=== PATIENT | male | born 1955 | race Caucasian/White ===

== ENCOUNTER → 2017-01-29 | Outpatient (CLI) | payer BC ==
[2017-01-29 10:22] LABS: CHLORIDE,CL 102 mmol/L (98-110); SODIUM,NA 138 mmol/L (136-146)
--- NOTE | 2017-01-29 12:36 | CR ---
EXAMINATION: Two-view chest (PA and Lateral views). HISTORY: Preprocedural encounter. FINDINGS: The trachea is midline. The cardiomediastinal silhouette is within normal limits. No pulmonary infil trates, effusions or pneumothorax. There is mild hyperinflation and interstitial prominence. There is a possible 1 cm nodule within the upper lungs anteriorly on the lateral film. Osseous structures appear unremarkable. IMPRESSION: 1. No acute cardiopulmonary process. 2. Possible small 1 cm nodule in an upper lung on the lateral image. Correlation with a CT may be be neficial.
== END ==
LOC: MW.CHFP 09:13
PROVIDERS: ATTEND Nurse Practitioner Family
DX: Z01.818 Encounter for other preprocedural examination (principal); I10 Essential (primary) hypertension
CPT/HCPCS: 36415; 71020; 80053; 80061; 85027; 86803; 93005; G0103

== ENCOUNTER → 2017-02-05 | Outpatient (CLI) | payer BC ==
--- NOTE | 2017-02-07 17:55 | ECHO ---
EXAM DATE: 02/05/17 The echocardiogram report can be seen in this patient's EMR (Electronic Medical Record) in the Reports section. PEDRO LUIS
== END ==
LOC: MW.US 09:12
PROVIDERS: ATTEND Nurse Practitioner Family
DX: R09.89 Other specified symptoms and signs involving the circulatory and respiratory systems (principal)
CPT/HCPCS: 93306

== ENCOUNTER → 2017-02-25 | Outpatient (CLI) | payer BC ==
[2017-02-25 10:08] LABS: CHLORIDE,CL 103 mmol/L (98-110); SODIUM,NA 140 mmol/L (136-146)
== END ==
LOC: MW.CHIM 09:26
PROVIDERS: ATTEND Internal Medicine
DX: I10 Essential (primary) hypertension (principal)
CPT/HCPCS: 36415; 80053; 82550

== ENCOUNTER 2017-03-15 14:14 | Emergency (ER) | payer BC ==
--- NOTE | 2017-03-15 15:12 | EDM.PDOC ---
ED HPI GENERAL MEDICAL PROBLEM - General Chief Complaint: General Stated Complaint: R LEG NUMBNESS Time Seen by Provider: 03/15/17 14:17 Source of Information: Reports: Patient, Family History Limitations: Reports: No Limitations - History of Present Illness INITIAL COMMENTS - FREE TEXT/NARRATIVE: History of present illness: [61-year-old male presenting with complaints of numbness to his right leg. Indicates it's primarily from the knee down.] Review of systems: As per history of present illness and below otherwise all systems reviewed and negative. Past medical history: As per history of present illness and as reviewed below otherwise noncontributory. Surgical history: As per history of present illness and as reviewed below otherwise noncontributory. Social history: No reported history of drug or alcohol abuse. Family history: As per history of present illness and as reviewed below otherwise noncontributory. Physical exam: HEENT: Atraumatic, normocephalic, pupils reactive, negative for conjunctival pallor or scleral icterus, mucous membranes moist, throat clear, neck supple, nontender, trachea midline. Lungs: Clear to auscultation, breath sounds equal bilaterally, chest nontender. Heart: S1S2, regular, negative for clicks, rubs, or JVD. Abdomen: Soft, nondistended, nontender. Negative for masses or hepatosplenomegaly. Negative for costovertebral tenderness. Pelvis: Stable nontender. Genitourinary: Deferred. Rectal: Deferred. Extremities: Atraumatic, negative for cords or calf pain. Neurovascular unremarkable. Neuro: Awake, alert, oriented. Cranial nerves II through XII unremarkable. Cerebellum unremarkable. Motor and sensory unremarkable throughout. Exam nonfocal. Global assessment is benign save that is the subjective complaint as noted in history of present illness. X-ray showing some scoliosis as well as some atherosclerotic disease and also grade 1 anterolisthesis and a lumbar spine with associated joint degenerative changes. Diagnostics: [X-ray lumbar spine, venous Doppler of right leg CBC, CMP] Therapeutics: [] Impression: [Lower back pain] Plan: [Followup with primary] Definitive disposition and diagnosis as appropriate pending reevaluation and review of above. - Related Data Allergies Allergy/AdvReac Type Severity Reaction Status Date / Time No Known Allergies Allergy Verified 03/15/17 14:26 Home Meds: Home Meds Esomeprazole [NexIUM] 40 mg PO DAILY 07/06/15 [History] amLODIPine [Norvasc] 10 mg PO DAILY 03/15/17 [History] Past Medical History - Past Health History Medical/Surgical History: Denies Medical/Surgical History Cardiovascular History: Reports: Hypertension Gastrointestinal History: Reports: GERD Other Gastrointestinal History: Claimed to have severe ulcer Genitourinary History: Reports: Renal Calculus - Infectious Disease History Infectious Disease History: Reports: Chicken Pox, Measles, Mumps Social & Family History - Family History Family Medical History: Noncontributory - Tobacco Use Smoking Status *Q: Current Every Day Smoker Years of Tobacco use: 30 Packs/Tins Daily: 0.5 Used Tobacco, but Quit: No Second Hand Smoke Exposure: Yes - Caffeine Use Caffeine Use: Reports: Coffee Caffeine Use Comment: 2-3/day - Alcohol Use Days Per Week of Alcohol Use: 7 Number of Drinks Per Day: 2 Total Drinks Per Week: 14 - Recreational Drug Use Recreational Drug Use: No ED ROS GENERAL - Review of Systems Review Of Systems: See Below (See history of present illness) ED EXAM, GENERAL - Physical Exam Exam: See Below (See history of present illness) Course - Vital Signs Last Recorded V/S: Last Vital Signs Temp 36.6 C 03/15/17 14:23 Pulse 98 03/15/17 14:23 Resp 20 03/15/17 14:23 BP 144/93 H 03/15/17 14:23 Pulse Ox 94 L 03/15/17 14:23 Departure - Departure Time of Disposition: 16:50 Disposition: Home, Self-Care 01 Condition: good Clinical Impression: Low back pain - Discharge Information Additional Instructions: The following information is given to patients seen in the emergency department who are being discharged to home. This information is to outline your options for follow-up care. We provide all patients seen in our emergency department with a follow-up referral. The need for follow-up, as well as the timing and circumstances, are variable depending upon the specifics of your emergency department visit. If you don't have a primary care physician on staff, we will provide you with a referral. We always advise you to contact your personal physician following an emergency department visit to inform them of the circumstance of the visit and for follow-up with them and/or the need for any referrals to a consulting specialist. The emergency department will also refer you to a specialist when appropriate. This referral assures that you have the opportunity for follow-up care with a specialist. All of these measure are taken in an effort to provide you with optimal care, which includes your follow-up. Under all circumstances we always encourage you to contact your private physician who remains a resource for coordinating your care. When calling for follow-up care, please make the office aware that this follow-up is from your recent emergency room visit. If for any reason you are refused follow-up, please contact the [facility] Emergency Department at and asked to speak to the emergency department charge nurse. Followup the primary care Return to ED as needed as discussed
[2017-03-15 16:03] LABS: CHLORIDE,CL 97 mmol/L (98-110); SODIUM,NA 132 mmol/L (136-146)
--- NOTE | 2017-03-15 16:45 | US ---
EXAM DATE: 03/15/17 PATIENT'S AGE: 61 Patient: SUJATA GARCIA Facility: [place], [place] Site . Site : 1955 Study: US Extremity Right [id number]/2/2017 3:56:44 PM Ordering Physician: Doctor Sanders Final Report: INDICATION: Right leg pain. Right leg pain x8 months, increasing numbness today. TECHNIQUE: Ultrasound venous duplex lower right extremity. Compression venous exam was performed using ying-scale, color Doppler, and spectral Doppler imaging. COMPARISON: None FINDINGS: Visualized right common femoral, greater saphenous, deep femoral, superficial femoral, popliteal, tibial and peroneal veins are patent, without evidence of venous thrombosis. Soft tissues elsewhere as imaged are unremarkable. IMPRESSION: No right lower extremity deep venous thrombosis. Dictated by Mihir Clemens MD @ 03/15/2017 4:11:21 PM Dictated by: Mihir Clemens MD @ 03/15/2017 16:11:25 (Electronic Signature) Report Signed by Proxy. [facility]
--- NOTE | 2017-03-15 16:46 | CR ---
EXAM DATE: 03/15/17 PATIENT'S AGE: 61 Patient: SUJATA GARCIA Facility: [place], [place] Site . Site : 1955 Study: XRay Spine Lumbar [id number] 4:01:26 PM Ordering Physician: Doctor Sanders Final Report: INDICATION: pain TECHNIQUE: Lumbar spine 3 view COMPARISON: None FINDINGS: Bones: No fractures or significant bone lesions. Joints: Dextro rotoscoliosis of the lumbar spine centered at the L3 level with associated degenerative changes. Grade 1 anterolisthesis of L2 on L3. Soft tissues: Atherosclerotic disease. IMPRESSION: No acute bony abnormality of the lumbar spine. Dictated by Gagandeep Macias MD @ 03/15/2017 4:21:54 PM Dictated by: Gagandeep Macias MD @ 03/15/2017 16:22:00 (Electronic Signature) Report Signed by Proxy. PEDRO LUIS
[2017-03-15 17:17] VITALS: BP 140/94
== END 2017-03-15 17:10 | disposition home or self-care (01) ==
LOC: MW.ED 14:14
DX: M54.5 Low back pain (principal); I10 Essential (primary) hypertension; K21.9 Gastro-esophageal reflux disease without esophagitis; F17.210 Nicotine dependence, cigarettes, uncomplicated; Z79.899 Other long term (current) drug therapy
CPT/HCPCS: 36415; 72100; 72100-26; 80053; 83036; 85025; 93971-26-RT; 93971-RT; 99282; 99284-25

== ENCOUNTER 2018-01-08 08:58 | Day surgery (SDC) | payer BC ==
[~2018-01-08 08:58] MED LIST: Bupivacaine 0.25%/EPINEPHrine 1:200,000 10 ML SDV INJECT ONE; Bupivacaine 25%/EPINEPHrine/PF 30 ML ONE; Dexamethasone/Tobramycin 0.1-0.3% Ophth Oint 3.5 GM Tube ONE; Dexamethasone/Tobramycin 0.1-0.3% Ophth Susp 2.5 ML Bottle ONE; Lactated Ringers 1,000 ML IV SCH; Tetracaine 0.5% Ophth Soln 15 ML Bottle ONE; ceFAZolin 2 GM in Premix Bag 1 BAG IV ONE; traMADol 50 MG Tab PO PRN
[2018-01-08] MEDS ORDERED: Midazolam 1 MG/ML 2 ML SDV ONE (09:04)
[2018-01-08] MEDS ORDERED: Lidocaine 2% 5 ML SDV ONE (09:04)
[2018-01-08] MEDS ORDERED: Propofol 200 MG/20 ML SDV ONE ×2 (09:04→09:49)
[2018-01-08] MEDS ORDERED: fentaNYL 100 MCG/2 ML SDV ONE ×2 (09:04→10:00)
[2018-01-08] MEDS ORDERED: ceFAZolin/Dextrose,Iso-Osmotic 2 GM/50 ML Duplex Bag IV ONE (09:35)
--- NOTE | 2018-01-08 09:42 | PCM.HP ---
H&P History of Present Illness - General Date of Service: 01/08/18 Admit Problem/Dx: dermatochalasis bilateral upper lids Source of Information: Patient, Old Records, RN History Limitations: Reports: No Limitations - History of Present Illness Initial Comments - Free Text/Narative: bilateral excess upper eyelid skin causing visual obstruction. Here for removal of the excess skin. Risks and benefits reviewed and informed consent obtained. Onset of Symptoms: Reports: Gradual Duration of Symptoms: Reports: Getting Worse Location: Reports: Face Severity: Severe Improves with: Reports: None Worsens with: Reports: None Associated Symptoms: Reports: No Other Symptoms - Related Data Allergies/Adverse Reactions: Allergies Allergy/AdvReac Type Severity Reaction Status Date / Time No Known Allergies Allergy Verified 01/03/18 07:15 Home Medications: Home Meds Esomeprazole [NexIUM] 40 mg PO DAILY 07/06/15 [History] amLODIPine [Norvasc] 10 mg PO BEDTIME 03/15/17 [History] Past Medical History - Past Health History Medical/Surgical History: Denies Medical/Surgical History HEENT History: Reports: Cataract, Other (See Below) Other HEENT History: has upper and lower dentures Cardiovascular History: Reports: Hypertension Respiratory History: Reports: Other (See Below) Other Respiratory History: being tested for sleep apnea soon Gastrointestinal History: Reports: GERD, PUD Other Gastrointestinal History: Claimed to have severe ulcer Genitourinary History: Reports: Renal Calculus Musculoskeletal History: Reports: Neck Pain, Chronic - Infectious Disease History Infectious Disease History: Reports: Chicken Pox, Measles, Mumps - Past Surgical History HEENT Surgical History: Reports: Cataract Surgery GI Surgical History: Reports: Appendectomy, Colonoscopy Social & Family History - Family History Family Medical History: Noncontributory - Tobacco Use Smoking Status *Q: Former Smoker Years of Tobacco use: 30 Packs/Tins Daily: 0.5 Used Tobacco, but Quit: No Tobacco Use Comment: quit 6 months ago Second Hand Smoke Exposure: Yes - Caffeine Use Caffeine Use: Reports: Coffee Caffeine Use Comment: 2-3/day - Alcohol Use Days Per Week of Alcohol Use: 7 Number of Drinks Per Day: 2 Total Drinks Per Week: 14 - Recreational Drug Use Recreational Drug Use: No Drug Use in Last 12 Months: No H&P Review of Systems - Review of Systems: Review Of Systems: See Below General: Reports: No Symptoms HEENT: Reports: No Symptoms Pulmonary: Reports: No Symptoms Cardiovascular: Reports: No Symptoms Skin: Reports: No Symptoms Psychiatric: Reports: No Symptoms Neurological: Reports: No Symptoms Exam - Exam Exam: See Below - Vital Signs Vital Signs: Last Vital Signs Temp 98.2 F 01/08/18 09:26 Pulse 89 01/08/18 09:26 Resp 16 01/08/18 09:26 BP 146/96 H 01/08/18 09:27 Pulse Ox 92 L 01/08/18 09:26 Weight: 216 lb - Exam General: Alert, Oriented, Cooperative HEENT: EOMI, Pupils Equal, Pupils Reactive, Other (neck stiffness today. Bilaterl dermatochalasis with visual obstruction - significant visual compromise with MRD's of 0 to negative values. Visual field examws with significnat compromise. ) Neck: Supple Lungs: Clear to Auscultation, Normal Respiratory Effort Cardiovascular: Regular Rate, Regular Rhythm Extremities: Normal Inspection Skin: Warm, Dry, Intact Neurological: Cranial Nerves Intact Neuro Extensive - Mental Status: Alert, Oriented x3, Normal Mood/Affect, Normal Cognition, Memory Intact Psychiatric: Alert, Normal Affect, Normal Mood *Q Meaningful Use (ADM) - VTE *Q VTE Anticoagulation Contraindications: Med/TX Not Indicated/Need - VTE Risk Assess *Q Each Risk Factor Represents 1 Point: Minor Surgery Planned Total Score 1 Point Risk Factors: 1 Each Risk Factor Represents 2 Points: Age 60 - 74 Years Total Score 2 Point Risk Factors: 2 Each Risk Factor Represents 3 Points: None Total Score 3 Point Risk Factors: 0 Each Risk Factor Represents 5 Points: None Total Score 5 Point Risk Factors: 0 Venous Thromboembolism Risk Factor Score *Q: 3 - Stroke *Q Anticoagulation Contraindications Stroke *Q: Med/TX Not Indicated/Need Antithrombotic Contraindications Stroke *Q: Med/TX Not Indicated/Need Thrombolytic/Fibrinolytic Contraindications Stroke *Q: Med/TX Not Indicated/Need Statin Contraindications Stroke *Q: Med/TX Not Indicated/Need Rehabilitation Assessment Contraindication *Q: Med/tx not indicated/need - AMI *Q Aspirin Contraindications AMI *Q: Med/TX Not Indicated/Need Thrombolytic/Fibrinolytic Contraindications IV (AMI) *Q: Med/tx not indicated/ need Statin Contraindications AMI *Q: Med/TX Not Indicated/Need Problem List Initiated/Reviewed/Updated: Yes Orders Last 24hrs: Active Orders 24 hr Category Date Time Status Verify Patient Consent Obtain [RC] ASDIRECTED Care 01/08/18 08:00 Active Nothing Per Oral Diet [DIET] Diet 01/08/18 Breakfast Active Lactated Ringers [Ringers, Lactated] 1,000 ml Med 01/08/18 08:00 Active IV ASDIRECTED traMADol [Ultram] Med 01/08/18 08:00 Active 50 mg PO Q4H PRN Resuscitation Status Routine Resus Stat 01/07/18 18:52 Ordered Medication Orders Lactated Ringer's (Ringers, Lactated) 1,000 mls @ 125 mls/hr IV ASDIRECTED HAYDEE Last Admin: 01/08/18 09:24 Dose: 125 mls/hr Tramadol HCl (Ultram) 50 mg PO Q4H PRN PRN Reason: Pain Assessment/Plan Comment:: To OR today for bilateral upper lid bleopharoplasties for excess skin. Informed consent obtained. Local MAC anesthesia.
[2018-01-08] MEDS ORDERED: diphenhydrAMINE 50 MG/ML SDV ONE (09:59)
[2018-01-08] MEDS ORDERED: hydrALAZINE 20 MG/ML SDV IVPUSH SCH (10:45)
--- NOTE | 2018-01-08 10:48 | PCM48HPAN ---
Post Anesthesia Note - EVALUATION WITHIN 48HRS OF ANESTHETIC Vital Signs in Normal Range: Yes Patient Participated in Evaluation: Yes Respiratory Function Stable: Yes Airway Patent: Yes Cardiovascular Function Stable: Yes (elevated BP treated with hydralazine) Hydration Status Stable: Yes Pain Control Satisfactory: Yes Nausea and Vomiting Control Satisfactory: Yes Mental Status Recovered: Yes Resp Rate: 16 - COMMENTS/OBSERVATIONS Free Text/Narrative:: Persistent elevation of diastolic BP treated with hydralazine. Patient planned appointment with neurology physician assistant this week.
--- NOTE | 2018-01-08 11:29 | PCM.PREANE ---
Preanesthetic Assessment - Anesthesia/Transfusion/Family Hx Anesthesia History: Prior Anesthesia Without Reaction Family History of Anesthesia Reaction: No Transfusion History: No Prior Transfusion(s) Intubation History: Unknown - Review of Systems General: No Symptoms Pulmonary: No Symptoms Cardiovascular: No Symptoms Gastrointestinal: No Symptoms Neurological: No Symptoms Other: Reports: None - Physical Assessment O2 Sat by Pulse Oximetry: 92 Respiratory Rate: 16 Vital Signs: Last Vital Signs Temp 36.8 C 01/08/18 09:26 Pulse 89 01/08/18 09:26 Resp 16 01/08/18 10:48 BP 146/96 H 01/08/18 09:27 Pulse Ox 92 L 01/08/18 09:26 Height: 1.91 m Weight: 97.976 kg ASA Class: 2 Mental Status: Alert & Oriented x3 Airway Class: Mallampati = 2 Dentition: Reports: Normal Dentition Thyro-Mental Finger Breadths: 3 Mouth Opening Finger Breadths: 3 ROM/Head Extension: Full Lungs: Clear to Auscultation, Normal Respiratory Effort Cardiovascular: Regular Rate, Regular Rhythm - Allergies Allergies/Adverse Reactions: Allergies Allergy/AdvReac Type Severity Reaction Status Date / Time No Known Allergies Allergy Verified 01/03/18 07:15 - Blood Blood Available: No Product(s) Available: None - Acknowledgements Anesthesia Type Planned: MAC Pt an Appropriate Candidate for the Planned Anesthesia: Yes Alternatives and Risks of Anesthesia Discussed w Pt/Guardian: Yes Pt/Guardian Understands and Agrees with Anesthesia Plan: Yes PreAnesthesia Questionnaire - Past Health History Medical/Surgical History: Denies Medical/Surgical History HEENT History: Reports: Cataract, Other (See Below) Other HEENT History: has upper and lower dentures Cardiovascular History: Reports: Hypertension Respiratory History: Reports: Other (See Below) Other Respiratory History: being tested for sleep apnea soon Gastrointestinal History: Reports: GERD, PUD Other Gastrointestinal History: Claimed to have severe ulcer Genitourinary History: Reports: Renal Calculus Musculoskeletal History: Reports: Neck Pain, Chronic - Infectious Disease History Infectious Disease History: Reports: Chicken Pox, Measles, Mumps - Past Surgical History HEENT Surgical History: Reports: Cataract Surgery GI Surgical History: Reports: Appendectomy, Colonoscopy - SUBSTANCE USE Smoking Status *Q: Former Smoker Tobacco Use Within Last Twelve Months: Cigarettes Second Hand Smoke Exposure: Yes Days Per Week of Alcohol Use: 7 Number of Drinks Per Day: 2 Total Drinks Per Week: 14 Recreational Drug Use History: No - HOME MEDS Home Medications: Home Meds Esomeprazole [NexIUM] 40 mg PO DAILY 07/06/15 [History] amLODIPine [Norvasc] 10 mg PO BEDTIME 03/15/17 [History] Acetaminophen/HYDROcodone [Maurice 325-5 MG] 1 tab PO Q4H PRN #30 tablet 01/08/18 [Rx] - CURRENT (IN HOUSE) MEDS Current Meds: Current Medications Hydralazine HCl (Apresoline) 10 mg IVPUSH .ONETIME [facility] Last Admin: 01/08/18 11:00 Dose: 10 mg Lactated Ringer's (Ringers, Lactated) 1,000 mls @ 125 mls/hr IV ASDIRECTED [facility] Last Admin: 01/08/18 09:24 Dose: 125 mls/hr Tramadol HCl (Ultram) 50 mg PO Q4H PRN PRN Reason: Pain Discontinued Medications Bupivacaine HCl/Epinephrine Bitart (Marcaine 0.25%/Epinephrine 1:200,000) 10 ml INJECT ONETIME ONE Stop: 01/08/18 08:01 Cefazolin Sodium/Dextrose (Ancef) Confirm Administered Dose 2 gm IV .STK-MED ONE Stop: 01/08/18 09:36 Diphenhydramine HCl (Benadryl) Confirm Administered Dose 50 mg .ROUTE .STK-MED ONE Stop: 01/08/18 10:00 Fentanyl (Sublimaze) Confirm Administered Dose 100 mcg .ROUTE .STK-MED ONE Stop: 01/08/18 09:05 Fentanyl (Sublimaze) Confirm Administered Dose 100 mcg .ROUTE .STK-MED ONE Stop: 01/08/18 10:01 Cefazolin Sodium/Dextrose 2 gm (/ Premix) 50 mls @ 100 mls/hr IV ONETIME ONE Stop: 01/08/18 08:29 Bupivacaine HCl/Epinephrine Bitart (Sensorc Mpf 0.25%-Epi [id number]) Confirm Administered Dose 30 mls @ as directed .ROUTE .STK-MED ONE Stop: 01/08/18 07:31 Lidocaine (Xylocaine-Mpf 2%) Confirm Administered Dose 5 ml .ROUTE .STK-MED ONE Stop: 01/08/18 09:05 Midazolam HCl (Versed 1 Mg/Ml) Confirm Administered Dose 2 mg .ROUTE .STK-MED ONE Stop: 01/08/18 09:05 Propofol (Diprivan 20 Ml) Confirm Administered Dose 200 mg .ROUTE .STK-MED ONE Stop: 01/08/18 09:05 Propofol (Diprivan 20 Ml) Confirm Administered Dose 200 mg .ROUTE .STK-MED ONE Stop: 01/08/18 09:50 Tetracaine (Tetracaine 0.5% Ophth Soln) Confirm Administered Dose 15 ml .ROUTE .STK-MED ONE Stop: 01/08/18 07:31 Tobramycin/Dexamethasone (Tobradex Ophth Susp) Confirm Administered Dose 2.5 ml .ROUTE .STK-MED ONE Stop: 01/08/18 07:31 Tobramycin/Dexamethasone (Tobradex Ophth Oint) Confirm Administered Dose 3.5 gm .ROUTE .STK-MED ONE Stop: 01/08/18 07:31
[2018-01-08 13:22] VITALS: BP 147/95
--- NOTE | 2018-01-08 16:18 | PCM.OPNOTE ---
- General Post-Op/Procedure Note Date of Surgery/Procedure: 01/08/18 Operative Procedure(s): bilateral upper lid blepharoplasties for excess skin Pre Op Diagnosis: dermatochalasis bilateral Post-Op Diagnosis: Same Anesthesia Technique: Local, MAC Primary Surgeon: Jacqueline Damico Environmental Sampler: Olinda Bai Role of Environmental Sampler: retraction, prepping draping and closure assistance Condition: Good Free Text/Narrative:: Intake & Output 01/08/18 01/08/18 01/08/18 07:59 15:59 23:59 Intake Total 450 Balance 450
--- NOTE | 2018-01-10 15:58 | OR ---
SURGEON: AJ LEIVA MD DATE OF PROCEDURE: 01/08/2018 PREOPERATIVE DIAGNOSIS: Bilateral upper lid dermatochalasis. POSTOPERATIVE DIAGNOSIS: Bilateral upper lid dermatochalasis. PROCEDURE: Bilateral upper lid blepharoplasties for excess skin. PODIATRIC FOOT AND ANKLE SPECIALIST: DEVYN Thompson REASON PODIATRIC FOOT AND ANKLE SPECIALIST WAS NECESSARY: Reason for assistance is for traction, prepping and draping and closure assistance. ANESTHESIA: Local MAC. INDICATIONS: Mr. Lopes is a 62-year-old gentleman with bilateral excess upper eyelid skin. Risks and benefits of blepharoplasties were discussed with him. He has had significant visual improvement with visual field tightening and has failed conservative measures. Risks were including, but not limited to, bleeding, infection, damage to underlying or overlying structures, possible need for future interventions, possible scarring. PROCEDURE IN DETAIL: After informed consent was obtained and placed on the chart, the patient was brought to operating theater and laid in supine position. After adequate local MAC anesthesia was obtained, the bilateral eyes were prepped and draped in a normal fashion. A time-out was completed to confirm side and site. Attention was then paid to marking of approximately 1 cm of maintained upper eyelid skin over the tarsus and an elliptical designed incision of a slightly over 1 cm of excess skin. Once adequately marked and pinch test confirmed sufficient skin removal without lid retraction, the area was anesthetized with 0.25% Marcaine in a field block with epinephrine. Once adequately anesthetized, attention was then paid to the elliptical excision of bilateral upper eyelid excess skin. Once adequately excised, meticulous hemostasis was obtained using Bovie electrocautery. Once adequately hemostased on both eyes, the wounds were closed with deep 4-0 Monocryl stitch and a running subcuticular 6-0 Prolene for the skin. Once both eyes were closed in a symmetric fashion, the suture ends were Steri-Stripped in place using Mastisol on one-eighth of Steri-Strips. The patient tolerated this well. All counts and needles were correct at the end of the case. FOLLOWUP INSTRUCTIONS: The patient will see us in 1 week, sooner if any problems, questions, or concerns. He was given a prescription for pain control if needed. HEGGTHE / MODL /[id number]
== END 2018-01-08 11:40 | disposition home or self-care (01) ==
LOC: MW.SDS 08:58
PROVIDERS: ATTEND Plastic Surgery
DX: H02.834 Dermatochalasis of left upper eyelid (principal); H02.831 Dermatochalasis of right upper eyelid; H02.059 Trichiasis without entropion unspecified eye, unspecified eyelid; I10 Essential (primary) hypertension; K21.9 Gastro-esophageal reflux disease without esophagitis; H26.9 Unspecified cataract; E78.5 Hyperlipidemia, unspecified; R91.1 Solitary pulmonary nodule; G62.9 Polyneuropathy, unspecified; G47.30 Sleep apnea, unspecified; M51.16 Intervertebral disc disorders with radiculopathy, lumbar region; M48.061 Spinal stenosis, lumbar region without neurogenic claudication; M47.896 Other spondylosis, lumbar region; Z79.899 Other long term (current) drug therapy; Z90.49 Acquired absence of other specified parts of digestive tract; Z98.890 Other specified postprocedural states; Z87.891 Personal history of nicotine dependence
CPT/HCPCS: 15822; J0360; J0690; J1200; J2250; J3010; J7120; 00103; A9270-GY; J2704

== ENCOUNTER 2018-07-17 11:36 | Observation (INO) | payer BC ==
[2018-07-17] MEDS ORDERED: Sodium Chloride 0.9% 2.5 ML Syringe FLUSH PRN (11:44)
[2018-07-17] MEDS ORDERED: Sodium Chloride 0.9% 10 ML Syringe FLUSH PRN (11:44)
--- NOTE | 2018-07-17 11:54 | CT ---
EXAMINATION: Non contrast CT head. Coronal and sagittal reformats. HISTORY: Stroke code FINDINGS: No evidence of intra or extra axial hemorrhage, mass, midline shift, hydrocephalus or edema. No hypoattenuation changes in the major vascular territories to suggest acute infarct. No abnormal intracranial calcifications are detected. No evidence of substantial vascular calcificat ions. Mild mucosal thickening within the ethmoid air cells. Mastoid air cells are clear. Orbits and globes are symmetric. Pituitary fossa appears unremarkable. Calvarium is intact. No evidence of skull fracture. IMPRESSION: No acute intracranial findings. The findings were called to the ER at 11:51 AM.
--- NOTE | 2018-07-17 11:56 | EDM.PDOC ---
ED HPI GENERAL MEDICAL PROBLEM - General Chief Complaint: Neuro Symptoms/Deficits Stated Complaint: CHEST PAIN Time Seen by Provider: 07/17/18 11:48 Source of Information: Reports: Patient History Limitations: Reports: No Limitations - History of Present Illness INITIAL COMMENTS - FREE TEXT/NARRATIVE: History of present illness: []Patient awoke this morning normal but at 8:00 started feeling pain in his left arm that radiated to his neck or seated to have numbness in his left hand and then noted numbness in his left face. He denied any chest pain, syncope, shortness of breath, dizziness or lightheadedness. Patient has been seen by Dr. Caal for heart rate problems but denies having atrial fibrillation. Review of systems: As per history of present illness and below otherwise all systems reviewed and negative. Past medical history: As per history of present illness and as reviewed below otherwise noncontributory. Surgical history: As per history of present illness and as reviewed below otherwise noncontributory. Social history: No reported history of drug or alcohol abuse. Family history: As per history of present illness and as reviewed below otherwise noncontributory. Physical exam: General: Well developed, well nourished in NAD HEENT: Atraumatic, normocephalic, pupils reactive, negative for conjunctival pallor or scleral icterus, mucous membranes moist, throat clear, neck supple, nontender, trachea midline. Lungs: Clear to auscultation, breath sounds equal bilaterally, chest nontender. Heart: S1S2, regular, negative for clicks, rubs, or JVD. Abdomen: Soft, nondistended, nontender. Negative for masses or hepatosplenomegaly. Negative for costovertebral tenderness. Pelvis: Stable nontender. Genitourinary: Deferred. Rectal: Deferred. Extremities: Atraumatic, negative for cords or calf pain. Neurovascular unremarkable. Neuro: Awake, alert, oriented. Cranial nerves II through XII unremarkable. Cerebellum unremarkable. Motor and sensory unremarkable throughout. Exam nonfocal. Skin:warm and dry Diagnostics: CT read as negative at 11:50, stroke code workup protocol, NIH of 1 Therapeutics: None ED Course: Patient symptoms subsided after he returned from CT Impression: TIA Prescriptions: None Plan: Admit for observation Definitive disposition and diagnosis as appropriate pending reevaluation and review of above. - Related Data Allergies Allergy/AdvReac Type Severity Reaction Status Date / Time No Known Allergies Allergy Verified 07/17/18 12:06 Home Meds: Home Meds Esomeprazole [NexIUM] 40 mg PO DAILY 07/06/15 [History] Carvedilol 6.25 mg PO DAILY 07/17/18 [History] Losartan/Hydrochlorothiazide [Losartan-HCTZ 100-25 MG] 100.25 mg PO DAILY [History] Past Medical History - Past Health History Medical/Surgical History: Denies Medical/Surgical History HEENT History: Reports: Cataract, Other (See Below) Other HEENT History: has upper and lower dentures Cardiovascular History: Reports: Hypertension Respiratory History: Reports: Other (See Below) Other Respiratory History: being tested for sleep apnea soon Gastrointestinal History: Reports: GERD, PUD Other Gastrointestinal History: Claimed to have severe ulcer Genitourinary History: Reports: Renal Calculus Musculoskeletal History: Reports: Neck Pain, Chronic - Infectious Disease History Infectious Disease History: Reports: Chicken Pox, Measles, Mumps - Past Surgical History HEENT Surgical History: Reports: Cataract Surgery GI Surgical History: Reports: Appendectomy, Colonoscopy Social & Family History - Family History Family Medical History: Noncontributory - Caffeine Use Caffeine Use: Reports: Coffee Caffeine Use Comment: 2-3/day ED ROS GENERAL - Review of Systems Review Of Systems: ROS reveals no pertinent complaints other than HPI. ED EXAM, NEURO - Physical Exam Exam: See Below (See history of present illness) Course - Vital Signs Last Recorded V/S: Last Vital Signs Temp 96.9 F 07/17/18 14:39 Pulse 82 07/17/18 14:39 Resp 16 07/17/18 14:39 BP 175/107 H 07/17/18 14:30 Pulse Ox 94 L 07/17/18 14:39 - Orders/Labs/Meds Orders: Active Orders 24 hr Category Date Time Status Assess Neurological Status [RC] Q12H Care 07/17/18 11:45 Active Bedrest [RC] ASDIRECTED Care 07/17/18 11:45 Active NIH Stroke Scale [RC] ASDIRECTED Care 07/17/18 11:45 Active Nursing Bedside Swallow Screen [RC] ASDIRECTED Care 07/17/18 11:45 Active Stroke Education, General [RC] Click to Edit Care 07/17/18 11:45 Active Sodium Chloride 0.9% [Saline Flush] Med 07/17/18 11:44 Active 10 ml FLUSH ASDIRECTED PRN Sodium Chloride 0.9% [Saline Flush] Med 07/17/18 11:44 Active 2.5 ml FLUSH ASDIRECTED PRN Peripheral IV Insertion Adult [OM.PC] Stat Ot 07/17/18 11:45 Ordered Peripheral IV Insertion Adult [OM.PC] Stat Ot 07/17/18 11:45 Ordered Medication Orders Acetaminophen (Tylenol) 650 mg PO Q4H PRN PRN Reason: Pain (Mild 1-3)/fever Aspirin (Aspirin) 81 mg PO DAILY [facility] Atorvastatin Calcium (Lipitor) 40 mg PO BEDTIME [facility] Enoxaparin Sodium (Lovenox) 40 mg SUBCUT Q24H [facility] Folic Acid (Folic Acid) 1 mg PO DAILY [facility] Sodium Chloride (Normal Saline) 1,000 mls @ 125 mls/hr IV ASDIRECTED [facility] Ibuprofen (Motrin) 600 mg PO Q6H PRN PRN Reason: Pain (mild 1-3) Lorazepam (Ativan) 0 mg IVPUSH Q4H PRN; Protocol PRN Reason: aggitation Ondansetron HCl (Zofran Odt) 4 mg PO Q4H PRN PRN Reason: nausea, able to take PO Ondansetron HCl (Zofran) 4 mg IVPUSH Q4H PRN PRN Reason: Nausea Sodium Chloride (Saline Flush) 10 ml FLUSH ASDIRECTED PRN PRN Reason: Keep Vein Open Sodium Chloride (Saline Flush) 2.5 ml FLUSH ASDIRECTED PRN PRN Reason: Keep Vein Open Temazepam (Restoril) 15 mg PO BEDTIME PRN PRN Reason: Sleep Thiamine HCl (Vitamin B-1) 100 mg PO DAILY [facility] Labs: Laboratory Tests 07/17/18 07/17/18 07/17/18 Range/Units 11:52 11:52 11:52 WBC 3.89 L (4.0-11.0) K/uL RBC 4.50 (4.50-5.90) M/uL Hgb 15.2 (13.0-17.0) g/dL Hct 41.6 (38.0-50.0) % MCV 92.4 (80.0-98.0) fL MCH 33.8 H (27.0-32.0) pg MCHC 36.5 (31.0-37.0) g/dL RDW Std Deviation 44.5 (28.0-62.0) fl RDW Coeff of Monisha 13 (11.0-15.0) % Plt Count 184 (150-400) K/uL MPV 8.60 (7.40-12.00) fL Neut % (Auto) 42.5 L (48.0-80.0) % Lymph % (Auto) 40.9 H (16.0-40.0) % [place] % (Auto) 8.7 (0.0-15.0) % Eos % (Auto) 6.9 (0.0-7.0) % Baso % (Auto) 1.0 (0.0-1.5) % Neut # (Auto) 1.7 (1.4-5.7) K/uL Lymph # (Auto) 1.6 (0.6-2.4) K/uL [place] # (Auto) 0.3 (0.0-0.8) K/uL Eos # (Auto) 0.3 (0.0-0.7) K/uL Baso # (Auto) 0.0 (0.0-0.1) K/uL Nucleated RBC % 0.0 /100WBC Nucleated RBCs # 0 K/uL INR 1.05 APTT 26.1 (18.6-31.3) SEC Sodium 127 L (136-148) mmol/L Potassium 3.4 L (3.5-5.1) mmol/L Chloride 88 L (98-107) mmol/L Carbon Dioxide 29.3 (21.0-32.0) mmol/L BUN 9 (7.0-18.0) mg/dL Creatinine 0.8 (0.8-1.3) mg/dL Est Cr Clr Drug Dosing 111.49 mL/min Estimated GFR (MDRD) > 60.0 ml/min Glucose 101 (74-106) mg/dL Calcium 8.6 (8.5-10.1) mg/dL Total Bilirubin 0.4 (0.2-1.0) mg/dL AST 25 (15-37) IU/L ALT 33 (14-63) IU/L Alkaline Phosphatase 63 (46-116) U/L Troponin I < 0.050 (0.000-0.056) ng/mL Total Protein 7.0 (6.4-8.2) g/dL Albumin 3.4 (3.4-5.0) g/dL Globulin 3.6 H (2.0-3.5) g/dL Albumin/Globulin Ratio 0.9 L (1.3-2.8) TSH 3rd Generation 0.83 (0.36-3.74) uIU/mL Meds: Medications Generic Name Dose Route Start Last Admin Trade Name Freq PRN Reason Stop Dose Admin Acetaminophen 650 mg 07/17/18 14:39 Tylenol PO Q4H PRN Pain (Mild 1-3)/fever Aspirin 81 mg 07/18/18 09:00 Aspirin PO DAILY [facility] Atorvastatin Calcium 40 mg 07/17/18 21:00 Lipitor PO BEDTIME [facility] Enoxaparin Sodium 40 mg 07/17/18 16:00 Lovenox SUBCUT Q24H [facility] Folic Acid 1 mg 07/17/18 15:15 Folic Acid PO DAILY [facility] Sodium Chloride 1,000 mls @ 125 mls/hr 07/17/18 14:45 Normal Saline IV ASDIRECTED [facility] Ibuprofen 600 mg 07/17/18 14:39 Motrin PO Q6H PRN Pain (mild 1-3) Lorazepam 0 mg 07/17/18 15:10 Ativan IVPUSH Q4H PRN aggitation Protocol Ondansetron HCl 4 mg 07/17/18 14:39 Zofran Odt PO Q4H PRN nausea, able to take PO Ondansetron HCl 4 mg 07/17/18 14:39 Zofran IVPUSH Q4H PRN Nausea Sodium Chloride 10 ml 07/17/18 11:44 Saline Flush FLUSH ASDIRECTED PRN Keep Vein Open Sodium Chloride 2.5 ml 07/17/18 11:44 Saline Flush FLUSH ASDIRECTED PRN Keep Vein Open Temazepam 15 mg 07/17/18 14:39 Restoril PO BEDTIME PRN Sleep Thiamine HCl 100 mg 07/17/18 15:15 Vitamin B-1 PO DAILY [facility] Discontinued Medications Generic Name Dose Route Start Last Admin Trade Name Freq PRN Reason Stop Dose Admin Carvedilol 6.25 mg 07/18/18 09:00 Coreg PO DAILY [facility] HCTZ/Losartan Potassium 2 tab 07/18/18 09:00 Hyzaar 50-12.5 Mg PO DAILY [facility] Potassium Chloride 40 meq 07/17/18 14:51 Klor-Con M20 PO 07/17/18 14:52 ONETIME ONE Departure - Departure Time of Disposition: 13:30 Disposition: Refer to Observation Clinical Impression: TIA (transient ischemic attack) - Discharge Information *PRESCRIPTION DRUG MONITORING PROGRAM REVIEWED*: No *COPY OF PRESCRIPTION DRUG MONITORING REPORT IN PATIENT KEI: No - My Orders Last 24 Hours: My Active Orders 07/17/18 11:44 Sodium Chloride 0.9% [Saline Flush] 10 ml FLUSH ASDIRECTED PRN Sodium Chloride 0.9% [Saline Flush] 2.5 ml FLUSH ASDIRECTED PRN 07/17/18 11:45 Assess Neurological Status [RC] Q12H Bedrest [RC] ASDIRECTED NIH Stroke Scale [RC] ASDIRECTED Nursing Bedside Swallow Screen [RC] ASDIRECTED Stroke Education, General [RC] Click to Edit Peripheral IV Insertion Adult [OM.PC] Stat Peripheral IV Insertion Adult [OM.PC] Stat - Assessment/Plan Last 24 Hours: My Active Orders 07/17/18 11:44 Sodium Chloride 0.9% [Saline Flush] 10 ml FLUSH ASDIRECTED PRN Sodium Chloride 0.9% [Saline Flush] 2.5 ml FLUSH ASDIRECTED PRN 07/17/18 11:45 Assess Neurological Status [RC] Q12H Bedrest [RC] ASDIRECTED NIH Stroke Scale [RC] ASDIRECTED Nursing Bedside Swallow Screen [RC] ASDIRECTED Stroke Education, General [RC] Click to Edit Peripheral IV Insertion Adult [OM.PC] Stat Peripheral IV Insertion Adult [OM.PC] Stat
[2018-07-17 12:40] LABS: CHLORIDE,CL 88 mmol/L (98-107); SODIUM,NA 127 mmol/L (136-148)
[2018-07-17] MEDS ORDERED: Ondansetron 4 MG/2 ML SDV IVPUSH PRN (14:39)
[2018-07-17] MEDS ORDERED: Temazepam 15 MG Cap PO PRN (14:39)
[2018-07-17] MEDS ORDERED: Acetaminophen 325 MG Tab PO PRN (14:39)
[2018-07-17] MEDS ORDERED: Ibuprofen 600 MG Tab PO PRN (14:39)
[2018-07-17] MEDS ORDERED: Ondansetron 4 MG Tab.DIS PO PRN (14:39)
[2018-07-17] MEDS ORDERED: Potassium Chloride 20 MEQ Tab.ER PO ONE (14:51)
[2018-07-17] MEDS ORDERED: LORazepam 2 MG/ML SDV IVPUSH PRN (15:10)
[2018-07-17] MEDS ORDERED: Enoxaparin 40 MG/0.4 ML Syringe SUBCUT SCH (16:00)
[2018-07-17] MEDS: Folic Acid 1 MG Tab PO SCH (16:55)
[2018-07-17] MEDS: Thiamine 100 MG Tab PO SCH (16:56)
[2018-07-17] MEDS ORDERED: Magnesium Sulfate/Water 2 GM in Premix Bag 1 BAG IV ONE (17:29)
--- NOTE | 2018-07-17 17:51 | PCM.HP ---
H&P History of Present Illness - General Date of Service: 07/17/18 Admit Problem/Dx: Admission Diagnosis/Problem Admission Diagnosis/Problem TIA, Transient ischemic attack - History of Present Illness Initial Comments - Free Text/Narative: Hima Lopes is a 62 y/o male with history of alcohol abuse presenting to the ER complaining of left arm numbness and tingling. Per patient and family member the patient was at home getting ready to go to work when suddenly he felt his left arm getting numb and tingling. In addition, he started feeling his left side of the brain getting numb. He denies any headache, change in vision. His was home and did not notice any acute changes in his speech or movement. The patient drinks approximately 1/2 bottle of rum per day. Denies smoking or illicit drug use. States he has a family history of heart disease. Denies any diaphoresis, chest pain, nausea, vomiting. No abdominal pain, dysuria or diarrhea. - Related Data Allergies/Adverse Reactions: Allergies Allergy/AdvReac Type Severity Reaction Status Date / Time No Known Allergies Allergy Verified 07/17/18 12:06 Home Medications: Home Meds Esomeprazole [NexIUM] 40 mg PO DAILY 07/06/15 [History] Carvedilol 6.25 mg PO DAILY 07/17/18 [History] Losartan/Hydrochlorothiazide [Losartan-HCTZ 100-25 MG] 100.25 mg PO DAILY [History] Past Medical History - Past Health History Medical/Surgical History: Denies Medical/Surgical History HEENT History: Reports: Cataract, Other (See Below) Other HEENT History: has upper and lower dentures Cardiovascular History: Reports: Hypertension Respiratory History: Reports: Other (See Below) Other Respiratory History: being tested for sleep apnea soon Gastrointestinal History: Reports: GERD, PUD Other Gastrointestinal History: Claimed to have severe ulcer Genitourinary History: Reports: Renal Calculus Musculoskeletal History: Reports: Neck Pain, Chronic Neurological History: Reports: Concussion, Migraines - Infectious Disease History Infectious Disease History: Reports: Chicken Pox, Measles, Mumps - Past Surgical History HEENT Surgical History: Reports: Cataract Surgery GI Surgical History: Reports: Appendectomy, Colonoscopy Social & Family History - Family History Family Medical History: Noncontributory - Tobacco Use Smoking Status *Q: Former Smoker Years of Tobacco use: 45 Packs/Tins Daily: 2 Used Tobacco, but Quit: Yes Month/Year Tobacco Last Used: 45 yrs Second Hand Smoke Exposure: No - Caffeine Use Caffeine Use: Reports: Coffee Caffeine Use Comment: 2-3/day - Alcohol Use Days Per Week of Alcohol Use: 7 Number of Drinks Per Day: 2 Total Drinks Per Week: 14 Date of Last Drink: 07/16/18 Time of Last Drink: 21:30 - Recreational Drug Use Recreational Drug Use: No H&P Review of Systems - Review of Systems: Review Of Systems: ROS reveals no pertinent complaints other than HPI. Exam - Exam Exam: See Below - Vital Signs Vital Signs: Last Vital Signs Temp 36.2 C 07/17/18 16:00 Pulse 77 07/17/18 16:00 Resp 16 07/17/18 16:00 BP 172/97 H 07/17/18 16:00 Pulse Ox 96 07/17/18 16:00 Weight: 104.071 kg - Exam General: Alert, Oriented, Cooperative HEENT: Conjunctiva Clear, Mucosa Moist & [place], Posterior Pharynx Clear, Pupils Equal, Pupils Reactive Neck: Full Range of Motion Lungs: Clear to Auscultation, Normal Respiratory Effort. No: Crackles, Wheezing Cardiovascular: Regular Rate, Regular Rhythm GI/Abdominal Exam: Normal Bowel Sounds, Soft, Non-Tender, No Distention Back Exam: Normal Inspection, Full Range of Motion Extremities: Normal Inspection, Normal Range of Motion, Non-Tender, No Pedal Edema Skin: Warm, Dry Neurological: Cranial Nerves Intact, Strength Equal Bilateral, Normal Gait, Normal Speech, Other (decreased sensation on his left arm. strength intact and full range of motion.) - Patient Data Lab Results Last 24 hrs: Laboratory Results - last 24 hr 07/17/18 07/17/18 07/17/18 Range/Units 11:52 11:52 11:52 WBC 3.89 L (4.0-11.0) K/uL RBC 4.50 (4.50-5.90) M/uL Hgb 15.2 (13.0-17.0) g/dL Hct 41.6 (38.0-50.0) % MCV 92.4 (80.0-98.0) fL MCH 33.8 H (27.0-32.0) pg MCHC 36.5 (31.0-37.0) g/dL RDW Std Deviation 44.5 (28.0-62.0) fl RDW Coeff of Monisha 13 (11.0-15.0) % Plt Count 184 (150-400) K/uL MPV 8.60 (7.40-12.00) fL Neut % (Auto) 42.5 L (48.0-80.0) % Lymph % (Auto) 40.9 H (16.0-40.0) % [place] % (Auto) 8.7 (0.0-15.0) % Eos % (Auto) 6.9 (0.0-7.0) % Baso % (Auto) 1.0 (0.0-1.5) % Neut # (Auto) 1.7 (1.4-5.7) K/uL Lymph # (Auto) 1.6 (0.6-2.4) K/uL [place] # (Auto) 0.3 (0.0-0.8) K/uL Eos # (Auto) 0.3 (0.0-0.7) K/uL Baso # (Auto) 0.0 (0.0-0.1) K/uL Nucleated RBC % 0.0 /100WBC Nucleated RBCs # 0 K/uL INR 1.05 APTT 26.1 (18.6-31.3) SEC Sodium 127 L (136-148) mmol/L Potassium 3.4 L (3.5-5.1) mmol/L Chloride 88 L (98-107) mmol/L Carbon Dioxide 29.3 (21.0-32.0) mmol/L BUN 9 (7.0-18.0) mg/dL Creatinine 0.8 (0.8-1.3) mg/dL Est Cr Clr Drug Dosing 111.49 mL/min Estimated GFR (MDRD) > 60.0 ml/min Glucose 101 (74-106) mg/dL Hemoglobin A1c (4.5-6.2) % Calcium 8.6 (8.5-10.1) mg/dL Magnesium (1.8-2.4) mg/dL Total Bilirubin 0.4 (0.2-1.0) mg/dL AST 25 (15-37) IU/L ALT 33 (14-63) IU/L Alkaline Phosphatase 63 (46-116) U/L Troponin I < 0.050 (0.000-0.056) ng/mL Total Protein 7.0 (6.4-8.2) g/dL Albumin 3.4 (3.4-5.0) g/dL Globulin 3.6 H (2.0-3.5) g/dL Albumin/Globulin Ratio 0.9 L (1.3-2.8) Triglycerides (0-200) mg/dL Cholesterol (50-200) mg/dL LDL Cholesterol, Calc (60-180) mg/dL VLDL Cholesterol (5-55) mg/dL HDL Cholesterol (40-60) mg/dL Cholesterol/HDL Ratio (3.3-6.0) TSH 3rd Generation 0.83 (0.36-3.74) uIU/mL 07/17/18 07/17/18 Range/Units 15:07 15:07 WBC (4.0-11.0) K/uL RBC (4.50-5.90) M/uL Hgb (13.0-17.0) g/dL Hct (38.0-50.0) % MCV (80.0-98.0) fL MCH (27.0-32.0) pg MCHC (31.0-37.0) g/dL RDW Std Deviation (28.0-62.0) fl RDW Coeff of Monisha (11.0-15.0) % Plt Count (150-400) K/uL MPV (7.40-12.00) fL Neut % (Auto) (48.0-80.0) % Lymph % (Auto) (16.0-40.0) % [place] % (Auto) (0.0-15.0) % Eos % (Auto) (0.0-7.0) % Baso % (Auto) (0.0-1.5) % Neut # (Auto) (1.4-5.7) K/uL Lymph # (Auto) (0.6-2.4) K/uL [place] # (Auto) (0.0-0.8) K/uL Eos # (Auto) (0.0-0.7) K/uL Baso # (Auto) (0.0-0.1) K/uL Nucleated RBC % /100WBC Nucleated RBCs # K/uL INR APTT (18.6-31.3) SEC Sodium (136-148) mmol/L Potassium (3.5-5.1) mmol/L Chloride (98-107) mmol/L Carbon Dioxide (21.0-32.0) mmol/L BUN (7.0-18.0) mg/dL Creatinine (0.8-1.3) mg/dL Est Cr Clr Drug Dosing mL/min Estimated GFR (MDRD) ml/min Glucose (74-106) mg/dL Hemoglobin A1c 5.8 (4.5-6.2) % Calcium (8.5-10.1) mg/dL Magnesium 1.2 L (1.8-2.4) mg/dL Total Bilirubin (0.2-1.0) mg/dL AST (15-37) IU/L ALT (14-63) IU/L Alkaline Phosphatase (46-116) U/L Troponin I (0.000-0.056) ng/mL Total Protein (6.4-8.2) g/dL Albumin (3.4-5.0) g/dL Globulin (2.0-3.5) g/dL Albumin/Globulin Ratio (1.3-2.8) Triglycerides 65 (0-200) mg/dL Cholesterol 200 (50-200) mg/dL LDL Cholesterol, Calc 121 (60-180) mg/dL VLDL Cholesterol 13 (5-55) mg/dL HDL Cholesterol 66 H (40-60) mg/dL Cholesterol/HDL Ratio 3.0 L (3.3-6.0) TSH 3rd Generation (0.36-3.74) uIU/mL Result Diagrams: 07/17/18 11:52 07/17/18 11:52 Problem List Initiated/Reviewed/Updated: Yes Orders Last 24hrs: Active Orders 24 hr Category Date Time Status Patient Status [ADT] Routine ADT 07/17/18 14:39 Active Patient Status [ADT] Stat ADT 07/17/18 12:44 Active Assess Neurological Status [RC] Q12H Care 07/17/18 11:45 Active Bedrest [RC] ASDIRECTED Care 07/17/18 11:45 Active NIH Stroke Scale [RC] ASDIRECTED Care 07/17/18 11:45 Active Nursing Bedside Swallow Screen [RC] ASDIRECTED Care 07/17/18 11:45 Active Oxygen Therapy [RC] PRN Care 07/17/18 14:39 Active Stroke Education, General [RC] Click to Edit Care 07/17/18 11:45 Active Telemetry Monitoring [Cardiac Monitoring] [RC] . Care 07/17/18 13:48 Active DIRECTED Up With Assistance [RC] ASDIRECTED Care 07/17/18 14:39 Active VTE/DVT Education [RC] PER UNIT ROUTINE Care 07/17/18 14:39 Active Vital Signs [RC] Q4H Care 07/17/18 14:39 Active OT Evaluation and Treatment [CONS] Routine Cons 07/17/18 14:39 Active PT Evaluation and Treatment [CONS] Routine Cons 07/17/18 14:39 Active [place] [employer] Diet [DIET] Diet 07/17/18 Dinner Active Brain w wo Cont [MR] Routine Exams 07/17/18 15:17 Taken CV Carotid Duplex Comp [US] Routine Exams 07/17/18 17:36 Ordered Acetaminophen [Tylenol] Med 07/17/18 14:39 Active 650 mg PO Q4H PRN Aspirin Med 07/18/18 09:00 Active 81 mg PO DAILY Enoxaparin [Lovenox] Med 07/17/18 16:00 Active 40 mg SUBCUT Q24H Folic Acid Med 07/17/18 15:15 Active 1 mg PO DAILY Ibuprofen [Motrin] Med 07/17/18 14:39 Active 600 mg PO Q6H PRN LORazepam [Ativan] Med 07/17/18 15:10 Active See Protocol IVPUSH Q4H PRN Magnesium Sulfate/Water [Magnesium Sulfate 2 GM in Med 07/17/18 17:29 Active Water 50 ML] 2 gm Premix Bag 1 bag IV ONETIME Ondansetron [Zofran ODT] Med 07/17/18 14:39 Active 4 mg PO Q4H PRN Ondansetron [Zofran] Med 07/17/18 14:39 Active 4 mg IVPUSH Q4H PRN Sodium Chloride 0.9% [Normal Saline] 1,000 ml Med 07/17/18 14:45 Active IV ASDIRECTED Sodium Chloride 0.9% [Saline Flush] Med 07/17/18 11:44 Active 10 ml FLUSH ASDIRECTED PRN Sodium Chloride 0.9% [Saline Flush] Med 07/17/18 11:44 Active 2.5 ml FLUSH ASDIRECTED PRN Temazepam [Restoril] Med 07/17/18 14:39 Active 15 mg PO BEDTIME PRN Thiamine [Vitamin B-1] Med 07/17/18 15:15 Active 100 mg PO DAILY atorvaSTATin [Lipitor] Med 07/17/18 21:00 Active 40 mg PO BEDTIME Peripheral IV Insertion Adult [OM.PC] Stat Oth 07/17/18 11:45 Ordered Peripheral IV Insertion Adult [OM.PC] Stat Oth 07/17/18 11:45 Ordered Resuscitation Status Routine Resus Stat 07/17/18 14:39 Ordered Medication Orders Acetaminophen (Tylenol) 650 mg PO Q4H PRN PRN Reason: Pain (Mild 1-3)/fever Aspirin (Aspirin) 81 mg PO DAILY [facility] Atorvastatin Calcium (Lipitor) 40 mg PO BEDTIME [facility] Enoxaparin Sodium (Lovenox) 40 mg SUBCUT Q24H [facility] Last Admin: 07/17/18 16:56 Dose: 40 mg Folic Acid (Folic Acid) 1 mg PO DAILY [facility] Last Admin: 07/17/18 16:55 Dose: 1 mg Sodium Chloride (Normal Saline) 1,000 mls @ 125 mls/hr IV ASDIRECTED [facility] Magnesium Sulfate 2 gm/ Premix 50 mls @ 25 mls/hr IV ONETIME ONE Stop: 07/17/18 19:28 Ibuprofen (Motrin) 600 mg PO Q6H PRN PRN Reason: Pain (mild 1-3) Lorazepam (Ativan) 0 mg IVPUSH Q4H PRN; Protocol PRN Reason: aggitation Ondansetron HCl (Zofran Odt) 4 mg PO Q4H PRN PRN Reason: nausea, able to take PO Ondansetron HCl (Zofran) 4 mg IVPUSH Q4H PRN PRN Reason: Nausea Sodium Chloride (Saline Flush) 10 ml FLUSH ASDIRECTED PRN PRN Reason: Keep Vein Open Sodium Chloride (Saline Flush) 2.5 ml FLUSH ASDIRECTED PRN PRN Reason: Keep Vein Open Temazepam (Restoril) 15 mg PO BEDTIME PRN PRN Reason: Sleep Thiamine HCl (Vitamin B-1) 100 mg PO DAILY [facility] Last Admin: 07/17/18 16:56 Dose: 100 mg Assessment/Plan Comment:: Assessment: 1. Transient ischemic attack 2. Hyponatremia 3. Hypokalemia 4. Hypomagnesemia 5. Alcohol abuse 6. PMH of hypertension Plan: 1. Admit as observation to medical floorl 2. Vitals and I/O's per floor routine. 3. Neuro checks Qshift 4. Diet: diabetic 5. Activity: ad jefe 6. Code status: FULL CODE 1. Transient ischemic attack- Currently stable. Symptoms improving. Ordered MRI brain and MRA neck. Started aspirin 81 mg PO daily, atorvastatin 80 mg PO daily. Holding blood pressure medications for now due to permissive hypertension. Labetalol PRN for SBP >180 or DBP>120. ordered PT/OT. 2. Hyponatremia- will give maintenance NS IV fluids and see if this corrects this. Will recheck tomorrow. 3. Hypokalemia- replaced with KCl 40 mEq PO once. will recheck. 4. Hypomagnesemia- replaced with MgS 2g IV once. will recheck. 5. Alcohol abuse- will start CIWA monitoring and lorazepam PRN for withdrawal symptoms. started folate and thiamine. Dispo: 1-2 days.
[2018-07-17] MEDS ORDERED: Labetalol 100 MG/20 ML MDV IVPUSH PRN (17:52)
[2018-07-17] MEDS: Sodium Chloride 0.9% 1,000 ML IV SCH (18:03)
[2018-07-17] MEDS ORDERED: atorvaSTATin 40 MG Tab PO SCH ×2 (21:00)
[2018-07-18] MEDS: Sodium Chloride 0.9% 1,000 ML IV SCH (04:05)
[2018-07-18 05:44] LABS: CHLORIDE,CL 93 mmol/L (98-107); SODIUM,NA 130 mmol/L (136-148)
[2018-07-18] MEDS ORDERED: Magnesium Sulfate/Water 2 GM in Premix Bag 1 BAG IV ONE (06:58)
[2018-07-18] MEDS ORDERED: Potassium Chloride 20 MEQ Tab.ER PO ONE (06:58)
[2018-07-18] MEDS ORDERED: Gadobenate Dimeglumine 529 MG/ML 20 ML SDV IVPUSH STA (07:43)
[2018-07-18] MEDS: Folic Acid 1 MG Tab PO SCH (08:47)
[2018-07-18] MEDS: Thiamine 100 MG Tab PO SCH (08:48)
[2018-07-18 08:53] VITALS: BP 130/84
[2018-07-18] MEDS ORDERED: Carvedilol 6.25 MG Tab PO SCH (09:00)
[2018-07-18] MEDS ORDERED: Hydrochlorothiazide/Losartan 12.5-50 mg Tab PO SCH (09:00)
[2018-07-18] MEDS ORDERED: Aspirin 81 MG Tab.Chew PO SCH (09:00)
--- NOTE | 2018-07-18 12:52 | MR ---
EXAM DATE: 07/17/18 PATIENT'S AGE: 62 Patient: SUJATA GARCIA Facility: [place], [place] Site . Site : [id number] Study: MRI Head W/ and W/O Cont [id number] 4:42:37 PM Ordering Physician: Sasha Maher Final Report: INDICATION: Transient ischemic attack. Left arm reduced sensation. TECHNIQUE: Multiplanar multisequence MR images were obtained through the brain prior to and following administration of intravenous contrast. COMPARISON: None. FINDINGS: The ventricles and sulci are within normal limits for patient age. No mass effect or midline shift. 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 Adjacent curvilinear enhancement may be secondary to a small developmental venous anomaly. No pathologic extra-axial fluid collection. No areas of diffusion restriction are identified to suggest acute infarction. No pathologic intracranial enhancement. The major arterial flow voids of the skullbase are preserved. Thinning of the ocular lenses secondary to prior cataract surgery. Mild mucosal thickening throughout the paranasal sinuses. Trace fluid in the left mastoid air cells. IMPRESSION: 1. No acute infarction, mass effect, or pathologic intracranial enhancement. 2. Small 4 mm focus of signal abnormality within the high anterior left frontal lobe, potentially representing a small cavernous malformation. No evidence for recent hemorrhage. Adjacent curvilinear enhancement may be secondary to a small developmental venous anomaly. Dictated by Teja Arreaga MD @ Jul 17 2018 4:44PM (Electronic Signature) Report Signed by Proxy. PEDRO LUIS
--- NOTE | 2018-07-18 15:00 | PCM.DCSUM1 ---
Discharge Summary - Hospital Course Free Text/Narrative:: Admission date:07/17/18 Discharge date: 07/18/18 Admission diagnosis: 1. Transient ischemic attack 2. Hypokalemia 3. Hypomagnesemia 4. Hypertension 5. Alcohol abuse Discharge diagnosis: 1. Transient ischemic attack, resolved 2. Hypokalemia, replaced 3. Hypomagnesemia, replaced 4. Hypertension 5. Alcohol abuse Procedures: none Consults: none Hospital course: Hima Lopes is a 62 y/o male who presented to the ER complaining of left arm numbness and decreased sensation. In addition, he endorsed that he felt his speech somewhat slurred. He was admitted for transient ischemic attack. In addition , he had Ativan PRN for withdrawal symptoms according to [facility] monitoring. He did not have any withdrawals during this hospitalization. In addition, imaging which included MRI Brain and neck did not show any acute findings of stroke or carotid stenosis. However, it did show that he has a small 4 mm focus on left side of the brain that resembles a cavernous malformation. The patient was started on aspirin, atorvastatin. At time of discharge, patient's symptoms had resolved and was fully functional. He was prescribed aspirin 81 mg PO daily, atorvastatin 80 mg PO daily and potassium chloride 20 mEq PO daily. He was instructed to avoid driving any motor vehicles until he follows-up with his primary care provider. Follow-up: 1. Primary care provider within 1-[address] Hurtado, Neurology at next available appointment. - Discharge Data Discharge Date: 07/18/18 Discharge Disposition: Home, Self-Care 01 Condition: Good - Patient Summary/Data Consults: Consultations 07/17/18 14:39 OT Evaluation and Treatment [CONS] Routine PT Evaluation and Treatment [CONS] Routine - Discharge Plan *PRESCRIPTION DRUG MONITORING PROGRAM REVIEWED*: Not Applicable *COPY OF PRESCRIPTION DRUG MONITORING REPORT IN PATIENT KEI: Not Applicable Prescriptions/Med Rec: Aspirin 81 mg PO DAILY 30 Days #30 tab.chew atorvaSTATin [Lipitor] 80 mg PO BEDTIME 30 Days #30 tablet Potassium Chloride [Klor-Con M20] 20 meq PO DAILY 30 Days #30 tab.er.prt Home Medications: Home Meds Esomeprazole [NexIUM] 40 mg PO DAILY 07/06/15 [History] Carvedilol 6.25 mg PO DAILY 07/17/18 [History] Losartan/Hydrochlorothiazide [Losartan-HCTZ 100-25 MG] 100.25 mg PO DAILY [History] Aspirin 81 mg PO DAILY 30 Days #30 tab.chew 07/18/18 [Rx] Potassium Chloride [Klor-Con M20] 20 meq PO DAILY 30 Days #30 tab.er.prt [Rx] atorvaSTATin [Lipitor] 80 mg PO BEDTIME 30 Days #30 tablet 07/18/18 [Rx] Patient Handouts: Potassium Salts tablets, extended-release tablets or capsules , Transient Ischemic Attack, [id number], Atorvastatin tablets, Aspirin, ASA oral tablets, Paresthesia, [id number] Referrals: [facility] [Outside] Maida Hurtado MD [Physician] - 07/22/18 2:00 pm Hill Walters MD [Physician] - 07/31/18 9:00 am - Patient Data Vitals - Most Recent: Last Vital Signs Temp 36.4 C 07/18/18 08:00 Pulse 74 07/18/18 08:00 Resp 16 07/18/18 08:00 BP 130/84 07/18/18 08:00 Pulse Ox 94 L 07/18/18 08:00 Weight - Most Recent: 104.071 kg I&O - Last 24 hours: Intake & Output 07/17/18 07/18/18 07/18/18 22:59 06:59 14:59 Intake Total 800 1190 2512 Output Total 0 2050 1500 Balance 800 -860 1012 Lab Results - Last 24 hrs: Laboratory Results - last 24 hr 07/17/18 07/17/18 07/18/18 Range/Units 15:07 15:07 04:50 WBC 4.39 (4.0-11.0) K/uL RBC 4.68 (4.50-5.90) M/uL Hgb 15.5 (13.0-17.0) g/dL Hct 44.0 (38.0-50.0) % MCV 94.0 (80.0-98.0) fL MCH 33.1 H (27.0-32.0) pg MCHC 35.2 (31.0-37.0) g/dL RDW Std Deviation 45.9 (28.0-62.0) fl RDW Coeff of Monisha 13 (11.0-15.0) % Plt Count 201 (150-400) K/uL MPV 9.10 (7.40-12.00) fL Neut % (Auto) 44.8 L (48.0-80.0) % Lymph % (Auto) 34.4 (16.0-40.0) % [place] % (Auto) 12.1 (0.0-15.0) % Eos % (Auto) 8.2 H (0.0-7.0) % Baso % (Auto) 0.5 (0.0-1.5) % Neut # (Auto) 2.0 (1.4-5.7) K/uL Lymph # (Auto) 1.5 (0.6-2.4) K/uL [place] # (Auto) 0.5 (0.0-0.8) K/uL Eos # (Auto) 0.4 (0.0-0.7) K/uL Baso # (Auto) 0.0 (0.0-0.1) K/uL Nucleated RBC % 0.0 /100WBC Nucleated RBCs # 0 K/uL Sodium (136-148) mmol/L Potassium (3.5-5.1) mmol/L Chloride (98-107) mmol/L Carbon Dioxide (21.0-32.0) mmol/L BUN (7.0-18.0) mg/dL Creatinine (0.8-1.3) mg/dL Est Cr Clr Drug Dosing mL/min Estimated GFR (MDRD) ml/min Glucose (74-106) mg/dL Hemoglobin A1c 5.8 (4.5-6.2) % Calcium (8.5-10.1) mg/dL Magnesium 1.2 L (1.8-2.4) mg/dL Triglycerides 65 (0-200) mg/dL Cholesterol 200 (50-200) mg/dL LDL Cholesterol, Calc 121 (60-180) mg/dL VLDL Cholesterol 13 (5-55) mg/dL HDL Cholesterol 66 H (40-60) mg/dL Cholesterol/HDL Ratio 3.0 L (3.3-6.0) 07/18/18 Range/Units 04:50 WBC (4.0-11.0) K/uL RBC (4.50-5.90) M/uL Hgb (13.0-17.0) g/dL Hct (38.0-50.0) % MCV (80.0-98.0) fL MCH (27.0-32.0) pg MCHC (31.0-37.0) g/dL RDW Std Deviation (28.0-62.0) fl RDW Coeff of Monisha (11.0-15.0) % Plt Count (150-400) K/uL MPV (7.40-12.00) fL Neut % (Auto) (48.0-80.0) % Lymph % (Auto) (16.0-40.0) % [place] % (Auto) (0.0-15.0) % Eos % (Auto) (0.0-7.0) % Baso % (Auto) (0.0-1.5) % Neut # (Auto) (1.4-5.7) K/uL Lymph # (Auto) (0.6-2.4) K/uL [place] # (Auto) (0.0-0.8) K/uL Eos # (Auto) (0.0-0.7) K/uL Baso # (Auto) (0.0-0.1) K/uL Nucleated RBC % /100WBC Nucleated RBCs # K/uL Sodium 130 L (136-148) mmol/L Potassium 3.6 (3.5-5.1) mmol/L Chloride 93 L (98-107) mmol/L Carbon Dioxide 30.0 (21.0-32.0) mmol/L BUN 8 (7.0-18.0) mg/dL Creatinine 0.8 (0.8-1.3) mg/dL Est Cr Clr Drug Dosing 114.53 mL/min Estimated GFR (MDRD) > 60.0 ml/min Glucose 109 H (74-106) mg/dL Hemoglobin A1c (4.5-6.2) % Calcium 8.5 (8.5-10.1) mg/dL Magnesium 1.7 L (1.8-2.4) mg/dL Triglycerides (0-200) mg/dL Cholesterol (50-200) mg/dL LDL Cholesterol, Calc (60-180) mg/dL VLDL Cholesterol (5-55) mg/dL HDL Cholesterol (40-60) mg/dL Cholesterol/HDL Ratio (3.3-6.0) Med Orders - Current: Current Medications Discontinued Medications Acetaminophen (Tylenol) 650 mg PO Q4H PRN PRN Reason: Pain (Mild 1-3)/fever Aspirin (Aspirin) 81 mg PO DAILY [facility] Last Admin: 07/18/18 08:48 Dose: 81 mg Atorvastatin Calcium (Lipitor) 40 mg PO BEDTIME HAYDEE Atorvastatin Calcium (Lipitor) 80 mg PO BEDTIME [facility] Last Admin: 07/17/18 20:00 Dose: 80 mg Carvedilol (Coreg) 6.25 mg PO DAILY [facility] Enoxaparin Sodium (Lovenox) 40 mg SUBCUT Q24H [facility] Last Admin: 07/17/18 16:56 Dose: 40 mg Folic Acid (Folic Acid) 1 mg PO DAILY [facility] Last Admin: 07/18/18 08:47 Dose: 1 mg Gadobenate Dimeglumine (Multihance) 20 ml IVPUSH ONETIME STA Stop: 07/18/18 07:44 Last Admin: 07/18/18 07:46 Dose: 20 ml HCTZ/Losartan Potassium (Hyzaar 50-12.5 Mg) 2 tab PO DAILY [facility] Sodium Chloride (Normal Saline) 1,000 mls @ 125 mls/hr IV ASDIRECTED [facility] Last Admin: 07/18/18 04:05 Dose: 125 mls/hr Magnesium Sulfate 2 gm/ Premix 50 mls @ 25 mls/hr IV ONETIME ONE Stop: 07/17/18 19:28 Last Admin: 07/17/18 18:04 Dose: 25 mls/hr Magnesium Sulfate 2 gm/ Premix 50 mls @ 50 mls/hr IV ONETIME ONE Stop: 07/18/18 07:57 Last Admin: 07/18/18 08:47 Dose: 50 mls/hr Ibuprofen (Motrin) 600 mg PO Q6H PRN PRN Reason: Pain (mild 1-3) Labetalol HCl (Normodyne) 20 mg IVPUSH Q10M PRN; Protocol PRN Reason: Hypertension Lorazepam (Ativan) 0 mg IVPUSH Q4H PRN; Protocol PRN Reason: aggitation Ondansetron HCl (Zofran Odt) 4 mg PO Q4H PRN PRN Reason: nausea, able to take PO Ondansetron HCl (Zofran) 4 mg IVPUSH Q4H PRN PRN Reason: Nausea Potassium Chloride (Klor-Con M20) 40 meq PO ONETIME ONE Stop: 07/17/18 14:52 Last Admin: 07/17/18 16:55 Dose: 40 meq Potassium Chloride (Klor-Con M20) 40 meq PO ONETIME ONE Stop: 07/18/18 06:59 Last Admin: 07/18/18 08:47 Dose: 40 meq Sodium Chloride (Saline Flush) 10 ml FLUSH ASDIRECTED PRN PRN Reason: Keep Vein Open Sodium Chloride (Saline Flush) 2.5 ml FLUSH ASDIRECTED PRN PRN Reason: Keep Vein Open Temazepam (Restoril) 15 mg PO BEDTIME PRN PRN Reason: Sleep Thiamine HCl (Vitamin B-1) 100 mg PO DAILY [facility] Last Admin: 07/18/18 08:48 Dose: 100 mg
--- NOTE | 2018-07-18 17:22 | MR ---
EXAM DATE: 07/17/18 PATIENT'S AGE: 62 Patient: SUJATA GARCIA Facility: [place], [place] Site . Site : 1955 Study: MRI Head Angio [id number] 9:12:19 AM Ordering Physician: Sasha Maher Final Report: INDICATION: Transient ischemic attack. TECHNIQUE: 3D [id number] MRA images were obtained through the head. COMPARISON: MRI brain 07/17/2018. FINDINGS: The major vessels of the anterior circulation, including the internal carotid, middle cerebral, and anterior cerebral arteries are patent without hemodynamically significant stenosis. Anterior communicating artery is noted. origins of the posterior cerebral arteries. The major vessel posterior circulation, including the vertebral, basilar, and posterior cerebral arteries are patent without hemodynamically significant stenosis. No aneurysm or arterial vascular malformation is identified. IMPRESSION: No hemodynamically significant stenosis of the major intracranial arteries. Dictated by Teja Arreaga MD @ Jul 18 2018 9:16AM (Electronic Signature) Report Signed by Proxy. PEDRO LUIS
--- NOTE | 2018-07-18 17:23 | MR ---
EXAM DATE: 07/17/18 PATIENT'S AGE: 62 Patient: SUJATA GARCIA Facility: [place], [place] Site . Site : 1955 Study: MRI Extremity Angio [id number]/5/2018 9:15:39 AM Ordering Physician: Sasha Maher Final Report: INDICATION: TIA. COMPARISON: None. TECHNIQUE: [id number] and gadolinium bolus MRA of the neck. 3D reconstructed images. FINDINGS: No focal flow-void on [id number] MRA to suggest high-grade stenosis. The gadolinium bolus MRA demonstrates patent bilateral carotid artery circulations from the origin to the skullbase. No focal stenosis. Patent bilateral vertebral circulations from the origin to the vertebrobasilar junction. No high-grade stenosis or dissection. IMPRESSION: Normal MRA neck. Dictated by Adam Duran MD @ Jul 18 2018 9:45AM (Electronic Signature) Report Signed by Proxy. PEDRO LUIS
== END 2018-07-18 12:30 | disposition home or self-care (01) ==
LOC: MW.ED 11:36 → MW.MS 12:44
PROVIDERS: ADMIT Internal Medicine; ATTEND Internal Medicine
DX: G45.9 Transient cerebral ischemic attack, unspecified (principal); E87.6 Hypokalemia; E83.42 Hypomagnesemia; I10 Essential (primary) hypertension; K21.9 Gastro-esophageal reflux disease without esophagitis; F10.10 Alcohol abuse, uncomplicated; Z79.82 Long term (current) use of aspirin; Z79.899 Other long term (current) drug therapy; Z87.891 Personal history of nicotine dependence
CPT/HCPCS: 36415; 70450; 70544; 70549; 70553; 80048; 80053; 80061; 83036; 83735; 84443; 84484; 85025; 85610; 85730; 93005; 97161; 99285; A9270; A9577; J1650; J3475; J7040; 96361; 96365; 96366; 96372; G0378

== ENCOUNTER 2018-11-26 07:16 | Emergency (ER) | payer BC ==
[2018-11-26] MEDS ORDERED: Sodium Chloride 0.9% 10 ML Syringe FLUSH PRN (07:22)
[2018-11-26] MEDS ORDERED: Sodium Chloride 0.9% 2.5 ML Syringe FLUSH PRN (07:22)
[2018-11-26] MEDS ORDERED: Nitroglycerin 0.4 MG Tab.SL SL PRN (07:23)
[2018-11-26] MEDS ORDERED: Nitroglycerin 0.4 MG Tab.SL ONE (07:23)
[2018-11-26] MEDS ORDERED: Aspirin 81 MG Tab.Chew ONE (07:24)
--- NOTE | 2018-11-26 07:27 | EDM.PDOC ---
ED HPI GENERAL MEDICAL PROBLEM - General Chief Complaint: General Stated Complaint: HIGH BLOOD PRESSURE Time Seen by Provider: 11/26/18 07:21 Source of Information: Reports: Patient History Limitations: Reports: No Limitations - History of Present Illness INITIAL COMMENTS - FREE TEXT/NARRATIVE: History of present illness: []Patient woke up with dizziness, short of breath and took his blood pressure found to be unusually high for his normal. patient denies having any chest pain Review of systems: As per history of present illness and below otherwise all systems reviewed and negative. Past medical history: As per history of present illness and as reviewed below otherwise noncontributory. Surgical history: As per history of present illness and as reviewed below otherwise noncontributory. Social history: No reported history of drug or alcohol abuse. Family history: As per history of present illness and as reviewed below otherwise noncontributory. Physical exam: General: Well developed, well nourished in NAD HEENT: Atraumatic, normocephalic, pupils reactive, negative for conjunctival pallor or scleral icterus, mucous membranes moist, throat clear, neck supple, nontender, trachea midline. Lungs: Clear to auscultation, breath sounds equal bilaterally, chest nontender. Heart: S1S2, regular, negative for clicks, rubs, or JVD. Abdomen: NABS, Soft, nondistended, nontender. Negative for masses or hepatosplenomegaly. Negative for costovertebral tenderness. Pelvis: Stable nontender. Genitourinary: Deferred. Rectal: Deferred. Extremities: Atraumatic, negative for cords or calf pain. Neurovascular unremarkable. Neuro: Awake, alert, oriented. Cranial nerves II through XII unremarkable. Cerebellum unremarkable. Motor and sensory unremarkable throughout. Exam nonfocal. Skin:warm and dry Diagnostics: CBC, chemistry, troponin, mag, chest x-ray, EKG Therapeutics: Nitroglycerin, aspirin, Lopressor ED Course: Improved Impression: Uncontrolled high blood pressure Prescriptions: None Plan: Take meds as directed, follow up with your primary care physician, return to ER if symptoms worsen or change. Definitive disposition and diagnosis as appropriate pending reevaluation and review of above. - Related Data Allergies Allergy/AdvReac Type Severity Reaction Status Date / Time No Known Allergies Allergy Verified 11/26/18 07:24 Home Meds: Home Meds Carvedilol 6.25 mg PO BID 07/17/18 [History] Losartan/Hydrochlorothiazide [Losartan-HCTZ 100-25 MG] 100.25 mg PO DAILY [History] Aspirin 81 mg PO DAILY 30 Days #30 tab.chew 07/18/18 [Rx] Esomeprazole [NexIUM] 40 mg PO DAILY 11/26/18 [History] Past Medical History - Past Health History Medical/Surgical History: Denies Medical/Surgical History HEENT History: Reports: Cataract, Other (See Below) Other HEENT History: has upper and lower dentures Cardiovascular History: Reports: Hypertension Respiratory History: Reports: Other (See Below) Other Respiratory History: CPAP Gastrointestinal History: Reports: GERD, PUD Other Gastrointestinal History: Claimed to have severe ulcer Genitourinary History: Reports: Renal Calculus Musculoskeletal History: Reports: Neck Pain, Chronic Neurological History: Reports: Concussion, Migraines - Infectious Disease History Infectious Disease History: Reports: Chicken Pox, Measles, Mumps - Past Surgical History HEENT Surgical History: Reports: Cataract Surgery Respiratory Surgical History: Reports: None GI Surgical History: Reports: Appendectomy, Colonoscopy Social & Family History - Family History Family Medical History: Noncontributory - Caffeine Use Caffeine Use: Reports: Coffee Caffeine Use Comment: 2-3/day ED ROS GENERAL - Review of Systems Review Of Systems: ROS reveals no pertinent complaints other than HPI. ED EXAM, GENERAL - Physical Exam Exam: See Below (See history of present illness) Course - Vital Signs Last Recorded V/S: Last Vital Signs Temp 97.7 F 11/26/18 07:22 Pulse 72 11/26/18 08:55 Resp 18 11/26/18 07:33 BP 136/105 H 11/26/18 08:55 Pulse Ox 95 11/26/18 07:33 - Orders/Labs/Meds Orders: Active Orders 24 hr Category Date Time Status Cardiac Monitoring [RC] . DIRECTED Care 11/26/18 07:22 Active EKG Documentation Completion [RC] STAT Care 11/26/18 07:22 Active Nitroglycerin [Nitrostat] Med 11/26/18 07:23 Active 0.4 mg SL Q5M PRN Sodium Chloride 0.9% [Normal Saline] 500 ml Med 11/26/18 07:45 Active IV STAT Sodium Chloride 0.9% [Saline Flush] Med 11/26/18 07:22 Active 10 ml FLUSH ASDIRECTED PRN Sodium Chloride 0.9% [Saline Flush] Med 11/26/18 07:22 Active 2.5 ml FLUSH ASDIRECTED PRN Saline Lock Insert [OM.PC] Stat Oth 11/26/18 07:22 Ordered Medication Orders Sodium Chloride (Normal Saline) 500 mls @ 999 mls/hr IV STAT HAYDEE Last Admin: 11/26/18 07:36 Dose: 999 mls/hr Nitroglycerin (Nitrostat) 0.4 mg SL Q5M PRN PRN Reason: Chest Pain Last Admin: 11/26/18 07:27 Dose: 0.4 mg Sodium Chloride (Saline Flush) 10 ml FLUSH ASDIRECTED PRN PRN Reason: Keep Vein Open Last Admin: 11/26/18 07:28 Dose: 10 ml Sodium Chloride (Saline Flush) 2.5 ml FLUSH ASDIRECTED PRN PRN Reason: Keep Vein Open Last Admin: 11/26/18 07:28 Dose: 2.5 ml Labs: Laboratory Tests 11/26/18 11/26/18 11/26/18 Range/Units 07:25 07:25 07:25 WBC 5.13 (4.0-11.0) K/uL RBC 4.73 (4.50-5.90) M/uL Hgb 15.8 (13.0-17.0) g/dL Hct 43.6 (38.0-50.0) % MCV 92.2 (80.0-98.0) fL MCH 33.4 H (27.0-32.0) pg MCHC 36.2 (31.0-37.0) g/dL RDW Std Deviation 46.0 (28.0-62.0) fl RDW Coeff of Monisha 14 (11.0-15.0) % Plt Count 202 (150-400) K/uL MPV 8.50 (7.40-12.00) fL Neut % (Auto) 52.3 (48.0-80.0) % Lymph % (Auto) 33.1 (16.0-40.0) % [place] % (Auto) 7.2 (0.0-15.0) % Eos % (Auto) 6.8 (0.0-7.0) % Baso % (Auto) 0.6 (0.0-1.5) % Neut # (Auto) 2.7 (1.4-5.7) K/uL Lymph # (Auto) 1.7 (0.6-2.4) K/uL [place] # (Auto) 0.4 (0.0-0.8) K/uL Eos # (Auto) 0.4 (0.0-0.7) K/uL Baso # (Auto) 0.0 (0.0-0.1) K/uL Nucleated RBC % 0.0 /100WBC Nucleated RBCs # 0 K/uL Sodium 133 L (136-148) mmol/L Potassium 3.8 (3.5-5.1) mmol/L Chloride 96 L (98-107) mmol/L Carbon Dioxide 31.0 (21.0-32.0) mmol/L BUN 12 (7.0-18.0) mg/dL Creatinine 1.0 (0.8-1.3) mg/dL Est Cr Clr Drug Dosing 88.02 mL/min Estimated GFR (MDRD) > 60.0 ml/min Glucose 145 H (74-106) mg/dL Calcium 9.5 (8.5-10.1) mg/dL Magnesium 1.6 L (1.8-2.4) mg/dL Total Bilirubin 0.3 (0.2-1.0) mg/dL AST 29 (15-37) IU/L ALT 42 (14-63) IU/L Alkaline Phosphatase 83 (46-116) U/L Troponin I < 0.050 (0.000-0.056) ng/mL Total Protein 7.6 (6.4-8.2) g/dL Albumin 3.4 (3.4-5.0) g/dL Globulin 4.2 H (2.6-4.0) g/dL Albumin/Globulin Ratio 0.8 L (0.9-1.6) Meds: Medications Generic Name Dose Route Start Last Admin Trade Name Freq PRN Reason Stop Dose Admin Sodium Chloride 500 mls @ 999 mls/hr 11/26/18 07:45 11/26/18 07:36 Normal Saline IV 999 mls/hr STAT HAYDEE Administration Nitroglycerin 0.4 mg 11/26/18 07:23 11/26/18 07:27 Nitrostat SL 0.4 mg Q5M PRN Administration Chest Pain Sodium Chloride 10 ml 11/26/18 07:22 11/26/18 07:28 Saline Flush FLUSH 10 ml ASDIRECTED PRN Administration Keep Vein Open Sodium Chloride 2.5 ml 11/26/18 07:22 11/26/18 07:28 Saline Flush FLUSH 2.5 ml ASDIRECTED PRN Administration Keep Vein Open Discontinued Medications Generic Name Dose Route Start Last Admin Trade Name Jin PRN Reason Stop Dose Admin Aspirin Confirm 11/26/18 07:24 11/26/18 07:29 Aspirin Administered 11/26/18 07:25 Not Given Dose 324 mg .ROUTE .STK-MED ONE Aspirin 324 mg 11/26/18 07:28 11/26/18 07:31 Aspirin PO 11/26/18 07:29 324 mg ONETIME ONE Administration Metoprolol Tartrate 5 mg 11/26/18 08:30 11/26/18 08:55 Lopressor IVPUSH 11/26/18 08:41 5 mg Q5M HAYDEE Administration Nitroglycerin Confirm 11/26/18 07:23 11/26/18 07:29 Nitrostat Administered 11/26/18 07:24 Not Given Dose 0.4 mg .ROUTE .STK-MED ONE Departure - Departure Time of Disposition: 09:38 Disposition: Home, Self-Care 01 Condition: Good Clinical Impression: Uncontrolled hypertension - Discharge Information *PRESCRIPTION DRUG MONITORING PROGRAM REVIEWED*: No *COPY OF PRESCRIPTION DRUG MONITORING REPORT IN PATIENT KEI: No Referrals: Hill Walters MD [Primary Care Provider] - Forms: ED Department Discharge Additional Instructions: The following information is given to patients seen in the emergency department who are being discharged to home. This information is to outline your options for follow-up care. We provide all patients seen in our emergency department with a follow-up referral. The need for follow-up, as well as the timing and circumstances, are variable depending upon the specifics of your emergency department visit. If you don't have a primary care physician on staff, we will provide you with a referral. We always advise you to contact your personal physician following an emergency department visit to inform them of the circumstance of the visit and for follow-up with them and/or the need for any referrals to a consulting specialist. The emergency department will also refer you to a specialist when appropriate. This referral assures that you have the opportunity for follow-up care with a specialist. All of these measure are taken in an effort to provide you with optimal care, which includes your follow-up. Under all circumstances we always encourage you to contact your private physician who remains a resource for coordinating your care. When calling for follow-up care, please make the office aware that this follow-up is from your recent emergency room visit. If for any reason you are refused follow-up, please contact the [facility] Emergency Department at and asked to speak to the emergency department charge nurse. [facility] [address] [place] [id number] Take meds as directed, follow up with your primary care physician, return to ER if symptoms worsen or change. - My Orders Last 24 Hours: My Active Orders 11/26/18 07:22 Cardiac Monitoring [RC] . DIRECTED EKG Documentation Completion [RC] STAT Sodium Chloride 0.9% [Saline Flush] 10 ml FLUSH ASDIRECTED PRN Sodium Chloride 0.9% [Saline Flush] 2.5 ml FLUSH ASDIRECTED PRN Saline Lock Insert [OM.PC] Stat 11/26/18 07:23 Nitroglycerin [Nitrostat] 0.4 mg SL Q5M PRN 11/26/18 07:45 Sodium Chloride 0.9% [Normal Saline] 500 ml IV STAT - Assessment/Plan Last 24 Hours: My Active Orders 11/26/18 07:22 Cardiac Monitoring [RC] . DIRECTED EKG Documentation Completion [RC] STAT Sodium Chloride 0.9% [Saline Flush] 10 ml FLUSH ASDIRECTED PRN Sodium Chloride 0.9% [Saline Flush] 2.5 ml FLUSH ASDIRECTED PRN Saline Lock Insert [OM.PC] Stat 11/26/18 07:23 Nitroglycerin [Nitrostat] 0.4 mg SL Q5M PRN 11/26/18 07:45 Sodium Chloride 0.9% [Normal Saline] 500 ml IV STAT
[2018-11-26] MEDS ORDERED: Aspirin 81 MG Tab.Chew PO ONE (07:28)
[2018-11-26] MEDS ORDERED: Sodium Chloride 0.9% 500 ML IV SCH (07:45)
[2018-11-26 08:05] LABS: CHLORIDE,CL 96 mmol/L (98-107); SODIUM,NA 133 mmol/L (136-148)
[2018-11-26] MEDS: Metoprolol Tartrate 5 MG/5 ML SDV IVPUSH SCH ×2 (08:40→08:55)
--- NOTE | 2018-11-26 09:27 | CR ---
INDICATION: Pain. TECHNIQUE: Upright portable AP image of the chest. COMPARISON: 10/08/2018. FINDINGS: Lungs and pleural spaces clear. Heart, mediastinum and pulmonary vessels normal. No significant osseous abnormality. IMPRESSION: Negative chest. Dictated by Og Galvan MD @ Nov 26 2018 9:23AM Signed by Dr. Og Galvan @ Nov 26 2018 9:25AM
[2018-11-26 10:04] VITALS: BP 148/102
== END 2018-11-26 10:02 | disposition home or self-care (01) ==
LOC: MW.ED 07:16
DX: I10 Essential (primary) hypertension (principal); K21.9 Gastro-esophageal reflux disease without esophagitis; Z79.82 Long term (current) use of aspirin; Z79.899 Other long term (current) drug therapy
CPT/HCPCS: 36415; 71045; 80053; 83735; 84484; 85025; 96361; 96374; 99284; A9270; J3490; J7040

== ENCOUNTER 2018-11-26 13:12 | Observation (INO) | payer BC ==
[2018-11-26] MEDS ORDERED: Sodium Chloride 0.9% 2.5 ML Syringe FLUSH PRN (13:14)
[2018-11-26] MEDS ORDERED: Sodium Chloride 0.9% 10 ML Syringe FLUSH PRN (13:14)
[2018-11-26] MEDS ORDERED: Aspirin 81 MG Tab.Chew PO ONE (13:14)
--- NOTE | 2018-11-26 13:30 | EDM.PDOC ---
ED HPI GENERAL MEDICAL PROBLEM - General Chief Complaint: Cardiovascular Problem Stated Complaint: HIGH B/P Time Seen by Provider: 11/26/18 13:13 Source of Information: Reports: Patient History Limitations: Reports: No Limitations - History of Present Illness INITIAL COMMENTS - FREE TEXT/NARRATIVE: HISTORY AND PHYSICAL: History of present illness: Patient is a 63-year-old male who presents to the emergency room with complaints of elevated blood pressure. This is his second visit to the emergency room today with this concern. He was evaluated earlier us morning with concerns of the elevated blood pressure, dizziness and shortness of breath. His examination was unremarkable and his symptoms had resolved. He had received aspirin and nitroglycerin while here. Ultimately the patient was discharged to home and encouraged to have close follow-up with his primary care provider. He states since being discharged he had dizziness and shortness of breath returned. He checked his blood pressure at home and it was 180/120. Review of systems: As per history of present illness and below otherwise all systems reviewed and negative. Past medical history: As per history of present illness and as reviewed below otherwise noncontributory. Surgical history: As per history of present illness and as reviewed below otherwise noncontributory. Social history: See social history for further information Family history: As per history of present illness and as reviewed below otherwise noncontributory. Physical exam: General: Well-developed and well-nourished 63-year-old male. Alert and oriented. Nontoxic appearing and in no acute distress. HEENT: Atraumatic, normocephalic, pupils equal and reactive bilaterally, negative for conjunctival pallor or scleral icterus, mucous membranes moist, TMs normal bilaterally, throat clear, neck supple, nontender, trachea midline. No drooling or trismus noted. No meningeal signs. No hot potato voice noted. Lungs: Clear to auscultation, breath sounds equal bilaterally, chest nontender. Heart: S1S2, regular rate and rhythm without overt murmur Abdomen: Soft, nondistended, nontender. Negative for masses or hepatosplenomegaly. Negative for costovertebral tenderness. Pelvis: Stable nontender. Genitourinary: Deferred. Rectal: Deferred. Skin: Intact, warm, dry. No lesions or rashes noted. Extremities: Atraumatic, moves all extremities per self without difficulty or deficits, negative for cords or calf pain. No peripheral edema noted. Neurovascular unremarkable. Neuro: Awake, alert, oriented. Cranial nerves II through XII unremarkable. Cerebellum unremarkable. Motor and sensory unremarkable throughout. Exam nonfocal. Notes: Repeat lab work is unremarkable. His blood pressure has come down. He continues to be symptomatic. Due to patient being symptomatic illness this is second visit to the emergency room, I did discuss with patient the option for staying for observation. He agrees and would like to stay for continuing monitoring. Dr. Baez was consulted on this case and is agreeable to keep this patient. Lab work currently is unremarkable. We'll continue to monitor. Diagnostics: CBC, CMP, troponin, EKG, orthostatic vital signs, head CT Therapeutics: Saline lock, clonidine, IV fluid at 125 mL per hour Impression: Uncontrolled hypertension Dizziness Plan: Observation admission [facility] with telemetry Definitive disposition and diagnosis as appropriate pending reevaluation and review of above. Onset: Today - Related Data Allergies Allergy/AdvReac Type Severity Reaction Status Date / Time No Known Allergies Allergy Verified 11/26/18 07:24 Home Meds: Home Meds Carvedilol 6.25 mg PO BID 07/17/18 [History] Losartan/Hydrochlorothiazide [Losartan-HCTZ 100-25 MG] 100.25 mg PO DAILY [History] Aspirin 81 mg PO DAILY 30 Days #30 tab.chew 07/18/18 [Rx] Esomeprazole [NexIUM] 40 mg PO DAILY 11/26/18 [History] Past Medical History - Past Health History Medical/Surgical History: Denies Medical/Surgical History HEENT History: Reports: Cataract, Other (See Below) Other HEENT History: has upper and lower dentures Cardiovascular History: Reports: Hypertension Other Cardiovascular History: L ventricle "doesn't work properly" Respiratory History: Reports: Other (See Below) Other Respiratory History: CPAP Gastrointestinal History: Reports: GERD, PUD Other Gastrointestinal History: Claimed to have severe ulcer Genitourinary History: Reports: Renal Calculus Musculoskeletal History: Reports: Neck Pain, Chronic Neurological History: Reports: Concussion, Migraines - Infectious Disease History Infectious Disease History: Reports: Chicken Pox, Measles, Mumps - Past Surgical History HEENT Surgical History: Reports: Cataract Surgery Respiratory Surgical History: Reports: None GI Surgical History: Reports: Appendectomy, Colonoscopy Social & Family History - Family History Family Medical History: Noncontributory - Caffeine Use Caffeine Use: Reports: Coffee Caffeine Use Comment: 2-3/day ED ROS GENERAL - Review of Systems Review Of Systems: ROS reveals no pertinent complaints other than HPI. ED EXAM, GENERAL - Physical Exam Exam: See Below (See dictation) Course - Vital Signs Last Recorded V/S: Last Vital Signs Temp Pulse Resp BP 152/100 H 11/26/18 14:13 Pulse Ox - Orders/Labs/Meds Orders: Active Orders 24 hr Category Date Time Status Admission Status [Patient Status] [ADT] Stat ADT 11/26/18 13:34 Active Cardiac Monitoring [RC] . DIRECTED Care 11/26/18 13:34 Active EKG Documentation Completion [RC] STAT Care 11/26/18 13:14 Active Orthostatic Vital Signs [RC] ASDIRECTED Care 11/26/18 13:31 Active Head wo Cont [CT] Stat Exams 11/26/18 13:31 Taken Sodium Chloride 0.9% [Saline Flush] Med 11/26/18 13:14 Active 10 ml FLUSH ASDIRECTED PRN Sodium Chloride 0.9% [Saline Flush] Med 11/26/18 13:14 Active 2.5 ml FLUSH ASDIRECTED PRN Saline Lock Insert [OM.PC] Stat Oth 11/26/18 13:14 Ordered Medication Orders Acetaminophen (Tylenol) 650 mg PO Q4H PRN PRN Reason: Pain (Mild 1-3)/fever Enoxaparin Sodium (Lovenox) 40 mg SUBCUT Q24H HAYDEE Sodium Chloride (Normal Saline) 1,000 mls @ 125 mls/hr IV STAT ONE Stop: 11/26/18 22:17 Last Admin: 11/26/18 14:35 Dose: 125 mls/hr Ondansetron HCl (Zofran) 4 mg IVPUSH Q4H PRN PRN Reason: Nausea Sodium Chloride (Saline Flush) 10 ml FLUSH ASDIRECTED PRN PRN Reason: Keep Vein Open Last Admin: 11/26/18 14:14 Dose: 10 ml Sodium Chloride (Saline Flush) 2.5 ml FLUSH ASDIRECTED PRN PRN Reason: Keep Vein Open Last Admin: 11/26/18 14:14 Dose: 2.5 ml Labs: Laboratory Tests 11/26/18 11/26/18 Range/Units 13:25 13:25 WBC 5.12 (4.0-11.0) K/uL RBC 4.62 (4.50-5.90) M/uL Hgb 15.3 (13.0-17.0) g/dL Hct 42.3 (38.0-50.0) % MCV 91.6 (80.0-98.0) fL MCH 33.1 H (27.0-32.0) pg MCHC 36.2 (31.0-37.0) g/dL RDW Std Deviation 46.1 (28.0-62.0) fl RDW Coeff of Monisha 14 (11.0-15.0) % Plt Count 201 (150-400) K/uL MPV 8.50 (7.40-12.00) fL Neut % (Auto) 58.4 (48.0-80.0) % Lymph % (Auto) 30.7 (16.0-40.0) % [place] % (Auto) 7.4 (0.0-15.0) % Eos % (Auto) 2.9 (0.0-7.0) % Baso % (Auto) 0.6 (0.0-1.5) % Neut # (Auto) 3.0 (1.4-5.7) K/uL Lymph # (Auto) 1.6 (0.6-2.4) K/uL [place] # (Auto) 0.4 (0.0-0.8) K/uL Eos # (Auto) 0.2 (0.0-0.7) K/uL Baso # (Auto) 0.0 (0.0-0.1) K/uL Nucleated RBC % 0.0 /100WBC Nucleated RBCs # 0 K/uL Sodium 133 L (136-148) mmol/L Potassium 3.7 (3.5-5.1) mmol/L Chloride 97 L (98-107) mmol/L Carbon Dioxide 27.7 (21.0-32.0) mmol/L BUN 11 (7.0-18.0) mg/dL Creatinine 0.9 (0.8-1.3) mg/dL Est Cr Clr Drug Dosing TNP Estimated GFR (MDRD) > 60.0 ml/min Glucose 122 H (74-106) mg/dL Calcium 9.3 (8.5-10.1) mg/dL Total Bilirubin 0.4 (0.2-1.0) mg/dL AST 27 (15-37) IU/L ALT 40 (14-63) IU/L Alkaline Phosphatase 70 (46-116) U/L Troponin I < 0.050 (0.000-0.056) ng/mL Total Protein 7.4 (6.4-8.2) g/dL Albumin 3.3 L (3.4-5.0) g/dL Globulin 4.1 H (2.6-4.0) g/dL Albumin/Globulin Ratio 0.8 L (0.9-1.6) Meds: Medications Generic Name Dose Route Start Last Admin Trade Name Freq PRN Reason Stop Dose Admin Acetaminophen 650 mg 11/26/18 14:27 Tylenol PO Q4H PRN Pain (Mild 1-3)/fever Enoxaparin Sodium 40 mg 11/26/18 14:30 Lovenox SUBCUT Q24H HAYDEE Sodium Chloride 1,000 mls @ 125 mls/hr 11/26/18 14:18 11/26/18 14:35 Normal Saline IV 11/26/18 22:17 125 mls/hr STAT ONE Administration Ondansetron HCl 4 mg 11/26/18 14:27 Zofran IVPUSH Q4H PRN Nausea Sodium Chloride 10 ml 11/26/18 13:14 11/26/18 14:14 Saline Flush FLUSH 10 ml ASDIRECTED PRN Administration Keep Vein Open Sodium Chloride 2.5 ml 11/26/18 13:14 11/26/18 14:14 Saline Flush FLUSH 2.5 ml ASDIRECTED PRN Administration Keep Vein Open Discontinued Medications Generic Name Dose Route Start Last Admin Trade Name Freq PRN Reason Stop Dose Admin Aspirin 324 mg 11/26/18 13:14 11/26/18 14:12 Aspirin PO 11/26/18 13:15 Not Given ONETIME ONE Clonidine HCl 0.1 mg 11/26/18 13:31 11/26/18 14:13 Catapres PO 11/26/18 13:32 0.1 mg ONETIME ONE Administration Departure - Departure Time of Disposition: 14:20 Disposition: Refer to Observation Clinical Impression: Uncontrolled hypertension, Dizziness - My Orders Last 24 Hours: My Active Orders 11/26/18 13:14 EKG Documentation Completion [RC] STAT Sodium Chloride 0.9% [Saline Flush] 10 ml FLUSH ASDIRECTED PRN Sodium Chloride 0.9% [Saline Flush] 2.5 ml FLUSH ASDIRECTED PRN Saline Lock Insert [OM.PC] Stat 11/26/18 13:31 Orthostatic Vital Signs [RC] ASDIRECTED Head wo Cont [CT] Stat 11/26/18 13:34 Admission Status [Patient Status] [ADT] Stat Cardiac Monitoring [RC] . DIRECTED - Assessment/Plan Last 24 Hours: My Active Orders 11/26/18 13:14 EKG Documentation Completion [RC] STAT Sodium Chloride 0.9% [Saline Flush] 10 ml FLUSH ASDIRECTED PRN Sodium Chloride 0.9% [Saline Flush] 2.5 ml FLUSH ASDIRECTED PRN Saline Lock Insert [OM.PC] Stat 11/26/18 13:31 Orthostatic Vital Signs [RC] ASDIRECTED Head wo Cont [CT] Stat 11/26/18 13:34 Admission Status [Patient Status] [ADT] Stat Cardiac Monitoring [RC] . DIRECTED
[2018-11-26] MEDS ORDERED: cloNIDine 0.1 MG Tab PO ONE (13:31)
[2018-11-26 14:09] LABS: CHLORIDE,CL 97 mmol/L (98-107); SODIUM,NA 133 mmol/L (136-148)
[2018-11-26] MEDS ORDERED: Sodium Chloride 0.9% 1,000 ML IV ONE (14:18)
[2018-11-26] MEDS ORDERED: Acetaminophen 325 MG Tab PO PRN (14:27)
[2018-11-26] MEDS ORDERED: Ondansetron 4 MG/2 ML SDV IVPUSH PRN (14:27)
[2018-11-26] MEDS ORDERED: Enoxaparin 40 MG/0.4 ML Syringe SUBCUT SCH (14:30)
--- NOTE | 2018-11-26 15:17 | CT ---
EXAMINATION: Non contrast CT head. Coronal and sagittal reformats. HISTORY: Dizziness FINDINGS: No evidence of intra or extra axial hemorrhage, mass, midline shift, hydrocephalus or edema. Mild generalized atrophy. No hypoattenuation changes in the major vascular territories to suggest acute infarct. No abnormal intracranial calcifications are detected. No evidence of substantial vascular calcifications. Mild mucosal thickening noted within the paranasal sinuses and maxillary sinuses. Mastoid air cells and middle ears are clear. Pituitary fossa appears unremarkable. Calvarium is intact. No evidence of skull fracture. IMPRESSION: No acute intracranial findings.
--- NOTE | 2018-11-26 15:18 | PCM.HP ---
Addendum entered and electronically signed by Mariluz Velez NP 11/26/18 19:37 : Spoke with Dr Jha regarding admission and HTN. He recommends increasing Coreg to 12.5 mg BID. Stop Clonidine. I appreciate his assistance with this patient. Original Note: H&P History of Present Illness - General Date of Service: 11/26/18 Admit Problem/Dx: Admission Diagnosis/Problem Admission Diagnosis/Problem Uncontrolled hypertension Source of Information: Patient History Limitations: Reports: No Limitations - History of Present Illness Initial Comments - Free Text/Narative: This 63 year old male with pmh of HTN, HLD, cardiomyopathy, peripheral neuropathy, and GERD presented to the ED x 2 today with concerns of elevated BP , 180/100s at home. He reports not feeling right during these episodes. He denies dizziness per se, no chest pain, slight shortness of breath, but then reports not really. He reports neck pain, arm pain or back pain. He does have chronic lumbar back pain and is in need of surgical intervention, but he has been putting this off. 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 He denies fevers, chills or sinus congestion. No Headache, blurred vision or double vision. He denies abdominal pain, urinary concerns or any focal neurological deficits. He reports he has a significant family cardiac history, his mother has had a CABG in her 70s, his brother recently had PCI and had 4 vessel CABG in the past as well. He denies DM type 2. He reports he quit smoking 2 years ago, reports some binge alochol use, drinking heavily for 3-4 days then off a couple days. No recreational drug use. Reports he had a stress test a couple months ago in [place]. In the ED labwork WNL. EKG SR with no acute ST changes. Troponin negative. Since he returned to the ED, ED recommends admission for hypertension. PCP. Dr Walters - Related Data Allergies/Adverse Reactions: Allergies Allergy/AdvReac Type Severity Reaction Status Date / Time No Known Allergies Allergy Verified 11/26/18 07:24 Home Medications: Home Meds Carvedilol 6.25 mg PO BID 07/17/18 [History] Losartan/Hydrochlorothiazide [Losartan-HCTZ 100-25 MG] 100.25 mg PO DAILY [History] Aspirin 81 mg PO DAILY 30 Days #30 tab.chew 07/18/18 [Rx] Esomeprazole [NexIUM] 40 mg PO DAILY 11/26/18 [History] Past Medical History - Past Health History Medical/Surgical History: Denies Medical/Surgical History HEENT History: Reports: Cataract, Other (See Below) Other HEENT History: has upper and lower dentures Cardiovascular History: Reports: Cardiomyopathy (EF 50%), Hypertension. Denies : Afib, Blood Clots/VTE/DVT Respiratory History: Reports: COPD, Sleep Apnea (CPAP) Gastrointestinal History: Reports: GERD, PUD Other Gastrointestinal History: Claimed to have severe ulcer Genitourinary History: Reports: Renal Calculus Musculoskeletal History: Reports: Neck Pain, Chronic Neurological History: Reports: Concussion, Migraines Psychiatric History: Reports: None Endocrine/Metabolic History: Denies: Diabetes, Type II, Hypothyroidism - Infectious Disease History Infectious Disease History: Reports: Chicken Pox, Measles, Mumps - Past Surgical History HEENT Surgical History: Reports: Cataract Surgery Respiratory Surgical History: Reports: None GI Surgical History: Reports: Appendectomy, Colonoscopy Social & Family History - Family History Family Medical History: Noncontributory - Tobacco Use Smoking Status *Q: Former Smoker - Caffeine Use Caffeine Use: Reports: Coffee Caffeine Use Comment: 2-3/day - Alcohol Use Alcohol Use History: Yes Days Per Week of Alcohol Use: 4 Number of Drinks Per Day: 5 Total Drinks Per Week: 20 - Living Situation & Occupation Living situation: Reports: Occupation: Employed H&P Review of Systems - Review of Systems: Review Of Systems: See Below General: Reports: Malaise (feels blah, hard to describe) HEENT: Reports: No Symptoms. Denies: Headaches, Vertigo, Visual Changes Pulmonary: Denies: Shortness of Breath, Cough, Sputum Cardiovascular: Reports: Blood Pressure Problem (elevated at night). Denies: Chest Pain, Palpitations, Dyspnea on Exertion, Orthopnea, Edema, Syncope Gastrointestinal: Reports: No Symptoms. Denies: Abdominal Pain, Black Stool, Bloody Stool, Nausea, Vomiting Genitourinary: Reports: No Symptoms. Denies: Dysuria, Frequency, Burning, Pain Musculoskeletal: Reports: Back Pain (chronic lumbar pain). Denies: Neck Pain Skin: Reports: No Symptoms Psychiatric: Reports: No Symptoms Neurological: Reports: No Symptoms. Denies: Dizziness, Headache, Paresthesia, Seizure, Syncope, Trouble Speaking, Weakness Hematologic/Lymphatic: Reports: No Symptoms Immunologic: Reports: No Symptoms Exam - Exam Exam: See Below - Vital Signs Vital Signs: Last Vital Signs Temp Pulse Resp BP 152/100 H 11/26/18 14:13 Pulse Ox Orthostatic Blood Pressure [ 149/105 Standing] Orthostatic Blood Pressure [ 148/100 Sitting] Orthostatic Blood Pressure [ 138/97 Supine] - Exam General: Alert, Oriented, Cooperative HEENT: Conjunctiva Clear, Posterior Pharynx Clear Neck: Supple, +2 Carotid Pulse wo Bruit, Full Range of Motion. No: Lymphadenopathy, JVD Lungs: Clear to Auscultation, Normal Respiratory Effort Cardiovascular: Regular Rate, Regular Rhythm, Normal S1, Normal S2. No: Systolic Murmur GI/Abdominal Exam: Normal Bowel Sounds, Soft, Non-Tender, No Organomegaly Back Exam: Normal Inspection, Full Range of Motion, Other (peripheral neuropathy due to lumbar stenosis) Extremities: Normal Inspection, Normal Range of Motion, Non-Tender Neurological: Cranial Nerves Intact, Reflexes Equal Bilateral Neuro Extensive - Mental Status: Alert, Oriented x3, Normal Mood/Affect Neuro Extensive - Motor, Sensory, Reflexes: CN II-XII Intact, Normal Gait Psychiatric: Alert, Normal Affect, Normal Mood - Patient Data Lab Results Last 24 hrs: Laboratory Results - last 24 hr 11/26/18 11/26/18 Range/Units 13:25 13:25 WBC 5.12 (4.0-11.0) K/uL RBC 4.62 (4.50-5.90) M/uL Hgb 15.3 (13.0-17.0) g/dL Hct 42.3 (38.0-50.0) % MCV 91.6 (80.0-98.0) fL MCH 33.1 H (27.0-32.0) pg MCHC 36.2 (31.0-37.0) g/dL RDW Std Deviation 46.1 (28.0-62.0) fl RDW Coeff of Monisha 14 (11.0-15.0) % Plt Count 201 (150-400) K/uL MPV 8.50 (7.40-12.00) fL Neut % (Auto) 58.4 (48.0-80.0) % Lymph % (Auto) 30.7 (16.0-40.0) % [place] % (Auto) 7.4 (0.0-15.0) % Eos % (Auto) 2.9 (0.0-7.0) % Baso % (Auto) 0.6 (0.0-1.5) % Neut # (Auto) 3.0 (1.4-5.7) K/uL Lymph # (Auto) 1.6 (0.6-2.4) K/uL [place] # (Auto) 0.4 (0.0-0.8) K/uL Eos # (Auto) 0.2 (0.0-0.7) K/uL Baso # (Auto) 0.0 (0.0-0.1) K/uL Nucleated RBC % 0.0 /100WBC Nucleated RBCs # 0 K/uL Sodium 133 L (136-148) mmol/L Potassium 3.7 (3.5-5.1) mmol/L Chloride 97 L (98-107) mmol/L Carbon Dioxide 27.7 (21.0-32.0) mmol/L BUN 11 (7.0-18.0) mg/dL Creatinine 0.9 (0.8-1.3) mg/dL Est Cr Clr Drug Dosing TNP Estimated GFR (MDRD) > 60.0 ml/min Glucose 122 H (74-106) mg/dL Calcium 9.3 (8.5-10.1) mg/dL Total Bilirubin 0.4 (0.2-1.0) mg/dL AST 27 (15-37) IU/L ALT 40 (14-63) IU/L Alkaline Phosphatase 70 (46-116) U/L Troponin I < 0.050 (0.000-0.056) ng/mL Total Protein 7.4 (6.4-8.2) g/dL Albumin 3.3 L (3.4-5.0) g/dL Globulin 4.1 H (2.6-4.0) g/dL Albumin/Globulin Ratio 0.8 L (0.9-1.6) Result Diagrams: 11/26/18 13:25 11/26/18 13:25 EKG INTERPRETATION EKG Date: 11/26/18 Time: 12:00 Rhythm: NSR Rate (Beats/Min): 80 P-Wave: Present QRS: Normal ST-T: Normal QT: Normal *Q Meaningful Use (ADM) - VTE Risk Assess *Q Each Risk Factor Represents 1 Point: Congestive heart failure (CHF), Abnormal Pulmonary Function (COPD) Total Score 1 Point Risk Factors: 2 Each Risk Factor Represents 2 Points: Age 60 - 74 Years Total Score 2 Point Risk Factors: 2 Each Risk Factor Represents 3 Points: None Total Score 3 Point Risk Factors: 0 Each Risk Factor Represents 5 Points: None Total Score 5 Point Risk Factors: 0 Venous Thromboembolism Risk Factor Score *Q: 4 - Problem List (1) Uncontrolled hypertension SNOMED Code(s): 71334125, 75795438 ICD Code: I10 - ESSENTIAL (PRIMARY) HYPERTENSION Status: Acute Current Visit: Yes (2) Chronic back pain SNOMED Code(s): 696037617 ICD Code: M54.9 - DORSALGIA, UNSPECIFIED; G89.29 - OTHER CHRONIC PAIN Status: Chronic Current Visit: Yes Qualifiers: Back pain location: low back pain Sciatica presence: without sciatica (3) Hyperlipidemia SNOMED Code(s): 70447837 ICD Code: E78.5 - HYPERLIPIDEMIA, UNSPECIFIED Status: Chronic Current Visit: Yes (4) Cardiomyopathy SNOMED Code(s): 32878050 ICD Code: I42.9 - CARDIOMYOPATHY, UNSPECIFIED Status: Chronic Current Visit: Yes (5) Alcohol use SNOMED Code(s): 932103 ICD Code: Z78.9 - OTHER SPECIFIED HEALTH STATUS Status: Chronic Current Visit: Yes (6) Former smoker SNOMED Code(s): 1131074 ICD Code: Z87.891 - PERSONAL HISTORY OF NICOTINE DEPENDENCE Status: Chronic Current Visit: Yes Problem List Initiated/Reviewed/Updated: Yes Orders Last 24hrs: Active Orders 24 hr Category Date Time Status Admission Status [Patient Status] [ADT] Stat ADT 11/26/18 13:34 Active Cardiac Monitoring [RC] . DIRECTED Care 11/26/18 13:34 Active EKG Documentation Completion [RC] STAT Care 11/26/18 13:14 Active Intake and Output [RC] QSHIFT Care 11/26/18 14:28 Active Orthostatic Vital Signs [RC] ASDIRECTED Care 11/26/18 13:31 Active Oxygen Therapy [RC] PRN Care 11/26/18 14:27 Active Telemetry Monitoring [Cardiac Monitoring] [RC] . Care 11/26/18 14:38 Active DIRECTED Up ad Stella [RC] ASDIRECTED Care 11/26/18 14:27 Active VTE/DVT Education [RC] PER UNIT ROUTINE Care 11/26/18 14:27 Active Vital Signs [RC] Q4H Care 11/26/18 14:27 Active Heart Healthy Diet [DIET] Diet 11/26/18 Lunch Active Head wo Cont [CT] Stat Exams 11/26/18 13:31 Taken GLYCOSYLATED HEMOGLOBIN,HGBA1C [CHEM] Routine Lab 11/26/18 13:25 Received LIPID PANEL [CHEM] AM Lab 11/27/18 05:11 Ordered TROPONIN I [CHEM] Q6H Lab 11/26/18 18:30 Ordered TROPONIN I [CHEM] Q6H Lab 11/27/18 00:30 Ordered Acetaminophen [Tylenol] Med 11/26/18 14:27 Active 650 mg PO Q4H PRN Enoxaparin [Lovenox] Med 11/26/18 14:30 Active 40 mg SUBCUT Q24H Ondansetron [Zofran] Med 11/26/18 14:27 Active 4 mg IVPUSH Q4H PRN Sodium Chloride 0.9% [Normal Saline] 1,000 ml Med 11/26/18 14:18 Active IV STAT Sodium Chloride 0.9% [Saline Flush] Med 11/26/18 13:14 Active 10 ml FLUSH ASDIRECTED PRN Sodium Chloride 0.9% [Saline Flush] Med 11/26/18 13:14 Active 2.5 ml FLUSH ASDIRECTED PRN Saline Lock Insert [OM.PC] Stat Oth 11/26/18 13:14 Ordered Resuscitation Status Routine Resus Stat 11/26/18 14:27 Ordered Medication Orders Acetaminophen (Tylenol) 650 mg PO Q4H PRN PRN Reason: Pain (Mild 1-3)/fever Enoxaparin Sodium (Lovenox) 40 mg SUBCUT Q24H HAYDEE Sodium Chloride (Normal Saline) 1,000 mls @ 125 mls/hr IV STAT ONE Stop: 11/26/18 22:17 Last Admin: 11/26/18 14:35 Dose: 125 mls/hr Ondansetron HCl (Zofran) 4 mg IVPUSH Q4H PRN PRN Reason: Nausea Sodium Chloride (Saline Flush) 10 ml FLUSH ASDIRECTED PRN PRN Reason: Keep Vein Open Last Admin: 11/26/18 14:14 Dose: 10 ml Sodium Chloride (Saline Flush) 2.5 ml FLUSH ASDIRECTED PRN PRN Reason: Keep Vein Open Last Admin: 11/26/18 14:14 Dose: 2.5 ml Assessment/Plan Comment:: This 63 year old male admitted with uncontrolled hypertension and not feeling right. 1. Uncontrolled HTN: After review of clinic chart, he has tried multiple agents , such as Amlodipine, Lisinopril, Aldactone, and Toprol, and can not tolerate them. Will start Clonidine 0.1 mg BID and monitor BP. Has history of cardiomyopathy. Will also trend enzymes, check lipid panel in am. A1c 6.0. Monitor on telemetry. Feels better when BP controlled, when it starts to elevate he feels "blah", but unable to really place words to how he feels. Denies overt dizziness or headaches and no visual concerns. No chest pain at all. Orthostatic BP WNL. 2. COPD: Stable. Monitor order nebs PRN SOB.wheezing. CXR negative. 3. Alcohol use: Supplement with thiamine and folic acid. CIWAA protocol PRN. Reports alcohol use is cut down from what it used to be. 4. GERD: Stable, continue PPI. VTE prophylaxis: Lovenox. Dispo: 1 day
[2018-11-26] MEDS ORDERED: LORazepam 1 MG Tab PO PRN (16:04)
[2018-11-26] MEDS ORDERED: Carvedilol 6.25 MG Tab PO SCH (21:00)
[2018-11-26] MEDS ORDERED: Folic Acid 1 MG Tab PO SCH (21:00)
[2018-11-26] MEDS ORDERED: Thiamine 100 MG Tab PO SCH (21:00)
[2018-11-26] MEDS ORDERED: cloNIDine 0.1 MG Tab PO SCH (21:00)
[2018-11-26] MEDS: Carvedilol 12.5 MG Tab PO SCH (21:06)
[2018-11-27] MEDS ORDERED: Omeprazole 20 MG Cap.CR PO SCH (07:30)
[2018-11-27] MEDS: Carvedilol 12.5 MG Tab PO SCH (08:25)
[2018-11-27 08:28] VITALS: BP 130/88
[2018-11-27] MEDS ORDERED: Aspirin 81 MG Tab.Chew PO SCH (09:00)
[2018-11-27] MEDS ORDERED: Hydrochlorothiazide/Losartan 12.5-50 mg Tab PO SCH (09:00)
--- NOTE | 2018-11-27 09:05 | PCM.DCSUM1 ---
Discharge Summary - Hospital Course Brief History: This 63 year old male with pmh of HTN, HLD, cardiomyopathy, peripheral neuropathy, and GERD presented to the ED x 2 today with concerns of elevated BP, 180/100s at home. He reports not feeling right during these episodes. He denies dizziness per se, no chest pain, slight shortness of breath , but then reports not really. He reports neck pain, arm pain or back pain. He does have chronic lumbar back pain and is in need of surgical intervention, but he has been putting this off. 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 He denies fevers, chills or sinus congestion. No Headache, blurred vision or double vision. He denies abdominal pain, urinary concerns or any focal neurological deficits. He reports he has a significant family cardiac history, his mother has had a CABG in her 70s, his brother recently had PCI and had 4 vessel CABG in the past as well. He denies DM type 2. He reports he quit smoking 2 years ago, reports some binge alochol use, drinking heavily for 3-4 days then off a couple days. No recreational drug use. Reports he had a stress test a couple months ago in [place]. In the ED labwork WNL. EKG SR with no acute ST changes. Troponin negative. Since he returned to the ED, ED recommends admission for hypertension. Diagnosis: Stroke: No - Discharge Data Discharge Date: 11/27/18 Discharge Disposition: Home, Self-Care 01 Condition: Stable - Discharge Diagnosis/Problem(s) (1) Uncontrolled hypertension SNOMED Code(s): 27098540, 93409572 ICD Code: I10 - ESSENTIAL (PRIMARY) HYPERTENSION Status: Acute (2) Chronic back pain SNOMED Code(s): 956049634 ICD Code: M54.9 - DORSALGIA, UNSPECIFIED; G89.29 - OTHER CHRONIC PAIN Status: Chronic Qualifiers: Back pain location: low back pain Sciatica presence: without sciatica (3) Hyperlipidemia SNOMED Code(s): 47188136 ICD Code: E78.5 - HYPERLIPIDEMIA, UNSPECIFIED Status: Chronic (4) Cardiomyopathy SNOMED Code(s): 48613973 ICD Code: I42.9 - CARDIOMYOPATHY, UNSPECIFIED Status: Chronic (5) Alcohol use SNOMED Code(s): 798210 ICD Code: Z78.9 - OTHER SPECIFIED HEALTH STATUS Status: Chronic (6) Former smoker SNOMED Code(s): 2186819 ICD Code: Z87.891 - PERSONAL HISTORY OF NICOTINE DEPENDENCE Status: Chronic - Patient Summary/Data Consults: Consultations 11/26/18 19:36 Consult to Physician [CONS] Routine - Discharge Plan Prescriptions/Med Rec: Carvedilol [Coreg] 12.5 mg PO BID #60 tablet Home Medications: Home Meds Losartan/Hydrochlorothiazide [Losartan-HCTZ 100-25 MG] 1 tab PO DAILY 07/17/18 [ History] Aspirin 81 mg PO DAILY 30 Days #30 tab.chew 07/18/18 [Rx] Esomeprazole [NexIUM] 40 mg PO DAILY 11/26/18 [History] Carvedilol [Coreg] 12.5 mg PO BID #60 tablet 11/27/18 [Rx] Patient Handouts: Carvedilol tablets, Hypertension, [id number], Preventing Hypertension Referrals: Hill Walters MD [Physician] - 12/02/18 10:30 am (follow up as previously scheduled.) - Discharge Summary/Plan Comment DC Time >30 min.: No Discharge Summary/Plan Comment: Discharge Diagnoses: Uncontrolled HTN Hima was admitted due to elevated BP and not feeling well with this. Troponin trended and monitored on telemetry. Troponins negative. As BP improved with increase in Coreg he felt better. I spoke with Dr Jha regarding agents to add or increase due to patient's report of intolerance of multiple BP medications. He is to follow up with Dr Walters next week. He was encouraged to stay away from salty foods and to stop drinking alcohol. He reports he has cut down quite a bit. He is to return to ED or clinic if concerns should arise. - General Info Date of Service: 11/27/18 Admission Dx/Problem (Free Text: Admission Diagnosis/Problem Admission Diagnosis/Problem Uncontrolled hypertension Subjective Update: Doing well this morning, feeling better. No dizziness, chest pain palpitations or dyspnea. Eager to go home. Functional Status: Reports: Pain Controlled, Tolerating Diet, Ambulating, Urinating - Review of Systems General: Reports: No Symptoms. Denies: Fever, Weakness, Fatigue HEENT: Reports: No Symptoms. Denies: Headaches, Sore Throat Pulmonary: Reports: No Symptoms. Denies: Shortness of Breath Cardiovascular: Reports: No Symptoms. Denies: Chest Pain, Dyspnea on Exertion, Lightheadedness Gastrointestinal: Reports: No Symptoms. Denies: Abdominal Pain, Nausea, Vomiting Genitourinary: Reports: No Symptoms. Denies: Dysuria, Frequency, Burning Musculoskeletal: Reports: No Symptoms Skin: Reports: No Symptoms Neurological: Reports: No Symptoms Psychiatric: Reports: No Symptoms - Patient Data Vitals - Most Recent: Last Vital Signs Temp 97.8 F 11/27/18 04:00 Pulse 84 11/27/18 08:25 Resp 18 11/27/18 04:00 BP 130/88 11/27/18 08:25 Pulse Ox 94 L 11/27/18 04:00 Orthostatic Blood Pressure [ 149/105 Standing] Orthostatic Blood Pressure [ 148/100 Sitting] Orthostatic Blood Pressure [ 138/97 Supine] Weight - Most Recent: 103.918 kg I&O - Last 24 hours: Intake & Output 11/26/18 11/27/18 11/27/18 22:59 06:59 14:59 Intake Total 4400 Output Total 3000 Balance 1400 Lab Results - Last 24 hrs: Laboratory Results - last 24 hr 11/26/18 11/26/18 11/26/18 Range/Units 13:25 13:25 13:25 WBC 5.12 (4.0-11.0) K/uL RBC 4.62 (4.50-5.90) M/uL Hgb 15.3 (13.0-17.0) g/dL Hct 42.3 (38.0-50.0) % MCV 91.6 (80.0-98.0) fL MCH 33.1 H (27.0-32.0) pg MCHC 36.2 (31.0-37.0) g/dL RDW Std Deviation 46.1 (28.0-62.0) fl RDW Coeff of Monisha 14 (11.0-15.0) % Plt Count 201 (150-400) K/uL MPV 8.50 (7.40-12.00) fL Neut % (Auto) 58.4 (48.0-80.0) % Lymph % (Auto) 30.7 (16.0-40.0) % [place] % (Auto) 7.4 (0.0-15.0) % Eos % (Auto) 2.9 (0.0-7.0) % Baso % (Auto) 0.6 (0.0-1.5) % Neut # (Auto) 3.0 (1.4-5.7) K/uL Lymph # (Auto) 1.6 (0.6-2.4) K/uL [place] # (Auto) 0.4 (0.0-0.8) K/uL Eos # (Auto) 0.2 (0.0-0.7) K/uL Baso # (Auto) 0.0 (0.0-0.1) K/uL Nucleated RBC % 0.0 /100WBC Nucleated RBCs # 0 K/uL Sodium 133 L (136-148) mmol/L Potassium 3.7 (3.5-5.1) mmol/L Chloride 97 L (98-107) mmol/L Carbon Dioxide 27.7 (21.0-32.0) mmol/L BUN 11 (7.0-18.0) mg/dL Creatinine 0.9 (0.8-1.3) mg/dL Est Cr Clr Drug Dosing TNP Estimated GFR (MDRD) > 60.0 ml/min Glucose 122 H (74-106) mg/dL Hemoglobin A1c 6.0 (4.5-6.2) % Calcium 9.3 (8.5-10.1) mg/dL Total Bilirubin 0.4 (0.2-1.0) mg/dL AST 27 (15-37) IU/L ALT 40 (14-63) IU/L Alkaline Phosphatase 70 (46-116) U/L Troponin I < 0.050 (0.000-0.056) ng/mL Total Protein 7.4 (6.4-8.2) g/dL Albumin 3.3 L (3.4-5.0) g/dL Globulin 4.1 H (2.6-4.0) g/dL Albumin/Globulin Ratio 0.8 L (0.9-1.6) Triglycerides (0-200) mg/dL Cholesterol (50-200) mg/dL LDL Cholesterol, Calc (60-180) mg/dL VLDL Cholesterol (5-55) mg/dL HDL Cholesterol (40-60) mg/dL Cholesterol/HDL Ratio (3.3-6.0) 0211/27/18 11/27/18 Range/Units 18:39 00:23 04:44 WBC (4.0-11.0) K/uL RBC (4.50-5.90) M/uL Hgb (13.0-17.0) g/dL Hct (38.0-50.0) % MCV (80.0-98.0) fL MCH (27.0-32.0) pg MCHC (31.0-37.0) g/dL RDW Std Deviation (28.0-62.0) fl RDW Coeff of Monisha (11.0-15.0) % Plt Count (150-400) K/uL MPV (7.40-12.00) fL Neut % (Auto) (48.0-80.0) % Lymph % (Auto) (16.0-40.0) % [place] % (Auto) (0.0-15.0) % Eos % (Auto) (0.0-7.0) % Baso % (Auto) (0.0-1.5) % Neut # (Auto) (1.4-5.7) K/uL Lymph # (Auto) (0.6-2.4) K/uL [place] # (Auto) (0.0-0.8) K/uL Eos # (Auto) (0.0-0.7) K/uL Baso # (Auto) (0.0-0.1) K/uL Nucleated RBC % /100WBC Nucleated RBCs # K/uL Sodium (136-148) mmol/L Potassium (3.5-5.1) mmol/L Chloride (98-107) mmol/L Carbon Dioxide (21.0-32.0) mmol/L BUN (7.0-18.0) mg/dL Creatinine (0.8-1.3) mg/dL Est Cr Clr Drug Dosing Estimated GFR (MDRD) ml/min Glucose (74-106) mg/dL Hemoglobin A1c (4.5-6.2) % Calcium (8.5-10.1) mg/dL Total Bilirubin (0.2-1.0) mg/dL AST (15-37) IU/L ALT (14-63) IU/L Alkaline Phosphatase (46-116) U/L Troponin I < 0.050 < 0.050 (0.000-0.056) ng/mL Total Protein (6.4-8.2) g/dL Albumin (3.4-5.0) g/dL Globulin (2.6-4.0) g/dL Albumin/Globulin Ratio (0.9-1.6) Triglycerides 100 (0-200) mg/dL Cholesterol 230 H (50-200) mg/dL LDL Cholesterol, Calc 143 (60-180) mg/dL VLDL Cholesterol 20 (5-55) mg/dL HDL Cholesterol 67 H (40-60) mg/dL Cholesterol/HDL Ratio 3.4 (3.3-6.0) Med Orders - Current: Current Medications Acetaminophen (Tylenol) 650 mg PO Q4H PRN PRN Reason: Pain (Mild 1-3)/fever Aspirin (Aspirin) 81 mg PO DAILY [facility] Last Admin: 11/27/18 08:24 Dose: 81 mg Carvedilol (Coreg) 12.5 mg PO BID [facility] Last Admin: 11/27/18 08:25 Dose: 12.5 mg Enoxaparin Sodium (Lovenox) 40 mg SUBCUT Q24H [facility] Last Admin: 11/26/18 17:59 Dose: 40 mg Folic Acid (Folic Acid) 1 mg PO BEDTIME [facility] Last Admin: 11/26/18 21:07 Dose: 1 mg HCTZ/Losartan Potassium (Hyzaar 50-12.5 Mg) 2 tab PO DAILY [facility] Last Admin: 11/27/18 08:24 Dose: 2 tab Lorazepam (Ativan) 0 mg PO Q4H PRN; Protocol PRN Reason: CIWAA Omeprazole (Omeprazole) 40 mg PO ACBREAKFAST [facility] Last Admin: 11/27/18 06:47 Dose: 40 mg Ondansetron HCl (Zofran) 4 mg IVPUSH Q4H PRN PRN Reason: Nausea Sodium Chloride (Saline Flush) 10 ml FLUSH ASDIRECTED PRN PRN Reason: Keep Vein Open Last Admin: 11/26/18 14:14 Dose: 10 ml Sodium Chloride (Saline Flush) 2.5 ml FLUSH ASDIRECTED PRN PRN Reason: Keep Vein Open Last Admin: 11/26/18 14:14 Dose: 2.5 ml Thiamine HCl (Vitamin B-1) 100 mg PO BEDTIME [facility] Last Admin: 11/26/18 21:06 Dose: 100 mg Discontinued Medications Aspirin (Aspirin) 324 mg PO ONETIME ONE Stop: 11/26/18 13:15 Last Admin: 11/26/18 14:12 Dose: Not Given Carvedilol (Coreg) 6.25 mg PO BID [facility] Clonidine HCl (Catapres) 0.1 mg PO ONETIME ONE Stop: 11/26/18 13:32 Last Admin: 11/26/18 14:13 Dose: 0.1 mg Clonidine HCl (Catapres) 0.1 mg PO Q12HR [facility] Sodium Chloride (Normal Saline) 1,000 mls @ 125 mls/hr IV STAT ONE Stop: 11/26/18 22:17 Last Admin: 11/26/18 14:35 Dose: 125 mls/hr - Exam General: Reports: Alert, Oriented, Cooperative, No Acute Distress Neck: Reports: Supple Lungs: Reports: Clear to Auscultation, Normal Respiratory Effort Cardiovascular: Reports: Regular Rate, Regular Rhythm GI/Abdominal Exam: Normal Bowel Sounds, Soft, Non-Tender, No Organomegaly Back Exam: Reports: Normal Inspection, Full Range of Motion Extremities: Normal Inspection, Normal Range of Motion, Non-Tender Neurological: Reports: No New Focal Deficit Psy/Mental Status: Reports: Alert, Normal Affect, Normal Mood
== END 2018-11-27 10:10 | disposition home or self-care (01) ==
LOC: MW.ED 13:12 → MW.MS 14:10
PROVIDERS: ADMIT Internal Medicine; ATTEND Internal Medicine
DX: I10 Essential (primary) hypertension (principal); G89.29 Other chronic pain; M54.9 Dorsalgia, unspecified; E78.5 Hyperlipidemia, unspecified; K21.9 Gastro-esophageal reflux disease without esophagitis; G62.9 Polyneuropathy, unspecified; J44.9 Chronic obstructive pulmonary disease, unspecified; G47.33 Obstructive sleep apnea (adult) (pediatric); Z99.89 Dependence on other enabling machines and devices; I42.9 Cardiomyopathy, unspecified; Z87.891 Personal history of nicotine dependence; Z79.82 Long term (current) use of aspirin; Z79.899 Other long term (current) drug therapy; Z78.9 Other specified health status
CPT/HCPCS: 36415; 70450; 80053; 80061; 83036; 84484; 85025; 93005; 96360; 99285; A9270; J1650; J7040

== ENCOUNTER 2019-02-11 17:03 | Emergency (ER) | payer BC ==
[2019-02-11] MEDS ORDERED: Albuterol/Ipratropium 3.0-0.5 MG/3 ML Neb Soln NEB ONE (17:39)
--- NOTE | 2019-02-11 17:42 | EDM.PDOC ---
ED HPI GENERAL MEDICAL PROBLEM - General Chief Complaint: Respiratory Problem Stated Complaint: COUGH Time Seen by Provider: 02/11/19 17:34 - History of Present Illness INITIAL COMMENTS - FREE TEXT/NARRATIVE: HISTORY AND PHYSICAL: History of present illness: The patient is a 63-year-old male who follows in our internal medicine clinic and has a history of a touch of COPD and presents with a one-week history of persistent cough which is causing him to have abdominal pain chest pain and muscular pain due to the persistent coughing. He has not had a fever and has no chest pain except when he is coughing. He says he feels exhausted and fatigued from the cough. He doesn't feel short of breath except when he is coughing. He has an inhaler at home but he doesn't use it and has not used it for this cough nor has he taken any [id number] meds. Patient to get his flu shot this year and has no abdominal pain currently no nausea vomiting or diarrhea and no extremity complaints or leg swelling. The patient says that he had pneumonia 3 months ago Review of systems: As per history of present illness and below otherwise all systems reviewed and negative. Past medical history: As per history of present illness and as reviewed below otherwise noncontributory. Surgical history: As per history of present illness and as reviewed below otherwise noncontributory. Social history: No reported history of drug or alcohol abuse. Family history: As per history of present illness and as reviewed below otherwise noncontributory. Physical exam: General: Well-developed well-nourished man who is nontoxic and vital signs are noted by me. He speaking clearly and easily in the ED without breathlessness HEENT: Atraumatic, normocephalic, negative for conjunctival pallor or scleral icterus, mucous membranes moist, throat clear, neck supple, nontender, trachea midline. Lungs: Clear to auscultation with some coarse breath sounds and diminished breath sounds in the right base but no worker breathing or stridor, breath sounds equal bilaterally, chest nontender. Heart: S1S2, regular rate and rhythm no overt murmurs Abdomen: Soft, nondistended, nontender. NABS. Negative for costovertebral tenderness. Pelvis: Stable nontender. Genitourinary: Deferred. Rectal: Deferred. Extremities: Atraumatic, negative for cords or calf pain. Neurovascular unremarkable. No pedal edema Neuro: Awake, alert, oriented. Cranial nerves II through XII unremarkable. Cerebellum unremarkable. Motor and sensory unremarkable throughout. Exam nonfocal. Diagnostics: Chest x-ray influenza Therapeutics: Duo Neb prednisone spacer Impression: Bronchitis/COPD exacerbation Definitive disposition and diagnosis as appropriate pending reevaluation and review of above. abdomen, headache Pain Score (Numeric/FACES): 2 - Related Data Allergies Allergy/AdvReac Type Severity Reaction Status Date / Time No Known Allergies Allergy Verified 02/11/19 17:20 Home Meds: Home Meds Losartan/Hydrochlorothiazide [Losartan-HCTZ 100-25 MG] 1 tab PO DAILY 07/17/18 [ History] Aspirin 81 mg PO DAILY 30 Days #30 tab.chew 07/18/18 [Rx] Esomeprazole [NexIUM] 40 mg PO DAILY 11/26/18 [History] Carvedilol [Coreg] 12.5 mg PO BID #60 tablet 11/27/18 [Rx] Past Medical History - Past Health History Medical/Surgical History: Denies Medical/Surgical History HEENT History: Reports: Cataract, Other (See Below) Other HEENT History: has upper and lower dentures Cardiovascular History: Reports: Cardiomyopathy, High Cholesterol, Hypertension Other Cardiovascular History: L ventricle "doesn't work properly" Respiratory History: Reports: COPD, Sleep Apnea Other Respiratory History: CPAP Gastrointestinal History: Reports: GERD, PUD Other Gastrointestinal History: Claimed to have severe ulcer Genitourinary History: Reports: Renal Calculus Musculoskeletal History: Reports: Neck Pain, Chronic Neurological History: Reports: Concussion Psychiatric History: Reports: None - Infectious Disease History Infectious Disease History: Reports: Chicken Pox, Measles, Mumps - Past Surgical History HEENT Surgical History: Reports: Cataract Surgery Respiratory Surgical History: Reports: None GI Surgical History: Reports: Appendectomy, Colonoscopy Social & Family History - Family History Family Medical History: Noncontributory - Tobacco Use Smoking Status *Q: Never Smoker - Caffeine Use Caffeine Use: Reports: Coffee Caffeine Use Comment: 2-3/day - Recreational Drug Use Recreational Drug Use: No - Living Situation & Occupation Living situation: Reports: Occupation: Employed ED ROS GENERAL - Review of Systems Review Of Systems: ROS reveals no pertinent complaints other than HPI. ED EXAM, GENERAL - Physical Exam Exam: See Below (See dictation) Course - Vital Signs Last Recorded V/S: Last Vital Signs Temp 36.2 C 02/11/19 17:17 Pulse 102 H 02/11/19 17:17 Resp 20 02/11/19 17:17 BP 136/85 02/11/19 17:17 Pulse Ox 98 02/11/19 17:48 - Orders/Labs/Meds Orders: Active Orders 24 hr Category Date Time Status Communication Order [RC] STAT Care 02/11/19 18:13 Active RT Aerosol Therapy [RC] ASDIRECTED Care 02/11/19 17:39 Active Chest 2V [CR] Stat Exams 02/11/19 17:07 Taken Meds: Medications Discontinued Medications Generic Name Dose Route Start Last Admin Trade Name Freq PRN Reason Stop Dose Admin Albuterol/Ipratropium 3 ml 02/11/19 17:39 02/11/19 17:48 Duoneb 3.0-0.5 Mg/3 Ml NEB 02/11/19 17:40 3 ml ONETIME ONE Administration Prednisone 10 mg 02/11/19 18:13 02/11/19 18:20 Prednisone PO 02/11/19 18:14 10 mg ONETIME ONE Administration Departure - Departure Time of Disposition: 18:25 Disposition: Home, Self-Care 01 Condition: Good Clinical Impression: Bronchitis, COPD exacerbation - Discharge Information Forms: ED Department Discharge Additional Instructions: The following information is given to patients seen in the emergency department who are being discharged to home. This information is to outline your options for follow-up care. We provide all patients seen in our emergency department with a follow-up referral. The need for follow-up, as well as the timing and circumstances, are variable depending upon the specifics of your emergency department visit. If you don't have a primary care physician on staff, we will provide you with a referral. We always advise you to contact your personal physician following an emergency department visit to inform them of the circumstance of the visit and for follow-up with them and/or the need for any referrals to a consulting specialist. The emergency department will also refer you to a specialist when appropriate. This referral assures that you have the opportunity for followup care with a specialist. All of these measure are taken in an effort to provide you with optimal care, which includes your followup. Under all circumstances we always encourage you to contact your private physician who remains a resource for coordinating your care. When calling for followup care, please make the office aware that this follow-up is from your recent emergency room visit. If for any reason you are refused follow-up, please contact the [facility] emergency department at and ask to speak to the emergency department charge nurse. [facility] Primary care- Internal Medicine and Family [address] [address] Please use your albuterol inhaler 1-2 puffs every 6 hours with a spacer you have been given today for the next 2 days and then every 6 hours as needed. Please take the prednisone as prescribed and please call and schedule a follow- up appointment in the clinic as we discussed. Return to ER as needed and as discussed push hydration. - My Orders Last 24 Hours: My Active Orders 02/11/19 17:39 RT Aerosol Therapy [RC] ASDIRECTED 02/11/19 18:13 Communication Order [RC] STAT - Assessment/Plan Last 24 Hours: My Active Orders 02/11/19 17:39 RT Aerosol Therapy [RC] ASDIRECTED 02/11/19 18:13 Communication Order [RC] STAT
[2019-02-11] MEDS ORDERED: predniSONE 10 MG Tab PO ONE (18:13)
[2019-02-11 18:43] VITALS: BP 124/76
--- NOTE | 2019-02-12 11:24 | CR ---
EXAM DATE: 02/11/19 PATIENT'S AGE: 63 Patient: SUJATA GARCIA Facility: [facility] . Site : 1955 Study: XRay-Chest [id number]/1/2019 5:22:54 PM Ordering Physician: Doctor Snaders Final Report: INDICATION: PAIN/SOB TECHNIQUE: Chest 2 views. COMPARISON: 11/26/18 FINDINGS: Cardiovascular and mediastinum: Heart size and vasculature are normal in caliber and appearance. Mediastinum is within normal limits. Lungs and pleural spaces: Lungs are clear. No sign of infiltrate or mass. No sign of pleural effusion. No pneumothorax. Bones and soft tissues: No significant findings. IMPRESSION: Unremarkable chest. Dictated by: Russ Guerrero MD @ 02/11/2019 17:37:59 Signed by: Russ Guerrero MD @02/11/2019 5:37:59 PM (Electronic Signature) Report Signed by Proxy. [facility]ENTERAf[facility]
== END 2019-02-11 18:36 | disposition home or self-care (01) ==
LOC: MW.ED 17:03
DX: J44.1 Chronic obstructive pulmonary disease with (acute) exacerbation (principal); J40 Bronchitis, not specified as acute or chronic; K21.9 Gastro-esophageal reflux disease without esophagitis; Z79.82 Long term (current) use of aspirin; Z79.899 Other long term (current) drug therapy
CPT/HCPCS: 71046; 87804; 94640; 99285; A9270; 99283; J7620-GY

== ENCOUNTER 2019-12-28 09:59 | Observation (INO) | payer BC, OTHER ==
[2019-12-28] MEDS ORDERED: Labetalol 100 MG/20 ML MDV IVPUSH ONE (10:28)
[2019-12-28 10:53] LABS: BLOOD UREA NITROGEN,BUN 10 mg/dL (7.0-18.0); CHLORIDE,CL 97 mmol/L (98-107); GLUCOSE RANDOM 146 mg/dL (74-106); POTASSIUM,K 4.3 mmol/L (3.5-5.1); SODIUM,NA 138 mmol/L (136-148)
--- NOTE | 2019-12-28 10:53 | CR ---
Chest: Portable view of the chest was obtained. Comparison: Prior chest x-ray of 02/11/19. Heart size and mediastinum are normal. Lungs show no acute parenchymal change. Oligemic change is noted within both upper lungs most likely representing emphysematous change. Bony structures are grossly intact. Impression: 1. Probable emphysematous change as described above. 2. Nothing acute is otherwise seen on portable chest x-ray. Diagnostic code #2 This report was dictated in [place] Standard Time
--- NOTE | 2019-12-28 12:00 | EDM.PDOC ---
ED HPI GENERAL MEDICAL PROBLEM - General Chief Complaint: Cardiovascular Problem Stated Complaint: HIGH BLOOS PRESSURE Time Seen by Provider: 12/28/19 10:52 Source of Information: Reports: Patient History Limitations: Reports: No Limitations - History of Present Illness INITIAL COMMENTS - FREE TEXT/NARRATIVE: This 64 year old male is admitted to the ED with a chief complaint of weakness for the past 8 hours. He states that he almost passed out at home. He states that usually when his magnesium is low he feels the same way. He denies any chest pain or pressure or pain in his upper extremities or jaw but did take two SL nitro and it helped his blood pressure that was high. He denies any other symptoms at this time. Onset: Today Severity: Moderate (but states that his main problem is hypertension) - Related Data Allergies Allergy/AdvReac Type Severity Reaction Status Date / Time No Known Allergies Allergy Verified 02/11/19 17:20 Home Meds: Home Meds Losartan/Hydrochlorothiazide [Losartan-HCTZ 100-25 MG] 1 tab PO DAILY 07/17/18 [ History] Aspirin 81 mg PO DAILY 30 Days #30 tab.chew 07/18/18 [Rx] Esomeprazole [NexIUM] 40 mg PO DAILY 11/26/18 [History] carvediloL [Coreg] 12.5 mg PO BID #60 tablet 11/27/18 [Rx] Past Medical History - Past Health History Medical/Surgical History: Denies Medical/Surgical History HEENT History: Reports: Cataract, Other (See Below) Other HEENT History: has upper and lower dentures Cardiovascular History: Reports: Cardiomyopathy, High Cholesterol, Hypertension Other Cardiovascular History: L ventricle "doesn't work properly" Respiratory History: Reports: COPD Other Respiratory History: CPAP Gastrointestinal History: Reports: GERD, PUD Other Gastrointestinal History: Claimed to have severe ulcer Genitourinary History: Reports: Renal Calculus Musculoskeletal History: Reports: None Neurological History: Reports: Concussion Psychiatric History: Reports: None - Infectious Disease History Infectious Disease History: Reports: Chicken Pox, Measles, Mumps - Past Surgical History HEENT Surgical History: Reports: Cataract Surgery Respiratory Surgical History: Reports: None GI Surgical History: Reports: Appendectomy, Colonoscopy Social & Family History - Family History Family Medical History: Noncontributory - Tobacco Use Smoking Status *Q: Never Smoker - Caffeine Use Caffeine Use: Reports: Coffee Caffeine Use Comment: 2-3/day - Recreational Drug Use Recreational Drug Use: No - Living Situation & Occupation Living situation: Reports: Occupation: Employed ED ROS GENERAL - Review of Systems Review Of Systems: See Below Constitutional: Reports: Weakness (generalized) HEENT: Reports: No Symptoms Respiratory: Reports: No Symptoms Cardiovascular: Reports: No Symptoms Endocrine: Reports: No Symptoms GI/Abdominal: Reports: No Symptoms : Reports: No Symptoms Musculoskeletal: Reports: Other (generalized weakness) Neurological: Reports: No Symptoms ED EXAM, GENERAL - Physical Exam Exam: See Below Exam Limited By: No Limitations General Appearance: Alert, WD/WN, No Apparent Distress Ears: Normal External Exam, Normal Canal, Hearing Grossly Normal, Normal TMs Ear Exam: Bilateral Ear: Auricle Normal, Canal Normal, TM normal Nose: Normal Inspection, Normal Mucosa, No Blood Throat/Mouth: Normal Inspection, Normal Lips, Normal Teeth, Normal Gums, Normal Oropharynx, Normal Voice, No Airway Compromise Head: Atraumatic, Normocephalic Neck: Normal Inspection Respiratory/Chest: No Respiratory Distress, Lungs Clear, Normal Breath Sounds, No Accessory Muscle Use, Chest Non-Tender Cardiovascular: Normal Peripheral Pulses, No Edema, No Gallop, No JVD, No Murmur , No Rub, Tachycardia Peripheral Pulses: 3+: Carotid (L), Carotid (R), Radial (L), Radial (R), Dorsalis Pedis (L), Dorsalis Pedis (R) GI/Abdominal: Normal Bowel Sounds, Soft, Non-Tender, No Organomegaly, No Distention, No Abnormal Bruit, No Mass (Male) Exam: Deferred Rectal (Males) Exam: Deferred Back Exam: Normal Inspection Extremities: Normal Inspection, Normal Range of Motion, Non-Tender, No Pedal Edema, Normal Capillary Refill. No: Greg's Sign Neurological: Alert, Oriented, CN II-XII Intact, Normal Cognition, Normal Gait, Normal Reflexes, No Motor/Sensory Deficits Course - Vital Signs Text/Narrative:: I talked with Dr. Baez at approx 12:04PM. I review all of the patient history and his diagnostic test as well. He will be admitted to OBS/TELE. The patient agrees with the admission. Last Recorded V/S: Last Vital Signs Temp 97.4 F 12/28/19 10:03 Pulse 93 12/28/19 11:20 Resp 18 12/28/19 11:20 BP 123/89 12/28/19 11:20 Pulse Ox 95 12/28/19 11:20 - Orders/Labs/Meds Orders: Active Orders 24 hr Category Date Time Status EKG 12 Lead [EKG Documentation Completion] [RC] STAT Care 12/28/19 10:18 Active UA W/JOSEPH RFLX IF INDICATED [URIN] Stat Lab 12/28/19 10:18 Ordered Labs: Laboratory Tests 12/28/19 12/28/19 12/28/19 Range/Units 10:05 10:05 10:05 WBC 6.51 (4.0-11.0) K/uL RBC 4.64 (4.50-5.90) M/uL Hgb 15.7 (13.0-17.0) g/dL Hct 45.1 (38.0-50.0) % MCV 97.2 (80.0-98.0) fL MCH 33.8 H (27.0-32.0) pg MCHC 34.8 (31.0-37.0) g/dL RDW Std Deviation 48.9 (28.0-62.0) fl RDW Coeff of Monisha 14 (11.0-15.0) % Plt Count 195 (150-400) K/uL MPV 8.70 (7.40-12.00) fL Neut % (Auto) 73.6 (48.0-80.0) % Lymph % (Auto) 19.0 (16.0-40.0) % [place] % (Auto) 5.5 (0.0-15.0) % Eos % (Auto) 1.4 (0.0-7.0) % Baso % (Auto) 0.5 (0.0-1.5) % Neut # (Auto) 4.8 (1.4-5.7) K/uL Lymph # (Auto) 1.2 (0.6-2.4) K/uL [place] # (Auto) 0.4 (0.0-0.8) K/uL Eos # (Auto) 0.1 (0.0-0.7) K/uL Baso # (Auto) 0.0 (0.0-0.1) K/uL Nucleated RBC % 0.0 /100WBC Nucleated RBCs # 0 K/uL Sodium 138 (136-148) mmol/L Potassium 4.3 (3.5-5.1) mmol/L Chloride 97 L (98-107) mmol/L Carbon Dioxide 30.0 (21.0-32.0) mmol/L BUN 10 (7.0-18.0) mg/dL Creatinine 1.0 (0.8-1.3) mg/dL Est Cr Clr Drug Dosing 86.85 mL/min Estimated GFR (MDRD) > 60.0 ml/min Glucose 146 H (74-106) mg/dL Calcium 9.1 (8.5-10.1) mg/dL Magnesium (1.8-2.4) mg/dL Total Bilirubin 0.7 (0.2-1.0) mg/dL AST 89 H (15-37) IU/L ALT 114 H (14-63) IU/L Alkaline Phosphatase 72 (46-116) U/L Troponin I < 0.050 (0.000-0.056) ng/mL B-Natriuretic Peptide 5 (<100) PG/ML Total Protein 7.9 (6.4-8.2) g/dL Albumin 3.8 (3.4-5.0) g/dL Globulin 4.1 H (2.6-4.0) g/dL Albumin/Globulin Ratio 0.9 (0.9-1.6) 03/16/20 Range/Units 10:05 WBC (4.0-11.0) K/uL RBC (4.50-5.90) M/uL Hgb (13.0-17.0) g/dL Hct (38.0-50.0) % MCV (80.0-98.0) fL MCH (27.0-32.0) pg MCHC (31.0-37.0) g/dL RDW Std Deviation (28.0-62.0) fl RDW Coeff of Monisha (11.0-15.0) % Plt Count (150-400) K/uL MPV (7.40-12.00) fL Neut % (Auto) (48.0-80.0) % Lymph % (Auto) (16.0-40.0) % [place] % (Auto) (0.0-15.0) % Eos % (Auto) (0.0-7.0) % Baso % (Auto) (0.0-1.5) % Neut # (Auto) (1.4-5.7) K/uL Lymph # (Auto) (0.6-2.4) K/uL [place] # (Auto) (0.0-0.8) K/uL Eos # (Auto) (0.0-0.7) K/uL Baso # (Auto) (0.0-0.1) K/uL Nucleated RBC % /100WBC Nucleated RBCs # K/uL Sodium (136-148) mmol/L Potassium (3.5-5.1) mmol/L Chloride (98-107) mmol/L Carbon Dioxide (21.0-32.0) mmol/L BUN (7.0-18.0) mg/dL Creatinine (0.8-1.3) mg/dL Est Cr Clr Drug Dosing mL/min Estimated GFR (MDRD) ml/min Glucose (74-106) mg/dL Calcium (8.5-10.1) mg/dL Magnesium 1.8 (1.8-2.4) mg/dL Total Bilirubin (0.2-1.0) mg/dL AST (15-37) IU/L ALT (14-63) IU/L Alkaline Phosphatase (46-116) U/L Troponin I (0.000-0.056) ng/mL B-Natriuretic Peptide (<100) PG/ML Total Protein (6.4-8.2) g/dL Albumin (3.4-5.0) g/dL Globulin (2.6-4.0) g/dL Albumin/Globulin Ratio (0.9-1.6) Meds: Medications Discontinued Medications Generic Name Dose Route Start Last Admin Trade Name Freq PRN Reason Stop Dose Admin Labetalol HCl 10 mg 12/28/19 10:28 Normodyne IVPUSH 12/28/19 10:29 ONETIME ONE Protocol Departure - Departure Time of Disposition: 12:23 Disposition: Refer to Observation Condition: Fair Clinical Impression: Near syncope Hypertension Qualifiers: Hypertension type: essential hypertension Qualified Code(s): I10 - Essential ( primary) hypertension Referrals: PCP,Unobtain [Primary Care Provider] - Forms: ED Department Discharge Sepsis Event Note - Evaluation Sepsis Screening Result: No Definite Risk - Focused Exam Vital Signs: Vital Signs Temp Pulse Resp BP Pulse Ox 12/28/19 11:20 93 18 123/89 95 12/28/19 10:50 94 20 145/98 H 98 12/28/19 10:03 97.4 F 108 H 24 H 161/116 H 95 Date Exam was Performed: 12/28/19 Time Exam was Performed: 12:22 - My Orders Last 24 Hours: My Active Orders 12/28/19 10:18 EKG 12 Lead [EKG Documentation Completion] [RC] STAT UA W/JOSEPH RFLX IF INDICATED [URIN] Stat - Assessment/Plan Last 24 Hours: My Active Orders 12/28/19 10:18 EKG 12 Lead [EKG Documentation Completion] [RC] STAT UA W/JOSEPH RFLX IF INDICATED [URIN] Stat
[2019-12-28] MEDS ORDERED: Acetaminophen 325 MG Tab PO PRN (12:57)
[2019-12-28] MEDS ORDERED: Ondansetron 4 MG/2 ML SDV IVPUSH PRN (12:57)
[2019-12-28] MEDS ORDERED: Ondansetron 4 MG Tab.DIS PO PRN (12:57)
--- NOTE | 2019-12-28 13:09 | PCM.HP.2 ---
Addendum entered and electronically signed by Wenceslao Barbour MD 12/28/19 14: 57: Patient reports not taking his blood pressure medications for the past few days , but did take them this morning. Patient did not receive labetalol in ER. Original Note: H&P History of Present Illness - General Date of Service: 12/28/19 Admit Problem/Dx: Admission Diagnosis/Problem Admission Diagnosis/Problem Near syncope Source of Information: Patient History Limitations: Reports: No Limitations - History of Present Illness Initial Comments - Free Text/Narative: 64-year-old male presents complaining of elevated blood pressure, weakness, dizziness and near-syncope. He has a PMH of HTN, cardiomyopathy, COPD and TIA. He reports this morning his blood pressure was SBP ~ 180 mm Hg. He also had dizziness that last for a few minutes this morning while moving around his house. Patient reports feeling weak and having body aches for the past few days as well. He experiences occasional palpitations. He has had mild SOB but notes that it has not significantly changed from his baseline. He has had no change in his appetite. He denies any fevers, chills, blurry vision, sore throat, cough , chest pain, nausea, vomiting, diarrhea, abdominal pain, numbness or tingling in extremities. Reports quitting tobacco 4 years ago, occasional alcohol use and no illicit drugs. He denies a history of heart failure, however, ECHO from showed EF of 50% with diastolic dysfunction. In the ER, EKG was unremarkable. His BP was 160/116 mm Hg and he was given 1 dose of labetalol which decreased it to 123/89 mm Hg. CBC unremarkable. CMP showed mild transaminitis. BNP normal. Troponin was negative. CXR was negative. Patient admitted for further evaluation and treatment. - Related Data Allergies/Adverse Reactions: Allergies Allergy/AdvReac Type Severity Reaction Status Date / Time No Known Allergies Allergy Verified 02/11/19 17:20 Home Medications: Home Meds Losartan/Hydrochlorothiazide [Losartan-HCTZ 100-25 MG] 1 tab PO DAILY 07/17/18 [ History] Aspirin 81 mg PO DAILY 30 Days #30 tab.chew 07/18/18 [Rx] Esomeprazole [NexIUM] 40 mg PO DAILY 11/26/18 [History] carvediloL [Coreg] 12.5 mg PO BID #60 tablet 11/27/18 [Rx] Past Medical History - Past Health History Medical/Surgical History: Denies Medical/Surgical History HEENT History: Reports: Cataract, Other (See Below) Other HEENT History: has upper and lower dentures Cardiovascular History: Reports: Cardiomyopathy, High Cholesterol, Hypertension Other Cardiovascular History: L ventricle "doesn't work properly" Respiratory History: Reports: COPD Other Respiratory History: CPAP Gastrointestinal History: Reports: GERD, PUD Other Gastrointestinal History: Claimed to have severe ulcer Genitourinary History: Reports: Renal Calculus Musculoskeletal History: Reports: None Neurological History: Reports: Concussion Psychiatric History: Reports: None - Infectious Disease History Infectious Disease History: Reports: Chicken Pox, Measles, Mumps - Past Surgical History HEENT Surgical History: Reports: Cataract Surgery Respiratory Surgical History: Reports: None GI Surgical History: Reports: Appendectomy, Colonoscopy Social & Family History - Family History Family Medical History: Noncontributory - Tobacco Use Smoking Status *Q: Never Smoker - Caffeine Use Caffeine Use: Reports: Coffee Caffeine Use Comment: 2-3/day - Recreational Drug Use Recreational Drug Use: No - Living Situation & Occupation Living situation: Reports: Occupation: Employed H&P Review of Systems - Review of Systems: Review Of Systems: Comprehensive ROS is negative, except as noted in HPI. Exam - Exam Exam: See Below - Vital Signs Vital Signs: Last Vital Signs Temp 97.4 F 12/28/19 10:03 Pulse 93 12/28/19 11:20 Resp 18 12/28/19 11:20 BP 123/89 12/28/19 11:20 Pulse Ox 95 12/28/19 11:20 Weight: 230 lb - Exam General: Alert, Oriented, Cooperative, Other (NAD) HEENT: Conjunctiva Clear, EOMI, Hearing Intact, Posterior Pharynx Clear ( pharyngeal erythema), Pupils Equal, Pupils Reactive Neck: Supple, Trachea Midline Lungs: Clear to Auscultation, Normal Respiratory Effort Cardiovascular: Regular Rate, Regular Rhythm GI/Abdominal Exam: Normal Bowel Sounds, Soft, Non-Tender, No Distention Back Exam: Normal Inspection Extremities: Normal Inspection, No Pedal Edema Peripheral Pulses: 2+: Radial (L), Radial (R) Skin: Warm, Dry, Intact Neurological: Cranial Nerves Intact, Strength Equal Bilateral, Normal Speech, Normal Tone Neuro Extensive - Mental Status: Alert, Oriented x3, Normal Mood/Affect Psychiatric: Alert, Normal Affect, Normal Mood - Patient Data Lab Results Last 24 hrs: Laboratory Results - last 24 hr 12/28/19 12/28/19 12/28/19 Range/Units 10:05 10:05 10:05 WBC 6.51 (4.0-11.0) K/uL RBC 4.64 (4.50-5.90) M/uL Hgb 15.7 (13.0-17.0) g/dL Hct 45.1 (38.0-50.0) % MCV 97.2 (80.0-98.0) fL MCH 33.8 H (27.0-32.0) pg MCHC 34.8 (31.0-37.0) g/dL RDW Std Deviation 48.9 (28.0-62.0) fl RDW Coeff of Monisha 14 (11.0-15.0) % Plt Count 195 (150-400) K/uL MPV 8.70 (7.40-12.00) fL Neut % (Auto) 73.6 (48.0-80.0) % Lymph % (Auto) 19.0 (16.0-40.0) % [place] % (Auto) 5.5 (0.0-15.0) % Eos % (Auto) 1.4 (0.0-7.0) % Baso % (Auto) 0.5 (0.0-1.5) % Neut # (Auto) 4.8 (1.4-5.7) K/uL Lymph # (Auto) 1.2 (0.6-2.4) K/uL [place] # (Auto) 0.4 (0.0-0.8) K/uL Eos # (Auto) 0.1 (0.0-0.7) K/uL Baso # (Auto) 0.0 (0.0-0.1) K/uL Nucleated RBC % 0.0 /100WBC Nucleated RBCs # 0 K/uL Sodium 138 (136-148) mmol/L Potassium 4.3 (3.5-5.1) mmol/L Chloride 97 L (98-107) mmol/L Carbon Dioxide 30.0 (21.0-32.0) mmol/L BUN 10 (7.0-18.0) mg/dL Creatinine 1.0 (0.8-1.3) mg/dL Est Cr Clr Drug Dosing 86.85 mL/min Estimated GFR (MDRD) > 60.0 ml/min Glucose 146 H (74-106) mg/dL Calcium 9.1 (8.5-10.1) mg/dL Magnesium (1.8-2.4) mg/dL Total Bilirubin 0.7 (0.2-1.0) mg/dL AST 89 H (15-37) IU/L ALT 114 H (14-63) IU/L Alkaline Phosphatase 72 (46-116) U/L Troponin I < 0.050 (0.000-0.056) ng/mL B-Natriuretic Peptide 5 (<100) PG/ML Total Protein 7.9 (6.4-8.2) g/dL Albumin 3.8 (3.4-5.0) g/dL Globulin 4.1 H (2.6-4.0) g/dL Albumin/Globulin Ratio 0.9 (0.9-1.6) /16 Range/Units 10:05 WBC (4.0-11.0) K/uL RBC (4.50-5.90) M/uL Hgb (13.0-17.0) g/dL Hct (38.0-50.0) % MCV (80.0-98.0) fL MCH (27.0-32.0) pg MCHC (31.0-37.0) g/dL RDW Std Deviation (28.0-62.0) fl RDW Coeff of Monisha (11.0-15.0) % Plt Count (150-400) K/uL MPV (7.40-12.00) fL Neut % (Auto) (48.0-80.0) % Lymph % (Auto) (16.0-40.0) % [place] % (Auto) (0.0-15.0) % Eos % (Auto) (0.0-7.0) % Baso % (Auto) (0.0-1.5) % Neut # (Auto) (1.4-5.7) K/uL Lymph # (Auto) (0.6-2.4) K/uL [place] # (Auto) (0.0-0.8) K/uL Eos # (Auto) (0.0-0.7) K/uL Baso # (Auto) (0.0-0.1) K/uL Nucleated RBC % /100WBC Nucleated RBCs # K/uL Sodium (136-148) mmol/L Potassium (3.5-5.1) mmol/L Chloride (98-107) mmol/L Carbon Dioxide (21.0-32.0) mmol/L BUN (7.0-18.0) mg/dL Creatinine (0.8-1.3) mg/dL Est Cr Clr Drug Dosing mL/min Estimated GFR (MDRD) ml/min Glucose (74-106) mg/dL Calcium (8.5-10.1) mg/dL Magnesium 1.8 (1.8-2.4) mg/dL Total Bilirubin (0.2-1.0) mg/dL AST (15-37) IU/L ALT (14-63) IU/L Alkaline Phosphatase (46-116) U/L Troponin I (0.000-0.056) ng/mL B-Natriuretic Peptide (<100) PG/ML Total Protein (6.4-8.2) g/dL Albumin (3.4-5.0) g/dL Globulin (2.6-4.0) g/dL Albumin/Globulin Ratio (0.9-1.6) Result Diagrams: 12/28/19 10:05 12/28/19 10:05 Sepsis Event Note - Evaluation Sepsis Screening Result: No Definite Risk - Focused Exam Vital Signs: Vital Signs Temp Pulse Resp BP Pulse Ox 12/28/19 11:20 93 18 123/89 95 12/28/19 10:50 94 20 145/98 H 98 12/28/19 10:03 97.4 F 108 H 24 H 161/116 H 95 Date Exam was Performed: 12/28/19 Time Exam was Performed: 13:11 Problem List Initiated/Reviewed/Updated: Yes Orders Last 24hrs: Active Orders 24 hr Category Date Time Status Admission Status [Patient Status] [ADT] Stat ADT 12/28/19 12:24 Active EKG 12 Lead [EKG Documentation Completion] [RC] STAT Care 12/28/19 10:18 Active Orthostatic Vital Signs [RC] ASDIRECTED Care 12/28/19 12:59 Ordered Oxygen Therapy [RC] PRN Care 12/28/19 12:57 Ordered Telemetry Monitoring [Cardiac Monitoring] [RC] . Care 12/28/19 13:00 Ordered DIRECTED Up ad Stella [RC] ASDIRECTED Care 12/28/19 12:57 Ordered VTE/DVT Education [RC] PER UNIT ROUTINE Care 12/28/19 12:57 Ordered Vital Signs [RC] Q4H Care 12/28/19 12:57 Ordered PT Evaluation and Treatment [CONS] Routine Cons 12/28/19 12:57 Ordered Heart Healthy Diet [DIET] Diet 12/28/19 Lunch Ordered Echo Comp wo Cont [US] Urgent Exams 12/28/19 13:01 Ordered CBC WITH AUTO DIFF [HEME] AM Lab 12/29/19 05:11 Ordered COMPREHENSIVE METABOLIC PN,CMP [CHEM] AM Lab 12/29/19 05:11 Ordered INFLUENZA A+B AG SCREEN [RM] Urgent Lab 12/28/19 13:01 Ordered UA RFX JOSEPH AND CULT IF INDIC [URIN] Stat Lab 12/28/19 13:00 Ordered UA W/JOSEPH RFLX IF INDICATED [URIN] Stat Lab 12/28/19 10:18 Ordered Acetaminophen [Tylenol] Med 12/28/19 12:57 Ordered 650 mg PO Q4H PRN Heparin Sodium Med 12/28/19 13:00 Ordered 5,000 units SUBCUT Q8H Ondansetron [Zofran ODT] Med 12/28/19 12:57 Ordered 4 mg PO Q4H PRN Ondansetron [Zofran] Med 12/28/19 12:57 Ordered 4 mg IVPUSH Q4H PRN Resuscitation Status Routine Resus Stat 12/28/19 12:57 Ordered Medication Orders Acetaminophen (Tylenol) 650 mg PO Q4H PRN PRN Reason: Pain (Mild 1-3)/fever Heparin Sodium (Porcine) (Heparin Sodium) 5,000 units SUBCUT Q8H HAYDEE Ondansetron HCl (Zofran Odt) 4 mg PO Q4H PRN PRN Reason: nausea, able to take PO Ondansetron HCl (Zofran) 4 mg IVPUSH Q4H PRN PRN Reason: Nausea Assessment/Plan Comment:: Assessment and Plan: 1. Near-syncope: - Admit to med/surg. Obtain orthostatic vitals, keep patient on telemetry, order ECHO and UA. EKG unremarkable. Will monitor blood pressure. 2. Generalized weakness and body aches: - PT - Order influenza swab. 3. Past medical history of HTN, cardiomyopathy, TIA, COPD and GERD: - Resume home medications. 4. DVT prophylaxis: Heparin.
[2019-12-28] MEDS ORDERED: Sodium Chloride 0.9% 500 ML IV ONE (13:28)
[2019-12-28] MEDS: Heparin Sodium 5,000 Units/ML Vial SUBCUT SCH ×2 (14:26→20:48)
[2019-12-28] MEDS ORDERED: ESOMEPRAZOLE 20 MG PO SCH (18:11)
[2019-12-28] MEDS ORDERED: Magnesium Sulfate/Water 2 GM in Premix Bag 1 BAG IV ONE (19:01)
[2019-12-28] MEDS: Carvedilol 6.25 MG Tab PO SCH (20:46)
[2019-12-29] MEDS: Heparin Sodium 5,000 Units/ML Vial SUBCUT SCH (05:53)
[2019-12-29 07:09] LABS: BLOOD UREA NITROGEN,BUN 8 mg/dL (7.0-18.0); CARBON DIOXIDE,CO2 32.5 mmol/L (21.0-32.0); CHLORIDE,CL 101 mmol/L (98-107); GLUCOSE RANDOM 101 mg/dL (74-106); POTASSIUM,K 3.7 mmol/L (3.5-5.1); SODIUM,NA 138 mmol/L (136-148)
[2019-12-29] MEDS ORDERED: Omeprazole 20 MG Cap.CR PO SCH (07:30)
[2019-12-29 08:04] VITALS: BP 148/88; PULSE 75
[2019-12-29] MEDS ORDERED: Aspirin 81 MG Tab.Chew PO SCH (09:00)
[2019-12-29] MEDS ORDERED: Hydrochlorothiazide/Losartan 12.5-50 mg Tab PO SCH (09:00)
[2019-12-29] MEDS: Carvedilol 6.25 MG Tab PO SCH (09:46)
--- NOTE | 2019-12-29 10:40 | PCM.DCSUM1 ---
Discharge Summary - Hospital Course Free Text/Narrative:: 64-year-old male admitted for near-syncope. He has a PMH of HTN, TIA, cardiomyopathy, COPD, GRISELDA and GERD. Orthostatics were negative. EKG was unremarkable. UA was negative. CXR was negative. Influenza test negative. CBC and BMP was unremarkable. CMP showed mild transaminitis. Patient given 500 cc IV NS bolus and 2 g IV magnesium sulfate. ECHO report said that it was a technically difficulty study with suboptimal image quality, LV poorly visualized , suspect normal LV systolic function and recommended repeat study in [place] with definite contrast. Patient reports that he has a history of GRISELDA and did not tolerate CPAP so has not used it. Patient reported feeling better on day of discharge. Advised patient to follow-up with his PCP for repeat sleep study or referral to sleep medicine specialist. - Discharge Data Discharge Date: 12/29/19 Discharge Disposition: Home, Self-Care 01 Condition: Stable - Referral to Home Health Primary Care Physician: PCP Unobtainable - Patient Summary/Data Consults: Consultations 12/28/19 12:57 PT Evaluation and Treatment [CONS] Routine - Patient Instructions Diet: Heart Healthy Diet Activity: As Tolerated Notify Provider of: Fever, Increased Pain, Swelling and Redness, Drainage, Nausea and/or Vomiting - Discharge Plan *PRESCRIPTION DRUG MONITORING PROGRAM REVIEWED*: Not Applicable *COPY OF PRESCRIPTION DRUG MONITORING REPORT IN PATIENT KIE: Not Applicable Home Medications: Home Meds Esomeprazole Magnesium [Heartburn Treatment] 20 mg PO DAILY 12/28/19 [History] Losartan [Cozaar] 50 mg PO DAILY 12/28/19 [History] carvediloL [Carvedilol] 6.25 mg PO BID 12/28/19 [History] hydroCHLOROthiazide [Hydrochlorothiazide] 12.5 mg PO DAILY 12/28/19 [History] Oxygen Therapy Mode: Room Air Patient Handouts: Near-Syncope, [id number] Referrals: Hill Walters MD [Physician] - 01/07/20 2:30 pm (Arrive 15 minutes early with a photo ID and insurance card. ) - Discharge Summary/Plan Comment DC Time >30 min.: No - Patient Data Vitals - Most Recent: Last Vital Signs Temp 97.5 F 12/29/19 07:15 Pulse 75 12/29/19 09:46 Resp 17 12/29/19 07:15 BP 148/88 H 12/29/19 09:46 Pulse Ox 93 L 12/29/19 07:15 Orthostatic Blood Pressure [ 159/102 Standing] Orthostatic Blood Pressure [ 176/99 Sitting] Orthostatic Blood Pressure [ 162/88 Supine] Weight - Most Recent: 250 lb 2.49 oz I&O - Last 24 hours: Intake & Output 12/28/19 12/29/19 12/29/19 22:59 06:59 14:59 Intake Total 500 1000 Output Total 400 725 Balance 100 275 Lab Results - Last 24 hrs: Laboratory Results - last 24 hr 12/28/19 12/28/19 12/28/19 Range/Units 10:05 10:05 10:05 WBC 6.51 (4.0-11.0) K/uL RBC 4.64 (4.50-5.90) M/uL Hgb 15.7 (13.0-17.0) g/dL Hct 45.1 (38.0-50.0) % MCV 97.2 (80.0-98.0) fL MCH 33.8 H (27.0-32.0) pg MCHC 34.8 (31.0-37.0) g/dL RDW Std Deviation 48.9 (28.0-62.0) fl RDW Coeff of Monisha 14 (11.0-15.0) % Plt Count 195 (150-400) K/uL MPV 8.70 (7.40-12.00) fL Neut % (Auto) 73.6 (48.0-80.0) % Lymph % (Auto) 19.0 (16.0-40.0) % [place] % (Auto) 5.5 (0.0-15.0) % Eos % (Auto) 1.4 (0.0-7.0) % Baso % (Auto) 0.5 (0.0-1.5) % Neut # (Auto) 4.8 (1.4-5.7) K/uL Lymph # (Auto) 1.2 (0.6-2.4) K/uL [place] # (Auto) 0.4 (0.0-0.8) K/uL Eos # (Auto) 0.1 (0.0-0.7) K/uL Baso # (Auto) 0.0 (0.0-0.1) K/uL Nucleated RBC % 0.0 /100WBC Nucleated RBCs # 0 K/uL Sodium 138 (136-148) mmol/L Potassium 4.3 (3.5-5.1) mmol/L Chloride 97 L (98-107) mmol/L Carbon Dioxide 30.0 (21.0-32.0) mmol/L BUN 10 (7.0-18.0) mg/dL Creatinine 1.0 (0.8-1.3) mg/dL Est Cr Clr Drug Dosing 86.85 mL/min Estimated GFR (MDRD) > 60.0 ml/min Glucose 146 H (74-106) mg/dL POC Glucose (60-110) mg/dL Calcium 9.1 (8.5-10.1) mg/dL Magnesium (1.8-2.4) mg/dL Total Bilirubin 0.7 (0.2-1.0) mg/dL AST 89 H (15-37) IU/L ALT 114 H (14-63) IU/L Alkaline Phosphatase 72 (46-116) U/L Troponin I < 0.050 (0.000-0.056) ng/mL B-Natriuretic Peptide 5 (<100) PG/ML Total Protein 7.9 (6.4-8.2) g/dL Albumin 3.8 (3.4-5.0) g/dL Globulin 4.1 H (2.6-4.0) g/dL Albumin/Globulin Ratio 0.9 (0.9-1.6) TSH 3rd Generation (0.36-3.74) uIU/mL Urine Color Urine Appearance Urine pH (5.0-8.0) Ur Specific [place] (1.001-1.035) Urine Protein (NEGATIVE) mg/dL Urine Glucose (UA) (NEGATIVE) mg/dL Urine Ketones (NEGATIVE) mg/dL Urine Occult Blood (NEGATIVE) Urine Nitrite (NEGATIVE) Urine Bilirubin (NEGATIVE) Urine Urobilinogen (<2.0) EU/dL Ur Leukocyte Esterase (NEGATIVE) Urine RBC (0-2/HPF) Urine WBC (0-5/HPF) Ur Epithelial Cells (NONE-FEW) Urine Bacteria (NEGATIVE) Urine Mucus (NONE-MOD) Monoscreen (NEG) 12/28/19 12/28/19 12/28/19 Range/Units 10:05 10:05 10:05 WBC (4.0-11.0) K/uL RBC (4.50-5.90) M/uL Hgb (13.0-17.0) g/dL Hct (38.0-50.0) % MCV (80.0-98.0) fL MCH (27.0-32.0) pg MCHC (31.0-37.0) g/dL RDW Std Deviation (28.0-62.0) fl RDW Coeff of Monisha (11.0-15.0) % Plt Count (150-400) K/uL MPV (7.40-12.00) fL Neut % (Auto) (48.0-80.0) % Lymph % (Auto) (16.0-40.0) % [place] % (Auto) (0.0-15.0) % Eos % (Auto) (0.0-7.0) % Baso % (Auto) (0.0-1.5) % Neut # (Auto) (1.4-5.7) K/uL Lymph # (Auto) (0.6-2.4) K/uL [place] # (Auto) (0.0-0.8) K/uL Eos # (Auto) (0.0-0.7) K/uL Baso # (Auto) (0.0-0.1) K/uL Nucleated RBC % /100WBC Nucleated RBCs # K/uL Sodium (136-148) mmol/L Potassium (3.5-5.1) mmol/L Chloride (98-107) mmol/L Carbon Dioxide (21.0-32.0) mmol/L BUN (7.0-18.0) mg/dL Creatinine (0.8-1.3) mg/dL Est Cr Clr Drug Dosing mL/min Estimated GFR (MDRD) ml/min Glucose (74-106) mg/dL POC Glucose (60-110) mg/dL Calcium (8.5-10.1) mg/dL Magnesium 1.8 (1.8-2.4) mg/dL Total Bilirubin (0.2-1.0) mg/dL AST (15-37) IU/L ALT (14-63) IU/L Alkaline Phosphatase (46-116) U/L Troponin I (0.000-0.056) ng/mL B-Natriuretic Peptide (<100) PG/ML Total Protein (6.4-8.2) g/dL Albumin (3.4-5.0) g/dL Globulin (2.6-4.0) g/dL Albumin/Globulin Ratio (0.9-1.6) TSH 3rd Generation 1.20 (0.36-3.74) uIU/mL Urine Color Urine Appearance Urine pH (5.0-8.0) Ur Specific [place] (1.001-1.035) Urine Protein (NEGATIVE) mg/dL Urine Glucose (UA) (NEGATIVE) mg/dL Urine Ketones (NEGATIVE) mg/dL Urine Occult Blood (NEGATIVE) Urine Nitrite (NEGATIVE) Urine Bilirubin (NEGATIVE) Urine Urobilinogen (<2.0) EU/dL Ur Leukocyte Esterase (NEGATIVE) Urine RBC (0-2/HPF) Urine WBC (0-5/HPF) Ur Epithelial Cells (NONE-FEW) Urine Bacteria (NEGATIVE) Urine Mucus (NONE-MOD) Monoscreen NEGATIVE (NEG) 12/28/19 12/28/19 12/29/19 Range/Units 14:20 17:11 05:59 WBC 3.25 L (4.0-11.0) K/uL RBC 4.23 L (4.50-5.90) M/uL Hgb 14.0 (13.0-17.0) g/dL Hct 42.2 (38.0-50.0) % MCV 99.8 H (80.0-98.0) fL MCH 33.1 H (27.0-32.0) pg MCHC 33.2 (31.0-37.0) g/dL RDW Std Deviation 50.7 (28.0-62.0) fl RDW Coeff of Monisha 14 (11.0-15.0) % Plt Count 177 (150-400) K/uL MPV 8.80 (7.40-12.00) fL Neut % (Auto) 55.9 (48.0-80.0) % Lymph % (Auto) 30.5 (16.0-40.0) % [place] % (Auto) 10.2 (0.0-15.0) % Eos % (Auto) 2.8 (0.0-7.0) % Baso % (Auto) 0.6 (0.0-1.5) % Neut # (Auto) 1.8 (1.4-5.7) K/uL Lymph # (Auto) 1.0 (0.6-2.4) K/uL [place] # (Auto) 0.3 (0.0-0.8) K/uL Eos # (Auto) 0.1 (0.0-0.7) K/uL Baso # (Auto) 0.0 (0.0-0.1) K/uL Nucleated RBC % 0.0 /100WBC Nucleated RBCs # 0 K/uL Sodium (136-148) mmol/L Potassium (3.5-5.1) mmol/L Chloride (98-107) mmol/L Carbon Dioxide (21.0-32.0) mmol/L BUN (7.0-18.0) mg/dL Creatinine (0.8-1.3) mg/dL Est Cr Clr Drug Dosing mL/min Estimated GFR (MDRD) ml/min Glucose (74-106) mg/dL POC Glucose 114 H (60-110) mg/dL Calcium (8.5-10.1) mg/dL Magnesium (1.8-2.4) mg/dL Total Bilirubin (0.2-1.0) mg/dL AST (15-37) IU/L ALT (14-63) IU/L Alkaline Phosphatase (46-116) U/L Troponin I (0.000-0.056) ng/mL B-Natriuretic Peptide (<100) PG/ML Total Protein (6.4-8.2) g/dL Albumin (3.4-5.0) g/dL Globulin (2.6-4.0) g/dL Albumin/Globulin Ratio (0.9-1.6) TSH 3rd Generation (0.36-3.74) uIU/mL Urine Color YELLOW Urine Appearance CLEAR Urine pH 8.5 H (5.0-8.0) Ur Specific [place] 1.010 (1.001-1.035) Urine Protein TRACE H (NEGATIVE) mg/dL Urine Glucose (UA) NEGATIVE (NEGATIVE) mg/dL Urine Ketones NEGATIVE (NEGATIVE) mg/dL Urine Occult Blood NEGATIVE (NEGATIVE) Urine Nitrite NEGATIVE (NEGATIVE) Urine Bilirubin NEGATIVE (NEGATIVE) Urine Urobilinogen 0.2 (<2.0) EU/dL Ur Leukocyte Esterase NEGATIVE (NEGATIVE) Urine RBC 0-2 (0-2/HPF) Urine WBC 3-5 (0-5/HPF) Ur Epithelial Cells FEW (NONE-FEW) Urine Bacteria FEW (NEGATIVE) Urine Mucus LIGHT (NONE-MOD) Monoscreen (NEG) 12/29/19 Range/Units 05:59 WBC (4.0-11.0) K/uL RBC (4.50-5.90) M/uL Hgb (13.0-17.0) g/dL Hct (38.0-50.0) % MCV (80.0-98.0) fL MCH (27.0-32.0) pg MCHC (31.0-37.0) g/dL RDW Std Deviation (28.0-62.0) fl RDW Coeff of Monisha (11.0-15.0) % Plt Count (150-400) K/uL MPV (7.40-12.00) fL Neut % (Auto) (48.0-80.0) % Lymph % (Auto) (16.0-40.0) % [place] % (Auto) (0.0-15.0) % Eos % (Auto) (0.0-7.0) % Baso % (Auto) (0.0-1.5) % Neut # (Auto) (1.4-5.7) K/uL Lymph # (Auto) (0.6-2.4) K/uL [place] # (Auto) (0.0-0.8) K/uL Eos # (Auto) (0.0-0.7) K/uL Baso # (Auto) (0.0-0.1) K/uL Nucleated RBC % /100WBC Nucleated RBCs # K/uL Sodium 138 (136-148) mmol/L Potassium 3.7 (3.5-5.1) mmol/L Chloride 101 (98-107) mmol/L Carbon Dioxide 32.5 H (21.0-32.0) mmol/L BUN 8 (7.0-18.0) mg/dL Creatinine 0.9 (0.8-1.3) mg/dL Est Cr Clr Drug Dosing 96.50 mL/min Estimated GFR (MDRD) > 60.0 ml/min Glucose 101 (74-106) mg/dL POC Glucose (60-110) mg/dL Calcium 8.3 L (8.5-10.1) mg/dL Magnesium (1.8-2.4) mg/dL Total Bilirubin 0.7 (0.2-1.0) mg/dL AST 54 H (15-37) IU/L ALT 83 H (14-63) IU/L Alkaline Phosphatase 53 (46-116) U/L Troponin I (0.000-0.056) ng/mL B-Natriuretic Peptide (<100) PG/ML Total Protein 6.6 (6.4-8.2) g/dL Albumin 3.1 L (3.4-5.0) g/dL Globulin 3.5 (2.6-4.0) g/dL Albumin/Globulin Ratio 0.9 (0.9-1.6) TSH 3rd Generation (0.36-3.74) uIU/mL Urine Color Urine Appearance Urine pH (5.0-8.0) Ur Specific [place] (1.001-1.035) Urine Protein (NEGATIVE) mg/dL Urine Glucose (UA) (NEGATIVE) mg/dL Urine Ketones (NEGATIVE) mg/dL Urine Occult Blood (NEGATIVE) Urine Nitrite (NEGATIVE) Urine Bilirubin (NEGATIVE) Urine Urobilinogen (<2.0) EU/dL Ur Leukocyte Esterase (NEGATIVE) Urine RBC (0-2/HPF) Urine WBC (0-5/HPF) Ur Epithelial Cells (NONE-FEW) Urine Bacteria (NEGATIVE) Urine Mucus (NONE-MOD) Monoscreen (NEG) JOSEPH Results - Last 24 hrs: Microbiology 12/28/19 16:44 Influenza Type A Antigen Screen - Final Nasopharyngeal Swab NEGATIVE INFLUENZA A VIRUS AG REFERENCE RANGE: NEGATIVE Influenza Type B Antigen Screen - Final NEGATIVE INFLUENZA B VIRUS AG REFERENCE RANGE: NEGATIVE Med Orders - Current: Current Medications Acetaminophen (Tylenol) 650 mg PO Q4H PRN PRN Reason: Pain (Mild 1-3)/fever Aspirin (Aspirin) 81 mg PO DAILY [facility] Last Admin: 12/29/19 09:46 Dose: 81 mg Carvedilol (Coreg) 6.25 mg PO BID [facility] Last Admin: 12/29/19 09:46 Dose: 6.25 mg HCTZ/Losartan Potassium (Hyzaar 50-12.5 Mg) 1 tab PO DAILY [facility] Last Admin: 12/29/19 09:46 Dose: 1 tab Heparin Sodium (Porcine) (Heparin Sodium) 5,000 units SUBCUT Q8H [facility] Last Admin: 12/29/19 05:53 Dose: 5,000 units Ondansetron HCl (Zofran Odt) 4 mg PO Q4H PRN PRN Reason: nausea, able to take PO Ondansetron HCl (Zofran) 4 mg IVPUSH Q4H PRN PRN Reason: Nausea Esomeprazole 20mg (Cap#Patient's Own#) 1 each PO ACBREAKFAST [facility] Last Admin: 12/29/19 09:46 Dose: Not Given Discontinued Medications Sodium Chloride (Normal Saline) 500 mls @ 999 mls/hr IV STAT ONE Stop: 12/28/19 13:58 Last Admin: 12/28/19 14:28 Dose: 999 mls/hr Magnesium Sulfate 2 gm/ Premix 50 mls @ 50 mls/hr IV ONETIME ONE Stop: 12/28/19 20:00 Last Admin: 12/28/19 19:46 Dose: 50 mls/hr Labetalol HCl (Normodyne) 10 mg IVPUSH ONETIME ONE; Protocol Stop: 12/28/19 10:29 Last Admin: 12/28/19 13:10 Dose: Not Given Omeprazole (Omeprazole) 20 mg PO ACBREAKFAST [facility]
--- NOTE | 2019-12-30 12:13 | ECHO ---
EXAM DATE: 12/28/19 PATIENT'S AGE: 64 The echocardiogram report can be seen in this patient's EMR (Electronic Medical Record) in the REPORTS section. The report has also been scanned into PACs. PEDRO LUIS
== END 2019-12-29 10:55 | disposition home or self-care (01) ==
LOC: MW.ED 09:59 → MW.MS 12:24
PROVIDERS: ADMIT Internal Medicine; ATTEND Internal Medicine
DX: R55 Syncope and collapse (principal); R53.1 Weakness; J44.9 Chronic obstructive pulmonary disease, unspecified; G47.33 Obstructive sleep apnea (adult) (pediatric); K21.9 Gastro-esophageal reflux disease without esophagitis; I11.9 Hypertensive heart disease without heart failure; I43 Cardiomyopathy in diseases classified elsewhere; Z79.899 Other long term (current) drug therapy; Z86.73 Personal history of transient ischemic attack (TIA), and cerebral infarction without residual deficits
CPT/HCPCS: 36415; 71045; 80053; 81001; 82962; 83735; 83880; 84443; 84484; 85025; 86308; 87804; 93005; 93306; 96365; 96372; 97161; 99285; A9270; G0378; J1644; J3475; J7030

== ENCOUNTER 2020-11-05 13:10 | Emergency (ER) | payer MEDICARE, OTHER ==
--- NOTE | 2020-11-05 13:16 | EDM.PDOC ---
ED HPI GENERAL MEDICAL PROBLEM - General Chief Complaint: Cardiovascular Problem Stated Complaint: HIGH BP Time Seen by Provider: 11/05/20 13:16 Source of Information: Reports: Patient History Limitations: Reports: No Limitations - History of Present Illness INITIAL COMMENTS - FREE TEXT/NARRATIVE: HISTORY AND PHYSICAL: History of present illness: Patient is a 65-year-old male who presents to the emergency room with complaints of headache and hypertension. Patient has a history of hypertension and does take multiple medications for this. Patient was hospitalized last year for uncontrolled hypertension and near syncope. He states they adjusted his medications and he has been "normal" since. Patient does not like the way the losartan makes him feel so he has not been taking this medication routinely. He has been working with a holistic provider who has been doing [id number] remedies to help lower his blood pressure. Over the past 24 hours he has had a generalized headache which he attributes to his hypertension. Prior to today he has had some intermittent chest pain, no chest pain or shortness of breath today. Patient denies any fever, chills, change in vision, syncope or near syncope. Denies any chest pain, back pain, shortness of breath or cough. Denies any abdominal pain, nausea, vomiting, diarrhea, constipation or dysuria. Has not noted any blood in urine or stool. Patient has been eating and drinking appropriately. Past medical history of hypertension, cardiomyopathy, COPD and TIA. Review of systems: As per history of present illness and below otherwise all systems reviewed and negative. Past medical history: As per history of present illness and as reviewed below otherwise noncontributory. Surgical history: As per history of present illness and as reviewed below otherwise noncontributory. Social history: See social history for further information Family history: As per history of present illness and as reviewed below otherwise noncontributory. Physical exam: General: Well developed and well nourished 65-year-old male. Alert and orientated x 3. Nontoxic in appearance and in no acute distress. Vital signs are stable and have been reviewed by me. Nursing notes were reviewed. HEENT: Atraumatic, normocephalic, pupils equal and reactive bilaterally, negative for conjunctival pallor or scleral icterus, mucous membranes moist, trachea midline. No drooling or trismus noted. No meningeal signs. No hot potato voice noted. Lungs: Clear to auscultation bilaterally. No wheezes, rales, or rhonchi. Chest nontender. Normal work of breathing, no accessory muscles used. Heart: S1S2, regular rate and rhythm without overt murmur, gallops, or rubs. No JVD. No peripheral edema Abdomen: Soft, nondistended, nontender. Normoactive bowel sounds. Negative for masses or costovertebral tenderness. Pelvis: Stable nontender. Genitourinary/Rectal: Deferred. Skin: Intact, warm, dry. No lesions or rashes noted. Hematologic: No petechiae or purpra. Mucosa appropriate color and normal nail bed color and refill. Extremities: Atraumatic, moves all extremities per self without difficulty or deficits, negative for cords or calf pain. Neurovascular unremarkable. Neuro: Awake, alert, oriented. Cranial nerves II through XII unremarkable. Cerebellum unremarkable. Motor and sensory unremarkable throughout. Exam nonfocal. Psychiatric: Mood and affect are appropriate. Normal thought process. Answering questions appropriately. Notes: *This patient was seen and evaluated during the 2019 SARS-CoV-2 novel coronavirus pandemic period. Community viral transmission is ongoing at time of this encounter and the emergency department is operating under pandemic response procedures. Chest x-ray shows no acute findings. May have mild hyperinflation and hyperlucency for mild emphysema. Lab work is unremarkable. As we spoke with the patient about his findings he now states he has not been compliant with his medications and has been adjusting his blood pressure medications by himself, occasionally missing days and taking less than prescribed. During his ER visit he has been chest pain-free. His headache has resolved. Blood pressure is lowered. I have talked with the patient about today's findings, in addition to providing specific details for plan of care. I would like him to follow-up with Dr. Walters about decreasing his medications if the provider feels that is warranted. Today I am not going to add or adjust his medications as he has not been taking these as directed. We did discuss the seriousness of not taking his medications as prescribed. We discussed discharge to home versus admission if he would like his medications adjusted and continue to monitor his heart, he would prefer to be discharged to home with close follow-up. Reassessment at the time of disposition demonstrates that the patient is in no acute distress. The patient is stable for discharge, counseling was provided and we discussed in great detail signs and symptoms that would prompt them to return to the Emergency Department. Medication, follow up and supportive care measures were reviewed and discussed. Voices understanding and is agreeable to plan of care. Denies any further questions or concerns at this time. Diagnostics: CBC, CMP, UA, Troponin, EKG, CXR Therapeutics: Aspirin 324mg Impression: Medication Noncompliance Hypertension Plan: 1. Your lab work is unremarkable. Please do not adjust your medications by yourself. I would like you to take your medications as directed, until you talk with Dr Walters (your primary care provider) whom can adjust your medication appropriately. Not taking your medications can have serious health consequences as we discussed (stroke, heart attack, )... 2. You can alternate Tylenol and ibuprofen as needed for pain and fever management. 3. We encourage you to follow up with Dr Walters next week for re-evaluation and further care/management. 4. If your symptoms should worsen, new symptoms develop or any of the signs and symptoms we discussed should arise please return to the emergency room or call 911 (if needed). Definitive disposition and diagnosis as appropriate pending reevaluation and review of above. headache Pain Score (Numeric/FACES): 2 - Related Data Allergies Allergy/AdvReac Type Severity Reaction Status Date / Time losartan Allergy Other Verified 11/05/20 13:24 Home Meds: Home Meds Esomeprazole Magnesium [Heartburn Treatment] 20 mg PO DAILY 12/28/19 [History] Losartan [Cozaar] 50 mg PO DAILY 12/28/19 [History] carvediloL [Carvedilol] 6.25 mg PO BID 12/28/19 [History] hydroCHLOROthiazide [Hydrochlorothiazide] 12.5 mg PO DAILY 12/28/19 [History] Past Medical History - Past Health History Medical/Surgical History: Denies Medical/Surgical History HEENT History: Reports: Cataract, Other (See Below) Other HEENT History: has upper and lower dentures Cardiovascular History: Reports: Cardiomyopathy, High Cholesterol, Hypertension Other Cardiovascular History: L ventricle "doesn't work properly" Respiratory History: Reports: COPD, Sleep Apnea Other Respiratory History: CPAP Gastrointestinal History: Reports: GERD, PUD Other Gastrointestinal History: Claimed to have severe ulcer Genitourinary History: Reports: Renal Calculus Musculoskeletal History: Reports: Neck Pain, Chronic Neurological History: Reports: Concussion Psychiatric History: Reports: None - Infectious Disease History Infectious Disease History: Reports: Chicken Pox, Measles, Mumps - Past Surgical History HEENT Surgical History: Reports: Cataract Surgery Respiratory Surgical History: Reports: None GI Surgical History: Reports: Appendectomy, Colonoscopy Social & Family History - Family History Family Medical History: No Pertinent Family History - Caffeine Use Caffeine Use: Reports: Coffee Caffeine Use Comment: 2-3/day - Living Situation & Occupation Living situation: Reports: Occupation: Employed ED ROS GENERAL - Review of Systems Review Of Systems: Comprehensive ROS is negative, except as noted in HPI. ED EXAM, GENERAL - Physical Exam Exam: See Below (See dictation) Course - Vital Signs Last Recorded V/S: Last Vital Signs Temp 96.5 F L 11/05/20 16:17 Pulse 92 11/05/20 16:17 Resp 20 11/05/20 13:18 BP 172/111 H 11/05/20 16:17 Pulse Ox 96 11/05/20 16:17 - Orders/Labs/Meds Orders: Active Orders 24 hr Category Date Time Status Saline Lock Insert [OM.PC] Stat Oth 11/05/20 13:25 Ordered Labs: Laboratory Tests 11/05/20 11/05/20 11/05/20 Range/Units 13:40 13:40 15:34 WBC 4.61 (4.0-11.0) K/uL RBC 5.07 (4.50-5.90) M/uL Hgb 16.3 (13.0-17.0) g/dL Hct 49.2 (38.0-50.0) % MCV 97.0 (80.0-98.0) fL MCH 32.1 H (27.0-32.0) pg MCHC 33.1 (31.0-37.0) g/dL RDW Std Deviation 53.9 (28.0-62.0) fl RDW Coeff of Monisha 15 (11.0-15.0) % Plt Count 170 (150-400) K/uL MPV 9.30 (7.40-12.00) fL Neut % (Auto) 58.9 (48.0-80.0) % Lymph % (Auto) 30.6 (16.0-40.0) % [place] % (Auto) 8.9 (0.0-15.0) % Eos % (Auto) 0.7 (0.0-7.0) % Baso % (Auto) 0.9 (0.0-1.5) % Neut # (Auto) 2.7 (1.4-5.7) K/uL Lymph # (Auto) 1.4 (0.6-2.4) K/uL [place] # (Auto) 0.4 (0.0-0.8) K/uL Eos # (Auto) 0.0 (0.0-0.7) K/uL Baso # (Auto) 0.0 (0.0-0.1) K/uL Nucleated RBC % 0.0 /100WBC Nucleated RBCs # 0 K/uL Sodium 134 L (136-148) mmol/L Potassium 3.8 (3.5-5.1) mmol/L Chloride 96 L (98-107) mmol/L Carbon Dioxide 28.3 (21.0-32.0) mmol/L BUN 13 (7.0-18.0) mg/dL Creatinine 1.0 (0.8-1.3) mg/dL Est Cr Clr Drug Dosing 85.67 mL/min Estimated GFR (MDRD) > 60.0 ml/min Glucose 138 H (74-106) mg/dL Calcium 10.1 (8.5-10.1) mg/dL Total Bilirubin 0.7 (0.2-1.0) mg/dL AST 33 (15-37) IU/L ALT 55 (14-63) IU/L Alkaline Phosphatase 55 (46-116) U/L Troponin I < 0.050 (0.000-0.056) ng/mL Total Protein 8.4 H (6.4-8.2) g/dL Albumin 3.9 (3.4-5.0) g/dL Globulin 4.5 H (2.6-4.0) g/dL Albumin/Globulin Ratio 0.9 (0.9-1.6) Urine Color YELLOW Urine Appearance CLEAR Urine pH 8.0 (5.0-8.0) Ur Specific Dun[place] 1.015 (1.001-1.035) Urine Protein 30 H (NEGATIVE) mg/dL Urine Glucose (UA) NEGATIVE (NEGATIVE) mg/dL Urine Ketones 15 H (NEGATIVE) mg/dL Urine Occult Blood MODERATE H (NEGATIVE) Urine Nitrite NEGATIVE (NEGATIVE) Urine Bilirubin MODERATE H (NEGATIVE) Urine Ictotest NEGATIVE Urine Urobilinogen 0.2 (<2.0) EU/dL Ur Leukocyte Esterase NEGATIVE (NEGATIVE) Urine RBC 5-8 (0-2/HPF) Urine WBC 0-2 (0-5/HPF) Ur Epithelial Cells RARE (NONE-FEW) Urine Bacteria RARE (NEGATIVE) Urine Mucus LIGHT (NONE-MOD) Meds: Medications Discontinued Medications Generic Name Dose Route Start Last Admin Trade Name Freq PRN Reason Stop Dose Admin Aspirin 324 mg 11/05/20 13:25 11/05/20 13:30 Aspirin PO 11/05/20 13:26 324 mg ONETIME ONE Administration Sodium Chloride 10 ml 11/05/20 13:25 11/05/20 13:32 Saline Flush FLUSH 10 ml ASDIRECTED PRN Administration Keep Vein Open Sodium Chloride 2.5 ml 11/05/20 13:25 11/05/20 13:32 Saline Flush FLUSH 2.5 ml ASDIRECTED PRN Administration Keep Vein Open Departure - Departure Time of Disposition: 15:21 Disposition: Home, Self-Care 01 Clinical Impression: Noncompliance with medication regimen Hypertension Qualifiers: Hypertension type: essential hypertension Qualified Code(s): I10 - Essential (primary) hypertension Referrals: Hill Walters MD [Primary Care Provider] - Forms: ED Department Discharge Additional Instructions: The following information is given to patients seen in the emergency department who are being discharged to home. This information is to outline your options for follow-up care. We provide all patients seen in our emergency department with a follow-up referral. The need for follow-up, as well as the timing and circumstances, are variable depending upon the specifics of your emergency department visit. If you don't have a primary care physician on staff, we will provide you with a referral. We always advise you to contact your personal physician following an emergency department visit to inform them of the circumstance of the visit and for follow-up with them and/or the need for any referrals to a consulting specialist. The emergency department will also refer you to a specialist when appropriate. This referral assures that you have the opportunity for follow-up care with a specialist. All of these measure are taken in an effort to provide you with optimal care, which includes your follow-up. Under all circumstances we always encourage you to contact your private physician who remains a resource for coordinating your care. When calling for follow-up care, please make the office aware that this follow-up is from your recent emergency room visit. If for any reason you are refused follow-up, please contact the [facility] Emergency Department at and asked to speak to the emergency department charge nurse. [facility] [address] [place] [id number] [facility] [address] [place] [address] Thank you for choosing the [facility] emergency department in [place] for your medical needs today. It was a pleasure caring for you. Today you were seen in the emergency department for high blood pressure. 1. Your lab work is unremarkable. Please do not adjust your medications by yourself. I would like you to take your medications as directed, until you talk with Dr Walters (your primary care provider) whom can adjust your medication appropriately. Not taking your medications can have serious health consequences as we discussed (stroke, heart attack, )... 2. You can alternate Tylenol and ibuprofen as needed for pain and fever management. 3. We encourage you to follow up with Dr Walters next week for re-evaluation and further care/management. 4. If your symptoms should worsen, new symptoms develop or any of the signs and symptoms we discussed should arise please return to the emergency room or call 911 (if needed). Sepsis Event Note (ED) - Focused Exam Vital Signs: Vital Signs Temp Pulse Resp BP Pulse Ox 11/05/20 16:17 96.5 F L 92 172/111 H 96 11/05/20 13:18 96 F L 109 H 20 185/121 H 96 - My Orders Last 24 Hours: My Active Orders 11/05/20 13:25 Saline Lock Insert [OM.PC] Stat - Assessment/Plan Last 24 Hours: My Active Orders 11/05/20 13:25 Saline Lock Insert [OM.PC] Stat
[2020-11-05] MEDS ORDERED: Sodium Chloride 0.9% 2.5 ML Syringe FLUSH PRN (13:25)
[2020-11-05] MEDS ORDERED: Sodium Chloride 0.9% 10 ML Syringe FLUSH PRN (13:25)
[2020-11-05] MEDS ORDERED: Aspirin 81 MG Tab.Chew PO ONE (13:25)
[2020-11-05 14:08] LABS: BLOOD UREA NITROGEN,BUN 13 mg/dL (7.0-18.0); CARBON DIOXIDE,CO2 28.3 mmol/L (21.0-32.0); CHLORIDE,CL 96 mmol/L (98-107); GLUCOSE RANDOM 138 mg/dL (74-106); POTASSIUM,K 3.8 mmol/L (3.5-5.1); SODIUM,NA 134 mmol/L (136-148)
--- NOTE | 2020-11-05 14:43 | CR ---
INDICATION: Hypertension. COMPARISON: 28 December 2019. TECHNIQUE: One view. IMPRESSION: No acute cardiopulmonary disease. Lungs are mildly hyperinflated and hyperlucent. This is similar to before. Clinical correlation for mild emphysema recommended. Dictated by Kulwinder Lindsay MD @ Nov 05 2020 2:41PM Signed by Dr. Kulwinder Lindsay @ Nov 05 2020 2:41PM
[2020-11-05 16:18] VITALS: BP 172/111; PULSE 92
--- NOTE | 2020-11-05 18:46 | PCM.SN.2 ---
#1 Interpretation EKG Date: 11/05/20 Time: 13:51 Rhythm: NSR Rate (Beats/Min): 95 [place]: Normal P-Wave: Present QRS: Normal ST-T: Normal QT: Normal Comparison: No Change (12/28/19) EKG Interpretation Comments: Sinus rhythm
== END 2020-11-05 16:18 | disposition home or self-care (01) ==
LOC: MW.ED 13:10
DX: I10 Essential (primary) hypertension (principal); K21.9 Gastro-esophageal reflux disease without esophagitis; J44.9 Chronic obstructive pulmonary disease, unspecified; Z91.14 Patient's other noncompliance with medication regimen; Z88.8 Allergy status to other drugs, medicaments and biological substances; Z79.899 Other long term (current) drug therapy
CPT/HCPCS: 36415; 71045; 80053; 81001; 84484; 85025; 93005; 99284; A9270; 99283

== ENCOUNTER 2020-11-22 13:47 | Emergency (ER) | payer MEDICARE, OTHER ==
[2020-11-22] MEDS ORDERED: Sodium Chloride 0.9% 10 ML Syringe FLUSH PRN ×2 (14:18)
[2020-11-22] MEDS ORDERED: Sodium Chloride 0.9% 2.5 ML Syringe FLUSH PRN (14:18)
[2020-11-22] MEDS ORDERED: Alum Hydrox/Mag Hydrox/Simeth 15 ML, Metoclopramide 5 MG, Lidocaine 2% 5 ML PO ONE ×3 (14:26)
--- NOTE | 2020-11-22 14:38 | EDM.PDOC ---
ED HPI GENERAL MEDICAL PROBLEM - General Chief Complaint: Chest Pain Stated Complaint: CHEST PAIN Time Seen by Provider: 11/22/20 13:48 Source of Information: Reports: Patient History Limitations: Reports: No Limitations - History of Present Illness INITIAL COMMENTS - FREE TEXT/NARRATIVE: Patient presents reporting chest pain. The patient states he had a little left- sided chest pain last night that kind of came and went. This morning it started again about 8, and has been fairly constant since. It is mild 2/10, does not radiate anywhere and is accompanied by mild nausea. He states he vomited once this morning. He denies shortness of breath, cough, fever, diarrhea, body aches, headache, diaphoresis. Patient remarks that "whenever my heart rate gets high I get a little nauseated and a little lightheaded." He states that he has a longstanding gastric ulcer and a lot of food allergies. He ate a couple of [place] sausages last night and is wondering if that is not what precipitated the pain. Patient has a history of hypertension. 6 months ago he had an angiogram for "a screening" which according to the patient was perfectly normal. 1 week ago the patient was seen in this emergency room for complaints of headache and hypertension. His blood pressure at that visit was 172/111. His lab work, chest x-ray and EKG were unremarkable. Revealed that he had not been taking his valsartan as directed because he did not like the way it made him feel. In addition he had been using a holistic provider who was helping him with his blood pressure using natural remedies. Patient now states that he believes that incident of elevated blood pressure was induced to some shellfish he had eaten. He also states that his diastolic blood pressure is always elevated, even on medication. states that he is intolerant to "starches" and that in particular the valsartan tab is bound by a starch and that is why he is reacting to it. chest pain Pain Score (Numeric/FACES): 2 - Related Data Allergies Allergy/AdvReac Type Severity Reaction Status Date / Time losartan Allergy Hives Verified 11/22/20 13:50 Home Meds: Home Meds Esomeprazole Magnesium [Heartburn Treatment] 20 mg PO DAILY 12/28/19 [History] carvediloL [Carvedilol] 6.25 mg PO BID 12/28/19 [History] hydroCHLOROthiazide [Hydrochlorothiazide] 12.5 mg PO DAILY 12/28/19 [History] Past Medical History - Past Health History Medical/Surgical History: Denies Medical/Surgical History HEENT History: Reports: Cataract, Other (See Below) Other HEENT History: has upper and lower dentures Cardiovascular History: Reports: Cardiomyopathy, High Cholesterol, Hypertension Other Cardiovascular History: L ventricle "doesn't work properly" Respiratory History: Reports: COPD, Sleep Apnea Other Respiratory History: CPAP Gastrointestinal History: Reports: GERD, PUD Other Gastrointestinal History: Claimed to have severe ulcer Genitourinary History: Reports: Renal Calculus Musculoskeletal History: Reports: Neck Pain, Chronic Neurological History: Reports: Concussion Psychiatric History: Reports: None - Infectious Disease History Infectious Disease History: Reports: Chicken Pox, Measles, Mumps - Past Surgical History HEENT Surgical History: Reports: Cataract Surgery Respiratory Surgical History: Reports: None GI Surgical History: Reports: Appendectomy, Colonoscopy Social & Family History - Family History Family Medical History: No Pertinent Family History - Tobacco Use Tobacco Use Status *Q: Former Tobacco User Used Tobacco, but Quit: Yes Month/Year Tobacco Last Used: 2014 - Caffeine Use Caffeine Use: Reports: Soda Caffeine Use Comment: 2-3/day - Recreational Drug Use Recreational Drug Use: Yes Recreational Drug Type: Reports: Marijuana/Hashish Recreational Drug Use Frequency: Rarely - Living Situation & Occupation Living situation: Reports: Occupation: Employed ED ROS GENERAL - Review of Systems Review Of Systems: Comprehensive ROS is negative, except as noted in HPI. ED EXAM, GENERAL - Physical Exam Exam: See Below Exam Limited By: No Limitations General Appearance: Alert, No Apparent Distress Ears: Normal External Exam Nose: Normal Inspection Throat/Mouth: Normal Inspection Head: Atraumatic, Normocephalic Neck: Normal Inspection Respiratory/Chest: No Respiratory Distress, Lungs Clear, Normal Breath Sounds, Wheezing (Generalized light expiratory) Cardiovascular: Normal Peripheral Pulses, Regular Rate, Rhythm, No Murmur GI/Abdominal: Soft, Non-Tender, No Distention Back Exam: Normal Inspection Extremities: Normal Inspection Neurological: Alert, Oriented, Normal Cognition Psychiatric: Normal Affect, Normal Mood Skin Exam: Warm, Dry, Intact, Normal Color, No Rash Lymphatic: No Adenopathy Course - Vital Signs Last Recorded V/S: Last Vital Signs Temp 36.2 C 11/22/20 13:52 Pulse 71 11/22/20 14:33 Resp 21 H 11/22/20 13:52 BP 139/103 H 11/22/20 14:33 Pulse Ox 97 11/22/20 14:33 - Orders/Labs/Meds Orders: Active Orders 24 hr Category Date Time Status EKG Documentation Completion [RC] STAT Care 11/22/20 14:19 Active Chest 2V [CR] Stat Exams 11/22/20 14:18 Ordered Sodium Chloride 0.9% [Saline Flush] Med 11/22/20 14:18 Active 10 ml FLUSH ASDIRECTED PRN Sodium Chloride 0.9% [Saline Flush] Med 11/22/20 14:18 Active 10 ml FLUSH ASDIRECTED PRN Sodium Chloride 0.9% [Saline Flush] Med 11/22/20 14:18 Active 2.5 ml FLUSH ASDIRECTED PRN Saline Lock Insert [OM.PC] Stat Oth 11/22/20 14:18 Ordered Medication Orders Sodium Chloride (Saline Flush) 2.5 ml FLUSH ASDIRECTED PRN PRN Reason: Keep Vein Open Last Admin: 11/22/20 14:29 Dose: 2.5 ml Documented by: [email or web address] Sodium Chloride (Saline Flush) 10 ml FLUSH ASDIRECTED PRN PRN Reason: Keep Vein Open Last Admin: 11/22/20 14:29 Dose: 10 ml Documented by: [id number] Sodium Chloride (Saline Flush) 10 ml FLUSH ASDIRECTED PRN PRN Reason: Keep Vein Open Last Admin: 11/22/20 14:30 Dose: 10 ml Documented by: [email or web address] Labs: Laboratory Tests 11/22/20 11/22/20 11/22/20 Range/Units 13:55 13:55 13:55 WBC 7.24 (4.0-11.0) K/uL RBC 4.80 (4.50-5.90) M/uL Hgb 15.8 (13.0-17.0) g/dL Hct 46.2 (38.0-50.0) % MCV 96.3 (80.0-98.0) fL MCH 32.9 H (27.0-32.0) pg MCHC 34.2 (31.0-37.0) g/dL RDW Std Deviation 51.1 (28.0-62.0) fl RDW Coeff of Monisha 14 (11.0-15.0) % Plt Count 218 (150-400) K/uL MPV 9.70 (7.40-12.00) fL Neut % (Auto) 68.4 (48.0-80.0) % Lymph % (Auto) 24.4 (16.0-40.0) % Wirt % (Auto) 6.2 (0.0-15.0) % Eos % (Auto) 0.6 (0.0-7.0) % Baso % (Auto) 0.4 (0.0-1.5) % Neut # (Auto) 5.0 (1.4-5.7) K/uL Lymph # (Auto) 1.8 (0.6-2.4) K/uL Wirt # (Auto) 0.5 (0.0-0.8) K/uL Eos # (Auto) 0.0 (0.0-0.7) K/uL Baso # (Auto) 0.0 (0.0-0.1) K/uL Nucleated RBC % 0.0 /100WBC Nucleated RBCs # 0 K/uL Sodium 136 (136-148) mmol/L Potassium 3.9 (3.5-5.1) mmol/L Chloride 95 L (98-107) mmol/L Carbon Dioxide 32.9 H (21.0-32.0) mmol/L BUN 9 (7.0-18.0) mg/dL Creatinine 1.1 (0.8-1.3) mg/dL Est Cr Clr Drug Dosing 75.77 mL/min Estimated GFR (MDRD) > 60.0 ml/min Glucose 131 H (74-106) mg/dL Calcium 9.9 (8.5-10.1) mg/dL Total Bilirubin 0.8 (0.2-1.0) mg/dL AST 57 H (15-37) IU/L ALT 129 H (14-63) IU/L Alkaline Phosphatase 69 (46-116) U/L Troponin I < 0.050 (0.000-0.056) ng/mL C-Reactive Protein 6.40 H (0.00-0.90) mg/dL Total Protein 8.3 H (6.4-8.2) g/dL Albumin 3.8 (3.4-5.0) g/dL Globulin 4.5 H (2.6-4.0) g/dL Albumin/Globulin Ratio 0.8 L (0.9-1.6) Meds: Medications Generic Name Dose Route Start Last Admin Trade Name Freq PRN Reason Stop Dose Admin Sodium Chloride 2.5 ml 11/22/20 14:18 11/22/20 14:29 Saline Flush FLUSH 2.5 ml ASDIRECTED PRN Administration Keep Vein Open Sodium Chloride 10 ml 11/22/20 14:18 11/22/20 14:29 Saline Flush FLUSH 10 ml ASDIRECTED PRN Administration Keep Vein Open Sodium Chloride 10 ml 11/22/20 14:18 11/22/20 14:30 Saline Flush FLUSH 10 ml ASDIRECTED PRN Administration Keep Vein Open Discontinued Medications Generic Name Dose Route Start Last Admin Trade Name Freq PRN Reason Stop Dose Admin Al Hydroxide/Mg Hydroxide 15 0 ml 11/22/20 14:26 11/22/20 14:30 ml/ Metoclopramide HCl 5 mg/ PO 11/22/20 14:27 1 each Lidocaine HCl 5 ml ONETIME ONE Administration - Re-Assessments/Exams Free Text/Narrative Re-Assessment/Exam: 11/22/20 14:58 The patient states that all of his problems started when he started taking blood pressure medication. He does have a follow-up appointment already made with his primary doctor Dr. Walters on SaturdayNov 23. He states that the GI cocktail relieved his pain and he is currently pain-free. He must have his elevated CRP and GERD symptoms evaluated by his primary provider. Departure - Departure Time of Disposition: 15:16 Disposition: Home, Self-Care 01 Condition: Good Clinical Impression: Chronic GERD, Inflammation Referrals: Hill Walters MD [Primary Care Provider] - Forms: ED Department Discharge Additional Instructions: The following information is given to patients seen in the emergency department who are being discharged to home. This information is to outline your options for follow-up care. We provide all patients seen in our emergency department with a follow-up referral. The need for follow-up, as well as the timing and circumstances, are variable depending upon the specifics of your emergency department visit. If you don't have a primary care physician on staff, we will provide you with a referral. We always advise you to contact your personal physician following an emergency department visit to inform them of the circumstance of the visit and for follow-up with them and/or the need for any referrals to a consulting specialist. The emergency department will also refer you to a specialist when appropriate. This referral assures that you have the opportunity for follow-up care with a specialist. All of these measure are taken in an effort to provide you with optimal care, which includes your follow-up. Under all circumstances we always encourage you to contact your private physician who remains a resource for coordinating your care. When calling for follow-up care, please make the office aware that this follow-up is from your recent emergency room visit. If for any reason you are refused follow-up, please contact the [facility] Emergency Department at and asked to speak to the emergency department charge nurse. 1. A blood test that indicates nonspecific inflammation is elevated. Please have that evaluated by your primary provider at your scheduled appointment next Saturday. 2. Your acid reflux is inadequately controlled. Please discuss further evaluation and treatment with your primary provider. Sepsis Event Note (ED) - Evaluation Sepsis Screening Result: No Definite Risk - Focused Exam Vital Signs: Vital Signs Temp Pulse Resp BP Pulse Ox 11/22/20 14:33 71 139/103 H 97 11/22/20 13:52 36.2 C 121 H 21 H 178/122 H 94 L - My Orders Last 24 Hours: My Active Orders 11/22/20 14:18 Chest 2V [CR] Stat Sodium Chloride 0.9% [Saline Flush] 10 ml FLUSH ASDIRECTED PRN Sodium Chloride 0.9% [Saline Flush] 10 ml FLUSH ASDIRECTED PRN Sodium Chloride 0.9% [Saline Flush] 2.5 ml FLUSH ASDIRECTED PRN Saline Lock Insert [OM.PC] Stat 11/22/20 14:19 EKG Documentation Completion [RC] STAT - Assessment/Plan Last 24 Hours: My Active Orders 11/22/20 14:18 Chest 2V [CR] Stat Sodium Chloride 0.9% [Saline Flush] 10 ml FLUSH ASDIRECTED PRN Sodium Chloride 0.9% [Saline Flush] 10 ml FLUSH ASDIRECTED PRN Sodium Chloride 0.9% [Saline Flush] 2.5 ml FLUSH ASDIRECTED PRN Saline Lock Insert [OM.PC] Stat 11/22/20 14:19 EKG Documentation Completion [RC] STAT
[2020-11-22 14:39] LABS: BLOOD UREA NITROGEN,BUN 9 mg/dL (7.0-18.0); CARBON DIOXIDE,CO2 32.9 mmol/L (21.0-32.0); CHLORIDE,CL 95 mmol/L (98-107); GLUCOSE RANDOM 131 mg/dL (74-106); POTASSIUM,K 3.9 mmol/L (3.5-5.1); SODIUM,NA 136 mmol/L (136-148)
--- NOTE | 2020-11-22 15:01 | CR ---
Indication: Chest pain Technique: PA and Lateral views chest Comparison: None available. Findings: There is hyperinflation and chronic interstitial change with minimal basilar atelectasis and parenchymal scar. There is no dense consolidation, effusion, or pneumothorax. The cardiac silhouette is within normal limits. The bony thorax is grossly intact. Impression: Hyperinflation and chronic interstitial change with minimal basilar atelectasis versus scar. No dense consolidation. Dictated by Smith Powell MD @ Nov 22 2020 2:58PM Signed by Dr. Smith Powell @ Nov 22 2020 2:59PM
[2020-11-22 15:35] VITALS: BP 157/104; PULSE 96
--- NOTE | 2020-11-22 17:36 | PCM.EKG ---
#1 Interpretation EKG Date: 11/22/20 Time: 13:46 Rhythm: NSR Rate (Beats/Min): 102 [place]: Normal P-Wave: Present QRS: Normal ST-T: Normal QT: Normal Comparison: No Change (11/05/20) EKG Interpretation Comments: Sinus Tachycardia
== END 2020-11-22 15:35 | disposition home or self-care (01) ==
LOC: MW.ED 13:47
DX: K21.9 Gastro-esophageal reflux disease without esophagitis (principal); I10 Essential (primary) hypertension; J44.9 Chronic obstructive pulmonary disease, unspecified; Z87.891 Personal history of nicotine dependence; Z88.8 Allergy status to other drugs, medicaments and biological substances; Z79.899 Other long term (current) drug therapy
CPT/HCPCS: 36415; 71046; 80053; 84484; 85025; 86140; 93005; 99285; A9270

== ENCOUNTER 2021-01-23 02:29 | Inpatient (IN) | payer MEDICARE, OTHER ==
[2021-01-23] MEDS ORDERED: Sodium Chloride 0.9% 10 ML Syringe FLUSH PRN (02:31)
[2021-01-23] MEDS ORDERED: Sodium Chloride 0.9% 2.5 ML Syringe FLUSH PRN ×2 (02:31→08:05)
[2021-01-23] MEDS ORDERED: Nitroglycerin 0.4 MG Tab.SL SL PRN (02:31)
--- NOTE | 2021-01-23 02:33 | EDM.PDOC ---
ED HPI GENERAL MEDICAL PROBLEM - General Stated Complaint: SICK Time Seen by Provider: 01/23/21 02:30 Source of Information: Reports: Patient History Limitations: Reports: No Limitations - History of Present Illness INITIAL COMMENTS - FREE TEXT/NARRATIVE: 65-year-old male with history of COPD, TIA, hypertension, cardiomyopathy, GRISELDA, GERD presents feeling dizzy and weak, feeling like he wants to pass out. He checked his blood pressure 2 hours ago and it was 160/100. He has been sleeping sporadically over the last 4 days and has not been able to sleep for long stretches of time. He says he sleeps about 10-minute increments. He has been drinking daily over the last 2 weeks to try to help him get to sleep. He drinks a couple pints of shan every day. His last alcohol consumption was at 2 PM y . He feels tremulous, agitated, foggy, anxious and has vomited once that is nonbloody. Yesterday around noon he started complaining of left-sided nonradiating chest pain that is intermittent, aching sensation, rated 4/10 at its maximum, currently rated 2/10. He denies hallucinations, shortness of breath, abdominal pain, headache, back pain, falls, cough. He is noncompliant with his CPAP. ROS: A 10-point review of systems, other than pertinent positives and negatives as stated per HPI, is otherwise negative Past medical history: No additional pertinent history Past Surgical history: No additional pertinent history Social history: No additional pertinent history Family history: No additional pertinent history PHYSICAL EXAM General: AOx4, GCS = 15, anxious, agitated, tremulous, mild distress HEENT: dry mucous membrane Neck: supple, no meningismus, no Kernig or Brudzinski Cardiac: S1S2 tachycardia Respiratory: Diminished breath sounds bilaterally with expiratory wheezing Abdomen: Soft, nontender, no rebound or guarding, nondistended, no pulsatile mass. Back: nontender Musculoskeletal: NVI distally, no deformity Neuro: No focal deficits, tremulous. Psych: Agitated, anxious, no hallucinations. chest Pain Score (Numeric/FACES): 2 - Related Data Allergies Allergy/AdvReac Type Severity Reaction Status Date / Time losartan Allergy Hives Verified 01/23/21 02:53 Home Meds: Home Meds Esomeprazole Magnesium [Heartburn Treatment] 20 mg PO DAILY 12/28/19 [History] carvediloL [Carvedilol] 6.25 mg PO BID 12/28/19 [History] hydroCHLOROthiazide [Hydrochlorothiazide] 12.5 mg PO DAILY 12/28/19 [History] Past Medical History - Past Health History Medical/Surgical History: Denies Medical/Surgical History HEENT History: Reports: Cataract, Other (See Below) Other HEENT History: has upper and lower dentures Cardiovascular History: Reports: Cardiomyopathy, High Cholesterol, Hypertension Other Cardiovascular History: L ventricle "doesn't work properly" Respiratory History: Reports: COPD, Sleep Apnea Other Respiratory History: CPAP Gastrointestinal History: Reports: GERD, PUD Other Gastrointestinal History: Claimed to have severe ulcer Genitourinary History: Reports: Renal Calculus Musculoskeletal History: Reports: Neck Pain, Chronic Neurological History: Reports: Concussion Psychiatric History: Reports: None - Infectious Disease History Infectious Disease History: Reports: Chicken Pox, Measles, Mumps - Past Surgical History HEENT Surgical History: Reports: Cataract Surgery Respiratory Surgical History: Reports: None GI Surgical History: Reports: Appendectomy, Colonoscopy Social & Family History - Family History Family Medical History: No Pertinent Family History - Caffeine Use Caffeine Use: Reports: Soda Caffeine Use Comment: 2-3/day - Living Situation & Occupation Living situation: Reports: Occupation: Employed ED ROS GENERAL - Review of Systems Review Of Systems: See Below (see dictation) ED EXAM, GENERAL - Physical Exam Exam: See Below (see dictation) #1 Interpretation EKG Interpretation Comments: Heart rate = 106 bpm, sinus tachycardia, normal QRS interval, no STEMI. EKG [place] 0232 Course - Vital Signs Last Recorded V/S: Last Vital Signs Temp 96.8 F L 01/23/21 02:44 Pulse 109 H 01/23/21 02:44 Resp 16 01/23/21 02:44 BP 166/114 H 01/23/21 02:44 Pulse Ox 93 L 01/23/21 02:44 - Orders/Labs/Meds Orders: Active Orders 24 hr Category Date Time Status Cardiac Monitoring [RC] . DIRECTED Care 01/23/21 02:31 Active EKG Documentation Completion [RC] STAT Care 01/23/21 02:31 Active Pulse Oximetry [RC] ASDIRECTED Care 01/23/21 02:31 Active Sodium Chloride 0.9% [Normal Saline] 1,000 ml Med 01/23/21 03:00 Active IV .BOLUS Sodium Chloride 0.9% [Saline Flush] Med 01/23/21 02:31 Active 10 ml FLUSH ASDIRECTED PRN Sodium Chloride 0.9% [Saline Flush] Med 01/23/21 02:31 Active 2.5 ml FLUSH ASDIRECTED PRN Saline Lock Insert [OM.PC] Stat Oth 01/23/21 02:31 Ordered Medication Orders Sodium Chloride (Normal Saline) 1,000 mls @ 999 mls/hr IV .BOLUS HAYDEE Sodium Chloride (Sodium Chloride 0.9% 10 Ml Syringe) 10 ml FLUSH ASDIRECTED PRN PRN Reason: Keep Vein Open Last Admin: 01/23/21 02:57 Dose: 10 ml Documented by: CHARLIE Sodium Chloride (Sodium Chloride 0.9% 2.5 Ml Syringe) 2.5 ml FLUSH ASDIRECTED PRN PRN Reason: Keep Vein Open Last Admin: 01/23/21 02:57 Dose: 2.5 ml Documented by: CHARLIE Labs: Laboratory Tests 01/23/21 01/23/21 01/23/21 Range/Units 02:35 02:35 02:35 WBC 4.79 (4.0-11.0) K/uL RBC 4.73 (4.50-5.90) M/uL Hgb 15.8 (13.0-17.0) g/dL Hct 45.2 (38.0-50.0) % MCV 95.6 (80.0-98.0) fL MCH 33.4 H (27.0-32.0) pg MCHC 35.0 (31.0-37.0) g/dL RDW Std Deviation 53.1 (28.0-62.0) fl RDW Coeff of Monisha 15 (11.0-15.0) % Plt Count 174 (150-400) K/uL MPV 8.80 (7.40-12.00) fL Neut % (Auto) 55.8 (48.0-80.0) % Lymph % (Auto) 36.1 (16.0-40.0) % [place] % (Auto) 6.7 (0.0-15.0) % Eos % (Auto) 1.0 (0.0-7.0) % Baso % (Auto) 0.4 (0.0-1.5) % Neut # (Auto) 2.7 (1.4-5.7) K/uL Lymph # (Auto) 1.7 (0.6-2.4) K/uL [place] # (Auto) 0.3 (0.0-0.8) K/uL Eos # (Auto) 0.1 (0.0-0.7) K/uL Baso # (Auto) 0.0 (0.0-0.1) K/uL Nucleated RBC % 0.0 /100WBC Nucleated RBCs # 0 K/uL INR 1.06 Sodium 138 (136-148) mmol/L Potassium 3.5 (3.5-5.1) mmol/L Chloride 97 L (98-107) mmol/L Carbon Dioxide 27.9 (21.0-32.0) mmol/L BUN 6 L (7.0-18.0) mg/dL Creatinine 1.0 (0.8-1.3) mg/dL Est Cr Clr Drug Dosing 85.67 mL/min Estimated GFR (MDRD) > 60.0 ml/min Glucose 143 H (74-106) mg/dL Calcium 9.4 (8.5-10.1) mg/dL Phosphorus (2.6-4.7) mg/dL Magnesium (1.8-2.4) mg/dL Total Bilirubin 0.5 (0.2-1.0) mg/dL AST 45 H (15-37) IU/L ALT 58 (14-63) IU/L Alkaline Phosphatase 66 (46-116) U/L Troponin I < 0.050 (0.000-0.056) ng/mL B-Natriuretic Peptide (<100) PG/ML Total Protein 8.1 (6.4-8.2) g/dL Albumin 3.7 (3.4-5.0) g/dL Globulin 4.4 H (2.6-4.0) g/dL Albumin/Globulin Ratio 0.8 L (0.9-1.6) Urine Color Urine Appearance Urine pH (5.0-8.0) Ur Specific [place] (1.001-1.035) Urine Protein (NEGATIVE) mg/dL Urine Glucose (UA) (NEGATIVE) mg/dL Urine Ketones (NEGATIVE) mg/dL Urine Occult Blood (NEGATIVE) Urine Nitrite (NEGATIVE) Urine Bilirubin (NEGATIVE) Urine Urobilinogen (<2.0) EU/dL Ur Leukocyte Esterase (NEGATIVE) Urine RBC (0-2/HPF) Urine WBC (0-5/HPF) Ur Epithelial Cells (NONE-FEW) Urine Bacteria (NEGATIVE) Ethyl Alcohol mg/dL SARS-CoV-2 RNA (LAZARO) (NEGATIVE) 01/23/21 01/23/21 01/23/21 Range/Units 02:35 02:35 02:35 WBC (4.0-11.0) K/uL RBC (4.50-5.90) M/uL Hgb (13.0-17.0) g/dL Hct (38.0-50.0) % MCV (80.0-98.0) fL MCH (27.0-32.0) pg MCHC (31.0-37.0) g/dL RDW Std Deviation (28.0-62.0) fl RDW Coeff of Monisha (11.0-15.0) % Plt Count (150-400) K/uL MPV (7.40-12.00) fL Neut % (Auto) (48.0-80.0) % Lymph % (Auto) (16.0-40.0) % [place] % (Auto) (0.0-15.0) % Eos % (Auto) (0.0-7.0) % Baso % (Auto) (0.0-1.5) % Neut # (Auto) (1.4-5.7) K/uL Lymph # (Auto) (0.6-2.4) K/uL [place] # (Auto) (0.0-0.8) K/uL Eos # (Auto) (0.0-0.7) K/uL Baso # (Auto) (0.0-0.1) K/uL Nucleated RBC % /100WBC Nucleated RBCs # K/uL INR Sodium (136-148) mmol/L Potassium (3.5-5.1) mmol/L Chloride (98-107) mmol/L Carbon Dioxide (21.0-32.0) mmol/L BUN (7.0-18.0) mg/dL Creatinine (0.8-1.3) mg/dL Est Cr Clr Drug Dosing mL/min Estimated GFR (MDRD) ml/min Glucose (74-106) mg/dL Calcium (8.5-10.1) mg/dL Phosphorus 2.9 (2.6-4.7) mg/dL Magnesium 1.6 L (1.8-2.4) mg/dL Total Bilirubin (0.2-1.0) mg/dL AST (15-37) IU/L ALT (14-63) IU/L Alkaline Phosphatase (46-116) U/L Troponin I (0.000-0.056) ng/mL B-Natriuretic Peptide 14 (<100) PG/ML Total Protein (6.4-8.2) g/dL Albumin (3.4-5.0) g/dL Globulin (2.6-4.0) g/dL Albumin/Globulin Ratio (0.9-1.6) Urine Color Urine Appearance Urine pH (5.0-8.0) Ur Specific [place] (1.001-1.035) Urine Protein (NEGATIVE) mg/dL Urine Glucose (UA) (NEGATIVE) mg/dL Urine Ketones (NEGATIVE) mg/dL Urine Occult Blood (NEGATIVE) Urine Nitrite (NEGATIVE) Urine Bilirubin (NEGATIVE) Urine Urobilinogen (<2.0) EU/dL Ur Leukocyte Esterase (NEGATIVE) Urine RBC (0-2/HPF) Urine WBC (0-5/HPF) Ur Epithelial Cells (NONE-FEW) Urine Bacteria (NEGATIVE) Ethyl Alcohol 68 mg/dL SARS-CoV-2 RNA (LAZARO) (NEGATIVE) 01/23/21 01/23/21 01/23/21 Range/Units 03:00 05:00 05:30 WBC (4.0-11.0) K/uL RBC (4.50-5.90) M/uL Hgb (13.0-17.0) g/dL Hct (38.0-50.0) % MCV (80.0-98.0) fL MCH (27.0-32.0) pg MCHC (31.0-37.0) g/dL RDW Std Deviation (28.0-62.0) fl RDW Coeff of Monisha (11.0-15.0) % Plt Count (150-400) K/uL MPV (7.40-12.00) fL Neut % (Auto) (48.0-80.0) % Lymph % (Auto) (16.0-40.0) % [place] % (Auto) (0.0-15.0) % Eos % (Auto) (0.0-7.0) % Baso % (Auto) (0.0-1.5) % Neut # (Auto) (1.4-5.7) K/uL Lymph # (Auto) (0.6-2.4) K/uL [place] # (Auto) (0.0-0.8) K/uL Eos # (Auto) (0.0-0.7) K/uL Baso # (Auto) (0.0-0.1) K/uL Nucleated RBC % /100WBC Nucleated RBCs # K/uL INR Sodium (136-148) mmol/L Potassium (3.5-5.1) mmol/L Chloride (98-107) mmol/L Carbon Dioxide (21.0-32.0) mmol/L BUN (7.0-18.0) mg/dL Creatinine (0.8-1.3) mg/dL Est Cr Clr Drug Dosing mL/min Estimated GFR (MDRD) ml/min Glucose (74-106) mg/dL Calcium (8.5-10.1) mg/dL Phosphorus (2.6-4.7) mg/dL Magnesium (1.8-2.4) mg/dL Total Bilirubin (0.2-1.0) mg/dL AST (15-37) IU/L ALT (14-63) IU/L Alkaline Phosphatase (46-116) U/L Troponin I < 0.050 (0.000-0.056) ng/mL B-Natriuretic Peptide (<100) PG/ML Total Protein (6.4-8.2) g/dL Albumin (3.4-5.0) g/dL Globulin (2.6-4.0) g/dL Albumin/Globulin Ratio (0.9-1.6) Urine Color YELLOW Urine Appearance CLEAR Urine pH 7.0 (5.0-8.0) Ur Specific [place] 1.020 (1.001-1.035) Urine Protein NEGATIVE (NEGATIVE) mg/dL Urine Glucose (UA) NEGATIVE (NEGATIVE) mg/dL Urine Ketones TRACE H (NEGATIVE) mg/dL Urine Occult Blood TRACE-INTACT H (NEGATIVE) Urine Nitrite NEGATIVE (NEGATIVE) Urine Bilirubin NEGATIVE (NEGATIVE) Urine Urobilinogen 0.2 (<2.0) EU/dL Ur Leukocyte Esterase NEGATIVE (NEGATIVE) Urine RBC 1-4 (0-2/HPF) Urine WBC 0-1 (0-5/HPF) Ur Epithelial Cells RARE (NONE-FEW) Urine Bacteria RARE (NEGATIVE) Ethyl Alcohol mg/dL SARS-CoV-2 RNA (LAZARO) NEGATIVE (NEGATIVE) Meds: Medications Generic Name Dose Route Start Last Admin Trade Name Jin PRN Reason Stop Dose Admin Sodium Chloride 1,000 mls @ 999 mls/hr 01/23/21 03:00 Normal Saline IV .BOLUS HAYDEE Sodium Chloride 10 ml 01/23/21 02:31 01/23/21 02:57 Sodium Chloride 0.9% 10 Ml Syringe FLUSH 10 ml ASDIRECTED PRN Administration Keep Vein Open Sodium Chloride 2.5 ml 01/23/21 02:31 01/23/21 02:57 Sodium Chloride 0.9% 2.5 Ml Syringe FLUSH 2.5 ml ASDIRECTED PRN Administration Keep Vein Open Discontinued Medications Generic Name Dose Route Start Last Admin Trade Name Jin PRN Reason Stop Dose Admin Albuterol/Ipratropium 3 ml 01/23/21 02:52 01/23/21 02:57 Albuterol/Ipratropium 3.0-0.5 Mg/3 Ml Neb Soln NEB 01/23/21 02:53 3 ml ONETIME ONE Administration Multivitamins/Minerals 10 ml/ 1,011.2 mls @ 999 mls/hr 01/23/21 02:50 01/23/21 03:05 Thiamine HCl 100 mg/ Folic IV 01/23/21 03:50 999 mls/hr Acid 1 mg/ Sodium Chloride ONETIME ONE Administration Magnesium Sulfate 2 gm in 50 mls @ 25 mls/hr 01/23/21 03:15 04/12/21 03:32 Magnesium Sulfate In Water 2 Gm/50 Ml IV 01/23/21 05:14 25 mls/hr ONETIME ONE Administration Lorazepam 2 mg 01/23/21 02:52 01/23/21 02:57 Lorazepam 2 Mg/Ml Sdv IVPUSH 01/23/21 02:53 2 mg ONETIME ONE Administration Methylprednisolone Sodium Succinate 125 mg 01/23/21 02:52 01/23/21 02:57 Methylprednisolone Sodium Succinate 125 Mg/2 Ml Sdv IVPUSH 01/23/21 02:53 125 mg ONETIME ONE Administration Nitroglycerin 0.4 mg 01/23/21 02:31 Nitroglycerin 0.4 Mg Tab.Sl SL Q5M PRN Chest Pain - Re-Assessments/Exams Free Text/Narrative Re-Assessment/Exam: 01/23/21 05:09 As patient falls asleep, he becomes bradypneic and hypoxic, he desats to 76%, placed on 5L NC. 01/23/21 06:[address] Gibson, who agrees to admit patient. The hospitalist's documentation supersedes all other documentation on this patient with regard to any conflicts or discrepancies from this point forward. Any emergency conditions have been treated to the ability of the ED prior to admission. Departure - Departure Time of Disposition: 06:40 Disposition: Admitted As Inpatient 64 Condition: Good Clinical Impression: Alcohol withdrawal, Chest pain, COPD exacerbation, Hypomagnesemia, Insomnia, Near syncope, GRISELDA (obstructive sleep apnea), CPAP ventilation treatment not tolerated, Hypoxia - Discharge Information *PRESCRIPTION DRUG MONITORING PROGRAM REVIEWED*: Not Applicable *COPY OF PRESCRIPTION DRUG MONITORING REPORT IN PATIENT KEI: Not Applicable Instructions: Alcohol Withdrawal Syndrome, Chronic Obstructive Pulmonary Disease Exacerbation, Living With Sleep Apnea Referrals: Hill Walters MD [Primary Care Provider] - Sepsis Event Note (ED) - Focused Exam Vital Signs: Vital Signs Temp Pulse Resp BP Pulse Ox 01/23/21 02:44 96.8 F L 109 H 16 166/114 H 93 L - My Orders Last 24 Hours: My Active Orders 01/23/21 02:31 Cardiac Monitoring [RC] . DIRECTED EKG Documentation Completion [RC] STAT Pulse Oximetry [RC] ASDIRECTED Sodium Chloride 0.9% [Saline Flush] 10 ml FLUSH ASDIRECTED PRN Sodium Chloride 0.9% [Saline Flush] 2.5 ml FLUSH ASDIRECTED PRN Saline Lock Insert [OM.PC] Stat 01/23/21 03:00 Sodium Chloride 0.9% [Normal Saline] 1,000 ml IV .BOLUS - Assessment/Plan Last 24 Hours: My Active Orders 01/23/21 02:31 Cardiac Monitoring [RC] . DIRECTED EKG Documentation Completion [RC] STAT Pulse Oximetry [RC] ASDIRECTED Sodium Chloride 0.9% [Saline Flush] 10 ml FLUSH ASDIRECTED PRN Sodium Chloride 0.9% [Saline Flush] 2.5 ml FLUSH ASDIRECTED PRN Saline Lock Insert [OM.PC] Stat 01/23/21 03:00 Sodium Chloride 0.9% [Normal Saline] 1,000 ml IV .BOLUS
[2021-01-23] MEDS ORDERED: MVI, Adult with Vitamin K 10 ML, Thiamine 100 MG, Folic Acid 1 MG in Sodium Chloride 0.... IV ONE ×4 (02:50)
[2021-01-23] MEDS ORDERED: LORazepam 2 MG/ML SDV IVPUSH ONE (02:52)
[2021-01-23] MEDS ORDERED: methylPREDNISolone Sodium Succinate 125 MG/2 ML SDV IVPUSH ONE (02:52)
[2021-01-23] MEDS ORDERED: Albuterol/Ipratropium 3.0-0.5 MG/3 ML Neb Soln NEB ONE (02:52)
[2021-01-23] MEDS ORDERED: Magnesium Sulfate (4.06 MEQ/ML) 5 GM/10 ML SDV IV STA (03:00)
[2021-01-23] MEDS ORDERED: Sodium Chloride 0.9% 1,000 ML IV SCH (03:00)
[2021-01-23 03:02] LABS: BLOOD UREA NITROGEN,BUN 6 mg/dL (7.0-18.0); CARBON DIOXIDE,CO2 27.9 mmol/L (21.0-32.0); CHLORIDE,CL 97 mmol/L (98-107); GLUCOSE RANDOM 143 mg/dL (74-106); POTASSIUM,K 3.5 mmol/L (3.5-5.1); SODIUM,NA 138 mmol/L (136-148)
[2021-01-23] MEDS ORDERED: Magnesium Sulfate/Water 2 GM/50 ML BAG IV ONE (03:15)
--- NOTE | 2021-01-23 03:16 | CR ---
Indication: Chest pain Technique: Chest 1 view Comparison: None Findings/Impression: Cardiovascular and mediastinum: Heart size and vasculature are normal in caliber and appearance. Lungs and pleural space: Lungs are clear. No sign of infiltrate or mass. No sign of pleural effusion. No pneumothorax. Bones and soft tissues: No acute findings. Dictated by Dewayne Valdes MD @ Jan 23 2021 3:15AM Signed by Dr. Dewayne Valdes @ Jan 23 2021 3:16AM
[2021-01-23] MEDS ORDERED: Sodium Chloride 0.9% 1,000 ML IV ONE (06:34)
[2021-01-23] MEDS ORDERED: Ondansetron 4 MG/2 ML SDV IVPUSH PRN (07:04)
[2021-01-23] MEDS ORDERED: Acetaminophen 325 MG Tab PO PRN (07:04)
[2021-01-23] MEDS: Enoxaparin 40 MG/0.4 ML Syringe SUBCUT SCH (07:54)
[2021-01-23] MEDS: Lactated Ringers 1,000 ML IV SCH ×2 (07:54→16:33)
[2021-01-23] MEDS: Folic Acid 1 MG Tab PO SCH (08:00)
[2021-01-23 08:43] LABS: HEMOGLOBIN A1C 5.7 %
[2021-01-23] MEDS ORDERED: Thiamine 100 MG in Sodium Chloride 0.9% 100 ML IV SCH (09:00)
[2021-01-23] MEDS: Albuterol/Ipratropium 3.0-0.5 MG/3 ML Neb Soln NEB SCH ×4 (09:24→21:03)
--- NOTE | 2021-01-23 09:37 | PCM.HP.2 ---
H&P History of Present Illness - General Date of Service: 01/23/21 Admit Problem/Dx: Admission Diagnosis/Problem Admission Diagnosis/Problem Alcohol withdrawal syndrome Source of Information: Patient History Limitations: Reports: No Limitations - History of Present Illness Initial Comments - Free Text/Narative: This 65-year-old male with past medical history of COPD, hypertension, cardiomyopathy, GRISELDA and GERD presented to the ER with feeling very panicked and feeling dizzy and weak. History is quite limited as he is not a great historian and gave very limited history mainly on past medical prior to leaving for work. She reports that over the last 4 years he has been having significant difficulty sleeping and has been drinking alcohol in excess. He reports that he does drink 1 to 2 pints of shan daily. He reports his last drink was yesterday around 2 or 3 in the afternoon. He reported that last night he was feeling very panicked along with tremulous and nausea and vomiting. The also reports that his blood pressure has been elevating severely at home. The patient denied any chest pain to me he denied any shortness of breath hallucinations abdominal pain concerns urinating or having bowel movements at home.The also reports patient has significant GRISELDA but has not been using his CPAP as he previously used it when he was having significant GERD symptoms and it caused him to vomit. She reports that he is very allergic to OSKAR and ARB medications due to potato starch and these medications and he breaks out and has significant symptoms from these. She reports that they do see a chefs physician in [place] for a lot of medication and medical management. Patient reports he is stated above drinks 1 to 2 pints of shan daily, tobacco use, but does report marijuana use to help with sleep. He denies any fevers or chills no sore throat or neck pain. Denies any falls at home but does report he feels very weak. He also reports feeling very tired. In the ER CBC normal. Chloride 97 BUN 6 creatinine 1.0 potassium 3.5 magnesium 1.6. Glucose slightly elevated at 143 A1c was 5.7 total bilirubin 0.5 AST 45 ALT 58 and alk phos 58. Troponin x2 was negative in the ER TSH 0.85. Cholesterol panel checked triglycerides 50 cholesterol 242 LDL 131 HDL 101 UA in the ER was negative. Ethyl alcohol level 68 Covid swab negative. Chest x-ray was evaluated and negative. EKG sinus rhythm sinus tach with no ST elevation or T wave inversions. Blood pressures in the ER mildly elevated at 160s/114. He was treated with lorazepam Solu-Medrol and albuterol in the ER. He was noted to be significantly wheezing in the ER and treated with the above medications. Blood pressure has been slightly improved since being on the floor 153/86. PCP Dr. Walters chest Pain Score (Numeric/FACES): 2 - Related Data Allergies/Adverse Reactions: Allergies Allergy/AdvReac Type Severity Reaction Status Date / Time lisinopril Allergy Difficulty Verified 01/23/21 08:27 Breathing losartan Allergy Difficulty Verified 01/23/21 08:27 Breathing potato Allergy Difficulty Verified 01/23/21 08:06 Breathing Home Medications: Home Meds Esomeprazole Magnesium [Heartburn Treatment] 20 mg PO DAILY 12/28/19 [History] carvediloL [Carvedilol] 6.25 mg PO BIDMEALS 12/28/19 [History] Past Medical History - Past Health History Medical/Surgical History: Denies Medical/Surgical History HEENT History: Reports: Cataract, Other (See Below) Other HEENT History: has upper and lower dentures Cardiovascular History: Reports: Cardiomyopathy, High Cholesterol, Hypertension Other Cardiovascular History: L ventricle "doesn't work properly" Respiratory History: Reports: COPD, Sleep Apnea Other Respiratory History: CPAP Gastrointestinal History: Reports: GERD, PUD Other Gastrointestinal History: Claimed to have severe ulcer Genitourinary History: Reports: Renal Calculus Musculoskeletal History: Reports: Neck Pain, Chronic Neurological History: Reports: Concussion Psychiatric History: Reports: None - Infectious Disease History Infectious Disease History: Reports: Chicken Pox, Measles, Mumps, Shingles - Past Surgical History HEENT Surgical History: Reports: Cataract Surgery Other HEENT Surgeries/Procedures: Fractured nose, never got surgery to repair Respiratory Surgical History: Reports: None GI Surgical History: Reports: Appendectomy, Colonoscopy Social & Family History - Family History Family Medical History: No Pertinent Family History - Tobacco Use Tobacco Use Status *Q: Former Tobacco User Used Tobacco, but Quit: Yes Month/Year Tobacco Last Used: 2015 - Caffeine Use Caffeine Use: Reports: Soda Caffeine Use Comment: 2-3/day - Alcohol Use Days Per Week of Alcohol Use: 7 Number of Drinks Per Day: 7 Total Drinks Per Week: 49 Date of Last Drink: 01/22/21 Time of Last Drink: 14:00 Alcohol Use Frequency: Daily - Recreational Drug Use Recreational Drug Use: No Recreational Drug Type: Reports: Marijuana/Hashish - Living Situation & Occupation Living situation: Reports: Occupation: Employed H&P Review of Systems - Review of Systems: Review Of Systems: See Below General: Reports: Weakness (Generalized). Denies: Fever, Chills Pulmonary: Reports: No Symptoms. Denies: Shortness of Breath Cardiovascular: Reports: No Symptoms. Denies: Chest Pain Gastrointestinal: Reports: No Symptoms. Denies: Abdominal Pain, Black Stool, Bloody Stool, Nausea, Vomiting Genitourinary: Reports: No Symptoms. Denies: Dysuria, Frequency Musculoskeletal: Reports: Other (Allover muscle weakness) Skin: Reports: No Symptoms Psychiatric: Reports: Anxiety Neurological: Reports: Tremors, Difficulty Walking, Weakness (Generalized weakness) Hematologic/Lymphatic: Reports: No Symptoms Immunologic: Reports: No Symptoms Exam - Exam Exam: See Below - Vital Signs Vital Signs: Last Vital Signs Temp 97.3 F 01/23/21 07:10 Pulse 105 H 01/23/21 07:10 Resp 20 01/23/21 07:10 BP 174/93 H 01/23/21 07:10 Pulse Ox 92 L 01/23/21 08:34 Weight: 107.456 kg - Exam Quality Assessment: Supplemental Oxygen (2 L nasal cannula), DVT Prophylaxis General: Alert, Oriented, Cooperative HEENT: Conjunctiva Clear, Mucosa Moist & [place], Posterior Pharynx Clear Lungs: Clear to Auscultation, Normal Respiratory Effort Cardiovascular: Regular Rate, Regular Rhythm. No: Systolic Murmur GI/Abdominal Exam: Normal Bowel Sounds, Soft, Non-Tender Back Exam: Normal Inspection, Full Range of Motion Extremities: Normal Inspection, Normal Range of Motion, Non-Tender, No Pedal Edema Skin: Warm, Dry Neurological: Cranial Nerves Intact Neuro Extensive - Mental Status: Alert, Oriented x3, Normal Mood/Affect, Normal Cognition Neuro Extensive - Motor, Sensory, Reflexes: CN II-XII Intact. No: Normal Gait (Weak generalized) Psychiatric: Anxious, Withdrawal Symptoms - Patient Data Lab Results Last 24 hrs: Laboratory Results - last 24 hr 01/23/21 01/23/21 01/23/21 Range/Units 02:35 02:35 02:35 WBC 4.79 (4.0-11.0) K/uL RBC 4.73 (4.50-5.90) M/uL Hgb 15.8 (13.0-17.0) g/dL Hct 45.2 (38.0-50.0) % MCV 95.6 (80.0-98.0) fL MCH 33.4 H (27.0-32.0) pg MCHC 35.0 (31.0-37.0) g/dL RDW Std Deviation 53.1 (28.0-62.0) fl RDW Coeff of Monisha 15 (11.0-15.0) % Plt Count 174 (150-400) K/uL MPV 8.80 (7.40-12.00) fL Neut % (Auto) 55.8 (48.0-80.0) % Lymph % (Auto) 36.1 (16.0-40.0) % Gove % (Auto) 6.7 (0.0-15.0) % Eos % (Auto) 1.0 (0.0-7.0) % Baso % (Auto) 0.4 (0.0-1.5) % Neut # (Auto) 2.7 (1.4-5.7) K/uL Lymph # (Auto) 1.7 (0.6-2.4) K/uL Gove # (Auto) 0.3 (0.0-0.8) K/uL Eos # (Auto) 0.1 (0.0-0.7) K/uL Baso # (Auto) 0.0 (0.0-0.1) K/uL Nucleated RBC % 0.0 /100WBC Nucleated RBCs # 0 K/uL INR 1.06 Sodium 138 (136-148) mmol/L Potassium 3.5 (3.5-5.1) mmol/L Chloride 97 L (98-107) mmol/L Carbon Dioxide 27.9 (21.0-32.0) mmol/L BUN 6 L (7.0-18.0) mg/dL Creatinine 1.0 (0.8-1.3) mg/dL Est Cr Clr Drug Dosing 85.67 mL/min Estimated GFR (MDRD) > 60.0 ml/min Glucose 143 H (74-106) mg/dL Hemoglobin A1c (4.5 - 6.2) % Calcium 9.4 (8.5-10.1) mg/dL Phosphorus (2.6-4.7) mg/dL Magnesium (1.8-2.4) mg/dL Total Bilirubin 0.5 (0.2-1.0) mg/dL AST 45 H (15-37) IU/L ALT 58 (14-63) IU/L Alkaline Phosphatase 66 (46-116) U/L Troponin I < 0.050 (0.000-0.056) ng/mL B-Natriuretic Peptide (<100) PG/ML Total Protein 8.1 (6.4-8.2) g/dL Albumin 3.7 (3.4-5.0) g/dL Globulin 4.4 H (2.6-4.0) g/dL Albumin/Globulin Ratio 0.8 L (0.9-1.6) Triglycerides (0-200) mg/dL Cholesterol (50-200) mg/dL LDL Cholesterol, Calc (60-180) mg/dL VLDL Cholesterol (5-55) mg/dL HDL Cholesterol (40-60) mg/dL Cholesterol/HDL Ratio (3.3-6.0) TSH 3rd Generation (0.36-3.74) uIU/mL Urine Color Urine Appearance Urine pH (5.0-8.0) Ur Specific [place] (1.001-1.035) Urine Protein (NEGATIVE) mg/dL Urine Glucose (UA) (NEGATIVE) mg/dL Urine Ketones (NEGATIVE) mg/dL Urine Occult Blood (NEGATIVE) Urine Nitrite (NEGATIVE) Urine Bilirubin (NEGATIVE) Urine Urobilinogen (<2.0) EU/dL Ur Leukocyte Esterase (NEGATIVE) Urine RBC (0-2/HPF) Urine WBC (0-5/HPF) Ur Epithelial Cells (NONE-FEW) Urine Bacteria (NEGATIVE) Ethyl Alcohol mg/dL SARS-CoV-2 RNA (LAZARO) (NEGATIVE) 01/23/21 01/23/21 01/23/21 Range/Units 02:35 02:35 02:35 WBC (4.0-11.0) K/uL RBC (4.50-5.90) M/uL Hgb (13.0-17.0) g/dL Hct (38.0-50.0) % MCV (80.0-98.0) fL MCH (27.0-32.0) pg MCHC (31.0-37.0) g/dL RDW Std Deviation (28.0-62.0) fl RDW Coeff of Monisha (11.0-15.0) % Plt Count (150-400) K/uL MPV (7.40-12.00) fL Neut % (Auto) (48.0-80.0) % Lymph % (Auto) (16.0-40.0) % Gove % (Auto) (0.0-15.0) % Eos % (Auto) (0.0-7.0) % Baso % (Auto) (0.0-1.5) % Neut # (Auto) (1.4-5.7) K/uL Lymph # (Auto) (0.6-2.4) K/uL Gove # (Auto) (0.0-0.8) K/uL Eos # (Auto) (0.0-0.7) K/uL Baso # (Auto) (0.0-0.1) K/uL Nucleated RBC % /100WBC Nucleated RBCs # K/uL INR Sodium (136-148) mmol/L Potassium (3.5-5.1) mmol/L Chloride (98-107) mmol/L Carbon Dioxide (21.0-32.0) mmol/L BUN (7.0-18.0) mg/dL Creatinine (0.8-1.3) mg/dL Est Cr Clr Drug Dosing mL/min Estimated GFR (MDRD) ml/min Glucose (74-106) mg/dL Hemoglobin A1c (4.5 - 6.2) % Calcium (8.5-10.1) mg/dL Phosphorus 2.9 (2.6-4.7) mg/dL Magnesium 1.6 L (1.8-2.4) mg/dL Total Bilirubin (0.2-1.0) mg/dL AST (15-37) IU/L ALT (14-63) IU/L Alkaline Phosphatase (46-116) U/L Troponin I (0.000-0.056) ng/mL B-Natriuretic Peptide 14 (<100) PG/ML Total Protein (6.4-8.2) g/dL Albumin (3.4-5.0) g/dL Globulin (2.6-4.0) g/dL Albumin/Globulin Ratio (0.9-1.6) Triglycerides (0-200) mg/dL Cholesterol (50-200) mg/dL LDL Cholesterol, Calc (60-180) mg/dL VLDL Cholesterol (5-55) mg/dL HDL Cholesterol (40-60) mg/dL Cholesterol/HDL Ratio (3.3-6.0) TSH 3rd Generation (0.36-3.74) uIU/mL Urine Color Urine Appearance Urine pH (5.0-8.0) Ur Specific [place] (1.001-1.035) Urine Protein (NEGATIVE) mg/dL Urine Glucose (UA) (NEGATIVE) mg/dL Urine Ketones (NEGATIVE) mg/dL Urine Occult Blood (NEGATIVE) Urine Nitrite (NEGATIVE) Urine Bilirubin (NEGATIVE) Urine Urobilinogen (<2.0) EU/dL Ur Leukocyte Esterase (NEGATIVE) Urine RBC (0-2/HPF) Urine WBC (0-5/HPF) Ur Epithelial Cells (NONE-FEW) Urine Bacteria (NEGATIVE) Ethyl Alcohol 68 mg/dL SARS-CoV-2 RNA (LAZARO) (NEGATIVE) 01/23/21 01/23/21 01/23/21 Range/Units 03:00 05:00 05:00 WBC (4.0-11.0) K/uL RBC (4.50-5.90) M/uL Hgb (13.0-17.0) g/dL Hct (38.0-50.0) % MCV (80.0-98.0) fL MCH (27.0-32.0) pg MCHC (31.0-37.0) g/dL RDW Std Deviation (28.0-62.0) fl RDW Coeff of Monisha (11.0-15.0) % Plt Count (150-400) K/uL MPV (7.40-12.00) fL Neut % (Auto) (48.0-80.0) % Lymph % (Auto) (16.0-40.0) % Gove % (Auto) (0.0-15.0) % Eos % (Auto) (0.0-7.0) % Baso % (Auto) (0.0-1.5) % Neut # (Auto) (1.4-5.7) K/uL Lymph # (Auto) (0.6-2.4) K/uL Gove # (Auto) (0.0-0.8) K/uL Eos # (Auto) (0.0-0.7) K/uL Baso # (Auto) (0.0-0.1) K/uL Nucleated RBC % /100WBC Nucleated RBCs # K/uL INR Sodium (136-148) mmol/L Potassium (3.5-5.1) mmol/L Chloride (98-107) mmol/L Carbon Dioxide (21.0-32.0) mmol/L BUN (7.0-18.0) mg/dL Creatinine (0.8-1.3) mg/dL Est Cr Clr Drug Dosing mL/min Estimated GFR (MDRD) ml/min Glucose (74-106) mg/dL Hemoglobin A1c (4.5 - 6.2) % Calcium (8.5-10.1) mg/dL Phosphorus (2.6-4.7) mg/dL Magnesium (1.8-2.4) mg/dL Total Bilirubin (0.2-1.0) mg/dL AST (15-37) IU/L ALT (14-63) IU/L Alkaline Phosphatase (46-116) U/L Troponin I < 0.050 (0.000-0.056) ng/mL B-Natriuretic Peptide (<100) PG/ML Total Protein (6.4-8.2) g/dL Albumin (3.4-5.0) g/dL Globulin (2.6-4.0) g/dL Albumin/Globulin Ratio (0.9-1.6) Triglycerides (0-200) mg/dL Cholesterol (50-200) mg/dL LDL Cholesterol, Calc (60-180) mg/dL VLDL Cholesterol (5-55) mg/dL HDL Cholesterol (40-60) mg/dL Cholesterol/HDL Ratio (3.3-6.0) TSH 3rd Generation 0.85 (0.36-3.74) uIU/mL Urine Color Urine Appearance Urine pH (5.0-8.0) Ur Specific [place] (1.001-1.035) Urine Protein (NEGATIVE) mg/dL Urine Glucose (UA) (NEGATIVE) mg/dL Urine Ketones (NEGATIVE) mg/dL Urine Occult Blood (NEGATIVE) Urine Nitrite (NEGATIVE) Urine Bilirubin (NEGATIVE) Urine Urobilinogen (<2.0) EU/dL Ur Leukocyte Esterase (NEGATIVE) Urine RBC (0-2/HPF) Urine WBC (0-5/HPF) Ur Epithelial Cells (NONE-FEW) Urine Bacteria (NEGATIVE) Ethyl Alcohol mg/dL SARS-CoV-2 RNA (LAZARO) NEGATIVE (NEGATIVE) 01/23/21 01/23/21 01/23/21 Range/Units 05:00 05:30 08:22 WBC (4.0-11.0) K/uL RBC (4.50-5.90) M/uL Hgb (13.0-17.0) g/dL Hct (38.0-50.0) % MCV (80.0-98.0) fL MCH (27.0-32.0) pg MCHC (31.0-37.0) g/dL RDW Std Deviation (28.0-62.0) fl RDW Coeff of Monisha (11.0-15.0) % Plt Count (150-400) K/uL MPV (7.40-12.00) fL Neut % (Auto) (48.0-80.0) % Lymph % (Auto) (16.0-40.0) % Gove % (Auto) (0.0-15.0) % Eos % (Auto) (0.0-7.0) % Baso % (Auto) (0.0-1.5) % Neut # (Auto) (1.4-5.7) K/uL Lymph # (Auto) (0.6-2.4) K/uL Gove # (Auto) (0.0-0.8) K/uL Eos # (Auto) (0.0-0.7) K/uL Baso # (Auto) (0.0-0.1) K/uL Nucleated RBC % /100WBC Nucleated RBCs # K/uL INR Sodium (136-148) mmol/L Potassium (3.5-5.1) mmol/L Chloride (98-107) mmol/L Carbon Dioxide (21.0-32.0) mmol/L BUN (7.0-18.0) mg/dL Creatinine (0.8-1.3) mg/dL Est Cr Clr Drug Dosing mL/min Estimated GFR (MDRD) ml/min Glucose (74-106) mg/dL Hemoglobin A1c (4.5 - 6.2) % Calcium (8.5-10.1) mg/dL Phosphorus (2.6-4.7) mg/dL Magnesium (1.8-2.4) mg/dL Total Bilirubin (0.2-1.0) mg/dL AST (15-37) IU/L ALT (14-63) IU/L Alkaline Phosphatase (46-116) U/L Troponin I < 0.050 (0.000-0.056) ng/mL B-Natriuretic Peptide (<100) PG/ML Total Protein (6.4-8.2) g/dL Albumin (3.4-5.0) g/dL Globulin (2.6-4.0) g/dL Albumin/Globulin Ratio (0.9-1.6) Triglycerides 50 (0-200) mg/dL Cholesterol 242 H (50-200) mg/dL LDL Cholesterol, Calc 131 (60-180) mg/dL VLDL Cholesterol 10 (5-55) mg/dL HDL Cholesterol 101 H (40-60) mg/dL Cholesterol/HDL Ratio 2.4 L (3.3-6.0) TSH 3rd Generation (0.36-3.74) uIU/mL Urine Color YELLOW Urine Appearance CLEAR Urine pH 7.0 (5.0-8.0) Ur Specific [place] 1.020 (1.001-1.035) Urine Protein NEGATIVE (NEGATIVE) mg/dL Urine Glucose (UA) NEGATIVE (NEGATIVE) mg/dL Urine Ketones TRACE H (NEGATIVE) mg/dL Urine Occult Blood TRACE-INTACT H (NEGATIVE) Urine Nitrite NEGATIVE (NEGATIVE) Urine Bilirubin NEGATIVE (NEGATIVE) Urine Urobilinogen 0.2 (<2.0) EU/dL Ur Leukocyte Esterase NEGATIVE (NEGATIVE) Urine RBC 1-4 (0-2/HPF) Urine WBC 0-1 (0-5/HPF) Ur Epithelial Cells RARE (NONE-FEW) Urine Bacteria RARE (NEGATIVE) Ethyl Alcohol mg/dL SARS-CoV-2 RNA (LAZARO) (NEGATIVE) 01/23/21 Range/Units 08:22 WBC (4.0-11.0) K/uL RBC (4.50-5.90) M/uL Hgb (13.0-17.0) g/dL Hct (38.0-50.0) % MCV (80.0-98.0) fL MCH (27.0-32.0) pg MCHC (31.0-37.0) g/dL RDW Std Deviation (28.0-62.0) fl RDW Coeff of Monisha (11.0-15.0) % Plt Count (150-400) K/uL MPV (7.40-12.00) fL Neut % (Auto) (48.0-80.0) % Lymph % (Auto) (16.0-40.0) % Gove % (Auto) (0.0-15.0) % Eos % (Auto) (0.0-7.0) % Baso % (Auto) (0.0-1.5) % Neut # (Auto) (1.4-5.7) K/uL Lymph # (Auto) (0.6-2.4) K/uL Gove # (Auto) (0.0-0.8) K/uL Eos # (Auto) (0.0-0.7) K/uL Baso # (Auto) (0.0-0.1) K/uL Nucleated RBC % /100WBC Nucleated RBCs # K/uL INR Sodium (136-148) mmol/L Potassium (3.5-5.1) mmol/L Chloride (98-107) mmol/L Carbon Dioxide (21.0-32.0) mmol/L BUN (7.0-18.0) mg/dL Creatinine (0.8-1.3) mg/dL Est Cr Clr Drug Dosing mL/min Estimated GFR (MDRD) ml/min Glucose (74-106) mg/dL Hemoglobin A1c 5.7 (4.5 - 6.2) % Calcium (8.5-10.1) mg/dL Phosphorus (2.6-4.7) mg/dL Magnesium (1.8-2.4) mg/dL Total Bilirubin (0.2-1.0) mg/dL AST (15-37) IU/L ALT (14-63) IU/L Alkaline Phosphatase (46-116) U/L Troponin I (0.000-0.056) ng/mL B-Natriuretic Peptide (<100) PG/ML Total Protein (6.4-8.2) g/dL Albumin (3.4-5.0) g/dL Globulin (2.6-4.0) g/dL Albumin/Globulin Ratio (0.9-1.6) Triglycerides (0-200) mg/dL Cholesterol (50-200) mg/dL LDL Cholesterol, Calc (60-180) mg/dL VLDL Cholesterol (5-55) mg/dL HDL Cholesterol (40-60) mg/dL Cholesterol/HDL Ratio (3.3-6.0) TSH 3rd Generation (0.36-3.74) uIU/mL Urine Color Urine Appearance Urine pH (5.0-8.0) Ur Specific [place] (1.001-1.035) Urine Protein (NEGATIVE) mg/dL Urine Glucose (UA) (NEGATIVE) mg/dL Urine Ketones (NEGATIVE) mg/dL Urine Occult Blood (NEGATIVE) Urine Nitrite (NEGATIVE) Urine Bilirubin (NEGATIVE) Urine Urobilinogen (<2.0) EU/dL Ur Leukocyte Esterase (NEGATIVE) Urine RBC (0-2/HPF) Urine WBC (0-5/HPF) Ur Epithelial Cells (NONE-FEW) Urine Bacteria (NEGATIVE) Ethyl Alcohol mg/dL SARS-CoV-2 RNA (LAZARO) (NEGATIVE) Result Diagrams: 01/23/21 02:35 01/23/21 02:35 Sepsis Event Note - Evaluation Sepsis Screening Result: No Definite Risk - Focused Exam Vital Signs: Vital Signs Temp Pulse Resp BP Pulse Ox Pulse Ox 01/23/21 08:34 92 L 01/23/21 07:52 91 L 01/23/21 07:10 97.3 F 105 H 20 174/93 H 92 L 01/23/21 06:26 107 H 20 160/107 H 94 L 01/23/21 05:38 105 H 20 163/102 H 89 L 01/23/21 04:38 98 20 151/99 H 91 L 01/23/21 03:08 81 18 150/94 H 96 01/23/21 02:44 96.8 F L 109 H 16 166/114 H 93 L - Problem List (1) Weakness SNOMED Code(s): 15907301 ICD Code: R53.1 - WEAKNESS Status: Acute Current Visit: No (2) Alcohol withdrawal SNOMED Code(s): 165123074 ICD Code: F10.239 - ALCOHOL DEPENDENCE WITH WITHDRAWAL, UNSPECIFIED Status: Acute Current Visit: No (3) Hypoxia SNOMED Code(s): 004563455 ICD Code: R09.02 - HYPOXEMIA Status: Acute Current Visit: Yes (4) GRISELDA (obstructive sleep apnea) SNOMED Code(s): 28440870 ICD Code: G47.33 - OBSTRUCTIVE SLEEP APNEA (ADULT) (PEDIATRIC) Status: Chronic Current Visit: Yes (5) Chronic GERD SNOMED Code(s): 740687167, 928597511 ICD Code: K21.9 - GASTRO-ESOPHAGEAL REFLUX DISEASE WITHOUT ESOPHAGITIS Status: Chronic Current Visit: No (6) Hypertension SNOMED Code(s): 96083174 ICD Code: I10 - ESSENTIAL (PRIMARY) HYPERTENSION Status: Chronic Current Visit: No Qualifiers: Hypertension type: essential hypertension Qualified Code(s): I10 - Essential (primary) hypertension (7) Alcohol use SNOMED Code(s): 602875 ICD Code: Z78.9 - OTHER SPECIFIED HEALTH STATUS Status: Chronic Current Visit: No (8) Cardiomyopathy SNOMED Code(s): 39795348 ICD Code: I42.9 - CARDIOMYOPATHY, UNSPECIFIED Status: Chronic Current Visit: No (9) Former smoker SNOMED Code(s): 5478692 ICD Code: Z87.891 - PERSONAL HISTORY OF NICOTINE DEPENDENCE Status: Chronic Current Visit: No (10) Hyperlipidemia SNOMED Code(s): 92381194 ICD Code: E78.5 - HYPERLIPIDEMIA, UNSPECIFIED Status: Chronic Current Visit: No Problem List Initiated/Reviewed/Updated: Yes Orders Last 24hrs: Active Orders 24 hr Category Date Time Status Patient Status [ADT] Routine ADT 01/23/21 06:33 Active Ambulate [RC] ASDIRECTED Care 01/23/21 07:04 Active Antiembolic Devices [RC] PER UNIT ROUTINE Care 01/23/21 07:05 Active CIWAA Assessment [RC] Q4H Care 01/23/21 07:10 Active IS (RT) [RT Incentive Spirometry] [RC] Q2HWA Care 01/23/21 07:08 Active Oxygen Therapy [RC] PRN Care 01/23/21 07:04 Active RT Aerosol Therapy [RC] ASDIRECTED Care 01/23/21 07:05 Active RT BiPAP/CPAP [RC] ASDIRECTED Care 01/23/21 09:27 Ordered Telemetry Monitoring [Cardiac Monitoring] [RC] Q8H Care 01/23/21 08:05 Active VTE/DVT Education [RC] PER UNIT ROUTINE Care 01/23/21 07:04 Active Vital Signs [RC] Q4H Care 01/23/21 07:04 Active Heart Healthy Diet [DIET] Diet 01/23/21 Breakfast Active Echo Comp wo Cont [US] Urgent Exams 01/23/21 09:26 Ordered Acetaminophen [TylenoL] Med 01/23/21 07:04 Active 650 mg PO Q4H PRN Albuterol/Ipratropium [DuoNeb 3.0-0.5 MG/3 ML] Med 01/23/21 10:00 Active 3 ml NEB Q4HRRT Enoxaparin [Lovenox] Med 01/23/21 07:15 Active 40 mg SUBCUT Q24H Folic Acid Med 01/23/21 09:00 Active 1 mg PO DAILY LORazepam [Ativan] Med 01/23/21 07:09 Active See Protocol IVPUSH Q4H PRN Lactated Ringers [Ringers, Lactated] 1,000 ml Med 01/23/21 07:15 Active IV ASDIRECTED Ondansetron [Zofran] Med 01/23/21 07:04 Active 4 mg IVPUSH Q4H PRN Sodium Chloride 0.9% [Saline Flush] Med 01/23/21 08:05 Active 2.5 ml FLUSH ASDIRECTED PRN Thiamine [Vitamin B-1] 500 mg Med 01/23/21 09:00 Active Sodium Chloride 0.9% [Normal Saline] 100 ml IV Q8H Saline Lock Insert [OM.PC] Routine Oth 01/23/21 08:05 Ordered Sequential Compression Device [OM.PC] Per Unit Routine Oth 01/23/21 07:04 Ordered Resuscitation Status Routine Resus Stat 01/23/21 08:56 Ordered Medication Orders Acetaminophen (Acetaminophen 325 Mg Tab) 650 mg PO Q4H PRN PRN Reason: Pain (Mild 1-3)/fever Albuterol/Ipratropium (Albuterol/Ipratropium 3.0-0.5 Mg/3 Ml Neb Soln) 3 ml NEB Q4HRRT HAYDEE Last Admin: 01/23/21 09:24 Dose: 3 ml Documented by: FUNMI Enoxaparin Sodium (Enoxaparin 40 Mg/0.4 Ml Syringe) 40 mg SUBCUT Q24H [facility] Last Admin: 01/23/21 07:54 Dose: 40 mg Documented by: ARMANDO Folic Acid (Folic Acid 1 Mg Tab) 1 mg PO DAILY [facility] Last Admin: 01/23/21 08:00 Dose: 1 mg Documented by: ARMANDO Lactated Ringer's (Ringers, Lactated) 1,000 mls @ 125 mls/hr IV ASDIRECTED HAYDEE Stop: 01/23/21 23:00 Last Admin: 01/23/21 07:54 Dose: 125 mls/hr Documented by: ARMANDO Thiamine HCl 500 mg/ Sodium (Chloride) 105 mls @ 210 mls/hr IV Q8H [facility]AY[facility]E Lorazepam (Lorazepam 2 Mg/Ml Sdv) 0 mg IVPUSH Q4H PRN; Protocol PRN Reason: Withdrawal Symptoms Ondansetron HCl (Ondansetron 4 Mg/2 Ml Sdv) 4 mg IVPUSH Q4H PRN PRN Reason: Nausea/Vomiting Sodium Chloride (Sodium Chloride 0.9% 2.5 Ml Syringe) 2.5 ml FLUSH ASDIRECTED PRN PRN Reason: Keep Vein Open Assessment/Plan Comment:: This 65-year-old male admitted with chest pain, alcohol withdrawal and insomnia 1. Chest pain -No longer having chest pain troponin has been negative x3 -Continue to monitor on telemetry -Continue aspirin -We will likely need follow-up with cardiology for stress test. 2. Alcohol withdrawal/ataxia -Having some ataxia and weakness at home nystagmus is noted on exam. -Ativan per protocol with CIWA assessment -Thiamine 500 mg IV 3 times daily for the next couple days then will decrease to 250 mg daily -Folic acid -Monitor electrolytes -Counseled heavily on alcohol use and that the mixture of this in his untreated sleep apnea are very dangerous. -Consult physical therapy in a.m. 3. Insomnia -We will evaluate echo secondary to cardiomyopathy history. -Could also be contributed from GRISELDA and apnea. -Counseled on good sleep hygiene as well as the need to stay away from medications to help with sleep as these can be addictive and it is better to treat at the source. 4. HTN/cardiomyopathy -Continue Coreg - History of being on Crestor but appears not on medication list at this time will discuss with as she has concerned about medications. VTE prophylaxis: Lovenox GI prophylaxis: Nexium CODE STATUS: Full code Dispo 2 to 3 days pending improvement. - Mortality Measure Prognosis:: Good
[2021-01-23] MEDS: Thiamine 500 MG in Sodium Chloride 0.9% 100 ML IV SCH ×2 (10:28→17:09)
[2021-01-23] MEDS ORDERED: methylPREDNISolone Sodium Succinate 40 MG/1 ML SDV IVPUSH SCH (11:00)
[2021-01-23] MEDS: LORazepam 2 MG/ML SDV IVPUSH PRN ×2 (15:04→20:54)
[2021-01-23] MEDS: Carvedilol 6.25 MG Tab PO SCH (17:08)
[2021-01-24] MEDS: LORazepam 2 MG/ML SDV IVPUSH PRN ×2 (00:32→22:45)
[2021-01-24] MEDS: Thiamine 500 MG in Sodium Chloride 0.9% 100 ML IV SCH ×3 (00:34→18:05)
[2021-01-24] MEDS: Albuterol/Ipratropium 3.0-0.5 MG/3 ML Neb Soln NEB SCH ×6 (02:58→21:06)
[2021-01-24 05:41] LABS: BLOOD UREA NITROGEN,BUN 10 mg/dL (7.0-18.0); CHLORIDE,CL 99 mmol/L (98-107); GLUCOSE RANDOM 115 mg/dL (74-106); POTASSIUM,K 3.6 mmol/L (3.5-5.1); SODIUM,NA 137 mmol/L (136-148)
[2021-01-24] MEDS: Enoxaparin 40 MG/0.4 ML Syringe SUBCUT SCH (06:40)
--- NOTE | 2021-01-24 07:50 | PCM.PN ---
- General Info Date of Service: 01/24/21 Admission Dx/Problem (Free Text): Admission Diagnosis/Problem Admission Diagnosis/Problem Alcohol withdrawal syndrome Subjective Update: Slept really well last night. Feeling much improved today. Denies any chest pain or shortness of breath. Tremors have improved. His will bring in CPAP for that to be looked at by [employer] and he was encouraged to continue to use this more at home. Patient did not tolerate CPAP here well. He has been on and off oxygen throughout the day and night. Reports has been up ambulating in his room and feeling much less weak than compared to when he came in. Functional Status: Reports: Pain Controlled, Tolerating Diet, Ambulating, Urinating - Review of Systems General: Reports: No Symptoms. Denies: Weakness, Fatigue, Malaise HEENT: Reports: No Symptoms. Denies: Headaches, Sore Throat Pulmonary: Reports: No Symptoms. Denies: Shortness of Breath Cardiovascular: Reports: No Symptoms. Denies: Chest Pain Gastrointestinal: Denies: Abdominal Pain, Nausea, Vomiting Genitourinary: Reports: No Symptoms. Denies: Dysuria, Frequency, Burning Musculoskeletal: Reports: No Symptoms Skin: Reports: No Symptoms Neurological: Reports: Tremors (Mild but much improved from yesterday.). Denies: Weakness Psychiatric: Reports: No Symptoms - Patient Data Vitals - Most Recent: Last Vital Signs Temp 98.2 F 01/24/21 04:00 Pulse 95 01/24/21 04:00 Resp 18 01/24/21 04:00 BP 138/88 01/24/21 04:00 Pulse Ox 95 01/24/21 04:00 Weight - Most Recent: 107.456 kg I&O - Last 24 Hours: Intake & Output 01/23/21 01/24/21 01/24/21 22:59 06:59 14:59 Intake Total 720 800 Output Total 1500 1420 Balance -780 -620 Lab Results Last 24 Hours: Laboratory Results - last 24 hr 01/23/21 01/23/21 01/23/21 Range/Units 05:00 08:22 08:22 WBC (4.0-11.0) K/uL RBC (4.50-5.90) M/uL Hgb (13.0-17.0) g/dL Hct (38.0-50.0) % MCV (80.0-98.0) fL MCH (27.0-32.0) pg MCHC (31.0-37.0) g/dL RDW Std Deviation (28.0-62.0) fl RDW Coeff of Monisha (11.0-15.0) % Plt Count (150-400) K/uL MPV (7.40-12.00) fL Neut % (Auto) (48.0-80.0) % Lymph % (Auto) (16.0-40.0) % Randall % (Auto) (0.0-15.0) % Eos % (Auto) (0.0-7.0) % Baso % (Auto) (0.0-1.5) % Neut # (Auto) (1.4-5.7) K/uL Lymph # (Auto) (0.6-2.4) K/uL Randall # (Auto) (0.0-0.8) K/uL Eos # (Auto) (0.0-0.7) K/uL Baso # (Auto) (0.0-0.1) K/uL Nucleated RBC % /100WBC Nucleated RBCs # K/uL Sodium (136-148) mmol/L Potassium (3.5-5.1) mmol/L Chloride (98-107) mmol/L Carbon Dioxide (21.0-32.0) mmol/L BUN (7.0-18.0) mg/dL Creatinine (0.8-1.3) mg/dL Est Cr Clr Drug Dosing mL/min Estimated GFR (MDRD) ml/min Glucose (74-106) mg/dL Hemoglobin A1c 5.7 (4.5 - 6.2) % Calcium (8.5-10.1) mg/dL Magnesium (1.8-2.4) mg/dL Total Bilirubin (0.2-1.0) mg/dL AST (15-37) IU/L ALT (14-63) IU/L Alkaline Phosphatase (46-116) U/L Troponin I < 0.050 (0.000-0.056) ng/mL Total Protein (6.4-8.2) g/dL Albumin (3.4-5.0) g/dL Globulin (2.6-4.0) g/dL Albumin/Globulin Ratio (0.9-1.6) Triglycerides 50 (0-200) mg/dL Cholesterol 242 H (50-200) mg/dL LDL Cholesterol, Calc 131 (60-180) mg/dL VLDL Cholesterol 10 (5-55) mg/dL HDL Cholesterol 101 H (40-60) mg/dL Cholesterol/HDL Ratio 2.4 L (3.3-6.0) 01/24/21 01/24/21 Range/Units 05:00 05:00 WBC 5.36 (4.0-11.0) K/uL RBC 4.12 L (4.50-5.90) M/uL Hgb 13.4 (13.0-17.0) g/dL Hct 39.9 (38.0-50.0) % MCV 96.8 (80.0-98.0) fL MCH 32.5 H (27.0-32.0) pg MCHC 33.6 (31.0-37.0) g/dL RDW Std Deviation 54.3 (28.0-62.0) fl RDW Coeff of Monisha 15 (11.0-15.0) % Plt Count 158 (150-400) K/uL MPV 9.30 (7.40-12.00) fL Neut % (Auto) 68.3 (48.0-80.0) % Lymph % (Auto) 20.9 (16.0-40.0) % Randall % (Auto) 10.6 (0.0-15.0) % Eos % (Auto) 0.2 (0.0-7.0) % Baso % (Auto) 0.0 (0.0-1.5) % Neut # (Auto) 3.7 (1.4-5.7) K/uL Lymph # (Auto) 1.1 (0.6-2.4) K/uL Randall # (Auto) 0.6 (0.0-0.8) K/uL Eos # (Auto) 0.0 (0.0-0.7) K/uL Baso # (Auto) 0.0 (0.0-0.1) K/uL Nucleated RBC % 0.0 /100WBC Nucleated RBCs # 0 K/uL Sodium 137 (136-148) mmol/L Potassium 3.6 (3.5-5.1) mmol/L Chloride 99 (98-107) mmol/L Carbon Dioxide 29.0 (21.0-32.0) mmol/L BUN 10 (7.0-18.0) mg/dL Creatinine 1.0 (0.8-1.3) mg/dL Est Cr Clr Drug Dosing 85.67 mL/min Estimated GFR (MDRD) > 60.0 ml/min Glucose 115 H (74-106) mg/dL Hemoglobin A1c (4.5 - 6.2) % Calcium 8.5 (8.5-10.1) mg/dL Magnesium 1.7 L (1.8-2.4) mg/dL Total Bilirubin 0.5 (0.2-1.0) mg/dL AST 26 (15-37) IU/L ALT 38 (14-63) IU/L Alkaline Phosphatase 54 (46-116) U/L Troponin I (0.000-0.056) ng/mL Total Protein 6.5 (6.4-8.2) g/dL Albumin 2.7 L (3.4-5.0) g/dL Globulin 3.8 (2.6-4.0) g/dL Albumin/Globulin Ratio 0.7 L (0.9-1.6) Triglycerides (0-200) mg/dL Cholesterol (50-200) mg/dL LDL Cholesterol, Calc (60-180) mg/dL VLDL Cholesterol (5-55) mg/dL HDL Cholesterol (40-60) mg/dL Cholesterol/HDL Ratio (3.3-6.0) Med Orders - Current: Current Medications Acetaminophen (Acetaminophen 325 Mg Tab) 650 mg PO Q4H PRN PRN Reason: Pain (Mild 1-3)/fever Albuterol/Ipratropium (Albuterol/Ipratropium 3.0-0.5 Mg/3 Ml Neb Soln) 3 ml NEB Q4HRRT [facility] Last Admin: 01/24/21 06:21 Dose: 3 ml Documented by: Aspirin (Aspirin 81 Mg Tab.Chew) 81 mg PO DAILY [facility] Carvedilol (Carvedilol 6.25 Mg Tab) 6.25 mg PO BIDMEALS [facility] Last Admin: 01/23/21 17:08 Dose: 6.25 mg Documented by: Enoxaparin Sodium (Enoxaparin 40 Mg/0.4 Ml Syringe) 40 mg SUBCUT Q24H [facility] Last Admin: 01/24/21 06:40 Dose: 40 mg Documented by: Folic Acid (Folic Acid 1 Mg Tab) 1 mg PO DAILY [facility] Last Admin: 01/23/21 08:00 Dose: 1 mg Documented by: Thiamine HCl 500 mg/ Sodium (Chloride) 105 mls @ 210 mls/hr IV Q8H [facility] Last Admin: 01/24/21 00:34 Dose: 210 mls/hr Documented by: Magnesium Sulfate (Magnesium Sulfate In Water 2 Gm/50 Ml) 2 gm in 50 mls @ 50 mls/hr IV ONETIME ONE Stop: 01/24/21 08:47 Lorazepam (Lorazepam 2 Mg/Ml Sdv) 0 mg IVPUSH Q4H PRN; Protocol PRN Reason: Withdrawal Symptoms Last Admin: 01/24/21 00:32 Dose: 1 mg Documented by: Ondansetron HCl (Ondansetron 4 Mg/2 Ml Sdv) 4 mg IVPUSH Q4H PRN PRN Reason: Nausea/Vomiting Esomeprazole 20mg 1 each PO DAILY [facility] Last Admin: 01/23/21 14:05 Dose: Not Given Documented by: Sodium Chloride (Sodium Chloride 0.9% 2.5 Ml Syringe) 2.5 ml FLUSH ASDIRECTED PRN PRN Reason: Keep Vein Open Discontinued Medications Albuterol/Ipratropium (Albuterol/Ipratropium 3.0-0.5 Mg/3 Ml Neb Soln) 3 ml NEB ONETIME ONE Stop: 01/23/21 02:53 Last Admin: 01/23/21 02:57 Dose: 3 ml Documented by: Multivitamins/Minerals 10 ml/Thiamine HCl 100 mg/ Folic Acid 1 mg/ Sodium Chloride 1,011.2 mls @ 999 mls/hr IV ONETIME ONE Stop: 01/23/21 03:50 Last Admin: 01/23/21 03:05 Dose: 999 mls/hr Documented by: Sodium Chloride (Normal Saline) 1,000 mls @ 999 mls/hr IV .BOLUS [facility] Magnesium Sulfate (Magnesium Sulfate In Water 2 Gm/50 Ml) 2 gm in 50 mls @ 25 mls/hr IV ONETIME ONE Stop: 01/23/21 05:14 Last Admin: 01/23/21 03:32 Dose: 25 mls/hr Documented by: Sodium Chloride (Normal Saline) 1,000 mls @ 999 mls/hr IV .Bolus ONE Stop: 01/23/21 07:34 Last Admin: 01/23/21 06:35 Dose: 999 mls/hr Documented by: Lactated Ringer's (Ringers, Lactated) 1,000 mls @ 125 mls/hr IV ASDIRECTED [facility] Stop: 01/23/21 23:00 Last Admin: 01/23/21 16:33 Dose: 125 mls/hr Documented by: Thiamine HCl 100 mg/ Sodium (Chloride) 101 mls @ 202 mls/hr IV DAILY [facility] Thiamine HCl 100 mg/ Sodium (Chloride) 101 mls @ 202 mls/hr IV DAILY [facility] Lorazepam (Lorazepam 2 Mg/Ml Sdv) 2 mg IVPUSH ONETIME ONE Stop: 01/23/21 02:53 Last Admin: 01/23/21 02:57 Dose: 2 mg Documented by: Methylprednisolone Sodium Succinate (Methylprednisolone Sodium Succinate 125 Mg/2 Ml Sdv) 125 mg IVPUSH ONETIME ONE Stop: 01/23/21 02:53 Last Admin: 01/23/21 02:57 Dose: 125 mg Documented by: Methylprednisolone Sodium Succinate (Methylprednisolone Sodium Succinate 40 Mg/1 Ml Sdv) 40 mg IVPUSH Q8H [facility] Nitroglycerin (Nitroglycerin 0.4 Mg Tab.Sl) 0.4 mg SL Q5M PRN PRN Reason: Chest Pain Sodium Chloride (Sodium Chloride 0.9% 10 Ml Syringe) 10 ml FLUSH ASDIRECTED PRN PRN Reason: Keep Vein Open Last Admin: 01/23/21 02:57 Dose: 10 ml Documented by: Sodium Chloride (Sodium Chloride 0.9% 2.5 Ml Syringe) 2.5 ml FLUSH ASDIRECTED PRN PRN Reason: Keep Vein Open Last Admin: 01/23/21 02:57 Dose: 2.5 ml Documented by: - Exam Quality Assessment: Supplemental Oxygen (1 L nasal cannula but at the time of interview patient was on room air satting 92%) General: Alert, Oriented, Cooperative, No Acute Distress HEENT: Other (No further nystagmus noted) Neck: Supple Lungs: Clear to Auscultation, Normal Respiratory Effort Cardiovascular: Regular Rate, Regular Rhythm GI/Abdominal Exam: Normal Bowel Sounds, Soft, Non-Tender Extremities: Normal Inspection, Normal Range of Motion, Non-Tender, No Pedal E jose Neurological: No New Focal Deficit Psy/Mental Status: Alert, Normal Affect, Normal Mood, Withdrawal Symptoms (Tremors have improved generalized weakness improved. No hallucinations). No: Hallucinations - Patient Data Lab Results Last 24 hrs: Laboratory Results - last 24 hr 01/23/21 01/23/21 01/23/21 Range/Units 05:00 08:22 08:22 WBC (4.0-11.0) K/uL RBC (4.50-5.90) M/uL Hgb (13.0-17.0) g/dL Hct (38.0-50.0) % MCV (80.0-98.0) fL MCH (27.0-32.0) pg MCHC (31.0-37.0) g/dL RDW Std Deviation (28.0-62.0) fl RDW Coeff of Monisha (11.0-15.0) % Plt Count (150-400) K/uL MPV (7.40-12.00) fL Neut % (Auto) (48.0-80.0) % Lymph % (Auto) (16.0-40.0) % Randall % (Auto) (0.0-15.0) % Eos % (Auto) (0.0-7.0) % Baso % (Auto) (0.0-1.5) % Neut # (Auto) (1.4-5.7) K/uL Lymph # (Auto) (0.6-2.4) K/uL Randall # (Auto) (0.0-0.8) K/uL Eos # (Auto) (0.0-0.7) K/uL Baso # (Auto) (0.0-0.1) K/uL Nucleated RBC % /100WBC Nucleated RBCs # K/uL Sodium (136-148) mmol/L Potassium (3.5-5.1) mmol/L Chloride (98-107) mmol/L Carbon Dioxide (21.0-32.0) mmol/L BUN (7.0-18.0) mg/dL Creatinine (0.8-1.3) mg/dL Est Cr Clr Drug Dosing mL/min Estimated GFR (MDRD) ml/min Glucose (74-106) mg/dL Hemoglobin A1c 5.7 (4.5 - 6.2) % Calcium (8.5-10.1) mg/dL Magnesium (1.8-2.4) mg/dL Total Bilirubin (0.2-1.0) mg/dL AST (15-37) IU/L ALT (14-63) IU/L Alkaline Phosphatase (46-116) U/L Troponin I < 0.050 (0.000-0.056) ng/mL Total Protein (6.4-8.2) g/dL Albumin (3.4-5.0) g/dL Globulin (2.6-4.0) g/dL Albumin/Globulin Ratio (0.9-1.6) Triglycerides 50 (0-200) mg/dL Cholesterol 242 H (50-200) mg/dL LDL Cholesterol, Calc 131 (60-180) mg/dL VLDL Cholesterol 10 (5-55) mg/dL HDL Cholesterol 101 H (40-60) mg/dL Cholesterol/HDL Ratio 2.4 L (3.3-6.0) 01/24/21 01/24/21 Range/Units 05:00 05:00 WBC 5.36 (4.0-11.0) K/uL RBC 4.12 L (4.50-5.90) M/uL Hgb 13.4 (13.0-17.0) g/dL Hct 39.9 (38.0-50.0) % MCV 96.8 (80.0-98.0) fL MCH 32.5 H (27.0-32.0) pg MCHC 33.6 (31.0-37.0) g/dL RDW Std Deviation 54.3 (28.0-62.0) fl RDW Coeff of Monisha 15 (11.0-15.0) % Plt Count 158 (150-400) K/uL MPV 9.30 (7.40-12.00) fL Neut % (Auto) 68.3 (48.0-80.0) % Lymph % (Auto) 20.9 (16.0-40.0) % Randall % (Auto) 10.6 (0.0-15.0) % Eos % (Auto) 0.2 (0.0-7.0) % Baso % (Auto) 0.0 (0.0-1.5) % Neut # (Auto) 3.7 (1.4-5.7) K/uL Lymph # (Auto) 1.1 (0.6-2.4) K/uL Randall # (Auto) 0.6 (0.0-0.8) K/uL Eos # (Auto) 0.0 (0.0-0.7) K/uL Baso # (Auto) 0.0 (0.0-0.1) K/uL Nucleated RBC % 0.0 /100WBC Nucleated RBCs # 0 K/uL Sodium 137 (136-148) mmol/L Potassium 3.6 (3.5-5.1) mmol/L Chloride 99 (98-107) mmol/L Carbon Dioxide 29.0 (21.0-32.0) mmol/L BUN 10 (7.0-18.0) mg/dL Creatinine 1.0 (0.8-1.3) mg/dL Est Cr Clr Drug Dosing 85.67 mL/min Estimated GFR (MDRD) > 60.0 ml/min Glucose 115 H (74-106) mg/dL Hemoglobin A1c (4.5 - 6.2) % Calcium 8.5 (8.5-10.1) mg/dL Magnesium 1.7 L (1.8-2.4) mg/dL Total Bilirubin 0.5 (0.2-1.0) mg/dL AST 26 (15-37) IU/L ALT 38 (14-63) IU/L Alkaline Phosphatase 54 (46-116) U/L Troponin I (0.000-0.056) ng/mL Total Protein 6.5 (6.4-8.2) g/dL Albumin 2.7 L (3.4-5.0) g/dL Globulin 3.8 (2.6-4.0) g/dL Albumin/Globulin Ratio 0.7 L (0.9-1.6) Triglycerides (0-200) mg/dL Cholesterol (50-200) mg/dL LDL Cholesterol, Calc (60-180) mg/dL VLDL Cholesterol (5-55) mg/dL HDL Cholesterol (40-60) mg/dL Cholesterol/HDL Ratio (3.3-6.0) Result Diagrams: 01/24/21 05:00 01/24/21 05:00 Sepsis Event Note - Evaluation Sepsis Screening Result: No Definite Risk - Focused Exam Vital Signs: Vital Signs Temp Pulse Resp BP Pulse Ox 01/24/21 04:00 98.2 F 95 18 138/88 95 01/24/21 00:00 98.6 F 91 18 142/86 H 95 01/23/21 20:00 98.2 F 101 H 19 150/85 H 94 L - Problem List & Annotations (1) Weakness SNOMED Code(s): 39487002 Code(s): R53.1 - WEAKNESS Status: Acute Current Visit: No (2) Alcohol withdrawal SNOMED Code(s): 704061264 Code(s): F10.239 - ALCOHOL DEPENDENCE WITH WITHDRAWAL, UNSPECIFIED Status: Acute Current Visit: No (3) Hypoxia SNOMED Code(s): 849127292 Code(s): R09.02 - HYPOXEMIA Status: Acute Current Visit: Yes (4) GRISELDA (obstructive sleep apnea) SNOMED Code(s): 06395766 Code(s): G47.33 - OBSTRUCTIVE SLEEP APNEA (ADULT) (PEDIATRIC) Status: Chronic Current Visit: Yes (5) Chronic GERD SNOMED Code(s): 116440649, 070384734 Code(s): K21.9 - GASTRO-ESOPHAGEAL REFLUX DISEASE WITHOUT ESOPHAGITIS Status: Chronic Current Visit: No (6) Hypertension SNOMED Code(s): 51950181 Code(s): I10 - ESSENTIAL (PRIMARY) HYPERTENSION Status: Chronic Current Visit: No Qualifiers: Hypertension type: essential hypertension Qualified Code(s): I10 - Essen tial (primary) hypertension (7) Alcohol use SNOMED Code(s): 991283 Code(s): Z78.9 - OTHER SPECIFIED HEALTH STATUS Status: Chronic Current Visit: No (8) Cardiomyopathy SNOMED Code(s): 20355559 Code(s): I42.9 - CARDIOMYOPATHY, UNSPECIFIED Status: Chronic Current Vis it: No (9) Former smoker SNOMED Code(s): 2174819 Code(s): Z87.891 - PERSONAL HISTORY OF NICOTINE DEPENDENCE Status: Chronic Current Visit: No (10) Hyperlipidemia SNOMED Code(s): 70108417 Code(s): E78.5 - HYPERLIPIDEMIA, UNSPECIFIED Status: Chronic Current Visit: No - Problem List Review Problem List Initiated/Reviewed/Updated: Yes - My Orders Last 24 Hours: My Active Orders 01/23/21 08:05 Telemetry Monitoring [Cardiac Monitoring] [RC] Q8H Sodium Chloride 0.9% [Saline Flush] 2.5 ml FLUSH ASDIRECTED PRN Saline Lock Insert [OM.PC] Routine 01/23/21 08:56 Resuscitation Status Routine 01/23/21 09:00 Thiamine [Vitamin B-1] 500 mg Sodium Chloride 0.9% [Normal Saline] 100 ml IV Q8H 01/23/21 09:26 Echo Comp wo Cont [US] Urgent 01/23/21 09:27 RT BiPAP/CPAP [RC] ASDIRECTED 01/23/21 14:00 Patient's Own Medication [Ptom] 1 each PO DAILY 01/23/21 17:00 carvediloL [Coreg] 6.25 mg PO BIDMEALS 01/24/21 07:48 Magnesium Sulfate 2 GM ONETIME Magnesium Sulfate/Water [Magnesium Sulfate in Water 2 GM/50 ML] 2 gm in 50 ml IV ONETIME 01/24/21 08:00 PT Evaluation and Treatment [CONS] Routine 01/24/21 09:00 Aspirin 81 mg PO DAILY 01/25/21 05:11 CBC WITH AUTO DIFF [HEME] AM COMPREHENSIVE METABOLIC PN,CMP [CHEM] AM MAGNESIUM [CHEM] AM 01/26/21 05:11 CBC WITH AUTO DIFF [HEME] AM COMPREHENSIVE METABOLIC PN,CMP [CHEM] AM MAGNESIUM [CHEM] AM 01/27/21 05:11 CBC WITH AUTO DIFF [HEME] AM COMPREHENSIVE METABOLIC PN,CMP [CHEM] AM MAGNESIUM [CHEM] AM - Plan Plan:: This 65-year-old male admitted with chest pain, alcohol withdrawal and insomnia 1. Chest pain -Continue to monitor on telemetry -Continue aspirin -We will likely need follow-up with cardiology for stress test. -Start low-dose statin 2. Alcohol withdrawal/ataxia -Weakness has improved along with nystagmus is no longer noted. -Ativan per protocol with CIWA assessment -Thiamine 500 mg IV 3 times daily for the next couple days then will decrease to 250 mg daily -Folic acid -Monitor electrolytes -Counseled heavily on alcohol use and that the mixture of this in his untreated sleep apnea are very dangerous. -Consult physical therapy today 3. Insomnia -Echo report nondiagnostic as it is a poor study. EF estimated at 55 to 60% otherwise no other abnormalities noted or could be detected recommend repeat as outpatient. -Could also be contributed from GRISELDA and apnea. -Counseled on good sleep hygiene as well as the need [facility] as these can be addictive and it is better to treat at the source. -Medical history: We will get CPAP today and offer any changes as possible. 4. HTN/cardiomyopathy -Continue Coreg VTE prophylaxis: Lovenox GI prophylaxis: Nexium CODE STATUS: Full code Dispo possible home in a.m.
[2021-01-24] MEDS ORDERED: Magnesium Sulfate/Water 2 GM/50 ML BAG IV ONE (08:00)
[2021-01-24] MEDS ORDERED: Thiamine 100 MG in Sodium Chloride 0.9% 100 ML IV SCH (09:00)
[2021-01-24] MEDS: Folic Acid 1 MG Tab PO SCH (09:24)
[2021-01-24] MEDS: Carvedilol 6.25 MG Tab PO SCH ×2 (09:25→18:06)
[2021-01-24] MEDS: Aspirin 81 MG Tab.Chew PO SCH (09:26)
--- NOTE | 2021-01-24 14:01 | ECHO ---
EXAM DATE: 01/23/21 PATIENT'S AGE: 65 The ECHO report has been scanned into [facility] and can be seen in this patient's EMR (Electronic Medical Record) under the REPORTS section. The report has also been scanned into PACS. PEDRO LUIS
[2021-01-24] MEDS ORDERED: atorvaSTATin 10 MG Tab PO SCH (21:00)
[2021-01-25] MEDS: Thiamine 500 MG in Sodium Chloride 0.9% 100 ML IV SCH ×2 (00:44→08:27)
[2021-01-25] MEDS: Albuterol/Ipratropium 3.0-0.5 MG/3 ML Neb Soln NEB SCH ×3 (02:19→09:35)
[2021-01-25] MEDS: LORazepam 2 MG/ML SDV IVPUSH PRN (02:49)
[2021-01-25 06:27] LABS: BLOOD UREA NITROGEN,BUN 14 mg/dL (7.0-18.0); CARBON DIOXIDE,CO2 29.4 mmol/L (21.0-32.0); CHLORIDE,CL 101 mmol/L (98-107); GLUCOSE RANDOM 91 mg/dL (74-106); POTASSIUM,K 3.4 mmol/L (3.5-5.1); SODIUM,NA 137 mmol/L (136-148)
[2021-01-25 07:45] VITALS: PULSE 80
[2021-01-25] MEDS: Enoxaparin 40 MG/0.4 ML Syringe SUBCUT SCH (07:45)
[2021-01-25] MEDS ORDERED: Potassium Chloride 20 MEQ Tab.ER PO ONE (08:00)
[2021-01-25] MEDS: Aspirin 81 MG Tab.Chew PO SCH (08:23)
[2021-01-25] MEDS: Folic Acid 1 MG Tab PO SCH (08:23)
[2021-01-25] MEDS: Carvedilol 6.25 MG Tab PO SCH (08:23)
[2021-01-25 08:24] VITALS: BP 136/92
--- NOTE | 2021-01-25 11:50 | PCM.DCSUM1 ---
Discharge Summary - Hospital Course Brief History: This 65-year-old male with past medical history of COPD, hypertension, cardiomyopathy, GRISELDA and GERD presented to the ER with feeling very panicked and feeling dizzy and weak. History is quite limited as he is not a great historian and gave very limited history mainly on past medical prior to leaving for work. She reports that over the last 4 years he has been having significant difficulty sleeping and has been drinking alcohol in excess. He reports that he does drink 1 to 2 pints of shan daily. He reports his last drink was yesterday around 2 or 3 in the afternoon. He reported that last night he was feeling very panicked along with tremulous and nausea and vomiting. The also reports that his blood pressure has been elevating severely at home. The patient denied any chest pain to me he denied any shortness of breath hallucinations abdominal pain concerns urinating or having bowel movements at home.The also reports patient has significant GRISELDA but has not been using his CPAP as he previously used it when he was having significant GERD symptoms and it caused him to vomit. She reports that he is very allergic to OSKAR and ARB medications due to potato starch and these medications and he breaks out and has significant symptoms from these. She reports that they do see a purchasing analyst physician in [place] for a lot of medication and medical management. Patient reports he is stated above drinks 1 to 2 pints of shan daily, tobacco use, but does report marijuana use to help with sleep. He denies any fevers or chills no sore throat or neck pain. Denies any falls at home but does report he feels very weak. He also reports feeling very tired. In the ER CBC normal. Chloride 97 BUN 6 creatinine 1.0 potassium 3.5 magnesium 1.6. Glucose slightly elevated at 143 A1c was 5.7 total bilirubin 0.5 AST 45 ALT 58 and alk phos 58. Troponin x2 was negative in the ER TSH 0.85. Cholesterol panel checked triglycerides 50 cholesterol 242 LDL 131 HDL 101 UA in the ER was negative. Ethyl alcohol level 68 Covid swab negative. Chest x-ray was evaluated and negative. EKG sinus rhythm sinus tach with no ST elevation or T wave inversions. Blood pressures in the ER mildly elevated at 160s/114. He was treated with lorazepam Solu-Medrol and albuterol in the ER. He was noted to be significantly wheezing in the ER and treated with the above medications. Blood pressure has been slightly improved since being on the floor 153/86. PCP Dr. Walters Diagnosis: Stroke: No - Discharge Data Discharge Date: 01/25/21 Discharge Disposition: Home, Self-Care 01 Condition: Stable - Referral to Home Health Primary Care Physician: Hill Walters MD - Discharge Diagnosis/Problem(s) (1) Weakness SNOMED Code(s): 52255727 ICD Code: R53.1 - WEAKNESS Status: Acute Current Visit: No (2) Alcohol withdrawal SNOMED Code(s): 638508510 ICD Code: F10.239 - ALCOHOL DEPENDENCE WITH WITHDRAWAL, UNSPECIFIED Status: Acute Current Visit: No (3) Hypoxia SNOMED Code(s): 055303325 ICD Code: R09.02 - HYPOXEMIA Status: Acute Current Visit: Yes (4) GRISELDA (obstructive sleep apnea) SNOMED Code(s): 69076243 ICD Code: G47.33 - OBSTRUCTIVE SLEEP APNEA (ADULT) (PEDIATRIC) Status: Chronic Current Visit: Yes (5) Chronic GERD SNOMED Code(s): 869009291, 880245798 ICD Code: K21.9 - GASTRO-ESOPHAGEAL REFLUX DISEASE WITHOUT ESOPHAGITIS Status: Chronic Current Visit: No (6) Hypertension SNOMED Code(s): 24675804 ICD Code: I10 - ESSENTIAL (PRIMARY) HYPERTENSION Status: Chronic Current Visit: No Qualifiers: Hypertension type: essential hypertension Qualified Code(s): I10 - Essential (primary) hypertension (7) Alcohol use SNOMED Code(s): 892979 ICD Code: Z78.9 - OTHER SPECIFIED HEALTH STATUS Status: Chronic Current Visit: No (8) Cardiomyopathy SNOMED Code(s): 78588630 ICD Code: I42.9 - CARDIOMYOPATHY, UNSPECIFIED Status: Chronic Current Visit: No (9) Former smoker SNOMED Code(s): 0094530 ICD Code: Z87.891 - PERSONAL HISTORY OF NICOTINE DEPENDENCE Status: Chronic Current Visit: No (10) Hyperlipidemia SNOMED Code(s): 33887882 ICD Code: E78.5 - HYPERLIPIDEMIA, UNSPECIFIED Status: Chronic Current Visit: No - Patient Summary/Data Consults: Consultations 01/24/21 08:00 PT Evaluation and Treatment [CONS] Routine Hospital Course: Admitting diagnoses Weakness Alcohol withdrawal Hypoxia Chest pain Discharge diagnoses Weakness Alcohol withdrawal Hypoxia Chest pain Other PMH Alcohol abuse GRISELDA chronic GERD hypertension cardiomyopathy [facility] was admitted secondary to chest pain and signs of alcohol withdrawal. He was treated with Ativan per [facility] protocol along with aggressive thiamine supplementation due to ataxia and nystagmus noted on admission. Patient reports he has been drinking significant amounts of alcohol to help him sleep as he is having significant insomnia at home. Patient has untreated GRISELDA. He is prescribed a CPAP but does not wear this at home. In the ER he was noted to desat to the 70s on room air when he was sleeping. Patient reports he feels quite claustrophobic with the mask he has at home. Request was consulted to help with new mask they did provide him with more of a nasal mask than a full facial mask. Patient continues to request antianxiety medication to help with claustrophobia, we did express that this is quite dangerous with his GRISELDA along with alcohol use. He reports that he will stop using alcohol as he is understanding this is not helping. Initially on admission he had some complaint s of chest pain troponins completed x3 and he was monitored on telemetry with no ACS. He reports he did recently have a cath done in [place] with no significant disease. Blood pressures have been well maintained with Coreg as well as Ativan to help with alcohol withdrawal. Today he is feeling much improved and has been up ambulating per self within the hallway. He will be discharged home with aspirin daily along with low-dose atorvastatin 10 mg daily. LDL elevated at 131 total cholesterol 240. 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 We advised him explicitly that is not safe at this time for him to be fine with medications given along with untreated GRISELDA and his alcohol abuse. It is also unsafe at this time to be driving until he is cleared by PCP. He verbalized understanding though he was not happy with this recommendation. He will continue high-dose thiamine 200 mg for 1 week and then drop down to 100 mg daily at home. He is to continue taking folic acid andcounseled on sobriety. He is to return to the ER or clinic if concerns should arise. He has PCP follow-up in 1 week. - Patient Instructions Diet: Heart Healthy Diet Activity: No Strenuous Activities Driving: Do Not Drive Driving, Other: NO FLYING Showering/Bathing: May Shower Notify Provider of: Fever, Increased Pain, Swelling and Redness, Drainage, Nausea and/or Vomiting - Discharge Plan *PRESCRIPTION DRUG MONITORING PROGRAM REVIEWED*: Not Applicable *COPY OF PRESCRIPTION DRUG MONITORING REPORT IN PATIENT KEI: Not Applicable Prescriptions/Med Rec: Aspirin 81 mg PO DAILY #30 tab.chew Folic Acid 1 mg PO DAILY #30 tablet atorvaSTATin [Lipitor] 10 mg PO BEDTIME #30 tablet Thiamine [Vitamin B-1] 100 mg PO BEDTIME #60 tab Home Medications: Home Meds Esomeprazole Magnesium [Heartburn Treatment] 20 mg PO DAILY 12/28/19 [History] carvediloL [Carvedilol] 6.25 mg PO BIDMEALS 12/28/19 [History] Aspirin 81 mg PO DAILY #30 tab.chew 01/25/21 [Rx] Folic Acid 1 mg PO DAILY #30 tablet 01/25/21 [Rx] Thiamine [Vitamin B-1] 100 mg PO BEDTIME #60 tab 01/25/21 [Rx] atorvaSTATin [Lipitor] 10 mg PO BEDTIME #30 tablet 01/25/21 [Rx] Oxygen Therapy Mode: Room Air Patient Handouts: Alcohol Withdrawal Syndrome, Chronic Obstructive Pulmonary Disease Exacerbation, Living With Sleep Apnea Referrals: Hill Walters MD [Primary Care Provider] - 01/30/21 2:00 pm - Discharge Summary/Plan Comment DC Time >30 min.: No - Patient Data Vitals - Most Recent: Last Vital Signs Temp 98.2 F 01/25/21 07:44 Pulse 80 01/25/21 08:23 Resp 14 01/25/21 07:44 BP 136/92 H 01/25/21 08:23 Pulse Ox 90 L 01/25/21 07:44 Weight - Most Recent: 107.456 kg I&O - Last 24 hours: Intake & Output 01/24/21 01/25/21 01/25/21 22:59 06:59 14:59 Intake Total 1145 960 Output Total 1700 1650 Balance -555 -212 Lab Results - Last 24 hrs: Laboratory Results - last 24 hr 01/25/21 01/25/21 Range/Units 05:17 05:17 WBC 3.64 L (4.0-11.0) K/uL RBC 4.16 L (4.50-5.90) M/uL Hgb 13.7 (13.0-17.0) g/dL Hct 40.9 (38.0-50.0) % MCV 98.3 H (80.0-98.0) fL MCH 32.9 H (27.0-32.0) pg MCHC 33.5 (31.0-37.0) g/dL RDW Std Deviation 55.7 (28.0-62.0) fl RDW Coeff of Monisha 16 H (11.0-15.0) % Plt Count 141 L (150-400) K/uL MPV 9.60 (7.40-12.00) fL Neut % (Auto) 58.1 (48.0-80.0) % Lymph % (Auto) 33.5 (16.0-40.0) % Swift % (Auto) 7.4 (0.0-15.0) % Eos % (Auto) 0.5 (0.0-7.0) % Baso % (Auto) 0.5 (0.0-1.5) % Neut # (Auto) 2.1 (1.4-5.7) K/uL Lymph # (Auto) 1.2 (0.6-2.4) K/uL Swift # (Auto) 0.3 (0.0-0.8) K/uL Eos # (Auto) 0.0 (0.0-0.7) K/uL Baso # (Auto) 0.0 (0.0-0.1) K/uL Nucleated RBC % 0.0 /100WBC Nucleated RBCs # 0 K/uL Sodium 137 (136-148) mmol/L Potassium 3.4 L (3.5-5.1) mmol/L Chloride 101 (98-107) mmol/L Carbon Dioxide 29.4 (21.0-32.0) mmol/L BUN 14 (7.0-18.0) mg/dL Creatinine 1.0 (0.8-1.3) mg/dL Est Cr Clr Drug Dosing 85.67 mL/min Estimated GFR (MDRD) > 60.0 ml/min Glucose 91 (74-106) mg/dL Calcium 8.2 L (8.5-10.1) mg/dL Magnesium 2.0 (1.8-2.4) mg/dL Total Bilirubin 0.5 (0.2-1.0) mg/dL AST 33 (15-37) IU/L ALT 42 (14-63) IU/L Alkaline Phosphatase 53 (46-116) U/L Total Protein 6.7 (6.4-8.2) g/dL Albumin 3.0 L (3.4-5.0) g/dL Globulin 3.7 (2.6-4.0) g/dL Albumin/Globulin Ratio 0.8 L (0.9-1.6) Med Orders - Current: Current Medications Acetaminophen (Acetaminophen 325 Mg Tab) 650 mg PO Q4H PRN PRN Reason: Pain (Mild 1-3)/fever Albuterol/Ipratropium (Albuterol/Ipratropium 3.0-0.5 Mg/3 Ml Neb Soln) 3 ml NEB Q4HRRT [facility] Last Admin: 01/25/21 09:35 Dose: Not Given Documented by: Aspirin (Aspirin 81 Mg Tab.Chew) 81 mg PO DAILY [facility] Last Admin: 01/25/21 08:23 Dose: 81 mg Documented by: Atorvastatin Calcium (Atorvastatin 10 Mg Tab) 10 mg PO BEDTIME [facility] Last Admin: 01/24/21 21:06 Dose: 10 mg Documented by: Carvedilol (Carvedilol 6.25 Mg Tab) 6.25 mg PO BIDMEALS [facility] Last Admin: 01/25/21 08:23 Dose: 6.25 mg Documented by: Enoxaparin Sodium (Enoxaparin 40 Mg/0.4 Ml Syringe) 40 mg SUBCUT Q24H [facility] Last Admin: 01/25/21 07:45 Dose: 40 mg Documented by: Folic Acid (Folic Acid 1 Mg Tab) 1 mg PO DAILY [facility] Last Admin: 01/25/21 08:23 Dose: 1 mg Documented by: Lorazepam (Lorazepam 2 Mg/Ml Sdv) 0 mg IVPUSH Q4H PRN; Protocol PRN Reason: Withdrawal Symptoms Last Admin: 01/25/21 02:49 Dose: 1 mg Documented by: Ondansetron HCl (Ondansetron 4 Mg/2 Ml Sdv) 4 mg IVPUSH Q4H PRN PRN Reason: Nausea/Vomiting Esomeprazole 20mg 1 each PO DAILY [facility] Last Admin: 01/25/21 08:24 Dose: Not Given Documented by: Sodium Chloride (Sodium Chloride 0.9% 2.5 Ml Syringe) 2.5 ml FLUSH ASDIRECTED PRN PRN Reason: Keep Vein Open Discontinued Medications Albuterol/Ipratropium (Albuterol/Ipratropium 3.0-0.5 Mg/3 Ml Neb Soln) 3 ml NEB ONETIME ONE Stop: 01/23/21 02:53 Last Admin: 01/23/21 02:57 Dose: 3 ml Documented by: Multivitamins/Minerals 10 ml/Thiamine HCl 100 mg/ Folic Acid 1 mg/ Sodium Chloride 1,011.2 mls @ 999 mls/hr IV ONETIME ONE Stop: 01/23/21 03:50 Last Admin: 01/23/21 03:05 Dose: 999 mls/hr Documented by: Sodium Chloride (Normal Saline) 1,000 mls @ 999 mls/hr IV .BOLUS HAYDEE Magnesium Sulfate (Magnesium Sulfate In Water 2 Gm/50 Ml) 2 gm in 50 mls @ 25 mls/hr IV ONETIME ONE Stop: 01/23/21 05:14 Last Admin: 01/23/21 03:32 Dose: 25 mls/hr Documented by: Sodium Chloride (Normal Saline) 1,000 mls @ 999 mls/hr IV .Bolus ONE Stop: 01/23/21 07:34 Last Admin: 01/23/21 06:35 Dose: 999 mls/hr Documented by: Lactated Ringer's (Ringers, Lactated) 1,000 mls @ 125 mls/hr IV ASDIRECTED HAYDEE Stop: 01/23/21 23:00 Last Admin: 01/23/21 16:33 Dose: 125 mls/hr Documented by: Thiamine HCl 100 mg/ Sodium (Chloride) 101 mls @ 202 mls/hr IV DAILY HAYDEE Thiamine HCl 100 mg/ Sodium (Chloride) 101 mls @ 202 mls/hr IV DAILY [facility] Thiamine HCl 500 mg/ Sodium (Chloride) 105 mls @ 210 mls/hr IV Q8H [facility] Last Admin: 01/25/21 08:27 Dose: 210 mls/hr Documented by: Magnesium Sulfate (Magnesium Sulfate In Water 2 Gm/50 Ml) 2 gm in 50 mls @ 50 mls/hr IV ONETIME ONE Stop: 01/24/21 08:59 Last Admin: 01/24/21 09:17 Dose: 50 mls/hr Documented by: Lorazepam (Lorazepam 2 Mg/Ml Sdv) 2 mg IVPUSH ONETIME ONE Stop: 01/23/21 02:53 Last Admin: 01/23/21 02:57 Dose: 2 mg Documented by: Methylprednisolone Sodium Succinate (Methylprednisolone Sodium Succinate 125 Mg/2 Ml Sdv) 125 mg IVPUSH ONETIME ONE Stop: 01/23/21 02:53 Last Admin: 01/23/21 02:57 Dose: 125 mg Documented by: Methylprednisolone Sodium Succinate (Methylprednisolone Sodium Succinate 40 Mg/1 Ml Sdv) 40 mg IVPUSH Q8H HAYDEE Nitroglycerin (Nitroglycerin 0.4 Mg Tab.Sl) 0.4 mg SL Q5M PRN PRN Reason: Chest Pain Potassium Chloride (Potassium Chloride 20 Meq Tab.Er) 40 meq PO ONETIME ONE Stop: 01/25/21 08:01 Last Admin: 01/25/21 08:23 Dose: 40 meq Documented by: Sodium Chloride (Sodium Chloride 0.9% 10 Ml Syringe) 10 ml FLUSH ASDIRECTED PRN PRN Reason: Keep Vein Open Last Admin: 01/23/21 02:57 Dose: 10 ml Documented by: Sodium Chloride (Sodium Chloride 0.9% 2.5 Ml Syringe) 2.5 ml FLUSH ASDIRECTED PRN PRN Reason: Keep Vein Open Last Admin: 01/23/21 02:57 Dose: 2.5 ml Documented by: - Exam Quality Assessment: Reports: DVT Prophylaxis. Denies: Supplemental Oxygen General: Reports: Alert, Oriented, Cooperative, No Acute Distress Neck: Reports: Supple Lungs: Reports: Clear to Auscultation, Normal Respiratory Effort. Denies: Wheezing Cardiovascular: Reports: Regular Rate, Regular Rhythm GI/Abdominal Exam: Normal Bowel Sounds, Soft, Non-Tender Back Exam: Reports: Normal Inspection, Full Range of Motion Extremities: Normal Inspection, Normal Range of Motion, Non-Tender Skin: Reports: Warm, Dry, Intact Neurological: Reports: No New Focal Deficit, Normal Gait, Strength Equal Bilateral Psy/Mental Status: Reports: Alert, Normal Affect, Normal Mood. Denies: Hallucinations, Withdrawal Symptoms
== END 2021-01-25 12:05 | disposition home or self-care (01) | DRG 897 ==
LOC: MW.ED 02:29 → MW.MS 06:33
PROVIDERS: ADMIT Student in an Organized Health Care Education/Training Program; ATTEND Student in an Organized Health Care Education/Training Program
DX: J44.1 Chronic obstructive pulmonary disease with (acute) exacerbation (principal); E83.42 Hypomagnesemia; F10.239 Alcohol dependence with withdrawal, unspecified; R55 Syncope and collapse; I42.9 Cardiomyopathy, unspecified; R09.02 Hypoxemia; R07.9 Chest pain, unspecified; G47.33 Obstructive sleep apnea (adult) (pediatric); Y90.9 Presence of alcohol in blood, level not specified; K21.9 Gastro-esophageal reflux disease without esophagitis; I10 Essential (primary) hypertension; E78.5 Hyperlipidemia, unspecified; G47.00 Insomnia, unspecified; K27.9 Peptic ulcer, site unspecified, unspecified as acute or chronic, without hemorrhage or perforation; J44.9 Chronic obstructive pulmonary disease, unspecified; E78.00 Pure hypercholesterolemia, unspecified; Z86.73 Personal history of transient ischemic attack (TIA), and cerebral infarction without residual deficits; G89.29 Other chronic pain; M54.2 Cervicalgia; Z20.822 Contact with and (suspected) exposure to COVID-19; Z78.9 Other specified health status; Z87.891 Personal history of nicotine dependence; Z79.82 Long term (current) use of aspirin; Z79.899 Other long term (current) drug therapy; Z88.8 Allergy status to other drugs, medicaments and biological substances; Z91.018 Allergy to other foods; Z87.11 Personal history of peptic ulcer disease; Z87.442 Personal history of urinary calculi; Z98.49 Cataract extraction status, unspecified eye
CPT/HCPCS: 36415; 71045; 80053; 80061; 80307; 81001; 83735; 83880; 84100; 84443; 84484 ×3; 85025; 85610; 93005; 96365; 96366; 96367; 96375; 99285; J2060; J2930; J3411; J3475; J7030; U0002; 83036; 93010; 93306; 94640; 94660; A9270-GY; J1650; J7120; J7620-GY

== ENCOUNTER 2021-02-19 20:41 | Emergency (ER) | payer MEDICARE, OTHER ==
[2021-02-19] MEDS ORDERED: Sodium Chloride 0.9% 10 ML Syringe FLUSH PRN (21:13)
[2021-02-19] MEDS ORDERED: Sodium Chloride 0.9% 2.5 ML Syringe FLUSH PRN (21:13)
[2021-02-19] MEDS ORDERED: MVI, Adult with Vitamin K 10 ML, Thiamine 100 MG, Folic Acid 1 MG in Sodium Chloride 0.... IV ONE ×4 (21:15)
--- NOTE | 2021-02-19 21:17 | EDM.PDOC ---
ED HPI GENERAL MEDICAL PROBLEM - General Chief Complaint: General Stated Complaint: SHAKY, WEAK, HIGH BP Time Seen by Provider: 02/19/21 20:57 - History of Present Illness INITIAL COMMENTS - FREE TEXT/NARRATIVE: History of present illness: [] Patient basically ran out of gas at noon today. Suddenly felt fatigued and weak. He felt lightheaded. He felt hot. The patient did not have a fever. He reports that he is felt like this before. said he had multiple bags of thiamine and folate in the past and that got him back to normal. He has been admitted for the same kind of symptoms. Patient has had acid reflux for years. He has been on 40 mg of Nexium for years but was recently reduced to 20 mg. He also had been on a H2 angelic until the recall of Tagamet in it was not replaced with Pepcid so he is on only a PPI. Patient has normal bowel movements normal urine output. He has no black stools. There is no nausea and vomiting. He has not passed out. He does feel at times lightheaded but basically feels fatigued. The patient does not smoke. He is not diabetic. He does drink. He says it varies quite a bit from time to time how much he drinks. Review of his recent admission shows him on 23 January he was admitted for 2 nights for alcohol withdrawal symptoms requiring admission and severe thiamine depletion causing ataxia and confusion. He has a history of COPD sleep apnea and cardiomyopathy. Review of systems: As per history of present illness and below otherwise all systems reviewed and negative. Past medical history: As per history of present illness and as reviewed below otherwise nonc ontributory. Surgical history: As per history of present illness and as reviewed below otherwise noncontributory. Social history: No reported history of drug or alcohol abuse. Family history: As per history of present illness and as reviewed below otherwise noncontributory. Physical exam: Constitutional - well developed, well-nourished and in no acute distress HEENT - normocephalic, no evidence of trauma - external nose and mouth normal - no mass in neck and no JVD - mucosae moist EYES - full EOM, PERRL, no icterus - no evidence of inflammation, injection, or drainage Respiratory - no respiratory distress, equal bilateral expansion, lungs clear to auscultation and no abnormal lung sounds Cardiovascular - Regular Rhythm with S1 and S2 appreciated and no murmur, gallop or rub. GI - abdomen soft without distension or organomegaly - normal bowel sounds - no guard or rebound Musculoskeletal no gross deformity of long bones or joints - no tenderness, swelling or edema Neurologic - Alert and oriented times four - CN II-XII grossly intact - motor sensory and coordination symmetrically normal Psychiatric - appropriate mood and affect with normal thought content Hematologic - No petechiae or purpura - mucosa appropriate color and sclera not pale - normal nail bed color and refill Integument - no rash or evidence of trauma - normal turgor Diagnostics: [] Therapeutics: [] Impression: [] Plan: [] Definitive disposition and diagnosis as appropriate pending reevaluation and review of above. - Related Data Allergies Allergy/AdvReac Type Severity Reaction Status Date / Time lisinopril Allergy Difficulty Verified 02/19/21 20:52 Breathing losartan Allergy Difficulty Verified 02/19/21 20:52 Breathing potato Allergy Difficulty Verified 02/19/21 20:52 Breathing Home Meds: Home Meds Esomeprazole Magnesium [Heartburn Treatment] 20 mg PO DAILY 12/28/19 [History] carvediloL [Carvedilol] 6.25 mg PO BIDMEALS 12/28/19 [History] Aspirin 81 mg PO DAILY #30 tab.chew 01/25/21 [Rx] Folic Acid 1 mg PO DAILY #30 tablet 01/25/21 [Rx] Thiamine [Vitamin B-1] 100 mg PO BEDTIME #60 tab 01/25/21 [Rx] atorvaSTATin [Lipitor] 10 mg PO BEDTIME #30 tablet 01/25/21 [Rx] Magnesium Oxide/Magnesium [Magnesium] 300 mg PO BID #60 capsule 02/19/21 [Rx] Past Medical History - Past Health History Medical/Surgical History: Denies Medical/Surgical History HEENT History: Reports: Cataract, Other (See Below) Other HEENT History: has upper and lower dentures Cardiovascular History: Reports: Cardiomyopathy, High Cholesterol, Hypertension Other Cardiovascular History: L ventricle "doesn't work properly" Respiratory History: Reports: COPD, Sleep Apnea Other Respiratory History: CPAP Gastrointestinal History: Reports: GERD, PUD Other Gastrointestinal History: Claimed to have severe ulcer Genitourinary History: Reports: Renal Calculus Musculoskeletal History: Reports: Neck Pain, Chronic Neurological History: Reports: Concussion Psychiatric History: Reports: None - Infectious Disease History Infectious Disease History: Reports: Chicken Pox, Measles, Mumps, Shingles - Past Surgical History HEENT Surgical History: Reports: Cataract Surgery Other HEENT Surgeries/Procedures: Fractured nose, never got surgery to repair Respiratory Surgical History: Reports: None GI Surgical History: Reports: Appendectomy, Colonoscopy Social & Family History - Family History Family Medical History: No Pertinent Family History - Tobacco Use Tobacco Use Status *Q: Never Tobacco User - Caffeine Use Caffeine Use: Reports: Coffee, Soda Caffeine Use Comment: 2-3/day - Recreational Drug Use Recreational Drug Use: No - Living Situation & Occupation Living situation: Reports: Occupation: Employed ED ROS GENERAL - Review of Systems Review Of Systems: Comprehensive ROS is negative, except as noted in HPI. ED EXAM, GENERAL - Physical Exam Exam: See Below Free Text/Narrative:: My physical labs in the HPI #1 Interpretation EKG Interpretation Comments: EKG done at 2144 hrs. shows sinus rhythm with a heart rate of 98. CT interval 156. QT duration 469. [place] 51. QRS normal. Nonspecific T wave abnormality in aVL. Compared to 01/23/2021 no change. Impression no acute injury Course - Vital Signs Text/Narrative:: 2240 hrs. patient feels better. Magnesium is off the rest of his labs look good. Plan follow-up PMD and magnesium replacement. Last Recorded V/S: Last Vital Signs Temp 36.7 C 02/19/21 20:54 Pulse 68 02/19/21 22:35 Resp 19 02/19/21 22:35 BP 165/101 H 02/19/21 22:35 Pulse Ox 97 02/19/21 22:35 - Orders/Labs/Meds Orders: Active Orders 24 hr Category Date Time Status EKG Documentation Completion [RC] AM Care 02/19/21 21:13 Active UA W/JSOEPH RFLX IF INDICATED [URIN] Stat Lab 02/19/21 21:14 Ordered MVI, Adult with Vitamin K [Infuvite Adult] 10 ml Med 02/19/21 21:15 Active Thiamine [Vitamin B-1] 100 mg Folic Acid 1 mg Sodium Chloride 0.9% [Normal Saline] 1,000 ml IV ONETIME Sodium Chloride 0.9% [Saline Flush] Med 02/19/21 21:13 Active 10 ml FLUSH ASDIRECTED PRN Sodium Chloride 0.9% [Saline Flush] Med 02/19/21 21:13 Active 2.5 ml FLUSH ASDIRECTED PRN Saline Lock Insert [OM.PC] Stat Oth 02/19/21 21:13 Ordered Medication Orders Multivitamins/Minerals 10 ml/Thiamine HCl 100 mg/ Folic Acid 1 mg/ Sodium Chloride 1,011.2 mls @ 500 mls/hr IV ONETIME ONE Stop: 02/19/21 23:16 Last Admin: 02/19/21 21:49 Dose: 500 mls/hr Documented by: HIRAM Sodium Chloride (Sodium Chloride 0.9% 10 Ml Syringe) 10 ml FLUSH ASDIRECTED PRN PRN Reason: Keep Vein Open Last Admin: 02/19/21 21:50 Dose: 10 ml Documented by: HIRAM Sodium Chloride (Sodium Chloride 0.9% 2.5 Ml Syringe) 2.5 ml FLUSH ASDIRECTED PRN PRN Reason: Keep Vein Open Last Admin: 02/19/21 21:50 Dose: 2.5 ml Documented by: HIRAM Labs: Laboratory Tests 02/19/21 02/19/21 02/19/21 Range/Units 21:00 21:00 21:00 WBC 5.71 (4.0-11.0) K/uL RBC 4.53 (4.50-5.90) M/uL Hgb 15.0 (13.0-17.0) g/dL Hct 43.2 (38.0-50.0) % MCV 95.4 (80.0-98.0) fL MCH 33.1 H (27.0-32.0) pg MCHC 34.7 (31.0-37.0) g/dL RDW Std Deviation 51.9 (28.0-62.0) fl RDW Coeff of Monisha 15 (11.0-15.0) % Plt Count 155 (150-400) K/uL MPV 9.40 (7.40-12.00) fL Neut % (Auto) 67.6 (48.0-80.0) % Lymph % (Auto) 24.9 (16.0-40.0) % Harris % (Auto) 6.8 (0.0-15.0) % Eos % (Auto) 0.5 (0.0-7.0) % Baso % (Auto) 0.2 (0.0-1.5) % Neut # (Auto) 3.9 (1.4-5.7) K/uL Lymph # (Auto) 1.4 (0.6-2.4) K/uL Harris # (Auto) 0.4 (0.0-0.8) K/uL Eos # (Auto) 0.0 (0.0-0.7) K/uL Baso # (Auto) 0.0 (0.0-0.1) K/uL Nucleated RBC % 0.0 /100WBC Nucleated RBCs # 0 K/uL Sodium 141 (136-148) mmol/L Potassium 3.6 (3.5-5.1) mmol/L Chloride 98 (98-107) mmol/L Carbon Dioxide 27.6 (21.0-32.0) mmol/L BUN 7 (7.0-18.0) mg/dL Creatinine 0.9 (0.8-1.3) mg/dL Est Cr Clr Drug Dosing 95.19 mL/min Estimated GFR (MDRD) > 60.0 ml/min Glucose 116 H (74-106) mg/dL Calcium 9.0 (8.5-10.1) mg/dL Magnesium 1.3 L (1.8-2.4) mg/dL Total Bilirubin 0.4 (0.2-1.0) mg/dL AST 32 (15-37) IU/L ALT 39 (14-63) IU/L Alkaline Phosphatase 65 (46-116) U/L Troponin I < 0.050 (0.000-0.056) ng/mL Total Protein 7.6 (6.4-8.2) g/dL Albumin 3.5 (3.4-5.0) g/dL Globulin 4.1 H (2.6-4.0) g/dL Albumin/Globulin Ratio 0.9 (0.9-1.6) TSH 3rd Generation 1.33 (0.36-3.74) uIU/mL Ethyl Alcohol mg/dL 02/19/21 Range/Units 21:00 WBC (4.0-11.0) K/uL RBC (4.50-5.90) M/uL Hgb (13.0-17.0) g/dL Hct (38.0-50.0) % MCV (80.0-98.0) fL MCH (27.0-32.0) pg MCHC (31.0-37.0) g/dL RDW Std Deviation (28.0-62.0) fl RDW Coeff of Monisha (11.0-15.0) % Plt Count (150-400) K/uL MPV (7.40-12.00) fL Neut % (Auto) (48.0-80.0) % Lymph % (Auto) (16.0-40.0) % Harris % (Auto) (0.0-15.0) % Eos % (Auto) (0.0-7.0) % Baso % (Auto) (0.0-1.5) % Neut # (Auto) (1.4-5.7) K/uL Lymph # (Auto) (0.6-2.4) K/uL Harris # (Auto) (0.0-0.8) K/uL Eos # (Auto) (0.0-0.7) K/uL Baso # (Auto) (0.0-0.1) K/uL Nucleated RBC % /100WBC Nucleated RBCs # K/uL Sodium (136-148) mmol/L Potassium (3.5-5.1) mmol/L Chloride (98-107) mmol/L Carbon Dioxide (21.0-32.0) mmol/L BUN (7.0-18.0) mg/dL Creatinine (0.8-1.3) mg/dL Est Cr Clr Drug Dosing mL/min Estimated GFR (MDRD) ml/min Glucose (74-106) mg/dL Calcium (8.5-10.1) mg/dL Magnesium (1.8-2.4) mg/dL Total Bilirubin (0.2-1.0) mg/dL AST (15-37) IU/L ALT (14-63) IU/L Alkaline Phosphatase (46-116) U/L Troponin I (0.000-0.056) ng/mL Total Protein (6.4-8.2) g/dL Albumin (3.4-5.0) g/dL Globulin (2.6-4.0) g/dL Albumin/Globulin Ratio (0.9-1.6) TSH 3rd Generation (0.36-3.74) uIU/mL Ethyl Alcohol 23 mg/dL Meds: Medications Generic Name Dose Route Start Last Admin Trade Name Benjaminq PRN Reason Stop Dose Admin Multivitamins/Minerals 10 ml/ 1,011.2 mls @ 500 mls/hr 02/19/21 21:15 02/19/21 21:49 Thiamine HCl 100 mg/ Folic IV 02/19/21 23:16 500 mls/hr Acid 1 mg/ Sodium Chloride ONETIME ONE Administration Sodium Chloride 10 ml 02/19/21 21:13 02/19/21 21:50 Sodium Chloride 0.9% 10 Ml Syringe FLUSH 10 ml ASDIRECTED PRN Administration Keep Vein Open Sodium Chloride 2.5 ml 02/19/21 21:13 02/19/21 21:50 Sodium Chloride 0.9% 2.5 Ml Syringe FLUSH 2.5 ml ASDIRECTED PRN Administration Keep Vein Open Departure - Departure Time of Disposition: 22:40 Disposition: Home, Self-Care 01 Condition: Good Clinical Impression: Fatigue, Hypomagnesemia - Discharge Information Prescriptions: Magnesium Oxide/Magnesium [Magnesium] 300 mg PO BID #60 capsule Instructions: Hypomagnesemia Referrals: Hill Walters MD [Primary Care Provider] - Forms: ED Department Discharge Additional Instructions: [facility] - Primary Care [address] [place], [place] [id number] [place] [address] The following information is given to patients seen in the emergency department who are being discharged to home. This information is to outline your options for follow-up care. We provide all patients seen in our emergency department with a follow-up referral. The need for follow-up, as well as the timing and circumstances, are variable depending upon the specifics of your emergency department visit. If you don't have a primary care physician on staff, we will provide you with a referral. We always advise you to contact your personal physician following an emergency department visit to inform them of the circumstance of the visit and for follow-up with them and/or the need for any referrals to a consulting specialist. The emergency department will also refer you to a specialist when appropriate. This referral assures that you have the opportunity for follow-up care with a specialist. All of these measure are taken in an effort to provide you with optimal care, which includes your follow-up. Under all circumstances we always encourage you to contact your private physician who remains a resource for coordinating your care. When calling for follow-up care, please make the office aware that this follow-up is from your recent emergency room visit. If for any reason you are refused follow-up, please contact the [facility] Emergency Department at and asked to speak to the emergency department charge nurse. Sepsis Event Note (ED) - Evaluation Sepsis Screening Result: No Definite Risk - Focused Exam Vital Signs: Vital Signs Temp Pulse Resp BP Pulse Ox 02/19/21 22:35 68 19 165/101 H 97 02/19/21 20:54 36.7 C 110 H 18 150/99 H 96 - My Orders Last 24 Hours: My Active Orders 02/19/21 21:13 EKG Documentation Completion [RC] AM Sodium Chloride 0.9% [Saline Flush] 10 ml FLUSH ASDIRECTED PRN Sodium Chloride 0.9% [Saline Flush] 2.5 ml FLUSH ASDIRECTED PRN Saline Lock Insert [OM.PC] Stat 02/19/21 21:14 UA W/JOSEPH RFLX IF INDICATED [URIN] Stat 02/19/21 21:15 MVI, Adult with Vitamin K [Infuvite Adult] 10 ml Thiamine [Vitamin B-1] 100 mg Folic Acid 1 mg Sodium Chloride 0.9% [Normal Saline] 1,000 ml IV ONETIME - Assessment/Plan Last 24 Hours: My Active Orders 02/19/21 21:13 EKG Documentation Completion [RC] AM Sodium Chloride 0.9% [Saline Flush] 10 ml FLUSH ASDIRECTED PRN Sodium Chloride 0.9% [Saline Flush] 2.5 ml FLUSH ASDIRECTED PRN Saline Lock Insert [OM.PC] Stat 02/19/21 21:14 UA W/JOSEPH RFLX IF INDICATED [URIN] Stat 02/19/21 21:15 MVI, Adult with Vitamin K [Infuvite Adult] 10 ml Thiamine [Vitamin B-1] 100 mg Folic Acid 1 mg Sodium Chloride 0.9% [Normal Saline] 1,000 ml IV ONETIME
[2021-02-19 21:35] LABS: BLOOD UREA NITROGEN,BUN 7 mg/dL (7.0-18.0); CARBON DIOXIDE,CO2 27.6 mmol/L (21.0-32.0); CHLORIDE,CL 98 mmol/L (98-107); GLUCOSE RANDOM 116 mg/dL (74-106); POTASSIUM,K 3.6 mmol/L (3.5-5.1); SODIUM,NA 141 mmol/L (136-148)
--- NOTE | 2021-02-19 21:55 | CR ---
Indication: Weakness Technique: Single-view chest Comparison: Chest x-ray 01/23/2021 Findings: Normal cardiac mediastinal silhouette. Lungs are clear of acute airspace or interstitial process. Two rounded densities projected over left lower chest was not seen on chest x-ray from 01/23/2021 question correlate with overlying artifact. Dictated by Randa Cheung MD @ 02/19/2021 9:54:[address] Randa Cheung @ Feb 19 2021 9:54PM
[2021-02-19 22:37] VITALS: BP 165/101; PULSE 68
== END 2021-02-19 22:53 | disposition home or self-care (01) ==
LOC: MW.ED 20:41
DX: R53.83 Other fatigue (principal); E83.42 Hypomagnesemia; E78.00 Pure hypercholesterolemia, unspecified; I11.9 Hypertensive heart disease without heart failure; Z91.018 Allergy to other foods; Z88.8 Allergy status to other drugs, medicaments and biological substances; Z79.82 Long term (current) use of aspirin; Z79.899 Other long term (current) drug therapy
CPT/HCPCS: 36415; 71045; 80053; 80307; 83735; 84443; 84484; 85025; 93005; 96365; 99284; J3411; J7030; 93010; 99283

== ENCOUNTER 2021-03-04 13:11 | Emergency (ER) | payer MEDICARE, OTHER ==
[2021-03-04] MEDS ORDERED: Sodium Chloride 0.9% 2.5 ML Syringe FLUSH PRN (13:22)
[2021-03-04] MEDS ORDERED: Sodium Chloride 0.9% 10 ML Syringe FLUSH PRN (13:22)
--- NOTE | 2021-03-04 13:26 | EDM.PDOC ---
ED HPI GENERAL MEDICAL PROBLEM - General Chief Complaint: General Stated Complaint: PT WEAK AND SHAKING Time Seen by Provider: 03/04/21 13:13 - History of Present Illness INITIAL COMMENTS - FREE TEXT/NARRATIVE: History of present illness: [] The patient's primary complaints are shakiness, weakness, lack of energy, inability to sleep. He has chronic insomnia. He says he feels like he did before. When he has been in the 40s had hypomagnesemia and other electrolyte imbalance. He says his mother had chronic recurring hypomagnesemia. He says his sister has electrolyte imbalance and the says the patient's sister who is a nurse has had serious problems trying to be functional because of severe electrolyte abnormalities that recur frequently and she has not really figured out exactly how to live in balance. Review of systems: As per history of present illness and below otherwise all systems reviewed and negative. Past medical history: As per history of present illness and as reviewed below otherwise noncontrib utory. Surgical history: As per history of present illness and as reviewed below otherwise noncontributory. Social history: No reported history of drug or alcohol abuse. Family history: As per history of present illness and as reviewed below otherwise noncontributory. Physical exam: Constitutional - well developed, well-nourished and in no acute distress HEENT - normocephalic, no evidence of trauma - external nose and mouth normal - no mass in neck and no JVD - mucosae moist EYES - full EOM, PERRL, no icterus - no evidence of inflammation, injection, or drainage Respiratory - no respiratory distress, equal bilateral expansion, lungs clear to auscultation and no abnormal lung sounds Cardiovascular - Regular Rhythm with S1 and S2 appreciated and no murmur, gallop or rub. GI - abdomen soft without distension or organomegaly - normal bowel sounds - no guard or rebound Musculoskeletal no gross deformity of long bones or joints - no tenderness, swelling or edema Neurologic -significant tremor at rest and worse with intention. Alert and oriented times four - CN II-XII grossly intact - motor sensory and coordination symmetrically normal Psychiatric - appropriate mood and affect with normal thought content Hematologic - No petechiae or purpura - mucosa appropriate color and sclera not pale - normal nail bed color and refill Integument - no rash or evidence of trauma - normal turgor Diagnostics: [] Therapeutics: [] Impression: [] Plan: [] Definitive disposition and diagnosis as appropriate pending reevaluation and review of above. - Related Data Allergies Allergy/AdvReac Type Severity Reaction Status Date / Time lisinopril Allergy Difficulty Verified 03/04/21 13:14 Breathing losartan Allergy Difficulty Verified 03/04/21 13:14 Breathing potato Allergy Difficulty Verified 03/04/21 13:14 Breathing Home Meds: Home Meds Esomeprazole Magnesium [Heartburn Treatment] 20 mg PO DAILY 12/28/19 [History] carvediloL [Carvedilol] 6.25 mg PO BIDMEALS 12/28/19 [History] Aspirin 81 mg PO DAILY #30 tab.chew 01/25/21 [Rx] Folic Acid 1 mg PO DAILY #30 tablet 01/25/21 [Rx] Thiamine [Vitamin B-1] 100 mg PO BEDTIME #60 tab 01/25/21 [Rx] atorvaSTATin [Lipitor] 10 mg PO BEDTIME #30 tablet 01/25/21 [Rx] Magnesium Oxide/Magnesium [Magnesium] 300 mg PO BID #60 capsule 02/19/21 [Rx] Past Medical History - Past Health History Medical/Surgical History: Denies Medical/Surgical History HEENT History: Reports: Cataract, Other (See Below) Other HEENT History: has upper and lower dentures Cardiovascular History: Reports: Cardiomyopathy, High Cholesterol, Hypertension Other Cardiovascular History: L ventricle "doesn't work properly" Respiratory History: Reports: COPD, Sleep Apnea Other Respiratory History: CPAP Gastrointestinal History: Reports: GERD, PUD Other Gastrointestinal History: Claimed to have severe ulcer Genitourinary History: Reports: Renal Calculus Musculoskeletal History: Reports: Neck Pain, Chronic Neurological History: Reports: Concussion Psychiatric History: Reports: None Endocrine/Metabolic History: Reports: None Hematologic History: Reports: None Immunologic History: Reports: None Oncologic (Cancer) History: Reports: None Dermatologic History: Reports: None - Infectious Disease History Infectious Disease History: Reports: Chicken Pox, Measles, Mumps, Shingles - Past Surgical History Head Surgeries/Procedures: Reports: None HEENT Surgical History: Reports: Cataract Surgery Other HEENT Surgeries/Procedures: Fractured nose, never got surgery to repair Respiratory Surgical History: Reports: None GI Surgical History: Reports: Appendectomy, Colonoscopy Endocrine Surgical History: Reports: None Neurological Surgical History: Reports: None Oncologic Surgical History: Reports: None Dermatological Surgical History: Reports: None Social & Family History - Family History Family Medical History: No Pertinent Family History - Tobacco Use Tobacco Use Status *Q: Never Tobacco User - Caffeine Use Caffeine Use: Reports: Coffee, Soda Caffeine Use Comment: 2-3/day - Living Situation & Occupation Living situation: Reports: Occupation: Employed ED ROS GENERAL - Review of Systems Review Of Systems: Comprehensive ROS is negative, except as noted in HPI. ED EXAM, GENERAL - Physical Exam Exam: See Below Free Text/Narrative:: My physical exam is in the HPI #2 Interpretation EKG Interpretation Comments: EKG done at 1319 hrs. shows a sinus arrhythmia with a heart rate of 96 MT interval of 144 QT duration 471 and an axis of 56. There is a PVC. QRS ST and T are within normal limits compared to 02/19/2021 no change impression no acute injury. Impression no acute injury Course - Vital Signs Last Recorded V/S: Last Vital Signs Temp 35.5 C L 03/04/21 13:14 Pulse 87 03/04/21 16:12 Resp 18 03/04/21 16:12 BP 161/95 H 03/04/21 16:12 Pulse Ox 94 L 03/04/21 16:12 - Orders/Labs/Meds Orders: Active Orders 24 hr Category Date Time Status Communication Order [RC] STAT Care 03/04/21 16:30 Ordered EKG Documentation Completion [RC] AM Care 03/04/21 13:22 Active Magnesium Sulfate/Water [Magnesium Sulfate in Water 2 Med 03/04/21 13:59 Active GM/50 ML] 2 gm Premix Bag 1 bag IV ONETIME Sodium Chloride 0.9% [Saline Flush] Med 03/04/21 13:22 Active 10 ml FLUSH ASDIRECTED PRN Sodium Chloride 0.9% [Saline Flush] Med 03/04/21 13:22 Active 2.5 ml FLUSH ASDIRECTED PRN Saline Lock Insert [OM.PC] Stat Oth 03/04/21 13:22 Ordered Medication Orders Magnesium Sulfate 2 gm/ Premix 50 mls @ 12.5 mls/hr IV ONETIME ONE Stop: 03/04/21 17:58 Last Admin: 03/04/21 14:36 Dose: 12.5 mls/hr Documented by: JANNA Sodium Chloride (Sodium Chloride 0.9% 10 Ml Syringe) 10 ml FLUSH ASDIRECTED PRN PRN Reason: Keep Vein Open Last Admin: 03/04/21 14:39 Dose: 10 ml Documented by: JANNA Sodium Chloride (Sodium Chloride 0.9% 2.5 Ml Syringe) 2.5 ml FLUSH ASDIRECTED PRN PRN Reason: Keep Vein Open Last Admin: 03/04/21 14:39 Dose: 2.5 ml Documented by: JANNA Labs: Laboratory Tests 03/04/21 03/04/21 Range/Units 13:20 13:20 WBC 4.68 (4.0-11.0) K/uL RBC 4.68 (4.50-5.90) M/uL Hgb 15.5 (13.0-17.0) g/dL Hct 45.3 (38.0-50.0) % MCV 96.8 (80.0-98.0) fL MCH 33.1 H (27.0-32.0) pg MCHC 34.2 (31.0-37.0) g/dL RDW Std Deviation 53.1 (28.0-62.0) fl RDW Coeff of Monisha 15 (11.0-15.0) % Plt Count 194 (150-400) K/uL MPV 8.90 (7.40-12.00) fL Neut % (Auto) 62.9 (48.0-80.0) % Lymph % (Auto) 30.3 (16.0-40.0) % [place] % (Auto) 5.8 (0.0-15.0) % Eos % (Auto) 0.4 (0.0-7.0) % Baso % (Auto) 0.6 (0.0-1.5) % Neut # (Auto) 2.9 (1.4-5.7) K/uL Lymph # (Auto) 1.4 (0.6-2.4) K/uL [place] # (Auto) 0.3 (0.0-0.8) K/uL Eos # (Auto) 0.0 (0.0-0.7) K/uL Baso # (Auto) 0.0 (0.0-0.1) K/uL Nucleated RBC % 0.0 /100WBC Nucleated RBCs # 0 K/uL Sodium 136 (136-148) mmol/L Potassium 3.6 (3.5-5.1) mmol/L Chloride 98 (98-107) mmol/L Carbon Dioxide 28.5 (21.0-32.0) mmol/L BUN 6 L (7.0-18.0) mg/dL Creatinine 0.9 (0.8-1.3) mg/dL Est Cr Clr Drug Dosing 95.19 mL/min Estimated GFR (MDRD) > 60.0 ml/min Glucose 132 H (74-106) mg/dL Calcium 8.4 L (8.5-10.1) mg/dL Magnesium 1.4 L (1.8-2.4) mg/dL Total Bilirubin 0.4 (0.2-1.0) mg/dL AST 32 (15-37) IU/L ALT 39 (14-63) IU/L Alkaline Phosphatase 68 (46-116) U/L Troponin I < 0.050 (0.000-0.056) ng/mL Total Protein 7.8 (6.4-8.2) g/dL Albumin 3.5 (3.4-5.0) g/dL Globulin 4.3 H (2.6-4.0) g/dL Albumin/Globulin Ratio 0.8 L (0.9-1.6) Meds: Medications Generic Name Dose Route Start Last Admin Trade Name Freq PRN Reason Stop Dose Admin Magnesium Sulfate 2 gm/ Premix 50 mls @ 12.5 mls/hr 03/04/21 13:59 03/04/21 14:36 IV 03/04/21 17:58 12.5 mls/hr ONETIME ONE Administration Sodium Chloride 10 ml 03/04/21 13:22 03/04/21 14:39 Sodium Chloride 0.9% 10 Ml Syringe FLUSH 10 ml ASDIRECTED PRN Administration Keep Vein Open Sodium Chloride 2.5 ml 03/04/21 13:22 03/04/21 14:39 Sodium Chloride 0.9% 2.5 Ml Syringe FLUSH 2.5 ml ASDIRECTED PRN Administration Keep Vein Open Departure - Departure Time of Disposition: 16:30 Disposition: Home, Self-Care 01 Condition: Good Clinical Impression: Hypomagnesemia, Tremor - Discharge Information Instructions: Hypomagnesemia Referrals: Hill Walters MD [Primary Care Provider] - Forms: ED Department Discharge Additional Instructions: Take your magnesium 4 times a day. Follow-up with PMD within a week. [facility] [address] [place] [id number] [facility] [address] [place] [address] The following information is given to patients seen in the emergency department who are being discharged to home. This information is to outline your options for follow-up care. We provide all patients seen in our emergency department with a follow-up referral. The need for follow-up, as well as the timing and circumstances, are variable depending upon the specifics of your emergency department visit. If you don't have a primary care physician on staff, we will provide you with a referral. We always advise you to contact your personal physician following an emergency department visit to inform them of the circumstance of the visit and for follow-up with them and/or the need for any referrals to a consulting specialist. The emergency department will also refer you to a specialist when appropriate. This referral assures that you have the opportunity for follow-up care with a specialist. All of these measure are taken in an effort to provide you with optimal care, which includes your follow-up. Under all circumstances we always encourage you to contact your private physician who remains a resource for coordinating your care. When calling for follow-up care, please make the office aware that this follow-up is from your recent emergency room visit. If for any reason you are refused follow-up, please contact the [facility] Emergency Department at and asked to speak to the emergency department charge nurse. Sepsis Event Note (ED) - Evaluation Sepsis Screening Result: No Definite Risk - Focused Exam Vital Signs: Vital Signs Temp Pulse Resp BP Pulse Ox 03/04/21 16:12 87 18 161/95 H 94 L 03/04/21 14:40 86 17 163/96 H 94 L 03/04/21 13:14 35.5 C L 104 H 18 150/126 H 94 L - My Orders Last 24 Hours: My Active Orders 03/04/21 13:22 EKG Documentation Completion [RC] AM Sodium Chloride 0.9% [Saline Flush] 10 ml FLUSH ASDIRECTED PRN Sodium Chloride 0.9% [Saline Flush] 2.5 ml FLUSH ASDIRECTED PRN Saline Lock Insert [OM.PC] Stat 03/04/21 13:59 Magnesium Sulfate/Water [Magnesium Sulfate in Water 2 GM/50 ML] 2 gm Premix Bag 1 bag IV ONETIME 03/04/21 16:30 Communication Order [RC] STAT - Assessment/Plan Last 24 Hours: My Active Orders 03/04/21 13:22 EKG Documentation Completion [RC] AM Sodium Chloride 0.9% [Saline Flush] 10 ml FLUSH ASDIRECTED PRN Sodium Chloride 0.9% [Saline Flush] 2.5 ml FLUSH ASDIRECTED PRN Saline Lock Insert [OM.PC] Stat 03/04/21 13:59 Magnesium Sulfate/Water [Magnesium Sulfate in Water 2 GM/50 ML] 2 gm Premix Bag 1 bag IV ONETIME 03/04/21 16:30 Communication Order [RC] STAT
[2021-03-04 13:52] LABS: BLOOD UREA NITROGEN,BUN 6 mg/dL (7.0-18.0); CARBON DIOXIDE,CO2 28.5 mmol/L (21.0-32.0); CHLORIDE,CL 98 mmol/L (98-107); GLUCOSE RANDOM 132 mg/dL (74-106); POTASSIUM,K 3.6 mmol/L (3.5-5.1); SODIUM,NA 136 mmol/L (136-148)
[2021-03-04] MEDS ORDERED: Magnesium Sulfate/Water 2 GM in Premix Bag 1 BAG IV ONE (13:59)
[2021-03-04 16:44] VITALS: BP 168/98; PULSE 82
== END 2021-03-04 16:42 | disposition home or self-care (01) ==
LOC: MW.ED 13:11
DX: E83.42 Hypomagnesemia (principal); R25.1 Tremor, unspecified; E78.00 Pure hypercholesterolemia, unspecified; I11.9 Hypertensive heart disease without heart failure; Z79.82 Long term (current) use of aspirin; Z79.899 Other long term (current) drug therapy; Z88.8 Allergy status to other drugs, medicaments and biological substances; Z91.018 Allergy to other foods
CPT/HCPCS: 36415; 80053; 83735; 84484; 85025; 93005; 96365; 96366; 99285; J3475; 93010; 99283

== ENCOUNTER 2021-05-12 09:57 | Observation (INO) | payer MEDICARE, OTHER ==
[2021-05-12] MEDS ORDERED: Sodium Chloride 0.9% 10 ML Syringe FLUSH PRN (10:34)
--- NOTE | 2021-05-12 10:39 | PCM.EKG ---
#1 Interpretation EKG Date: 05/12/21 Time: 10:39 EKG Interpretation Comments: EKG: NSR, nonspecific ST/T changes, Rate - 95
--- NOTE | 2021-05-12 10:46 | EDM.PDOC ---
ED HPI GENERAL MEDICAL PROBLEM - General Chief Complaint: Chest Pain Stated Complaint: HIGH BP AND SOB Time Seen by Provider: 05/12/21 10:01 Source of Information: Reports: Patient, Family () History Limitations: Reports: No Limitations - History of Present Illness INITIAL COMMENTS - FREE TEXT/NARRATIVE: HISTORY AND PHYSICAL: History of present illness: Patient is a 65-year-old male who presents emergency room today with concern of fatigue, weakness, and difficulty sleeping over the past several days. Patient states that a week and a half ago he came down with a "common cold "and states that since then he has had a cough and some shortness of breath and chest pain due to coughing. Patient states he also had an episode of dizziness, nausea, and vomited earlier today and his blood pressure was high during this event and was concerned his blood pressure was causing his symptoms. Patient states over the past 5 years in general he has had issues with difficulties with sleeping and states that he has had multiple issues with blood pressure medications and feels that his blood pressure could be causing his difficulty sleeping today. Patient states that his blood pressure has been "all over the board "and varying from 140s over 90-1 70s over 110. Patient's is at bedside and states that patient has had multiple issues and she has been trying holistic medication and following with a natural path and has tried multiple natural remedies. Patient has a history of COPD, hypertension, GERD. Patient denies fever, chills. Denies headache, neck stiff ness, change in vision, syncope, or near syncope. Denies abdominal pain, diarrhea, constipation, or dysuria. Has not noted any blood in urine or stool. Patient has been eating and drinking appropriately. Review of systems: As per history of present illness and below otherwise all systems reviewed and negative. Past medical history: As per history of present illness and as reviewed below otherwise n oncontributory. Surgical history: As per history of present illness and as reviewed below otherwise noncontributory. Social history: See social history for further information Family history: As per history of present illness and as reviewed below otherwise noncontributory. Physical exam: General: Patient is alert, oriented, and in no acute distress. Patient laying comfortably on exam table/tired appearing. Vitals stable and reviewed by me, O2 on RA 90%. HEENT: Atraumatic, normocephalic, pupils equal and reactive bilaterally, negative for conjunctival pallor or scleral icterus, mucous membranes moist, TMs normal bilaterally, throat clear, neck supple, nontender, trachea midline. No drooling or trismus noted. No meningeal signs. No hot potato voice noted. Lungs: Wheezing to auscultation throughout all lung gillis, breath sounds equal bilaterally, chest nontender. Wet cough on exam. Patient speaking clearly without breathlessness, no stridor, no accessory muscle use or respiratory distress. Heart: S1S2, regular rate and rhythm without overt murmur Abdomen: Soft, nondistended, nontender. Negative for masses or hepatosplenomegaly. Negative for costovertebral tenderness. Pelvis: Stable nontender. Genitourinary: Deferred. Rectal: Deferred. Skin: Intact, warm, dry. No lesions or rashes noted. Extremities: Atraumatic, negative for cords or calf pain. Neurovascular unremarkable. Neuro: Awake, alert, oriented. Cranial nerves II through XII unremarkable. Cerebellum unremarkable. Motor and sensory unremarkable throughout. Exam nonfocal. Notes: Patient is a 65 year old male, h/o COPD, htn, gERD, who presents to the ED today secondary to weakness/fatigue/SOB/cough/1 episode nonbloody/nonbilious vomiting over the past few days. Upon arrival to the ED, patient is vitally stable on exam but tired appearing. He does have expiratory wheezing throughout all lung gillis with a wet cough on exam. Will obtain cardiac evaluation and reassess patient See Dr. Perez dictation for specific eKG interpretation. However, NSR without STEMI/ischemia. CBC mild derangements are unremarkable. CMP shows mild hypochloremia at 95, glucose mildly elevated at 118. Mild hypomagnesia at 1.5. Mild transaminitis with AST is 74 and ALT 84. Troponin negative. Lipase within normal limits. Covid negative. Influenza negative. Chest x-ray shows no acute cardiopulmonary findings. D-dimer is elevated at 1.97. Will obtain ang CT chest While awaiting diagnostic completion, patient does have episodes of becoming hypoxic around 86 to 87% on room air. Patient placed on 2 L nasal cannula and satting about 93%. Ang CT scan of chest shows no Dewayne embolism, pneumonia, or acute intrathoracic abnormality.Coronary artery disease. Emphysema. Hepatic steatosis. On reevaluation of patient, he continues to be on 2 L nasal cannula satting about 93-94% and otherwise breathing comfortably. He remains tired appearing on exam but otherwise vitally stable. I did call and speak to the hospitalist on-call, Dr. Baez, and will admit to observation on telemetry. Voices understanding and is agreeable to plan of care. Denies any further questions or concerns at this time. Diagnostics: EKG, CBC, CMP, CXR, Trop, Ddimer, Lipase, MG, Ang CT chest Therapeutics: Duoneb, Solumedrol, Mg, 2LNC Impression: COPD exacerbation with hypoxia Hypomagnesia Plan: Admit to observation Dr. Baez on telemetry Definitive disposition and diagnosis as appropriate pending reevaluation and review of above. - Related Data Allergies Allergy/AdvReac Type Severity Reaction Status Date / Time lisinopril Allergy Difficulty Verified 05/12/21 15:55 Breathing losartan Allergy Difficulty Verified 05/12/21 15:55 Breathing potato Allergy Difficulty Verified 05/12/21 15:55 Breathing Home Meds: Home Meds Esomeprazole Magnesium [Heartburn Treatment] 20 mg PO ACDINNER 12/28/19 [History] carvediloL [Carvedilol] 6.25 mg PO BIDMEALS 12/28/19 [History] Aspirin 81 mg PO DAILY #30 tab.chew 01/25/21 [Rx] Folic Acid 1 mg PO DAILY #30 tablet 01/25/21 [Rx] Thiamine [Vitamin B-1] 100 mg PO BEDTIME #60 tab 01/25/21 [Rx] Losartan [Cozaar] 50 mg PO DAILY 05/12/21 [History] Magnesium Oxide/Magnesium [Magnesium] 200 mg PO BID 05/12/21 [History] Past Medical History - Past Health History Medical/Surgical History: Denies Medical/Surgical History HEENT History: Reports: Cataract, Other (See Below) Other HEENT History: has upper and lower dentures Cardiovascular History: Reports: Cardiomyopathy, High Cholesterol, Hypertension Other Cardiovascular History: L ventricle "doesn't work properly" Respiratory History: Reports: COPD, Sleep Apnea Other Respiratory History: CPAP Gastrointestinal History: Reports: GERD, PUD Other Gastrointestinal History: Claimed to have severe ulcer Genitourinary History: Reports: Renal Calculus Musculoskeletal History: Reports: Neck Pain, Chronic Neurological History: Reports: Concussion Psychiatric History: Reports: None Endocrine/Metabolic History: Reports: None Hematologic History: Reports: None Immunologic History: Reports: None Oncologic (Cancer) History: Reports: None Dermatologic History: Reports: None - Infectious Disease History Infectious Disease History: Reports: Chicken Pox, Measles, Mumps, Shingles - Past Surgical History Head Surgeries/Procedures: Reports: None HEENT Surgical History: Reports: Cataract Surgery Other HEENT Surgeries/Procedures: Fractured nose, never got surgery to repair Respiratory Surgical History: Reports: None GI Surgical History: Reports: Appendectomy, Colonoscopy Endocrine Surgical History: Reports: None Neurological Surgical History: Reports: None Oncologic Surgical History: Reports: None Dermatological Surgical History: Reports: None Social & Family History - Family History Family Medical History: No Pertinent Family History - Caffeine Use Caffeine Use: Reports: Soda Caffeine Use Comment: 2-3/day - Recreational Drug Use Recreational Drug Use: No - Living Situation & Occupation Living situation: Reports: Occupation: Employed ED ROS GENERAL - Review of Systems Review Of Systems: Comprehensive ROS is negative, except as noted in HPI. ED EXAM, GENERAL - Physical Exam Exam: See Below (see dictation) Course - Vital Signs Last Recorded V/S: Last Vital Signs Temp 97.9 F 05/12/21 19:42 Pulse 103 H 05/12/21 19:42 Resp 19 05/12/21 19:42 BP 133/75 05/12/21 19:42 Pulse Ox 91 L 05/12/21 19:42 - Orders/Labs/Meds Orders: Active Orders 24 hr Category Date Time Status Cardiac Monitoring [RC] . DIRECTED Care 05/12/21 10:34 Active EKG Documentation Completion [RC] STAT Care 05/12/21 10:08 Active RT Aerosol Therapy [RC] ASDIRECTED Care 05/12/21 12:40 Active Sodium Chloride 0.9% [Saline Flush] Med 05/12/21 10:34 Active 10 ml FLUSH ASDIRECTED PRN Sodium Chloride 0.9% [Saline Flush] Med 05/12/21 10:34 Active 2.5 ml FLUSH ASDIRECTED PRN Saline Lock Insert [OM.PC] Stat Oth 05/12/21 10:34 Ordered Medication Orders Albuterol/Ipratropium (Albuterol/Ipratropium 3.0-0.5 Mg/3 Ml Neb Soln) 3 ml NEB Q6HR HAYDEE Last Admin: 05/12/21 18:35 Dose: 3 ml Documented by: SULEMA Carvedilol (Carvedilol 6.25 Mg Tab) 6.25 mg PO BIDMEALS [facility] Last Admin: 05/12/21 17:18 Dose: 6.25 mg Documented by: SULEMA Enoxaparin Sodium (Enoxaparin 40 Mg/0.4 Ml Syringe) 40 mg SUBCUT Q24H [facility] Last Admin: 05/12/21 17:21 Dose: 40 mg Documented by: SULEMA Folic Acid (Folic Acid 1 Mg Tab) 1 mg PO DAILY [facility] Pantoprazole Sodium 40 mg/ (Sodium Chloride) 10 mls @ 300 mls/hr IV DAILY [facility] Lorazepam (Lorazepam 2 Mg/Ml Sdv) 0 mg IVPUSH Q4H PRN; Protocol PRN Reason: Withdrawal Symptoms Last Admin: 05/12/21 18:34 Dose: 1 mg Documented by: SULEMA Prednisone (Prednisone 20 Mg Tab) 40 mg PO WITHBREAKFAST [facility] Sodium Chloride (Sodium Chloride 0.9% 10 Ml Syringe) 10 ml FLUSH ASDIRECTED PRN PRN Reason: Keep Vein Open Last Admin: 05/12/21 11:06 Dose: 10 ml Documented by: JARON Sodium Chloride (Sodium Chloride 0.9% 2.5 Ml Syringe) 2.5 ml FLUSH ASDIRECTED PRN PRN Reason: Keep Vein Open Last Admin: 05/12/21 11:22 Dose: 2.5 ml Documented by: Admin: 05/12/21 11:06 Dose: 2.5 ml Documented by: JARON Thiamine HCl (Thiamine 100 Mg Tab) 100 mg PO BEDTIME [facility] Labs: Laboratory Tests 05/12/21 05/12/21 05/12/21 Range/Units 10:03 10:03 10:03 WBC 4.96 (4.0-11.0) K/uL RBC 4.99 (4.50-5.90) M/uL Hgb 16.3 (13.0-17.0) g/dL Hct 46.0 (38.0-50.0) % MCV 92.2 (80.0-98.0) fL MCH 32.7 H (27.0-32.0) pg MCHC 35.4 (31.0-37.0) g/dL RDW Std Deviation 49.7 (28.0-62.0) fl RDW Coeff of Monisha 15 (11.0-15.0) % Plt Count 143 L (150-400) K/uL MPV 9.10 (7.40-12.00) fL Neut % (Auto) 64.8 (48.0-80.0) % Lymph % (Auto) 28.0 (16.0-40.0) % Newberry % (Auto) 6.0 (0.0-15.0) % Eos % (Auto) 0.6 (0.0-7.0) % Baso % (Auto) 0.6 (0.0-1.5) % Neut # (Auto) 3.2 (1.4-5.7) K/uL Lymph # (Auto) 1.4 (0.6-2.4) K/uL Newberry # (Auto) 0.3 (0.0-0.8) K/uL Eos # (Auto) 0.0 (0.0-0.7) K/uL Baso # (Auto) 0.0 (0.0-0.1) K/uL Nucleated RBC % 0.0 /100WBC Nucleated RBCs # 0 K/uL D-Dimer, Quantitative 1.97 H (0.0-0.50) mg/L FEU Sodium 136 (136-148) mmol/L Potassium 3.6 (3.5-5.1) mmol/L Chloride 95 L (98-107) mmol/L Carbon Dioxide 28.5 (21.0-32.0) mmol/L BUN 4 L (7.0-18.0) mg/dL Creatinine 0.9 (0.8-1.3) mg/dL Est Cr Clr Drug Dosing 87.42 mL/min Estimated GFR (MDRD) > 60.0 ml/min Glucose 118 H (74-106) mg/dL Calcium 9.5 (8.5-10.1) mg/dL Magnesium 1.5 L (1.8-2.4) mg/dL Total Bilirubin 0.7 (0.2-1.0) mg/dL AST 74 H (15-37) IU/L ALT 84 H (14-63) IU/L Alkaline Phosphatase 81 (46-116) U/L Troponin I < 0.050 (0.000-0.056) ng/mL Total Protein 7.9 (6.4-8.2) g/dL Albumin 3.7 (3.4-5.0) g/dL Globulin 4.2 H (2.6-4.0) g/dL Albumin/Globulin Ratio 0.9 (0.9-1.6) Lipase 89 (73-393) U/L Influenza Type A RNA (NEGATIVE) Influenza Type B RNA (NEGATIVE) SARS-CoV-2 RNA (LAZARO) (NEGATIVE) 05/12/21 Range/Units 11:33 WBC (4.0-11.0) K/uL RBC (4.50-5.90) M/uL Hgb (13.0-17.0) g/dL Hct (38.0-50.0) % MCV (80.0-98.0) fL MCH (27.0-32.0) pg MCHC (31.0-37.0) g/dL RDW Std Deviation (28.0-62.0) fl RDW Coeff of Monisha (11.0-15.0) % Plt Count (150-400) K/uL MPV (7.40-12.00) fL Neut % (Auto) (48.0-80.0) % Lymph % (Auto) (16.0-40.0) % Newberry % (Auto) (0.0-15.0) % Eos % (Auto) (0.0-7.0) % Baso % (Auto) (0.0-1.5) % Neut # (Auto) (1.4-5.7) K/uL Lymph # (Auto) (0.6-2.4) K/uL Newberry # (Auto) (0.0-0.8) K/uL Eos # (Auto) (0.0-0.7) K/uL Baso # (Auto) (0.0-0.1) K/uL Nucleated RBC % /100WBC Nucleated RBCs # K/uL D-Dimer, Quantitative (0.0-0.50) mg/L FEU Sodium (136-148) mmol/L Potassium (3.5-5.1) mmol/L Chloride (98-107) mmol/L Carbon Dioxide (21.0-32.0) mmol/L BUN (7.0-18.0) mg/dL Creatinine (0.8-1.3) mg/dL Est Cr Clr Drug Dosing mL/min Estimated GFR (MDRD) ml/min Glucose (74-106) mg/dL Calcium (8.5-10.1) mg/dL Magnesium (1.8-2.4) mg/dL Total Bilirubin (0.2-1.0) mg/dL AST (15-37) IU/L ALT (14-63) IU/L Alkaline Phosphatase (46-116) U/L Troponin I (0.000-0.056) ng/mL Total Protein (6.4-8.2) g/dL Albumin (3.4-5.0) g/dL Globulin (2.6-4.0) g/dL Albumin/Globulin Ratio (0.9-1.6) Lipase (73-393) U/L Influenza Type A RNA NEGATIVE (NEGATIVE) Influenza Type B RNA NEGATIVE (NEGATIVE) SARS-CoV-2 RNA (LAZARO) NEGATIVE (NEGATIVE) Meds: Medications Generic Name Dose Route Start Last Admin Trade Name Freq PRN Reason Stop Dose Admin Albuterol/Ipratropium 3 ml 05/12/21 18:00 05/12/21 18:35 Albuterol/Ipratropium 3.0-0.5 Mg/3 Ml Neb Soln NEB 3 ml Q6HR HAYDEE Administration Carvedilol 6.25 mg 05/12/21 17:00 05/12/21 17:18 Carvedilol 6.25 Mg Tab PO 6.25 mg BIDMEALS HAYDEE Administration Enoxaparin Sodium 40 mg 05/12/21 16:00 05/12/21 17:21 Enoxaparin 40 Mg/0.4 Ml Syringe SUBCUT 40 mg Q24H HAYDEE Administration Folic Acid 1 mg 05/13/21 09:00 Folic Acid 1 Mg Tab PO DAILY HAYDEE Pantoprazole Sodium 40 mg/ 10 mls @ 300 mls/hr 05/13/21 09:00 Sodium Chloride IV DAILY HAYDEE Lorazepam 0 mg 05/12/21 16:03 05/12/21 18:34 Lorazepam 2 Mg/Ml Sdv IVPUSH 1 mg Q4H PRN Administration Withdrawal Symptoms Protocol Prednisone 40 mg 05/13/21 08:00 Prednisone 20 Mg Tab PO WITHBREAKFAST HAYDEE Sodium Chloride 10 ml 05/12/21 10:34 05/12/21 11:06 Sodium Chloride 0.9% 10 Ml Syringe FLUSH 10 ml ASDIRECTED PRN Administration Keep Vein Open Sodium Chloride 2.5 ml 05/12/21 10:34 05/12/21 11:22 Sodium Chloride 0.9% 2.5 Ml Syringe FLUSH 2.5 ml ASDIRECTED PRN Administration Keep Vein Open Thiamine HCl 100 mg 05/12/21 21:00 Thiamine 100 Mg Tab PO BEDTIME HAYDEE Discontinued Medications Generic Name Dose Route Start Last Admin Trade Name Freq PRN Reason Stop Dose Admin Albuterol/Ipratropium 3 ml 05/12/21 12:40 05/12/21 13:44 Albuterol/Ipratropium 3.0-0.5 Mg/3 Ml Neb Soln NEB 05/12/21 12:41 3 ml ONETIME ONE Administration Albuterol/Ipratropium 3 ml 05/12/21 15:53 Albuterol/Ipratropium 3.0-0.5 Mg/3 Ml Neb Soln NEB Q4HRRT PRN Shortness Of Breath/wheezing Magnesium Sulfate 4 gm/ Premix 100 mls @ 25 mls/hr 05/12/21 11:12 05/12/21 11:21 IV 05/12/21 15:11 25 mls/hr ONETIME ONE Administration Iopamidol 85 ml 05/12/21 12:09 05/12/21 12:11 Iopamidol 755 Mg/Ml 500 Ml Multipack Bottle IVPUSH 05/12/21 12:10 85 ml ONETIME STA Administration Methylprednisolone Sodium Succinate 125 mg 05/12/21 12:40 05/12/21 13:50 Methylprednisolone Sodium Succinate 125 Mg/2 Ml Sdv IVPUSH 05/12/21 12:41 125 mg ONETIME ONE Administration Departure - Departure Time of Disposition: 14:26 Disposition: Refer to Observation Clinical Impression: COPD exacerbation, Hypoxia, Hypomagnesemia - Discharge Information Sepsis Event Note (ED) - Evaluation Sepsis Screening Result: No Definite Risk - Focused Exam Vital Signs: Vital Signs Temp Pulse Resp BP Pulse Ox 05/12/21 13:38 92 18 162/88 H 95 05/12/21 12:52 84 19 173/98 H 94 L 05/12/21 11:11 97.4 F 90 18 150/101 H 95 05/12/21 10:46 90 19 144/90 H 91 L 05/12/21 10:08 98.7 F 98 18 167/106 H 95 - My Orders Last 24 Hours: My Active Orders 05/12/21 10:08 EKG Documentation Completion [RC] STAT 05/12/21 10:34 Cardiac Monitoring [RC] . DIRECTED Sodium Chloride 0.9% [Saline Flush] 10 ml FLUSH ASDIRECTED PRN Sodium Chloride 0.9% [Saline Flush] 2.5 ml FLUSH ASDIRECTED PRN Saline Lock Insert [OM.PC] Stat 05/12/21 12:40 RT Aerosol Therapy [RC] ASDIRECTED - Assessment/Plan Last 24 Hours: My Active Orders 05/12/21 10:08 EKG Documentation Completion [RC] STAT 05/12/21 10:34 Cardiac Monitoring [RC] . DIRECTED Sodium Chloride 0.9% [Saline Flush] 10 ml FLUSH ASDIRECTED PRN Sodium Chloride 0.9% [Saline Flush] 2.5 ml FLUSH ASDIRECTED PRN Saline Lock Insert [OM.PC] Stat 05/12/21 12:40 RT Aerosol Therapy [RC] ASDIRECTED
[2021-05-12 10:58] LABS: BLOOD UREA NITROGEN,BUN 4 mg/dL (7.0-18.0); CARBON DIOXIDE,CO2 28.5 mmol/L (21.0-32.0); CHLORIDE,CL 95 mmol/L (98-107); GLUCOSE RANDOM 118 mg/dL (74-106); LIPASE 89 U/L (73-393); POTASSIUM,K 3.6 mmol/L (3.5-5.1); SODIUM,NA 136 mmol/L (136-148)
[2021-05-12] MEDS: Sodium Chloride 0.9% 2.5 ML Syringe FLUSH PRN ×2 (11:06→11:22)
[2021-05-12] MEDS ORDERED: Magnesium Sulfate/Water 4 GM in Premix Bag 1 BAG IV ONE (11:12)
--- NOTE | 2021-05-12 11:39 | CR ---
INDICATION: Pain, shortness of breath. TECHNIQUE: Chest 1 view. COMPARISON: Chest radiograph 02/19/2021. FINDINGS: No focal consolidation, pleural effusion, or pneumothorax. The previously seen round radiopaque densities projected over the left lung base are no longer present. Normal heart size and pulmonary vascularity. The bones are unremarkable. IMPRESSION: No acute cardiopulmonary findings. Dictated by Abby Bradley MD @ 05/12/2021 11:37:[address] Abby Bradley @ May 12 2021 11:37AM
[2021-05-12] MEDS ORDERED: Iopamidol 755 MG/ML 500 ML Multipack Bottle IVPUSH STA (12:09)
[2021-05-12 12:23] LABS: CORONAVIRUS COVID-19 NAA NEGATIVE (NEGATIVE); INFLUENZA A NAA NEGATIVE (NEGATIVE); INFLUENZA B NAA NEGATIVE (NEGATIVE)
[2021-05-12] MEDS ORDERED: Albuterol/Ipratropium 3.0-0.5 MG/3 ML Neb Soln NEB ONE (12:40)
[2021-05-12] MEDS ORDERED: methylPREDNISolone Sodium Succinate 125 MG/2 ML SDV IVPUSH ONE (12:40)
--- NOTE | 2021-05-12 13:05 | CT ---
INDICATION: Cough, shortness of breath, hypoxia TECHNIQUE: CT chest pulmonary PE protocol acquired with 85 cc Isovue 370 IV contrast. COMPARISON: Chest from earlier today FINDINGS: Cardiovascular structures: Normal vascular enhancement of the pulmonary arteries, no sign of pulmonary embolism. Heart size is normal. Coronary artery calcifications. No sign of aneurysm in the thoracic aorta. Mediastinum and jimmy: No mass or adenopathy. Lungs: Emphysema. Pleura and pericardium: No effusions. Chest wall and axilla: No mass or adenopathy. Upper abdomen: Hepatic steatosis. Bones: No significant findings. IMPRESSION: No pulmonary embolism, pneumonia, or acute intrathoracic abnormality. Coronary artery disease. Emphysema. Hepatic steatosis. Please note that all CT scans at this facility use dose modulation, iterative reconstruction, and/or weight-based dosing when appropriate to reduce radiation dose to as low as reasonably achievable. Dictated by Olinda Ellis MD @ 05/12/2021 1:04:[address] Olinda Ellis @ May 12 2021 1:04PM
--- NOTE | 2021-05-12 14:59 | PCM.HP.2 ---
H&P History of Present Illness - General Date of Service: 05/12/21 Admit Problem/Dx: Admission Diagnosis/Problem Admission Diagnosis/Problem COPD, Moderate chronic obstructive pulmonary disease - History of Present Illness Initial Comments - Free Text/Narative: 65-year-old male with a history of COPD, hypertension, GERD presents to the ER complaining of difficulty breathing, fatigue and cough which began 10 days ago. He had a common cold at that time, and has since been coughing and experiencing difficulty breathing. Nausea with one episode of vomiting today. Patient denies decreased oral intake. Noncompliant with his carvedilol. Patient is not on COPD medication at home. He takes Nexium for GERD. Patient denies headaches, fever, chills, calf or leg pain, pleuritic chest pain, chest pain, palpitations, syncope, abdominal pain, diarrhea, or dysuria. Patient was admitted to the service on 01/23/2021 for alcohol withdrawal. Currently patient drinks 1 to 2 L of shan per week. His last drink was 2 nights ago. Today he denies hallucinations, anxiety. Patient quit smoking tobacco 6 years ago. Prior to that he smoked 1 pack/day for 40 years. Patient is allergic to OSKAR inhibitors and ARB. Also allergic to potato starch. ER course: EKG unremarkable. Troponin negative. Basic lab work obtained. WBC 4.96. Hemoglobin 16.3. Platelet 143. Sodium 136. Potassium 3.6. BUN 4. Creatinine 0.9. Chloride 95. Blood glucose 118. Magnesium 1.5. AST 74. ALT 84. Normal lipase. D-dimer 1.97. CXR no acute cardiopulmonary findings. Patient placed on 2 L nasal cannula. 93% O2 saturation. CT angio shows no pulmonary embolism or acute intrathoracic abnormality. Positive for coronary artery disease, emphysema. Vital signs: Temperature 97.4. Pulse 90. Respiratory rate 18. Blood pressure 150/101. Pulse ox 95% on 2 L nasal cannula. Patient placed on telemetry. Received duo nebs. Urinalysis pending. 4 g IV magnesium sulfate. Received 125mg solumedrol. SARS-CoV-2 negative. Influenza type A, type B is negative. CODE STATUS: Full code - Related Data Allergies/Adverse Reactions: Allergies Allergy/AdvReac Type Severity Reaction Status Date / Time lisinopril Allergy Difficulty Verified 05/12/21 15:55 Breathing losartan Allergy Difficulty Verified 05/12/21 15:55 Breathing potato Allergy Difficulty Verified 05/12/21 15:55 Breathing Home Medications: Home Meds Esomeprazole Magnesium [Heartburn Treatment] 20 mg PO ACDINNER 12/28/19 [History] carvediloL [Carvedilol] 6.25 mg PO BIDMEALS 12/28/19 [History] Aspirin 81 mg PO DAILY #30 tab.chew 01/25/21 [Rx] Folic Acid 1 mg PO DAILY #30 tablet 01/25/21 [Rx] Thiamine [Vitamin B-1] 100 mg PO BEDTIME #60 tab 01/25/21 [Rx] Losartan [Cozaar] 50 mg PO DAILY 05/12/21 [History] Magnesium Oxide/Magnesium [Magnesium] 200 mg PO BID 05/12/21 [History] Past Medical History - Past Health History Medical/Surgical History: Denies Medical/Surgical History HEENT History: Reports: Cataract, Other (See Below) Other HEENT History: has upper and lower dentures Cardiovascular History: Reports: Cardiomyopathy, High Cholesterol, Hypertension Other Cardiovascular History: L ventricle "doesn't work properly" Respiratory History: Reports: COPD, Sleep Apnea Other Respiratory History: CPAP Gastrointestinal History: Reports: GERD, PUD Other Gastrointestinal History: Claimed to have severe ulcer Genitourinary History: Reports: Renal Calculus Musculoskeletal History: Reports: Neck Pain, Chronic Neurological History: Reports: Concussion Psychiatric History: Reports: None Endocrine/Metabolic History: Reports: None Hematologic History: Reports: None Immunologic History: Reports: None Oncologic (Cancer) History: Reports: None Dermatologic History: Reports: None - Infectious Disease History Infectious Disease History: Reports: Chicken Pox, Measles, Mumps, Shingles - Past Surgical History Head Surgeries/Procedures: Reports: None HEENT Surgical History: Reports: Cataract Surgery Other HEENT Surgeries/Procedures: Fractured nose, never got surgery to repair Respiratory Surgical History: Reports: None GI Surgical History: Reports: Appendectomy, Colonoscopy Endocrine Surgical History: Reports: None Neurological Surgical History: Reports: None Oncologic Surgical History: Reports: None Dermatological Surgical History: Reports: None Social & Family History - Family History Family Medical History: No Pertinent Family History - Caffeine Use Caffeine Use: Reports: Soda Caffeine Use Comment: 2-3/day - Recreational Drug Use Recreational Drug Use: No - Living Situation & Occupation Living situation: Reports: Occupation: Employed H&P Review of Systems - Review of Systems: Review Of Systems: See Below General: Reports: Weakness, Fatigue. Denies: Fever, Chills HEENT: Denies: Headaches, Rhinitis, Sinus Congestion, Sore Throat, Vertigo Pulmonary: Reports: Shortness of Breath, Wheezing, Cough, Sputum. Denies: Pleuritic Chest Pain, Hemoptysis Cardiovascular: Denies: Chest Pain, Palpitations, Dyspnea on Exertion, Orthopnea, Edema, Lightheadedness, Syncope, Claudication Gastrointestinal: Denies: Abdominal Pain, Anorexia, Bloody Stool, Constipation, Diarrhea, Decreased Appetite, Difficulty Swallowing, Melena, Nausea, Vomiting Genitourinary: Denies: Dysuria, Frequency, Burning, Hematuria Musculoskeletal: Reports: Other (Umbilical hernia). Denies: Neck Pain, Arm Pain, Leg Pain, Joint Pain, Joint Swelling Psychiatric: Reports: No Symptoms Neurological: Denies: Confusion, Dizziness, Headache, Syncope, Difficulty Walking Hematologic/Lymphatic: Reports: No Symptoms Immunologic: Reports: No Symptoms Exam - Exam Exam: See Below - Vital Signs Vital Signs: Last Vital Signs Temp 97.4 F 05/12/21 11:11 Pulse 90 05/12/21 14:25 Resp 19 05/12/21 14:25 BP 139/91 H 05/12/21 14:25 Pulse Ox 94 L 05/12/21 14:25 Weight: 270 lb - Exam Quality Assessment: Supplemental Oxygen General: Alert, Oriented, Cooperative HEENT: Conjunctiva Clear, EOMI, Mucosa Moist & [place], Pupils Reactive Neck: Supple. No: Lymphadenopathy, Carotid Bruit Lungs: Decreased Breath Sounds, Wheezing Cardiovascular: Regular Rate, Regular Rhythm, Normal S1, Normal S2 GI/Abdominal Exam: Normal Bowel Sounds, Soft, Non-Tender, No Distention Back Exam: Normal Inspection. No: CVA Tenderness (L), CVA Tenderness (R) Extremities: Normal Inspection, Normal Range of Motion, Non-Tender, No Pedal Edema. No: Greg's Sign, Leg Pain Peripheral Pulses: 2+: Dorsalis Pedis (L), Dorsalis Pedis (R) Skin: Warm, Dry, Intact Neuro Extensive - Motor, Sensory, Reflexes: Normal Gait - Patient Data Lab Results Last 24 hrs: Laboratory Results - last 24 hr 05/12/21 05/12/21 05/12/21 Range/Units 10:03 10:03 10:03 WBC 4.96 (4.0-11.0) K/uL RBC 4.99 (4.50-5.90) M/uL Hgb 16.3 (13.0-17.0) g/dL Hct 46.0 (38.0-50.0) % MCV 92.2 (80.0-98.0) fL MCH 32.7 H (27.0-32.0) pg MCHC 35.4 (31.0-37.0) g/dL RDW Std Deviation 49.7 (28.0-62.0) fl RDW Coeff of Monisha 15 (11.0-15.0) % Plt Count 143 L (150-400) K/uL MPV 9.10 (7.40-12.00) fL Neut % (Auto) 64.8 (48.0-80.0) % Lymph % (Auto) 28.0 (16.0-40.0) % Schley % (Auto) 6.0 (0.0-15.0) % Eos % (Auto) 0.6 (0.0-7.0) % Baso % (Auto) 0.6 (0.0-1.5) % Neut # (Auto) 3.2 (1.4-5.7) K/uL Lymph # (Auto) 1.4 (0.6-2.4) K/uL Schley # (Auto) 0.3 (0.0-0.8) K/uL Eos # (Auto) 0.0 (0.0-0.7) K/uL Baso # (Auto) 0.0 (0.0-0.1) K/uL Nucleated RBC % 0.0 /100WBC Nucleated RBCs # 0 K/uL D-Dimer, Quantitative 1.97 H (0.0-0.50) mg/L FEU Sodium 136 (136-148) mmol/L Potassium 3.6 (3.5-5.1) mmol/L Chloride 95 L (98-107) mmol/L Carbon Dioxide 28.5 (21.0-32.0) mmol/L BUN 4 L (7.0-18.0) mg/dL Creatinine 0.9 (0.8-1.3) mg/dL Est Cr Clr Drug Dosing 87.42 mL/min Estimated GFR (MDRD) > 60.0 ml/min Glucose 118 H (74-106) mg/dL Calcium 9.5 (8.5-10.1) mg/dL Magnesium 1.5 L (1.8-2.4) mg/dL Total Bilirubin 0.7 (0.2-1.0) mg/dL AST 74 H (15-37) IU/L ALT 84 H (14-63) IU/L Alkaline Phosphatase 81 (46-116) U/L Troponin I < 0.050 (0.000-0.056) ng/mL Total Protein 7.9 (6.4-8.2) g/dL Albumin 3.7 (3.4-5.0) g/dL Globulin 4.2 H (2.6-4.0) g/dL Albumin/Globulin Ratio 0.9 (0.9-1.6) Lipase 89 (73-393) U/L Urine Color Urine Appearance Urine pH (5.0-8.0) Ur Specific Teague (1.001-1.035) Urine Protein (NEGATIVE) mg/dL Urine Glucose (UA) (NEGATIVE) mg/dL Urine Ketones (NEGATIVE) mg/dL Urine Occult Blood (NEGATIVE) Urine Nitrite (NEGATIVE) Urine Bilirubin (NEGATIVE) Urine Urobilinogen (<2.0) EU/dL Ur Leukocyte Esterase (NEGATIVE) Urine RBC (0-2/HPF) Urine WBC (0-5/HPF) Ur Epithelial Cells (NONE-FEW) Urine Bacteria (NEGATIVE) Urine Mucus (NONE-MOD) Influenza Type A RNA (NEGATIVE) Influenza Type B RNA (NEGATIVE) SARS-CoV-2 RNA (LAZARO) (NEGATIVE) 05/12/21 05/12/21 Range/Units 11:33 14:14 WBC (4.0-11.0) K/uL RBC (4.50-5.90) M/uL Hgb (13.0-17.0) g/dL Hct (38.0-50.0) % MCV (80.0-98.0) fL MCH (27.0-32.0) pg MCHC (31.0-37.0) g/dL RDW Std Deviation (28.0-62.0) fl RDW Coeff of Monisha (11.0-15.0) % Plt Count (150-400) K/uL MPV (7.40-12.00) fL Neut % (Auto) (48.0-80.0) % Lymph % (Auto) (16.0-40.0) % Schley % (Auto) (0.0-15.0) % Eos % (Auto) (0.0-7.0) % Baso % (Auto) (0.0-1.5) % Neut # (Auto) (1.4-5.7) K/uL Lymph # (Auto) (0.6-2.4) K/uL Schley # (Auto) (0.0-0.8) K/uL Eos # (Auto) (0.0-0.7) K/uL Baso # (Auto) (0.0-0.1) K/uL Nucleated RBC % /100WBC Nucleated RBCs # K/uL D-Dimer, Quantitative (0.0-0.50) mg/L FEU Sodium (136-148) mmol/L Potassium (3.5-5.1) mmol/L Chloride (98-107) mmol/L Carbon Dioxide (21.0-32.0) mmol/L BUN (7.0-18.0) mg/dL Creatinine (0.8-1.3) mg/dL Est Cr Clr Drug Dosing mL/min Estimated GFR (MDRD) ml/min Glucose (74-106) mg/dL Calcium (8.5-10.1) mg/dL Magnesium (1.8-2.4) mg/dL Total Bilirubin (0.2-1.0) mg/dL AST (15-37) IU/L ALT (14-63) IU/L Alkaline Phosphatase (46-116) U/L Troponin I (0.000-0.056) ng/mL Total Protein (6.4-8.2) g/dL Albumin (3.4-5.0) g/dL Globulin (2.6-4.0) g/dL Albumin/Globulin Ratio (0.9-1.6) Lipase (73-393) U/L Urine Color YELLOW Urine Appearance CLEAR Urine pH 7.5 (5.0-8.0) Ur Specific Teague 1.015 (1.001-1.035) Urine Protein NEGATIVE (NEGATIVE) mg/dL Urine Glucose (UA) NEGATIVE (NEGATIVE) mg/dL Urine Ketones >=80 (NEGATIVE) mg/dL Urine Occult Blood MODERATE H (NEGATIVE) Urine Nitrite NEGATIVE (NEGATIVE) Urine Bilirubin NEGATIVE (NEGATIVE) Urine Urobilinogen 0.2 (<2.0) EU/dL Ur Leukocyte Esterase NEGATIVE (NEGATIVE) Urine RBC 3-7 (0-2/HPF) Urine WBC 0-1 (0-5/HPF) Ur Epithelial Cells RARE (NONE-FEW) Urine Bacteria FEW (NEGATIVE) Urine Mucus LIGHT (NONE-MOD) Influenza Type A RNA NEGATIVE (NEGATIVE) Influenza Type B RNA NEGATIVE (NEGATIVE) SARS-CoV-2 RNA (LAZARO) NEGATIVE (NEGATIVE) Result Diagrams: 05/12/21 10:03 05/12/21 10:03 Sepsis Event Note - Evaluation Sepsis Screening Result: No Definite Risk - Focused Exam Vital Signs: Vital Signs Temp Pulse Resp BP Pulse Ox 05/12/21 14:25 90 19 139/91 H 94 L 05/12/21 13:38 92 18 162/88 H 95 05/12/21 12:52 84 19 173/98 H 94 L 05/12/21 11:11 97.4 F 90 18 150/101 H 95 05/12/21 10:46 90 19 144/90 H 91 L 05/12/21 10:08 98.7 F 98 18 167/106 H 95 - Problem List (1) COPD exacerbation SNOMED Code(s): 427525003 ICD Code: J44.1 - CHRONIC OBSTRUCTIVE PULMONARY DISEASE W (ACUTE) EXACERBATION Status: Acute Current Visit: Yes (2) Hypomagnesemia SNOMED Code(s): 591849267 ICD Code: E83.42 - HYPOMAGNESEMIA Status: Acute Current Visit: Yes (3) Hypoxia SNOMED Code(s): 062340051 ICD Code: R09.02 - HYPOXEMIA Status: Acute Current Visit: Yes Problem List Initiated/Reviewed/Updated: Yes Orders Last 24hrs: Active Orders 24 hr Category Date Time Status Admission Status [Patient Status] [ADT] Stat ADT 05/12/21 14:05 Active Cardiac Monitoring [RC] . DIRECTED Care 05/12/21 10:34 Active EKG Documentation Completion [RC] STAT Care 05/12/21 10:08 Active RT Aerosol Therapy [RC] ASDIRECTED Care 05/12/21 12:40 Active Magnesium Sulfate/Water [Magnesium Sulfate in Water 4 Med 05/12/21 11:12 Active GM/100 ML] 4 gm Premix Bag 1 bag IV ONETIME Sodium Chloride 0.9% [Saline Flush] Med 05/12/21 10:34 Active 10 ml FLUSH ASDIRECTED PRN Sodium Chloride 0.9% [Saline Flush] Med 05/12/21 10:34 Active 2.5 ml FLUSH ASDIRECTED PRN Saline Lock Insert [OM.PC] Stat Oth 05/12/21 10:34 Ordered Medication Orders Magnesium Sulfate 4 gm/ Premix 100 mls @ 25 mls/hr IV ONETIME ONE Stop: 05/12/21 15:11 Last Admin: 05/12/21 11:21 Dose: 25 mls/hr Documented by: JARON Sodium Chloride (Sodium Chloride 0.9% 10 Ml Syringe) 10 ml FLUSH ASDIRECTED PRN PRN Reason: Keep Vein Open Last Admin: 05/12/21 11:06 Dose: 10 ml Documented by: JARON Sodium Chloride (Sodium Chloride 0.9% 2.5 Ml Syringe) 2.5 ml FLUSH ASDIRECTED PRN PRN Reason: Keep Vein Open Last Admin: 05/12/21 11:22 Dose: 2.5 ml Documented by: Admin: 05/12/21 11:06 Dose: 2.5 ml Documented by: JARON Assessment/Plan Comment:: 65-year-old male admitted for COPD exacerbation. Supplemental oxygen for saturation greater than 90%. Duo nebs 3 times daily as needed. Will start prednisone 40mg daily. Consider azithromycin. Patient will be placed on CIWA protocol. Restart thiamine and folic acid. Protonix 40 mg for GI prophylaxis and history of GERD. Patient will be placed on telemetry. Cardiac diet. Lovenox for DVT prophylaxis.
[2021-05-12] MEDS ORDERED: Albuterol/Ipratropium 3.0-0.5 MG/3 ML Neb Soln NEB PRN (15:53)
[2021-05-12] MEDS ORDERED: Enoxaparin 40 MG/0.4 ML Syringe SUBCUT SCH (16:00)
[2021-05-12] MEDS: Carvedilol 6.25 MG Tab PO SCH (17:18)
[2021-05-12] MEDS: LORazepam 2 MG/ML SDV IVPUSH PRN (18:34)
[2021-05-12] MEDS: Albuterol/Ipratropium 3.0-0.5 MG/3 ML Neb Soln NEB SCH ×2 (18:35→23:57)
[2021-05-12] MEDS ORDERED: Thiamine 100 MG Tab PO SCH (21:00)
[2021-05-13] MEDS: LORazepam 2 MG/ML SDV IVPUSH PRN (00:15)
[2021-05-13 07:10] LABS: BLOOD UREA NITROGEN,BUN 11 mg/dL (7.0-18.0); CARBON DIOXIDE,CO2 30.4 mmol/L (21.0-32.0); CHLORIDE,CL 95 mmol/L (98-107); GLUCOSE RANDOM 142 mg/dL (74-106); POTASSIUM,K 3.9 mmol/L (3.5-5.1); SODIUM,NA 133 mmol/L (136-148)
[2021-05-13 07:31] VITALS: BP 147/95; PULSE 92
[2021-05-13] MEDS ORDERED: predniSONE 20 MG Tab PO SCH (08:00)
[2021-05-13] MEDS: Albuterol/Ipratropium 3.0-0.5 MG/3 ML Neb Soln NEB SCH ×2 (08:05→12:21)
[2021-05-13] MEDS: Carvedilol 6.25 MG Tab PO SCH (08:09)
[2021-05-13] MEDS ORDERED: Pantoprazole 40 MG in Sodium Chloride 0.9% 10 ML IV SCH (09:00)
[2021-05-13] MEDS ORDERED: Folic Acid 1 MG Tab PO SCH (09:00)
--- NOTE | 2021-05-13 16:20 | PCM.DCSUM1 ---
<Louis Hernandez - Last Filed: 05/13/21 16:20> Discharge Summary - Hospital Course Free Text/Narrative:: 65-year-old male with a history of COPD, hypertension, GERD presents to the ER complaining of difficulty breathing, fatigue and cough and cold symptoms which began 10 days ago. Patient states he does not require home O2, is currently not being treated for COPD or restrictive airway diseases. On admission patient states that has been admitted for similar reason due to having a low levels of magnesium. Patient states once he receives magnesium he feels better and his breathing improves. On admission patient denied headaches, fever, chills, chest pain, palpitations, syncope, abdominal pain, diarrhea, or dysuria. In addition patient has history of prior admissions due to alcohol withdrawal. ER course: EKG unremarkable. Troponin negative. WBC 4.96, Sodium 136. Potassium 3.6. BUN 4. Creatinine 0.9, Magnesium 1.5. AST 74. ALT 84, CXR no acute cardiopulmonary findings. CT angio shows no pulmonary embolism or acute intrathoracic abnormality. Positive for coronary artery disease, emphysema. Received duo nebs, and oxygen support, IV magnesium sulfate, 125mg solumedrol IV Admission course to include supplemental oxygen to maintain saturation greater than 90%, Duo nebs therapy. Antibiotics were not started at this time, prednisone prescribed at discharge. Patient also placed on [facility] protocol for history of alcohol withdrawal. Prior to discharge home patient stated he felt better, denied fever, chills, nausea, vomiting. Denied chest pain, denies shortness of breath. Patient discharged home with prescriptions for albuterol rescue inhaler, prednisone, Advair. - Discharge Data Discharge Date: 05/13/21 Discharge Disposition: Home, Self-Care 01 Condition: Good - Referral to Home Health Primary Care Physician: Hill Walters MD - Patient Instructions Diet: Usual Diet as Tolerated Activity: As Tolerated Showering/Bathing: May Shower Notify Provider of: Fever, Increased Pain, Nausea and/or Vomiting Other/Special Instructions: REPORT ANY SYMPTOMS OF WHEEZING, SHORTNESS OF BREATH TO [facility] PCP. IF EXPIERENCING SEVERE DIFFCULTY BREATHING AND OR CHEST PAIN, REPORT TO THE ED. REPORT ANY SIDE EFFECTS OF MEDICATIONS TO YOUR PCP - Discharge Plan *PRESCRIPTION DRUG MONITORING PROGRAM REVIEWED*: Not Applicable *COPY OF PRESCRIPTION DRUG MONITORING REPORT IN PATIENT KEI: Not Applicable Prescriptions/Med Rec: Fluticasone/Salmeterol [Advair 250-50] 1 puff INH BID #1 diskus Albuterol Sulfate [Albuterol Sulfate Hfa] 1 puff IH Q6HR PRN #1 hfa.aer.ad PRN Reason: Wheezing predniSONE 40 mg PO WITHBREAKFAST 3 Days #6 tablet Home Medications: Home Meds Esomeprazole Magnesium [Heartburn Treatment] 20 mg PO ACDINNER 12/28/19 [History] carvediloL [Carvedilol] 6.25 mg PO BIDMEALS 12/28/19 [History] Aspirin 81 mg PO DAILY #30 tab.chew 01/25/21 [Rx] Folic Acid 1 mg PO DAILY #30 tablet 01/25/21 [Rx] Thiamine [Vitamin B-1] 100 mg PO BEDTIME #60 tab 01/25/21 [Rx] Losartan [Cozaar] 50 mg PO DAILY 05/12/21 [History] Magnesium Oxide/Magnesium [Magnesium] 200 mg PO BID 05/12/21 [History] Albuterol Sulfate [Albuterol Sulfate Hfa] 1 puff IH Q6HR PRN #1 hfa.aer.ad 05/13/21 [Rx] Fluticasone/Salmeterol [Advair 250-50] 1 puff INH BID #1 diskus 05/13/21 [Rx] predniSONE 40 mg PO WITHBREAKFAST 3 Days #6 tablet 05/13/21 [Rx] Patient Handouts: Albuterol inhalation aerosol, Chronic Obstructive Pulmonary Disease, [id number], Prednisone tablets, Fluticasone; Salmeterol inhalation aerosol Referrals: Hill Walters MD [Primary Care Provider] - 05/30/21 1:30 pm - Discharge Summary/Plan Comment DC Time >30 min.: Yes - Review of Systems General: Denies: Fever, Chills Pulmonary: Denies: Shortness of Breath, Pleuritic Chest Pain, Cough Cardiovascular: Denies: Chest Pain, Edema Gastrointestinal: Denies: Abdominal Pain, Nausea, Vomiting Genitourinary: Denies: Dysuria Neurological: Denies: Confusion, Dizziness, Headache - Patient Data Vitals - Most Recent: Last Vital Signs Temp 98.5 F 05/13/21 07:30 Pulse 92 05/13/21 08:09 Resp 20 05/13/21 07:30 BP 147/95 H 05/13/21 08:09 Pulse Ox 93 L 05/13/21 07:30 Weight - Most Recent: 95.527 kg I&O - Last 24 hours: Intake & Output 05/13/21 05/13/21 05/13/21 06:59 14:59 22:59 Intake Total 1500 450 Output Total 1250 Balance 250 450 Lab Results - Last 24 hrs: Laboratory Results - last 24 hr 05/13/21 05/13/21 Range/Units 06:00 06:00 WBC 3.91 L (4.0-11.0) K/uL RBC 4.70 (4.50-5.90) M/uL Hgb 15.0 (13.0-17.0) g/dL Hct 43.3 (38.0-50.0) % MCV 92.1 (80.0-98.0) fL MCH 31.9 (27.0-32.0) pg MCHC 34.6 (31.0-37.0) g/dL RDW Std Deviation 49.1 (28.0-62.0) fl RDW Coeff of Monisha 15 (11.0-15.0) % Plt Count 156 (150-400) K/uL MPV 9.50 (7.40-12.00) fL Neut % (Auto) 66.8 (48.0-80.0) % Lymph % (Auto) 27.6 (16.0-40.0) % Owsley % (Auto) 5.6 (0.0-15.0) % Eos % (Auto) 0.0 (0.0-7.0) % Baso % (Auto) 0.0 (0.0-1.5) % Neut # (Auto) 2.6 (1.4-5.7) K/uL Lymph # (Auto) 1.1 (0.6-2.4) K/uL Owsley # (Auto) 0.2 (0.0-0.8) K/uL Eos # (Auto) 0.0 (0.0-0.7) K/uL Baso # (Auto) 0.0 (0.0-0.1) K/uL Nucleated RBC % 0.0 /100WBC Nucleated RBCs # 0 K/uL Sodium 133 L (136-148) mmol/L Potassium 3.9 (3.5-5.1) mmol/L Chloride 95 L (98-107) mmol/L Carbon Dioxide 30.4 (21.0-32.0) mmol/L BUN 11 (7.0-18.0) mg/dL Creatinine 0.8 (0.8-1.3) mg/dL Est Cr Clr Drug Dosing 107.09 mL/min Estimated GFR (MDRD) > 60.0 ml/min Glucose 142 H (74-106) mg/dL Calcium 8.8 (8.5-10.1) mg/dL Magnesium 1.9 (1.8-2.4) mg/dL Total Bilirubin 0.4 (0.2-1.0) mg/dL AST 35 (15-37) IU/L ALT 59 (14-63) IU/L Alkaline Phosphatase 67 (46-116) U/L Total Protein 6.8 (6.4-8.2) g/dL Albumin 3.0 L (3.4-5.0) g/dL Globulin 3.8 (2.6-4.0) g/dL Albumin/Globulin Ratio 0.8 L (0.9-1.6) Med Orders - Current: Current Medications Discontinued Medications Albuterol/Ipratropium (Albuterol/Ipratropium 3.0-0.5 Mg/3 Ml Neb Soln) 3 ml NEB ONETIME ONE Stop: 05/12/21 12:41 Last Admin: 05/12/21 13:44 Dose: 3 ml Documented by: Albuterol/Ipratropium (Albuterol/Ipratropium 3.0-0.5 Mg/3 Ml Neb Soln) 3 ml NEB Q4HRRT PRN PRN Reason: Shortness Of Breath/wheezing Albuterol/Ipratropium (Albuterol/Ipratropium 3.0-0.5 Mg/3 Ml Neb Soln) 3 ml NEB Q6HR HAYDEE Last Admin: 05/13/21 12:21 Dose: 3 ml Documented by: Carvedilol (Carvedilol 6.25 Mg Tab) 6.25 mg PO BIDMEALS [facility] Last Admin: 05/13/21 08:09 Dose: 6.25 mg Documented by: Enoxaparin Sodium (Enoxaparin 40 Mg/0.4 Ml Syringe) 40 mg SUBCUT Q24H [facility] Last Admin: 05/12/21 17:21 Dose: 40 mg Documented by: Folic Acid (Folic Acid 1 Mg Tab) 1 mg PO DAILY [facility] Last Admin: 05/13/21 08:09 Dose: 1 mg Documented by: Magnesium Sulfate 4 gm/ Premix 100 mls @ 25 mls/hr IV ONETIME ONE Stop: 05/12/21 15:11 Last Admin: 05/12/21 11:21 Dose: 25 mls/hr Documented by: Pantoprazole Sodium 40 mg/ (Sodium Chloride) 10 mls @ 300 mls/hr IV DAILY [facility] Last Admin: 05/13/21 08:10 Dose: 300 mls/hr Documented by: Iopamidol (Iopamidol 755 Mg/Ml 500 Ml Multipack Bottle) 85 ml IVPUSH ONETIME STA Stop: 05/12/21 12:10 Last Admin: 05/12/21 12:11 Dose: 85 ml Documented by: Lorazepam (Lorazepam 2 Mg/Ml Sdv) 0 mg IVPUSH Q4H PRN; Protocol PRN Reason: Withdrawal Symptoms Last Admin: 05/13/21 00:15 Dose: 1 mg Documented by: Methylprednisolone Sodium Succinate (Methylprednisolone Sodium Succinate 125 Mg/2 Ml Sdv) 125 mg IVPUSH ONETIME ONE Stop: 05/12/21 12:41 Last Admin: 05/12/21 13:50 Dose: 125 mg Documented by: Prednisone (Prednisone 20 Mg Tab) 40 mg PO WITHBREAKFAST [facility] Last Admin: 05/13/21 08:08 Dose: 40 mg Documented by: Sodium Chloride (Sodium Chloride 0.9% 10 Ml Syringe) 10 ml FLUSH ASDIRECTED PRN PRN Reason: Keep Vein Open Last Admin: 05/12/21 11:06 Dose: 10 ml Documented by: Sodium Chloride (Sodium Chloride 0.9% 2.5 Ml Syringe) 2.5 ml FLUSH ASDIRECTED PRN PRN Reason: Keep Vein Open Last Admin: 05/12/21 11:22 Dose: 2.5 ml Documented by: Thiamine HCl (Thiamine 100 Mg Tab) 100 mg PO BEDTIME [facility] Last Admin: 05/12/21 21:01 Dose: 100 mg Documented by: - Exam General: Reports: Alert, Oriented Lungs: Reports: Clear to Auscultation, Normal Respiratory Effort Cardiovascular: Reports: Regular Rate, Regular Rhythm GI/Abdominal Exam: Soft, Non-Tender Extremities: No Pedal Edema Psy/Mental Status: Reports: Alert <Gunnar Baez - Last Filed: 05/16/21 19:26> Discharge Summary - Referral to Home Health Primary Care Physician: Hill Walters MD - Patient Data Vitals - Most Recent: Last Vital Signs Temp 36.9 C 05/13/21 07:30 Pulse 92 05/13/21 08:09 Resp 20 05/13/21 07:30 BP 147/95 H 05/13/21 08:09 Pulse Ox 93 L 05/13/21 07:30 Med Orders - Current: Current Medications Discontinued Medications Albuterol/Ipratropium (Albuterol/Ipratropium 3.0-0.5 Mg/3 Ml Neb Soln) 3 ml NEB ONETIME ONE Stop: 05/12/21 12:41 Last Admin: 05/12/21 13:44 Dose: 3 ml Documented by: Albuterol/Ipratropium (Albuterol/Ipratropium 3.0-0.5 Mg/3 Ml Neb Soln) 3 ml NEB Q4HRRT PRN PRN Reason: Shortness Of Breath/wheezing Albuterol/Ipratropium (Albuterol/Ipratropium 3.0-0.5 Mg/3 Ml Neb Soln) 3 ml NEB Q6HR [facility] Last Admin: 05/13/21 12:21 Dose: 3 ml Documented by: Carvedilol (Carvedilol 6.25 Mg Tab) 6.25 mg PO BIDMEALS [facility] Last Admin: 05/13/21 08:09 Dose: 6.25 mg Documented by: Enoxaparin Sodium (Enoxaparin 40 Mg/0.4 Ml Syringe) 40 mg SUBCUT Q24H [facility] Last Admin: 05/12/21 17:21 Dose: 40 mg Documented by: Folic Acid (Folic Acid 1 Mg Tab) 1 mg PO DAILY [facility] Last Admin: 05/13/21 08:09 Dose: 1 mg Documented by: Magnesium Sulfate 4 gm/ Premix 100 mls @ 25 mls/hr IV ONETIME ONE Stop: 05/12/21 15:11 Last Admin: 05/12/21 11:21 Dose: 25 mls/hr Documented by: Pantoprazole Sodium 40 mg/ (Sodium Chloride) 10 mls @ 300 mls/hr IV DAILY [facility] Last Admin: 05/13/21 08:10 Dose: 300 mls/hr Documented by: Iopamidol (Iopamidol 755 Mg/Ml 500 Ml Multipack Bottle) 85 ml IVPUSH ONETIME STA Stop: 05/12/21 12:10 Last Admin: 05/12/21 12:11 Dose: 85 ml Documented by: Lorazepam (Lorazepam 2 Mg/Ml Sdv) 0 mg IVPUSH Q4H PRN; Protocol PRN Reason: Withdrawal Symptoms Last Admin: 05/13/21 00:15 Dose: 1 mg Documented by: Methylprednisolone Sodium Succinate (Methylprednisolone Sodium Succinate 125 Mg/2 Ml Sdv) 125 mg IVPUSH ONETIME ONE Stop: 05/12/21 12:41 Last Admin: 05/12/21 13:50 Dose: 125 mg Documented by: Prednisone (Prednisone 20 Mg Tab) 40 mg PO WITHBREAKFAST [facility] Last Admin: 05/13/21 08:08 Dose: 40 mg Documented by: Sodium Chloride (Sodium Chloride 0.9% 10 Ml Syringe) 10 ml FLUSH ASDIRECTED PRN PRN Reason: Keep Vein Open Last Admin: 05/12/21 11:06 Dose: 10 ml Documented by: Sodium Chloride (Sodium Chloride 0.9% 2.5 Ml Syringe) 2.5 ml FLUSH ASDIRECTED PRN PRN Reason: Keep Vein Open Last Admin: 05/12/21 11:22 Dose: 2.5 ml Documented by: Thiamine HCl (Thiamine 100 Mg Tab) 100 mg PO BEDTIME [facility] Last Admin: 05/12/21 21:01 Dose: 100 mg Documented by: - Free Text/Narrative Note: I have seen and examined the patient with the resident. I have discussed findings and treatment plan with resident. I agree with the assessment and plan as outlined in the following note.
== END 2021-05-13 12:35 | disposition home or self-care (01) ==
LOC: MW.ED 09:57 → MW.MS 14:05
PROVIDERS: ADMIT Internal Medicine; ATTEND Internal Medicine
DX: J44.1 Chronic obstructive pulmonary disease with (acute) exacerbation (principal); E83.42 Hypomagnesemia; R09.02 Hypoxemia; I10 Essential (primary) hypertension; K21.9 Gastro-esophageal reflux disease without esophagitis; E78.00 Pure hypercholesterolemia, unspecified; G47.30 Sleep apnea, unspecified; Z20.822 Contact with and (suspected) exposure to COVID-19; Z88.8 Allergy status to other drugs, medicaments and biological substances; Z91.018 Allergy to other foods; Z79.899 Other long term (current) drug therapy; Z79.82 Long term (current) use of aspirin; Z98.890 Other specified postprocedural states
CPT/HCPCS: 0240U; 36415; 71045; 71275; 80053; 81001; 83690; 83735; 84484; 85025; 85379; 93005; 94640; A9270; C9113; J1650; J2060; J2930; J3475; Q9967; J7620-GY

== ENCOUNTER 2021-07-15 15:18 | Emergency (ER) | payer MEDICARE, OTHER ==
--- NOTE | 2021-07-15 15:31 | EDM.PDOC ---
ED HPI GENERAL MEDICAL PROBLEM - General Chief Complaint: Respiratory Problem Stated Complaint: COUGH Time Seen by Provider: 07/15/21 15:19 Source of Information: Reports: Patient History Limitations: Reports: No Limitations - History of Present Illness INITIAL COMMENTS - FREE TEXT/NARRATIVE: 65-year-old male past medical history COPD not on home O2, alcoholism, hypertension presents for cough x3 days. Patient notes that his cough is minimally productive of green-yellow sputum. He notes subjective fevers. He denies chest pain. He notes a sore throat and sinus congestion. He has not had Covid. He has not been vaccinated. sore throat Pain Score (Numeric/FACES): 3 - Related Data Allergies Allergy/AdvReac Type Severity Reaction Status Date / Time lisinopril Allergy Difficulty Verified 07/15/21 15:26 Breathing losartan Allergy Difficulty Verified 07/15/21 15:26 Breathing potato Allergy Difficulty Verified 07/15/21 15:26 Breathing Home Meds: Home Meds Esomeprazole Magnesium [Heartburn Treatment] 20 mg PO ACDINNER 12/28/19 [History] carvediloL [Carvedilol] 6.25 mg PO BIDMEALS 12/28/19 [History] Folic Acid 1 mg PO DAILY #30 tablet 01/25/21 [Rx] Thiamine [Vitamin B-1] 100 mg PO BEDTIME #60 tab 01/25/21 [Rx] Magnesium Oxide/Magnesium [Magnesium] 200 mg PO BID 05/12/21 [History] Azithromycin 250 mg PO DAILY 5 Days #6 tablet 07/15/21 [Rx] predniSONE 40 mg PO DAILY 5 Days #10 tab 07/15/21 [Rx] Past Medical History - Past Health History Medical/Surgical History: Denies Medical/Surgical History HEENT History: Reports: Cataract, Other (See Below) Other HEENT History: has upper and lower dentures Cardiovascular History: Reports: Cardiomyopathy, High Cholesterol, Hypertension Other Cardiovascular History: L ventricle "doesn't work properly" Respiratory History: Reports: COPD, Sleep Apnea Other Respiratory History: CPAP - pt doesn't use due to claustrophobia Gastrointestinal History: Reports: GERD, PUD Other Gastrointestinal History: Claimed to have severe ulcer in hx, not present Genitourinary History: Reports: Renal Calculus Musculoskeletal History: Reports: Neck Pain, Chronic Neurological History: Reports: Concussion Psychiatric History: Reports: None Endocrine/Metabolic History: Reports: None Hematologic History: Reports: None Immunologic History: Reports: None Oncologic (Cancer) History: Reports: None Dermatologic History: Reports: None - Infectious Disease History Infectious Disease History: Reports: Chicken Pox, Measles, Mumps, Shingles - Past Surgical History Head Surgeries/Procedures: Reports: None HEENT Surgical History: Reports: Cataract Surgery Other HEENT Surgeries/Procedures: Fractured nose, cataract surgery bilateral eyes, constant dull roar in ears Respiratory Surgical History: Reports: None GI Surgical History: Reports: Appendectomy, Colonoscopy Other Male Surgeries/Procedures: pt. states always having blood in urine Endocrine Surgical History: Reports: None Other Endocrine Surgeries/Procedures: pt. states that holistic doctor states that his T3 levels is not normal and prescribed medication, but hospital doctor said it was normal Neurological Surgical History: Reports: None Other Neurological Surgeries/Procedures: pt. states that his feet are numb for years and gotten worse over the years leading to falls Other Musculoskeletal Surgeries/Procedures:: pt. states having a "crooked back" getting worse over the years Oncologic Surgical History: Reports: None Other Oncologic Surgeries/Procedures: dad - prostate cancer, mom - kidney cancer Dermatological Surgical History: Reports: None Social & Family History - Family History Family Medical History: No Pertinent Family History - Caffeine Use Caffeine Use: Reports: Coffee, Soda Caffeine Use Comment: 2-3/day - Living Situation & Occupation Living situation: Reports: Occupation: Employed ED ROS GENERAL - Review of Systems Review Of Systems: Comprehensive ROS is negative, except as noted in HPI. ED EXAM, GENERAL - Physical Exam Exam: See Below Exam Limited By: No Limitations General Appearance: Alert, WD/WN, No Apparent Distress Ears: Hearing Grossly Normal Nose: Normal Inspection Throat/Mouth: Normal Oropharynx, Normal Voice, No Airway Compromise Head: Atraumatic, Normocephalic Neck: Normal Inspection Respiratory/Chest: No Respiratory Distress, No Accessory Muscle Use, Wheezing Cardiovascular: Normal Peripheral Pulses, Tachycardia GI/Abdominal: Soft, Non-Tender Extremities: Normal Inspection Neurological: Alert, Normal Cognition, Normal Gait Psychiatric: Normal Affect, Normal Mood Skin Exam: Warm, Dry, Intact, Normal Color #1 Interpretation EKG Date: 07/15/21 Time: 15:51 Rhythm: NSR Rate (Beats/Min): 106 [place]: Normal P-Wave: Present QRS: Normal ST-T: Normal QT: Normal WI/PQ Interval: 167 EKG Interpretation Comments: Normal EKG Course - Vital Signs Last Recorded V/S: Last Vital Signs Temp 97.8 F 07/15/21 15:28 Pulse 102 H 07/15/21 17:07 Resp 16 07/15/21 17:07 BP 173/113 H 07/15/21 17:07 Pulse Ox 90 L 07/15/21 17:07 - Orders/Labs/Meds Orders: Active Orders 24 hr Category Date Time Status Pulse Oximetry [RC] ASDIRECTED Care 07/15/21 15:35 Active RT Aerosol Therapy [RC] ASDIRECTED Care 07/15/21 17:20 Active REFLEX LACTIC ACID YES OR NO [CHEM] Routine Lab 07/15/21 16:42 Received Saline Lock Insert [OM.PC] Stat Oth 07/15/21 15:35 Ordered Labs: Laboratory Tests 07/15/21 07/15/21 07/15/21 Range/Units 15:53 15:53 15:53 WBC 7.29 (4.0-11.0) K/uL RBC 4.50 (4.50-5.90) M/uL Hgb 14.8 (13.0-17.0) g/dL Hct 41.9 (38.0-50.0) % MCV 93.1 (80.0-98.0) fL MCH 32.9 H (27.0-32.0) pg MCHC 35.3 (31.0-37.0) g/dL RDW Std Deviation 53.3 (28.0-62.0) fl RDW Coeff of Monisha 15 (11.0-15.0) % Plt Count 183 (150-400) K/uL MPV 9.30 (7.40-12.00) fL Neut % (Auto) 73.0 (48.0-80.0) % Lymph % (Auto) 17.8 (16.0-40.0) % [place] % (Auto) 8.5 (0.0-15.0) % Eos % (Auto) 0.4 (0.0-7.0) % Baso % (Auto) 0.3 (0.0-1.5) % Neut # (Auto) 5.3 (1.4-5.7) K/uL Lymph # (Auto) 1.3 (0.6-2.4) K/uL [place] # (Auto) 0.6 (0.0-0.8) K/uL Eos # (Auto) 0.0 (0.0-0.7) K/uL Baso # (Auto) 0.0 (0.0-0.1) K/uL Nucleated RBC % 0.0 /100WBC Nucleated RBCs # 0 K/uL Sodium 137 (136-148) mmol/L Potassium 4.0 (3.5-5.1) mmol/L Chloride 96 L (98-107) mmol/L Carbon Dioxide 29.6 (21.0-32.0) mmol/L BUN 9 (7.0-18.0) mg/dL Creatinine 0.9 (0.8-1.3) mg/dL Est Cr Clr Drug Dosing 95.19 mL/min Estimated GFR (MDRD) > 60.0 ml/min Glucose 113 H (74-106) mg/dL Lactic Acid (0.4-2.0) mmol/L Calcium 8.5 (8.5-10.1) mg/dL Magnesium 1.4 L (1.8-2.4) mg/dL Total Bilirubin 0.7 (0.2-1.0) mg/dL AST 23 (15-37) IU/L ALT 22 (14-63) IU/L Alkaline Phosphatase 84 (46-116) U/L Troponin I < 0.050 (0.000-0.056) ng/mL C-Reactive Protein 14.30 H (0.00-0.90) mg/dL B-Natriuretic Peptide 22 (<100) PG/ML Total Protein 8.2 (6.4-8.2) g/dL Albumin 3.5 (3.4-5.0) g/dL Globulin 4.7 H (2.6-4.0) g/dL Albumin/Globulin Ratio 0.7 L (0.9-1.6) Ethyl Alcohol 24 mg/dL SARS-CoV-2 RNA (LAZARO) (NEGATIVE) 07/15/21 07/15/21 Range/Units 15:53 16:17 WBC (4.0-11.0) K/uL RBC (4.50-5.90) M/uL Hgb (13.0-17.0) g/dL Hct (38.0-50.0) % MCV (80.0-98.0) fL MCH (27.0-32.0) pg MCHC (31.0-37.0) g/dL RDW Std Deviation (28.0-62.0) fl RDW Coeff of Monisha (11.0-15.0) % Plt Count (150-400) K/uL MPV (7.40-12.00) fL Neut % (Auto) (48.0-80.0) % Lymph % (Auto) (16.0-40.0) % [place] % (Auto) (0.0-15.0) % Eos % (Auto) (0.0-7.0) % Baso % (Auto) (0.0-1.5) % Neut # (Auto) (1.4-5.7) K/uL Lymph # (Auto) (0.6-2.4) K/uL [place] # (Auto) (0.0-0.8) K/uL Eos # (Auto) (0.0-0.7) K/uL Baso # (Auto) (0.0-0.1) K/uL Nucleated RBC % /100WBC Nucleated RBCs # K/uL Sodium (136-148) mmol/L Potassium (3.5-5.1) mmol/L Chloride (98-107) mmol/L Carbon Dioxide (21.0-32.0) mmol/L BUN (7.0-18.0) mg/dL Creatinine (0.8-1.3) mg/dL Est Cr Clr Drug Dosing mL/min Estimated GFR (MDRD) ml/min Glucose (74-106) mg/dL Lactic Acid 2.3 H* (0.4-2.0) mmol/L Calcium (8.5-10.1) mg/dL Magnesium (1.8-2.4) mg/dL Total Bilirubin (0.2-1.0) mg/dL AST (15-37) IU/L ALT (14-63) IU/L Alkaline Phosphatase (46-116) U/L Troponin I (0.000-0.056) ng/mL C-Reactive Protein (0.00-0.90) mg/dL B-Natriuretic Peptide (<100) PG/ML Total Protein (6.4-8.2) g/dL Albumin (3.4-5.0) g/dL Globulin (2.6-4.0) g/dL Albumin/Globulin Ratio (0.9-1.6) Ethyl Alcohol mg/dL SARS-CoV-2 RNA (LAZARO) NEGATIVE (NEGATIVE) Meds: Medications Discontinued Medications Generic Name Dose Route Start Last Admin Trade Name Freq PRN Reason Stop Dose Admin Albuterol/Ipratropium 3 ml 07/15/21 17:19 07/15/21 17:47 Albuterol/Ipratropium 3.0-0.5 Mg/3 Ml Neb Soln NEB 07/15/21 17:20 3 ml ONETIME ONE Administration Sodium Chloride 1,000 mls @ 999 mls/hr 07/15/21 15:35 07/15/21 16:11 Normal Saline IV 07/15/21 16:35 999 mls/hr .Bolus ONE Administration Magnesium Sulfate 2 gm/ Premix 50 mls @ 50 mls/hr 07/15/21 16:52 07/15/21 17:14 IV 07/15/21 17:51 50 mls/hr ONETIME ONE Administration Lorazepam 1 mg 07/15/21 15:35 07/15/21 16:11 Lorazepam 2 Mg/Ml Sdv IVPUSH 07/15/21 15:36 1 mg ONETIME ONE Administration Methylprednisolone Sodium Succinate 125 mg 07/15/21 15:35 07/15/21 16:11 Methylprednisolone Sodium Succinate 125 Mg/2 Ml Sdv IVPUSH 07/15/21 15:36 125 mg ONETIME ONE Administration - Re-Assessments/Exams Free Text/Narrative Re-Assessment/Exam: 07/15/21 17:20 Patient's labs show an elevated CRP, mildly elevated lactate, hypomagnesemia. Chest x-ray is unremarkable. Covid swabbing is negative. Will give DuoNeb treatment. Will give additional liter of IV fluid bolus. Anticipate discharge home for treatment of COPD exacerbation. Departure - Departure Time of Disposition: 17:55 Disposition: Home, Self-Care 01 Condition: Good Clinical Impression: COPD exacerbation, Hypomagnesemia - Discharge Information Prescriptions: Azithromycin 250 mg PO DAILY 5 Days #6 tablet predniSONE 40 mg PO DAILY 5 Days #10 tab Instructions: Chronic Obstructive Pulmonary Disease Exacerbation, [id number] Referrals: Hill Walters MD [Primary Care Provider] - Forms: ED Department Discharge Additional Instructions: Your labs revealed evidence of dehydration, inflammation. No evidence of infection, your Covid test was negative and your chest x-ray does not show any pneumonia. I did give you some magnesium through the IV line as well as some fluids. I gave you some medicine to help prevent alcohol withdrawal. I prescribed you an antibiotic for the next 5 days as well as a steroid. You should follow-up with your primary care physician. You should get a Covid vaccination! You are at extremely high risk of if you get Covid, you have very unhealthy lungs. We do not have any good medications to treat Covid. We are seeing hundreds of thousands of people from Covid. Personally I've seen at least a few dozen. It is nearly completely preventable with a safe and effective vaccine that is completely free. Thousands of people worked around the clock last year to develop this vaccination and literally save the world. Please thank them further work by getting the vaccine. The following information is given to patients seen in the emergency department who are being discharged to home. This information is to outline your options for follow-up care. We provide all patients seen in our emergency department with a follow-up referral. The need for follow-up, as well as the timing and circumstances, are variable depending upon the specifics of your emergency department visit. If you don't have a primary care physician on staff, we will provide you with a referral. We always advise you to contact your personal physician following an emergency department visit to inform them of the circumstance of the visit and for follow-up with them and/or the need for any referrals to a consulting specialist. The emergency department will also refer you to a specialist when appropriate. This referral assures that you have the opportunity for follow-up care with a specialist. All of these measure are taken in an effort to provide you with optimal care, which includes your follow-up. Under all circumstances we always encourage you to contact your private physician who remains a resource for coordinating your care. When calling for follow-up care, please make the office aware that this follow-up is from your recent emergency room visit. If for any reason you are refused follow-up, please contact the [facility] Emergency Department at and asked to speak to the emergency department charge nurse. Please follow up with your primary care physician. If you do not have a primary care physician, see below: [facility] [address] [place] [address] My [facility] [address] [place] [address] [facility] [address] [place] [address] Sepsis Event Note (ED) - Focused Exam Vital Signs: Vital Signs Temp Pulse Resp BP Pulse Ox 07/15/21 17:07 102 H 16 173/113 H 90 L 07/15/21 15:28 97.8 F 111 H 20 175/109 H 94 L - My Orders Last 24 Hours: My Active Orders 07/15/21 15:35 Pulse Oximetry [RC] ASDIRECTED Saline Lock Insert [OM.PC] Stat 07/15/21 16:42 REFLEX LACTIC ACID YES OR NO [CHEM] Routine 07/15/21 17:20 RT Aerosol Therapy [RC] ASDIRECTED - Assessment/Plan Last 24 Hours: My Active Orders 07/15/21 15:35 Pulse Oximetry [RC] ASDIRECTED Saline Lock Insert [OM.PC] Stat 07/15/21 16:42 REFLEX LACTIC ACID YES OR NO [CHEM] Routine 07/15/21 17:20 RT Aerosol Therapy [RC] ASDIRECTED
[2021-07-15] MEDS ORDERED: Sodium Chloride 0.9% 1,000 ML IV ONE (15:35)
[2021-07-15] MEDS ORDERED: methylPREDNISolone Sodium Succinate 125 MG/2 ML SDV IVPUSH ONE (15:35)
[2021-07-15] MEDS ORDERED: LORazepam 2 MG/ML SDV IVPUSH ONE (15:35)
--- NOTE | 2021-07-15 15:59 | CR ---
INDICATION: Shortness of breath TECHNIQUE: Single view chest. FINDINGS: The lungs are clear. The heart, mediastinum and pulmonary vessels are of normal size. There is no evidence of pleural disease. IMPRESSION: Negative chest. Dictated by Randa Cheung MD @ 07/15/2021 3:57:59 PM (Electronically Signed)
[2021-07-15 16:31] LABS: BLOOD UREA NITROGEN,BUN 9 mg/dL (7.0-18.0); CARBON DIOXIDE,CO2 29.6 mmol/L (21.0-32.0); CHLORIDE,CL 96 mmol/L (98-107); GLUCOSE RANDOM 113 mg/dL (74-106); SODIUM,NA 137 mmol/L (136-148)
[2021-07-15] MEDS ORDERED: Magnesium Sulfate/Water 2 GM in Premix Bag 1 BAG IV ONE (16:52)
[2021-07-15] MEDS ORDERED: Albuterol/Ipratropium 3.0-0.5 MG/3 ML Neb Soln NEB ONE (17:19)
[2021-07-15 20:22] VITALS: BP 165/97; PULSE 103
== END 2021-07-15 20:21 | disposition home or self-care (01) ==
LOC: MW.ED 15:18
DX: J44.1 Chronic obstructive pulmonary disease with (acute) exacerbation (principal); E83.42 Hypomagnesemia; I11.9 Hypertensive heart disease without heart failure; E78.00 Pure hypercholesterolemia, unspecified; Z91.018 Allergy to other foods; Z88.8 Allergy status to other drugs, medicaments and biological substances; Z20.822 Contact with and (suspected) exposure to COVID-19
CPT/HCPCS: 36415; 71045; 80053; 80307; 83605; 83735; 83880; 84484; 85025; 86140; 93005; 96365; 96366; 96375; 99284; J2060; J2930; J3475; J7030; U0002; 93010; J7620-GY

== ENCOUNTER 2021-10-02 18:26 | Emergency (ER) | payer MEDICARE, OTHER ==
[2021-10-02] MEDS ORDERED: Ondansetron 4 MG/2 ML SDV IVPUSH ONE (21:06)
[2021-10-02] MEDS ORDERED: Sodium Chloride 0.9% 10 ML Syringe FLUSH PRN (21:06)
[2021-10-02] MEDS ORDERED: Sodium Chloride 0.9% 1,000 ML IV ONE (21:06)
[2021-10-02] MEDS ORDERED: Ketorolac 15 MG/ML SDV IVPUSH ONE (21:06)
[2021-10-02] MEDS ORDERED: Sodium Chloride 0.9% 2.5 ML Syringe FLUSH PRN (21:06)
[2021-10-02] MEDS ORDERED: Ketorolac 30 MG/ML SDV ONE (21:22)
[2021-10-02] MEDS ORDERED: Ketorolac 30 MG/ML SDV IVPUSH ONE (21:33)
[2021-10-02 21:37] VITALS: PULSE 82
[2021-10-02 22:09] LABS: BLOOD UREA NITROGEN,BUN 6 mg/dL (7.0-18.0); CARBON DIOXIDE,CO2 29.5 mmol/L (21.0-32.0); CHLORIDE,CL 96 mmol/L (98-107); GLUCOSE RANDOM 96 mg/dL (74-106); POTASSIUM,K 3.8 mmol/L (3.5-5.1); SODIUM,NA 133 mmol/L (136-148)
--- NOTE | 2021-10-02 22:27 | EDM.PDOC ---
ED HPI GENERAL MEDICAL PROBLEM - General Chief Complaint: Headache Stated Complaint: CLUSTER HEAD ACHES CHEST PAIN SOB Time Seen by Provider: 10/02/21 20:56 - History of Present Illness INITIAL COMMENTS - FREE TEXT/NARRATIVE: History of present illness: [] Patient with a history of cluster headaches has had multiple neurologist and multiple times. He has a cluster headache now. He drinks to try to get rid of it and this time he did work. He also feels like he is dehydrated multiple times he has had electrolyte abnormality. Review of systems: As per history of present illness and below otherwise all systems reviewed and negative. Past medical history: As per history of present illness and as reviewed below otherwise noncontributory. Surgical history: As per history of present illness and as reviewed below otherwise noncontributory. Social history: No reported history of drug or alcohol abuse. Family history: As per history of present illness and as reviewed below otherwise noncontributory. Physical exam: Constitutional - well developed, well-nourished and in no acute distress HEENT - normocephalic, no evidence of trauma - external nose and mouth normal - no mass in neck and no JVD - mucosae moist EYES - full EOM, PERRL, no icterus - no evidence of inflammation, injection, or drainage Respiratory - no respiratory distress, equal bilateral expansion, lungs clear to auscultation and no abnormal lung sounds Cardiovascular - Regular Rhythm with S1 and S2 appreciated and no murmur, gallop or rub. GI - abdomen soft without distension or organomegaly - normal bowel sounds - no guard or rebound Musculoskeletal no gross deformity of long bones or joints - no tenderness, swelling or edema Neurologic - Alert and oriented times four - CN II-XII grossly intact - motor sensory and coordination symmetrically normal Psychiatric - appropriate mood and affect with normal thought content Hematologic - No petechiae or purpura - mucosa appropriate color and sclera not pale - normal nail bed color and refill Integument - no rash or evidence of trauma - normal turgor Diagnostics: [] Therapeutics: [] Impression: [] Plan: [] Definitive disposition and diagnosis as appropriate pending reevaluation and review of above. Headache Pain Score (Numeric/FACES): 12 - Related Data Allergies Allergy/AdvReac Type Severity Reaction Status Date / Time lisinopril Allergy Difficulty Verified 10/02/21 19:53 Breathing losartan Allergy Difficulty Verified 10/02/21 19:53 Breathing potato Allergy Difficulty Verified 10/02/21 19:53 Breathing Past Medical History - Past Health History Medical/Surgical History: Denies Medical/Surgical History HEENT History: Reports: Cataract, Other (See Below) Other HEENT History: has upper and lower dentures Cardiovascular History: Reports: Cardiomyopathy, High Cholesterol, Hypertension Other Cardiovascular History: L ventricle "doesn't work properly" Respiratory History: Reports: COPD, Sleep Apnea Other Respiratory History: CPAP - pt doesn't use due to claustrophobia Gastrointestinal History: Reports: GERD, PUD Other Gastrointestinal History: Claimed to have severe ulcer in hx, not present Genitourinary History: Reports: Renal Calculus Musculoskeletal History: Reports: Neck Pain, Chronic Neurological History: Reports: Concussion Psychiatric History: Reports: None Endocrine/Metabolic History: Reports: None Hematologic History: Reports: None Immunologic History: Reports: None Oncologic (Cancer) History: Reports: None Dermatologic History: Reports: None - Infectious Disease History Infectious Disease History: Reports: Chicken Pox, Measles, Mumps, Shingles - Past Surgical History Head Surgeries/Procedures: Reports: None HEENT Surgical History: Reports: Cataract Surgery Other HEENT Surgeries/Procedures: Fractured nose, cataract surgery bilateral eyes, constant dull roar in ears Respiratory Surgical History: Reports: None GI Surgical History: Reports: Appendectomy, Colonoscopy Other Male Surgeries/Procedures: pt. states always having blood in urine Endocrine Surgical History: Reports: None Other Endocrine Surgeries/Procedures: pt. states that holistic doctor states that his T3 levels is not normal and prescribed medication, but hospital doctor said it was normal Neurological Surgical History: Reports: None Other Neurological Surgeries/Procedures: pt. states that his feet are numb for years and gotten worse over the years leading to falls Other Musculoskeletal Surgeries/Procedures:: pt. states having a "crooked back" getting worse over the years Oncologic Surgical History: Reports: None Other Oncologic Surgeries/Procedures: dad - prostate cancer, mom - kidney cancer Dermatological Surgical History: Reports: None Social & Family History - Family History Family Medical History: No Pertinent Family History - Caffeine Use Caffeine Use: Reports: Soda Caffeine Use Comment: 2-3/day - Living Situation & Occupation Living situation: Reports: Occupation: Employed ED ROS GENERAL - Review of Systems Review Of Systems: Comprehensive ROS is negative, except as noted in HPI. ED EXAM, GENERAL - Physical Exam Exam: See Below Free Text/Narrative:: My physical exam is in the HPI Course - Vital Signs Last Recorded V/S: Last Vital Signs Temp 36.7 C 10/02/21 19:55 Pulse 82 10/02/21 21:36 Resp 18 10/02/21 21:36 BP 116/71 10/02/21 21:36 Pulse Ox 100 10/02/21 21:36 - Orders/Labs/Meds Orders: Active Orders 24 hr Category Date Time Status Communication Order [RC] STAT Care 10/02/21 21:09 Active Oxygen Therapy Adult [Oxygen Therapy, ED] [RC] Care 10/02/21 21:08 Active ASDIRECTED Sodium Chloride 0.9% [Saline Flush] Med 10/02/21 21:06 Active 10 ml FLUSH ASDIRECTED PRN Sodium Chloride 0.9% [Saline Flush] Med 10/02/21 21:06 Active 2.5 ml FLUSH ASDIRECTED PRN Saline Lock Insert [OM.PC] Stat Oth 10/02/21 21:06 Ordered Medication Orders Sodium Chloride (Sodium Chloride 0.9% 10 Ml Syringe) 10 ml FLUSH ASDIRECTED PRN PRN Reason: Keep Vein Open Sodium Chloride (Sodium Chloride 0.9% 2.5 Ml Syringe) 2.5 ml FLUSH ASDIRECTED PRN PRN Reason: Keep Vein Open Labs: Laboratory Tests 10/02/21 10/02/21 Range/Units 21:30 21:30 WBC 5.02 (4.0-11.0) K/uL RBC 3.87 L (4.50-5.90) M/uL Hgb 12.2 L (13.0-17.0) g/dL Hct 34.9 L (38.0-50.0) % MCV 90.2 (80.0-98.0) fL MCH 31.5 (27.0-32.0) pg MCHC 35.0 (31.0-37.0) g/dL RDW Std Deviation 54.1 (28.0-62.0) fl RDW Coeff of Monisha 17 H (11.0-15.0) % Plt Count 139 L (150-400) K/uL MPV 9.00 (7.40-12.00) fL Neut % (Auto) 56.3 (48.0-80.0) % Lymph % (Auto) 34.5 (16.0-40.0) % [place] % (Auto) 8.0 (0.0-15.0) % Eos % (Auto) 0.6 (0.0-7.0) % Baso % (Auto) 0.6 (0.0-1.5) % Neut # (Auto) 2.8 (1.4-5.7) K/uL Lymph # (Auto) 1.7 (0.6-2.4) K/uL [place] # (Auto) 0.4 (0.0-0.8) K/uL Eos # (Auto) 0.0 (0.0-0.7) K/uL Baso # (Auto) 0.0 (0.0-0.1) K/uL Nucleated RBC % 0.0 /100WBC Nucleated RBCs # 0 K/uL Sodium 133 L (136-148) mmol/L Potassium 3.8 (3.5-5.1) mmol/L Chloride 96 L (98-107) mmol/L Carbon Dioxide 29.5 (21.0-32.0) mmol/L BUN 6 L (7.0-18.0) mg/dL Creatinine 0.7 L (0.8-1.3) mg/dL Est Cr Clr Drug Dosing 120.71 mL/min Estimated GFR (MDRD) > 60.0 ml/min Glucose 96 (74-106) mg/dL Calcium 8.0 L (8.5-10.1) mg/dL Total Bilirubin 0.4 (0.2-1.0) mg/dL AST 32 (15-37) IU/L ALT 43 (14-63) IU/L Alkaline Phosphatase 60 (46-116) U/L Total Protein 7.1 (6.4-8.2) g/dL Albumin 3.1 L (3.4-5.0) g/dL Globulin 4.0 (2.6-4.0) g/dL Albumin/Globulin Ratio 0.8 L (0.9-1.6) Meds: Medications Generic Name Dose Route Start Last Admin Trade Name Freq PRN Reason Stop Dose Admin Sodium Chloride 10 ml 10/02/21 21:06 Sodium Chloride 0.9% 10 Ml Syringe FLUSH ASDIRECTED PRN Keep Vein Open Sodium Chloride 2.5 ml 10/02/21 21:06 Sodium Chloride 0.9% 2.5 Ml Syringe FLUSH ASDIRECTED PRN Keep Vein Open Discontinued Medications Generic Name Dose Route Start Last Admin Trade Name Jin PRN Reason Stop Dose Admin Sodium Chloride 1,000 mls @ 999 mls/hr 10/02/21 21:06 10/02/21 21:33 Normal Saline IV 10/02/21 22:06 999 mls/hr .Bolus ONE Administration Ketorolac Tromethamine 15 mg 10/02/21 21:06 10/02/21 21:38 Ketorolac 15 Mg/Ml Sdv IVPUSH 10/02/21 21:07 Not Given ONETIME ONE Ketorolac Tromethamine Confirm 10/02/21 21:22 10/02/21 21:38 Ketorolac 30 Mg/Ml Sdv Administered 10/02/21 21:23 Not Given Dose 30 mg .ROUTE .STK-MED ONE Ketorolac Tromethamine 15 mg 10/02/21 21:33 10/02/21 21:34 Ketorolac 30 Mg/Ml Sdv IVPUSH 10/02/21 21:34 15 mg ONETIME ONE Administration Ondansetron HCl 4 mg 10/02/21 21:06 10/02/21 21:33 Ondansetron 4 Mg/2 Ml Sdv IVPUSH 10/02/21 21:07 4 mg ONETIME ONE Administration - Re-Assessments/Exams Free Text/Narrative Re-Assessment/Exam: 10/02/21 22:26 After oxygen hydration the medication the patient feels better. Departure - Departure Time of Disposition: 22:26 Disposition: Home, Self-Care 01 Condition: Good Clinical Impression: Cluster headache syndrome - Discharge Information Instructions: Cluster Headache Referrals: Hill Walters MD [Primary Care Provider] - Additional Instructions: Make an appointment with neurology [facility] - Neurology Professional Building [address] [place] [address], [address] [place] [address] [facility] [address] [address] [id number] [place] [address] The following information is given to patients seen in the emergency department who are being discharged to home. This information is to outline your options for follow-up care. We provide all patients seen in our emergency department with a follow-up referral. The need for follow-up, as well as the timing and circumstances, are variable depending upon the specifics of your emergency department visit. If you don't have a primary care physician on staff, we will provide you with a referral. We always advise you to contact your personal physician following an emergency department visit to inform them of the circumstance of the visit and for follow-up with them and/or the need for any referrals to a consulting specialist. The emergency department will also refer you to a specialist when appropriate. This referral assures that you have the opportunity for follow-up care with a specialist. All of these measure are taken in an effort to provide you with optimal care, which includes your follow-up. Under all circumstances we always encourage you to contact your private physician who remains a resource for coordinating your care. When calling for follow-up care, please make the office aware that this follow-up is from your recent emergency room visit. If for any reason you are refused follow-up, please contact the [facility] Emergency Department at and asked to speak to the emergency department charge nurse. Sepsis Event Note (ED) - Evaluation Sepsis Screening Result: No Definite Risk - Focused Exam Vital Signs: Vital Signs Temp Pulse Resp BP Pulse Ox 10/02/21 21:36 82 18 116/71 100 10/02/21 19:55 36.7 C 92 16 134/75 97 - My Orders Last 24 Hours: My Active Orders 10/02/21 21:06 Sodium Chloride 0.9% [Saline Flush] 10 ml FLUSH ASDIRECTED PRN Sodium Chloride 0.9% [Saline Flush] 2.5 ml FLUSH ASDIRECTED PRN Saline Lock Insert [OM.PC] Stat 10/02/21 21:08 Oxygen Therapy Adult [Oxygen Therapy, ED] [RC] ASDIRECTED 10/02/21 21:09 Communication Order [RC] STAT - Assessment/Plan Last 24 Hours: My Active Orders 10/02/21 21:06 Sodium Chloride 0.9% [Saline Flush] 10 ml FLUSH ASDIRECTED PRN Sodium Chloride 0.9% [Saline Flush] 2.5 ml FLUSH ASDIRECTED PRN Saline Lock Insert [OM.PC] Stat 10/02/21 21:08 Oxygen Therapy Adult [Oxygen Therapy, ED] [RC] ASDIRECTED 10/02/21 21:09 Communication Order [RC] STAT
[2021-10-02 22:51] VITALS: BP 104/68
== END 2021-10-02 22:51 | disposition home or self-care (01) ==
LOC: MW.ED 18:26
DX: G44.009 Cluster headache syndrome, unspecified, not intractable (principal); I10 Essential (primary) hypertension; J44.9 Chronic obstructive pulmonary disease, unspecified; Z88.8 Allergy status to other drugs, medicaments and biological substances; Z91.018 Allergy to other foods
CPT/HCPCS: 36415; 80053; 85025; 96374; 96375; 99284; J1885; J2405; J7030

== ENCOUNTER 2021-10-05 14:28 | Inpatient (IN) | payer MEDICARE, OTHER ==
[2021-10-05] MEDS ORDERED: Ondansetron 4 MG/2 ML SDV IVPUSH ONE (14:41)
[2021-10-05] MEDS ORDERED: Sodium Chloride 0.9% 1,000 ML IV ONE ×3 (14:41→16:29)
--- NOTE | 2021-10-05 14:41 | PCM.EKG ---
#1 Interpretation EKG Date: 10/05/21 Time: 14:31 Rhythm: NSR Rate (Beats/Min): 98 [place]: Normal P-Wave: Present QRS: Normal ST-T: Normal QT: Normal IN/PQ Interval: 144 EKG Interpretation Comments: normal EKG
[2021-10-05] MEDS ORDERED: Ketorolac 30 MG/ML SDV IVPUSH ONE (14:47)
--- NOTE | 2021-10-05 14:47 | EDM.PDOC ---
ED HPI GENERAL MEDICAL PROBLEM - General Chief Complaint: General Stated Complaint: WEAK TIRED Time Seen by Provider: 10/05/21 14:29 Source of Information: Reports: Patient History Limitations: Reports: No Limitations - History of Present Illness INITIAL COMMENTS - FREE TEXT/NARRATIVE: HISTORY AND PHYSICAL: History of present illness: Patient is a 66-year-old male who has a past medical history of HTN, COPD, alcohol abuse, and cluster headaches (see's a neurologist). Today presents to the emergency room with 4-day history of nausea, vomiting, fatigue and headaches. Patient has a longstanding history of cluster headaches, which can cause him to have the nausea and vomiting. During these episodes of N/V he states his heart rate gets up to 140. He feels somewhat SOB, but this has been normal for him since being diagnosed with COVID-19 on 08/25/21 (out of quarantine). Today's headache is "typical" for him, it is not new or unusual. He has not been eating or drinking appropriately due to N/V. The reports he has multiple food intolerance due to dextrose and potato starches, she has not wanted to give him anything that would cause stomach upset. There is also conc erned he is constipated as he has not had a bowel movement in 4 days. States he is just "exhausted... I could barely walk in here I am so tired". Patient denies any fever, chills, change in vision, syncope or near syncope. Denies any chest pain, back pain or cough. Denies any abdominal pain, diarrhea or dysuria. Has not noted any blood in urine or stool. Review of systems: As per history of present illness and below otherwise all systems reviewed and negative. Past medical history: As per history of present illness and as reviewed below otherwise noncontributory. Surgical history: As per history of present illness and as reviewed below otherwise noncontributory. Social history: See social history for further information Family history: As per history of present illness and as reviewed below otherwise noncontributory. Physical exam: General: Well developed and well nourished 66 year old male. Alert and orientated x 3. Nontoxic in appearance and in no acute distress. Vital signs are stable and have been reviewed by me. Nursing notes were reviewed. HEENT: Atraumatic, normocephalic, pupils equal and reactive bilaterally, negative for conjunctival pallor or scleral icterus, mucous membranes dry/tacky, TMs normal bilaterally, throat clear, neck supple, nontender, trachea midline. No drooling or trismus noted. No meningeal signs. No hot potato voice noted. Lungs: Clear to auscultation bilaterally. No wheezes, rales, or rhonchi. Chest nontender. Normal work of breathing, no accessory muscles used. Heart: S1S2, regular rate and rhythm without overt murmur, gallops, or rubs. No JVD. No peripheral edema Abdomen: Soft, nondistended, nontender. Normoactive bowel sounds. Negative for masses or costovertebral tenderness. Skin: Intact, warm, dry. No lesions or rashes noted. Hematologic: No petechiae or purpra. Mucosa appropriate color and normal nail bed color and refill. Extremities: Atraumatic, moves all extremities per self without difficulty or deficits, negative for cords or calf pain. Neurovascular unremarkable. Neuro: Awake, alert, oriented. Cranial nerves II through XII unremarkable. Cerebellum unremarkable. Motor and sensory unremarkable throughout. Exam nonfocal. Psychiatric: Mood and affect are appropriate. Normal thought process. Answering questions appropriately. Please note that the patient was seen and evaluated during the 2019 SARS-CoV-2 novel coronavirus pandemic period. Community viral transmission is ongoing at time of this encounter and the emergency department is operating under pandemic response procedures. Medical Decision Making: Patient is a 66-year-old male who presents to the emergency room with his with multiple complaints. His main concerns today is generalized fatigue, nausea, vomiting and headache x4 days. Patient states these are not new symptoms although it has not been able to treat with [id number] remedies or prescribed medications. Patient was diagnosed with COVID-19 on 08/25/2021 and since has had mild shortness of breath. Upon arrival his oxygen saturation is 90% on room air. He denies any chest pain or abdominal pain. Due to vague symptoms we will do full cardiac work-up with EKG and chest x-ray. Patient does have a lactate above 4, blood cultures have been added. This could be due to severe dehydration, at this time I am not can do any antibiotics but will continue to monitor. CT of chest has been added due to the D-dimer elevation. This could also be falsely elevated due to his recent COVID-19 diagnoses. Will rule out PE with scan. Chest x-ray shows bilateral pulmonary hyperinflation and lucency noted, suggestive of moderate, stable pulmonary emphysema. Negative troponin. Negative TSH and monoscreen. VSS. CT chest is pending at this time. CT chest shows that there is no finding of pulmonary embolus. Mild to moderate upper lobe predominant centrilobular and paraseptal emphysema. Mild patchy multifocal ground-glass, especially on the right. This is new since May 12 and is likely inflammatory. Patient did have a repeat EKG due to chest pain after walking to the bathroom. EKG shows no changes or concerns. I spoke with Dr Cheng, hospitalist on-call, who is agreeable to accepting this patient. He doesn't want this patient on telemetry at this time. I have talked with the patient about today's findings, in addition to providing specific details for plan of care. Reassessment at the time of disposition demonstrates that the patient is in no acute distress. Patient is agreeable to plan of care. Diagnostics: CBC, CMP, Lipase, UA, Troponin, EKG, CXR, Lactate, CT chest Therapeutics: IV fluids, Zofran, Toradol Impression: Dehydration Lacticacidosis Definitive disposition and diagnosis as appropriate pending reevaluation and review of above. headache Pain Score (Numeric/FACES): 6 - Related Data Allergies Allergy/AdvReac Type Severity Reaction Status Date / Time lisinopril Allergy Difficulty Verified 10/02/21 19:53 Breathing losartan Allergy Difficulty Verified 10/02/21 19:53 Breathing potato Allergy Difficulty Verified 10/02/21 19:53 Breathing Past Medical History - Past Health History Medical/Surgical History: Denies Medical/Surgical History HEENT History: Reports: Cataract, Other (See Below) Other HEENT History: has upper and lower dentures Cardiovascular History: Reports: Cardiomyopathy, High Cholesterol, Hypertension Other Cardiovascular History: L ventricle "doesn't work properly" Respiratory History: Reports: COPD, Sleep Apnea Other Respiratory History: CPAP - pt doesn't use due to claustrophobia Gastrointestinal History: Reports: GERD, PUD Other Gastrointestinal History: Claimed to have severe ulcer in hx, not present Genitourinary History: Reports: Renal Calculus Musculoskeletal History: Reports: Neck Pain, Chronic Neurological History: Reports: Concussion Psychiatric History: Reports: None Endocrine/Metabolic History: Reports: None Hematologic History: Reports: None Immunologic History: Reports: None Oncologic (Cancer) History: Reports: None Dermatologic History: Reports: None - Infectious Disease History Infectious Disease History: Reports: Chicken Pox, Measles, Mumps, Shingles - Past Surgical History Head Surgeries/Procedures: Reports: None HEENT Surgical History: Reports: Cataract Surgery Other HEENT Surgeries/Procedures: Fractured nose, cataract surgery bilateral eyes, constant dull roar in ears Respiratory Surgical History: Reports: None GI Surgical History: Reports: Appendectomy, Colonoscopy Other Male Surgeries/Procedures: pt. states always having blood in urine Endocrine Surgical History: Reports: None Other Endocrine Surgeries/Procedures: pt. states that holistic doctor states that his T3 levels is not normal and prescribed medication, but hospital doctor said it was normal Neurological Surgical History: Reports: None Other Neurological Surgeries/Procedures: pt. states that his feet are numb for years and gotten worse over the years leading to falls Other Musculoskeletal Surgeries/Procedures:: pt. states having a "crooked back" getting worse over the years Oncologic Surgical History: Reports: None Other Oncologic Surgeries/Procedures: dad - prostate cancer, mom - kidney cancer Dermatological Surgical History: Reports: None Social & Family History - Family History Family Medical History: No Pertinent Family History - Caffeine Use Caffeine Use: Reports: Soda Caffeine Use Comment: 2-3/day - Living Situation & Occupation Living situation: Reports: Occupation: Employed ED ROS GENERAL - Review of Systems Review Of Systems: Comprehensive ROS is negative, except as noted in HPI. ED EXAM, GENERAL - Physical Exam Exam: See Below (See dictation) Course - Vital Signs Last Recorded V/S: Last Vital Signs Temp 98.1 F 10/05/21 14:40 Pulse 106 H 10/05/21 14:40 Resp 20 10/05/21 14:40 BP 139/94 H 10/05/21 14:40 Pulse Ox 93 L 10/05/21 14:40 - Orders/Labs/Meds Orders: Active Orders 24 hr Category Date Time Status Admission Status [Patient Status] [ADT] Stat ADT 10/05/21 17:24 Ordered Oxygen Therapy [RC] PRN Care 10/05/21 17:23 Active VTE/DVT Education [RC] PER UNIT ROUTINE Care 10/05/21 17:23 Active Vital Signs [RC] Q4H Care 10/05/21 17:23 Active Regular Diet [DIET] Diet 10/05/21 Dinner Active BASIC METABOLIC PANEL,BMP [CHEM] AM Lab 10/06/21 05:11 Ordered CBC WITH AUTO DIFF [HEME] AM Lab 10/06/21 05:11 Ordered CULTURE BLOOD [BC] Stat Lab 10/05/21 15:34 Received CULTURE BLOOD [BC] Stat Lab 10/05/21 16:22 Received REFLEX LACTIC ACID YES OR NO [CHEM] Routine Lab 10/05/21 15:21 Received TROPONIN I [CHEM] Stat Lab 10/05/21 16:58 Received Acetaminophen [TylenoL] Med 10/05/21 17:22 Ordered 650 mg PO Q4H PRN Sodium Chloride 0.9% [Normal Saline] 1,000 ml Med 10/05/21 17:30 Ordered IV ASDIRECTED Sodium Chloride 0.9% [Normal Saline] 1,000 ml Med 10/05/21 16:29 Active IV STAT Blood Culture x2 Reflex Set [OM.PC] Stat Oth 10/05/21 15:22 Ordered Resuscitation Status Routine Resus Stat 10/05/21 17:22 Ordered Medication Orders Acetaminophen (Acetaminophen 325 Mg Tab) 650 mg PO Q4H PRN PRN Reason: Pain (Mild 1-3)/fever Sodium Chloride (Normal Saline) 1,000 mls @ 150 mls/hr IV STAT ONE Stop: 10/05/21 23:08 Labs: Laboratory Tests 10/05/21 10/05/21 10/05/21 Range/Units 14:48 14:48 14:48 WBC 3.51 L (4.0-11.0) K/uL RBC 4.18 L (4.50-5.90) M/uL Hgb 13.0 (13.0-17.0) g/dL Hct 38.1 (38.0-50.0) % MCV 91.1 (80.0-98.0) fL MCH 31.1 (27.0-32.0) pg MCHC 34.1 (31.0-37.0) g/dL RDW Std Deviation 55.7 (28.0-62.0) fl RDW Coeff of Monisha 17 H (11.0-15.0) % Plt Count 90 L (150-400) K/uL MPV 8.80 (7.40-12.00) fL Neut % (Auto) 71.2 (48.0-80.0) % Lymph % (Auto) 22.5 (16.0-40.0) % [place] % (Auto) 5.7 (0.0-15.0) % Eos % (Auto) 0.0 (0.0-7.0) % Baso % (Auto) 0.6 (0.0-1.5) % Neut # (Auto) 2.5 (1.4-5.7) K/uL Lymph # (Auto) 0.8 (0.6-2.4) K/uL [place] # (Auto) 0.2 (0.0-0.8) K/uL Eos # (Auto) 0.0 (0.0-0.7) K/uL Baso # (Auto) 0.0 (0.0-0.1) K/uL Nucleated RBC % 0.0 /100WBC Nucleated RBCs # 0 K/uL D-Dimer, Quantitative (0.0-0.50) mg/L FEU Sodium 136 (136-148) mmol/L Potassium 3.6 (3.5-5.1) mmol/L Chloride 95 L (98-107) mmol/L Carbon Dioxide 25.6 (21.0-32.0) mmol/L BUN 7 (7.0-18.0) mg/dL Creatinine 0.8 (0.8-1.3) mg/dL Est Cr Clr Drug Dosing 105.63 mL/min Estimated GFR (MDRD) > 60.0 ml/min Glucose 99 (74-106) mg/dL Lactic Acid 4.1 H* (0.4-2.0) mmol/L Calcium 9.1 (8.5-10.1) mg/dL Total Bilirubin 0.5 (0.2-1.0) mg/dL AST 48 H (15-37) IU/L ALT 55 (14-63) IU/L Alkaline Phosphatase 65 (46-116) U/L Troponin I < 0.050 (0.000-0.056) ng/mL B-Natriuretic Peptide (<100) PG/ML Total Protein 7.2 (6.4-8.2) g/dL Albumin 3.2 L (3.4-5.0) g/dL Globulin 4.0 (2.6-4.0) g/dL Albumin/Globulin Ratio 0.8 L (0.9-1.6) Lipase 98 (73-393) U/L TSH, Ultra Sensitive 0.48 (0.36-3.74) uIU/mL Urine Color Urine Appearance Urine pH (5.0-8.0) Ur Specific [place] (1.001-1.035) Urine Protein (NEGATIVE) mg/dL Urine Glucose (UA) (NEGATIVE) mg/dL Urine Ketones (NEGATIVE) mg/dL Urine Occult Blood (NEGATIVE) Urine Nitrite (NEGATIVE) Urine Bilirubin (NEGATIVE) Urine Urobilinogen (<2.0) EU/dL Ur Leukocyte Esterase (NEGATIVE) Urine RBC (0-2/HPF) Urine WBC (0-5/HPF) Ur Epithelial Cells (NONE-FEW) Urine Bacteria (NEGATIVE) Urine Mucus (NONE-MOD) Monoscreen (NEG) 10/05/21 10/05/21 10/05/21 Range/Units 14:48 14:48 14:48 WBC (4.0-11.0) K/uL RBC (4.50-5.90) M/uL Hgb (13.0-17.0) g/dL Hct (38.0-50.0) % MCV (80.0-98.0) fL MCH (27.0-32.0) pg MCHC (31.0-37.0) g/dL RDW Std Deviation (28.0-62.0) fl RDW Coeff of Monisha (11.0-15.0) % Plt Count (150-400) K/uL MPV (7.40-12.00) fL Neut % (Auto) (48.0-80.0) % Lymph % (Auto) (16.0-40.0) % [place] % (Auto) (0.0-15.0) % Eos % (Auto) (0.0-7.0) % Baso % (Auto) (0.0-1.5) % Neut # (Auto) (1.4-5.7) K/uL Lymph # (Auto) (0.6-2.4) K/uL [place] # (Auto) (0.0-0.8) K/uL Eos # (Auto) (0.0-0.7) K/uL Baso # (Auto) (0.0-0.1) K/uL Nucleated RBC % /100WBC Nucleated RBCs # K/uL D-Dimer, Quantitative 2.40 H (0.0-0.50) mg/L FEU Sodium (136-148) mmol/L Potassium (3.5-5.1) mmol/L Chloride (98-107) mmol/L Carbon Dioxide (21.0-32.0) mmol/L BUN (7.0-18.0) mg/dL Creatinine (0.8-1.3) mg/dL Est Cr Clr Drug Dosing mL/min Estimated GFR (MDRD) ml/min Glucose (74-106) mg/dL Lactic Acid (0.4-2.0) mmol/L Calcium (8.5-10.1) mg/dL Total Bilirubin (0.2-1.0) mg/dL AST (15-37) IU/L ALT (14-63) IU/L Alkaline Phosphatase (46-116) U/L Troponin I (0.000-0.056) ng/mL B-Natriuretic Peptide 53 (<100) PG/ML Total Protein (6.4-8.2) g/dL Albumin (3.4-5.0) g/dL Globulin (2.6-4.0) g/dL Albumin/Globulin Ratio (0.9-1.6) Lipase (73-393) U/L TSH, Ultra Sensitive (0.36-3.74) uIU/mL Urine Color Urine Appearance Urine pH (5.0-8.0) Ur Specific [place] (1.001-1.035) Urine Protein (NEGATIVE) mg/dL Urine Glucose (UA) (NEGATIVE) mg/dL Urine Ketones (NEGATIVE) mg/dL Urine Occult Blood (NEGATIVE) Urine Nitrite (NEGATIVE) Urine Bilirubin (NEGATIVE) Urine Urobilinogen (<2.0) EU/dL Ur Leukocyte Esterase (NEGATIVE) Urine RBC (0-2/HPF) Urine WBC (0-5/HPF) Ur Epithelial Cells (NONE-FEW) Urine Bacteria (NEGATIVE) Urine Mucus (NONE-MOD) Monoscreen NEGATIVE (NEG) 10/05/21 Range/Units 16:44 WBC (4.0-11.0) K/uL RBC (4.50-5.90) M/uL Hgb (13.0-17.0) g/dL Hct (38.0-50.0) % MCV (80.0-98.0) fL MCH (27.0-32.0) pg MCHC (31.0-37.0) g/dL RDW Std Deviation (28.0-62.0) fl RDW Coeff of Monisha (11.0-15.0) % Plt Count (150-400) K/uL MPV (7.40-12.00) fL Neut % (Auto) (48.0-80.0) % Lymph % (Auto) (16.0-40.0) % [place] % (Auto) (0.0-15.0) % Eos % (Auto) (0.0-7.0) % Baso % (Auto) (0.0-1.5) % Neut # (Auto) (1.4-5.7) K/uL Lymph # (Auto) (0.6-2.4) K/uL [place] # (Auto) (0.0-0.8) K/uL Eos # (Auto) (0.0-0.7) K/uL Baso # (Auto) (0.0-0.1) K/uL Nucleated RBC % /100WBC Nucleated RBCs # K/uL D-Dimer, Quantitative (0.0-0.50) mg/L FEU Sodium (136-148) mmol/L Potassium (3.5-5.1) mmol/L Chloride (98-107) mmol/L Carbon Dioxide (21.0-32.0) mmol/L BUN (7.0-18.0) mg/dL Creatinine (0.8-1.3) mg/dL Est Cr Clr Drug Dosing mL/min Estimated GFR (MDRD) ml/min Glucose (74-106) mg/dL Lactic Acid (0.4-2.0) mmol/L Calcium (8.5-10.1) mg/dL Total Bilirubin (0.2-1.0) mg/dL AST (15-37) IU/L ALT (14-63) IU/L Alkaline Phosphatase (46-116) U/L Troponin I (0.000-0.056) ng/mL B-Natriuretic Peptide (<100) PG/ML Total Protein (6.4-8.2) g/dL Albumin (3.4-5.0) g/dL Globulin (2.6-4.0) g/dL Albumin/Globulin Ratio (0.9-1.6) Lipase (73-393) U/L TSH, Ultra Sensitive (0.36-3.74) uIU/mL Urine Color YELLOW Urine Appearance CLEAR Urine pH 6.5 (5.0-8.0) Ur Specific [place] 1.010 (1.001-1.035) Urine Protein NEGATIVE (NEGATIVE) mg/dL Urine Glucose (UA) NEGATIVE (NEGATIVE) mg/dL Urine Ketones TRACE H (NEGATIVE) mg/dL Urine Occult Blood SMALL H (NEGATIVE) Urine Nitrite NEGATIVE (NEGATIVE) Urine Bilirubin NEGATIVE (NEGATIVE) Urine Urobilinogen 0.2 (<2.0) EU/dL Ur Leukocyte Esterase NEGATIVE (NEGATIVE) Urine RBC 1-3 (0-2/HPF) Urine WBC 0-1 (0-5/HPF) Ur Epithelial Cells OCCASIONAL (NONE-FEW) Urine Bacteria RARE (NEGATIVE) Urine Mucus LIGHT (NONE-MOD) Monoscreen (NEG) Meds: Medications Generic Name Dose Route Start Last Admin Trade Name Freq PRN Reason Stop Dose Admin Acetaminophen 650 mg 10/05/21 17:22 Acetaminophen 325 Mg Tab PO Q4H PRN Pain (Mild 1-3)/fever Sodium Chloride 1,000 mls @ 150 mls/hr 10/05/21 16:29 Normal Saline IV 10/05/21 23:08 STAT ONE Discontinued Medications Generic Name Dose Route Start Last Admin Trade Name Freq PRN Reason Stop Dose Admin Sodium Chloride 1,000 mls @ 999 mls/hr 10/05/21 14:41 10/05/21 14:46 Normal Saline IV 10/05/21 15:41 999 mls/hr STAT ONE Administration Sodium Chloride 1,000 mls @ 999 mls/hr 10/05/21 15:23 10/05/21 15:43 Normal Saline IV 10/05/21 16:23 999 mls/hr STAT ONE Administration Ketorolac Tromethamine 30 mg 10/05/21 14:47 10/05/21 15:42 Ketorolac 30 Mg/Ml Sdv IVPUSH 10/05/21 14:48 30 mg ONETIME ONE Administration Ondansetron HCl 4 mg 10/05/21 14:41 10/05/21 14:46 Ondansetron 4 Mg/2 Ml Sdv IVPUSH 10/05/21 14:42 4 mg ONETIME ONE Administration Departure - Departure Time of Disposition: 17:26 Disposition: Refer to Observation Clinical Impression: Dehydration, Lactic acidosis - Discharge Information Referrals: Hill Walters MD [Primary Care Provider] - Forms: ED Department Discharge Sepsis Event Note (ED) - Evaluation Sepsis Screening Result: No Definite Risk - Focused Exam Vital Signs: Vital Signs Temp Pulse Resp BP Pulse Ox 10/05/21 14:40 98.1 F 106 H 20 139/94 H 93 L - My Orders Last 24 Hours: My Active Orders 10/05/21 15:21 REFLEX LACTIC ACID YES OR NO [CHEM] Routine 10/05/21 15:22 Blood Culture x2 Reflex Set [OM.PC] Stat 10/05/21 15:34 CULTURE BLOOD [BC] Stat 10/05/21 16:22 CULTURE BLOOD [BC] Stat 10/05/21 16:29 Sodium Chloride 0.9% [Normal Saline] 1,000 ml IV STAT 10/05/21 16:58 TROPONIN I [CHEM] Stat 10/05/21 17:24 Admission Status [Patient Status] [ADT] Stat - Assessment/Plan Last 24 Hours: My Active Orders 10/05/21 15:21 REFLEX LACTIC ACID YES OR NO [CHEM] Routine 10/05/21 15:22 Blood Culture x2 Reflex Set [OM.PC] Stat 10/05/21 15:34 CULTURE BLOOD [BC] Stat 10/05/21 16:22 CULTURE BLOOD [BC] Stat 10/05/21 16:29 Sodium Chloride 0.9% [Normal Saline] 1,000 ml IV STAT 10/05/21 16:58 TROPONIN I [CHEM] Stat 10/05/21 17:24 Admission Status [Patient Status] [ADT] Stat
--- NOTE | 2021-10-05 15:09 | CR ---
INDICATION: Shortness of breath TECHNIQUE: Chest radiograph 1 view COMPARISON: 08/25/2021 FINDINGS: Mediastinum: The mediastinum is normal in appearance. The heart silhouette is normal in size and morphology. Lung: Bilateral pulmonary hyperinflation and lucency noted, suggestive of moderate, stable pulmonary emphysema. The right lateral costophrenic sulcus is partially excluded. No pneumothorax is identified. Bone and Soft tissue: Unremarkable for age. IMPRESSION: 1. Bilateral pulmonary hyperinflation and lucency noted, suggestive of moderate, stable pulmonary emphysema. Dictated by Herber Snyder MD @ 10/05/2021 3:08:30 PM Dictated by: Herber Snyder MD @ 10/05/2021 15:08:34 (Electronically Signed)
[2021-10-05 15:28] LABS: BLOOD UREA NITROGEN,BUN 7 mg/dL (7.0-18.0); CARBON DIOXIDE,CO2 25.6 mmol/L (21.0-32.0); CHLORIDE,CL 95 mmol/L (98-107); GLUCOSE RANDOM 99 mg/dL (74-106); LIPASE 98 U/L (73-393); POTASSIUM,K 3.6 mmol/L (3.5-5.1); SODIUM,NA 136 mmol/L (136-148)
--- NOTE | 2021-10-05 16:39 | CT ---
INDICATION: Dyspnea with elevated D-dimer. COMPARISON: May 12, 2021 TECHNIQUE: : CT examination of the chest was performed with the uneventful intravenous administration of 100 cc of Isovue 3 7 while thin axial sections were obtained from above the apices of the lungs to the lung bases. Please note that all CT scans at this facility use dose modulation, iterative reconstruction, and/or weight-based dosing when appropriate to reduce radiation dose to as low as reasonably achievable. FINDINGS: : HEART and MEDIASTINUM: Heart size normal. No mediastinal or hilar adenopathy or mass. No pericardial effusion. Atherosclerotic vascular calcifications. Small hiatal hernia. PULMONARY ARTERIAL CIRCULATION: There is no visible intraluminal filling defect to suggest pulmonary embolus. LUNGS: Mild to moderate upper lobe predominant centrilobular and paraseptal emphysema. Mild patchy ground-glass especially on the right. This is probably inflammatory. Consider the possibility of COVID. Ground-glass is new since May 12, 2021. PLEURAL SPACES: There is no pleural effusion, pneumothorax or pleural based mass. VISUALIZED UPPER ABDOMEN: Hepatic steatosis. OSSEOUS STRUCTURES: Age-appropriate appearance. No acute fracture or destructive process. TUBES and LINES: None. IMPRESSION: 1. There is no finding of pulmonary embolus. 2. Mild to moderate upper lobe predominant centrilobular and paraseptal emphysema. 3. Mild patchy multifocal ground-glass, especially on the right. This is new since May 12, 2021 and is likely inflammatory. Consider COVID related lung disease if clinically appropriate Please note that all CT scans at this facility use dose modulation, iterative reconstruction, and/or weight-based dosing when appropriate to reduce radiation dose to as low as reasonably achievable. Dictated by Andre Sethi MD @ 10/05/2021 4:38:28 PM (Electronically Signed)
--- NOTE | 2021-10-05 16:53 | PCM.EKG ---
#1 Interpretation EKG Date: 10/05/21 Time: 16:45 Rhythm: NSR Rate (Beats/Min): 90 [place]: Normal P-Wave: Present QRS: Normal ST-T: Normal QT: Normal GA/PQ Interval: 141 Comparison: No Change EKG Interpretation Comments: normal repeat EKG
[2021-10-05] MEDS ORDERED: Acetaminophen 325 MG Tab PO PRN (17:22)
[2021-10-05] MEDS ORDERED: Sodium Chloride 0.9% 1,000 ML IV SCH (17:30)
[2021-10-05] MEDS ORDERED: Iopamidol 755 MG/ML 500 ML Multipack Bottle IVPUSH STA (18:43)
--- NOTE | 2021-10-05 20:25 | PCM.HP.2 ---
H&P History of Present Illness - General Date of Service: 10/05/21 Admit Problem/Dx: Admission Diagnosis/Problem Admission Diagnosis/Problem Dehydration - History of Present Illness Initial Comments - Free Text/Narative: Mr. Lopes is a 66 y/o white male with a past medical history of HTN, COPD, alcohol abuse, and cluster headaches who presented to the ED with a 4-day history of nausea, vomiting, abdominal discomfort as well as constipation for a week. He also feels weak and has had cluster headaches with spasms in the neck. Patient has a longstanding history of cluster headaches, which can cause him to have the nausea and vomiting. During these episodes of N/V he states his heart rate gets up to 140. He feels somewhat SOB, but this has been normal for him since being diagnosed with COVID-19 on 08/25/21 (out of quarantine). Today's headache is "typical" for him, it is not new or unusual. He has not been eating or drinking appropriately due to N/V. The reports he has multiple food intolerance due to dextrose and potato starches, she has not wanted to give him anything that would cause stomach upset. There is also concerned he is constipated as he has not had a bowel movement in 4 days. States he is just "exhausted... I could barely walk in here I am so tired". Pt had covid infection around Aug 22 and recovered from it. He has been symptom free until the last few days when he developed bad headaches, nausea and vomiting along with the constipation. headache Pain Score (Numeric/FACES): 6 - Related Data Allergies/Adverse Reactions: Allergies Allergy/AdvReac Type Severity Reaction Status Date / Time lisinopril Allergy Difficulty Verified 10/02/21 19:53 Breathing losartan Allergy Difficulty Verified 10/02/21 19:53 Breathing potato Allergy Difficulty Verified 10/02/21 19:53 Breathing Past Medical History - Past Health History Medical/Surgical History: Denies Medical/Surgical History HEENT History: Reports: Cataract, Other (See Below) Other HEENT History: has upper and lower dentures Cardiovascular History: Reports: Cardiomyopathy, High Cholesterol, Hypertension Other Cardiovascular History: L ventricle "doesn't work properly" Respiratory History: Reports: COPD, Sleep Apnea Other Respiratory History: CPAP - pt doesn't use due to claustrophobia Gastrointestinal History: Reports: GERD, PUD Other Gastrointestinal History: Claimed to have severe ulcer in hx, not present Genitourinary History: Reports: Renal Calculus Musculoskeletal History: Reports: Neck Pain, Chronic Neurological History: Reports: Concussion Psychiatric History: Reports: None Endocrine/Metabolic History: Reports: None Hematologic History: Reports: None Immunologic History: Reports: None Oncologic (Cancer) History: Reports: None Dermatologic History: Reports: None - Infectious Disease History Infectious Disease History: Reports: Chicken Pox, Measles, Mumps, Shingles - Past Surgical History Head Surgeries/Procedures: Reports: None HEENT Surgical History: Reports: Cataract Surgery Other HEENT Surgeries/Procedures: Fractured nose, cataract surgery bilateral eyes, constant dull roar in ears Respiratory Surgical History: Reports: None GI Surgical History: Reports: Appendectomy, Colonoscopy Other Male Surgeries/Procedures: pt. states always having blood in urine Endocrine Surgical History: Reports: None Other Endocrine Surgeries/Procedures: pt. states that holistic doctor states that his T3 levels is not normal and prescribed medication, but hospital doctor said it was normal Neurological Surgical History: Reports: None Other Neurological Surgeries/Procedures: pt. states that his feet are numb for years and gotten worse over the years leading to falls Other Musculoskeletal Surgeries/Procedures:: pt. states having a "crooked back" getting worse over the years Oncologic Surgical History: Reports: None Other Oncologic Surgeries/Procedures: dad - prostate cancer, mom - kidney cancer Dermatological Surgical History: Reports: None Social & Family History - Family History Family Medical History: No Pertinent Family History - Tobacco Use Tobacco Use Status *Q: Never Tobacco User - Caffeine Use Caffeine Use: Reports: Soda Caffeine Use Comment: 2-3/day - Recreational Drug Use Recreational Drug Use: No - Living Situation & Occupation Living situation: Reports: Occupation: Employed H&P Review of Systems - Review of Systems: Review Of Systems: Comprehensive ROS is negative, except as noted in HPI. Exam - Exam Exam: See Below - Vital Signs Vital Signs: Last Vital Signs Temp 98.1 F 10/05/21 14:40 Pulse 84 10/05/21 18:05 Resp 20 10/05/21 14:40 BP 162/97 H 10/05/21 17:00 Pulse Ox 94 L 10/05/21 18:05 Weight: 210 lb - Exam Physical Exam Comments:: General: as per HPI CVS: S1S2 appreciated. RRR lungs: clear bilaterally pa: soft, obese, non tender. ext: no clubbing, cyanosis or edema neuro: non focal - Patient Data Lab Results Last 24 hrs: Laboratory Results - last 24 hr 10/05/21 10/05/21 10/05/21 Range/Units 14:48 14:48 14:48 WBC 3.51 L (4.0-11.0) K/uL RBC 4.18 L (4.50-5.90) M/uL Hgb 13.0 (13.0-17.0) g/dL Hct 38.1 (38.0-50.0) % MCV 91.1 (80.0-98.0) fL MCH 31.1 (27.0-32.0) pg MCHC 34.1 (31.0-37.0) g/dL RDW Std Deviation 55.7 (28.0-62.0) fl RDW Coeff of Monisha 17 H (11.0-15.0) % Plt Count 90 L (150-400) K/uL MPV 8.80 (7.40-12.00) fL Neut % (Auto) 71.2 (48.0-80.0) % Lymph % (Auto) 22.5 (16.0-40.0) % [place] % (Auto) 5.7 (0.0-15.0) % Eos % (Auto) 0.0 (0.0-7.0) % Baso % (Auto) 0.6 (0.0-1.5) % Neut # (Auto) 2.5 (1.4-5.7) K/uL Lymph # (Auto) 0.8 (0.6-2.4) K/uL [place] # (Auto) 0.2 (0.0-0.8) K/uL Eos # (Auto) 0.0 (0.0-0.7) K/uL Baso # (Auto) 0.0 (0.0-0.1) K/uL Nucleated RBC % 0.0 /100WBC Nucleated RBCs # 0 K/uL D-Dimer, Quantitative (0.0-0.50) mg/L FEU Sodium 136 (136-148) mmol/L Potassium 3.6 (3.5-5.1) mmol/L Chloride 95 L (98-107) mmol/L Carbon Dioxide 25.6 (21.0-32.0) mmol/L BUN 7 (7.0-18.0) mg/dL Creatinine 0.8 (0.8-1.3) mg/dL Est Cr Clr Drug Dosing 105.63 mL/min Estimated GFR (MDRD) > 60.0 ml/min Glucose 99 (74-106) mg/dL Lactic Acid 4.1 H* (0.4-2.0) mmol/L Calcium 9.1 (8.5-10.1) mg/dL Total Bilirubin 0.5 (0.2-1.0) mg/dL AST 48 H (15-37) IU/L ALT 55 (14-63) IU/L Alkaline Phosphatase 65 (46-116) U/L Troponin I < 0.050 (0.000-0.056) ng/mL B-Natriuretic Peptide (<100) PG/ML Total Protein 7.2 (6.4-8.2) g/dL Albumin 3.2 L (3.4-5.0) g/dL Globulin 4.0 (2.6-4.0) g/dL Albumin/Globulin Ratio 0.8 L (0.9-1.6) Lipase 98 (73-393) U/L TSH, Ultra Sensitive 0.48 (0.36-3.74) uIU/mL Urine Color Urine Appearance Urine pH (5.0-8.0) Ur Specific Beatty (1.001-1.035) Urine Protein (NEGATIVE) mg/dL Urine Glucose (UA) (NEGATIVE) mg/dL Urine Ketones (NEGATIVE) mg/dL Urine Occult Blood (NEGATIVE) Urine Nitrite (NEGATIVE) Urine Bilirubin (NEGATIVE) Urine Urobilinogen (<2.0) EU/dL Ur Leukocyte Esterase (NEGATIVE) Urine RBC (0-2/HPF) Urine WBC (0-5/HPF) Ur Epithelial Cells (NONE-FEW) Urine Bacteria (NEGATIVE) Urine Mucus (NONE-MOD) Monoscreen (NEG) 10/05/21 10/05/21 10/05/21 Range/Units 14:48 14:48 14:48 WBC (4.0-11.0) K/uL RBC (4.50-5.90) M/uL Hgb (13.0-17.0) g/dL Hct (38.0-50.0) % MCV (80.0-98.0) fL MCH (27.0-32.0) pg MCHC (31.0-37.0) g/dL RDW Std Deviation (28.0-62.0) fl RDW Coeff of Monisha (11.0-15.0) % Plt Count (150-400) K/uL MPV (7.40-12.00) fL Neut % (Auto) (48.0-80.0) % Lymph % (Auto) (16.0-40.0) % [place] % (Auto) (0.0-15.0) % Eos % (Auto) (0.0-7.0) % Baso % (Auto) (0.0-1.5) % Neut # (Auto) (1.4-5.7) K/uL Lymph # (Auto) (0.6-2.4) K/uL [place] # (Auto) (0.0-0.8) K/uL Eos # (Auto) (0.0-0.7) K/uL Baso # (Auto) (0.0-0.1) K/uL Nucleated RBC % /100WBC Nucleated RBCs # K/uL D-Dimer, Quantitative 2.40 H (0.0-0.50) mg/L FEU Sodium (136-148) mmol/L Potassium (3.5-5.1) mmol/L Chloride (98-107) mmol/L Carbon Dioxide (21.0-32.0) mmol/L BUN (7.0-18.0) mg/dL Creatinine (0.8-1.3) mg/dL Est Cr Clr Drug Dosing mL/min Estimated GFR (MDRD) ml/min Glucose (74-106) mg/dL Lactic Acid (0.4-2.0) mmol/L Calcium (8.5-10.1) mg/dL Total Bilirubin (0.2-1.0) mg/dL AST (15-37) IU/L ALT (14-63) IU/L Alkaline Phosphatase (46-116) U/L Troponin I (0.000-0.056) ng/mL B-Natriuretic Peptide 53 (<100) PG/ML Total Protein (6.4-8.2) g/dL Albumin (3.4-5.0) g/dL Globulin (2.6-4.0) g/dL Albumin/Globulin Ratio (0.9-1.6) Lipase (73-393) U/L TSH, Ultra Sensitive (0.36-3.74) uIU/mL Urine Color Urine Appearance Urine pH (5.0-8.0) Ur Specific Beat[place] (1.001-1.035) Urine Protein (NEGATIVE) mg/dL Urine Glucose (UA) (NEGATIVE) mg/dL Urine Ketones (NEGATIVE) mg/dL Urine Occult Blood (NEGATIVE) Urine Nitrite (NEGATIVE) Urine Bilirubin (NEGATIVE) Urine Urobilinogen (<2.0) EU/dL Ur Leukocyte Esterase (NEGATIVE) Urine RBC (0-2/HPF) Urine WBC (0-5/HPF) Ur Epithelial Cells (NONE-FEW) Urine Bacteria (NEGATIVE) Urine Mucus (NONE-MOD) Monoscreen NEGATIVE (NEG) 10/05/21 10/05/21 Range/Units 16:44 16:58 WBC (4.0-11.0) K/uL RBC (4.50-5.90) M/uL Hgb (13.0-17.0) g/dL Hct (38.0-50.0) % MCV (80.0-98.0) fL MCH (27.0-32.0) pg MCHC (31.0-37.0) g/dL RDW Std Deviation (28.0-62.0) fl RDW Coeff of Monisha (11.0-15.0) % Plt Count (150-400) K/uL MPV (7.40-12.00) fL Neut % (Auto) (48.0-80.0) % Lymph % (Auto) (16.0-40.0) % [place] % (Auto) (0.0-15.0) % Eos % (Auto) (0.0-7.0) % Baso % (Auto) (0.0-1.5) % Neut # (Auto) (1.4-5.7) K/uL Lymph # (Auto) (0.6-2.4) K/uL [place] # (Auto) (0.0-0.8) K/uL Eos # (Auto) (0.0-0.7) K/uL Baso # (Auto) (0.0-0.1) K/uL Nucleated RBC % /100WBC Nucleated RBCs # K/uL D-Dimer, Quantitative (0.0-0.50) mg/L FEU Sodium (136-148) mmol/L Potassium (3.5-5.1) mmol/L Chloride (98-107) mmol/L Carbon Dioxide (21.0-32.0) mmol/L BUN (7.0-18.0) mg/dL Creatinine (0.8-1.3) mg/dL Est Cr Clr Drug Dosing mL/min Estimated GFR (MDRD) ml/min Glucose (74-106) mg/dL Lactic Acid (0.4-2.0) mmol/L Calcium (8.5-10.1) mg/dL Total Bilirubin (0.2-1.0) mg/dL AST (15-37) IU/L ALT (14-63) IU/L Alkaline Phosphatase (46-116) U/L Troponin I < 0.050 (0.000-0.056) ng/mL B-Natriuretic Peptide (<100) PG/ML Total Protein (6.4-8.2) g/dL Albumin (3.4-5.0) g/dL Globulin (2.6-4.0) g/dL Albumin/Globulin Ratio (0.9-1.6) Lipase (73-393) U/L TSH, Ultra Sensitive (0.36-3.74) uIU/mL Urine Color YELLOW Urine Appearance CLEAR Urine pH 6.5 (5.0-8.0) Ur Specific [place]ty 1.010 (1.001-1.035) Urine Protein NEGATIVE (NEGATIVE) mg/dL Urine Glucose (UA) NEGATIVE (NEGATIVE) mg/dL Urine Ketones TRACE H (NEGATIVE) mg/dL Urine Occult Blood SMALL H (NEGATIVE) Urine Nitrite NEGATIVE (NEGATIVE) Urine Bilirubin NEGATIVE (NEGATIVE) Urine Urobilinogen 0.2 (<2.0) EU/dL Ur Leukocyte Esterase NEGATIVE (NEGATIVE) Urine RBC 1-3 (0-2/HPF) Urine WBC 0-1 (0-5/HPF) Ur Epithelial Cells OCCASIONAL (NONE-FEW) Urine Bacteria RARE (NEGATIVE) Urine Mucus LIGHT (NONE-MOD) Monoscreen (NEG) Result Diagrams: 10/05/21 14:48 10/05/21 14:48 Sepsis Event Note - Evaluation Sepsis Screening Result: No Definite Risk - Focused Exam Vital Signs: Vital Signs Temp Pulse Resp BP Pulse Ox 10/05/21 18:05 84 94 L 10/05/21 17:00 99 162/97 H 93 L 10/05/21 15:30 93 159/93 H 96 10/05/21 14:40 98.1 F 106 H 20 139/94 H 93 L - Problem List (1) Nausea and vomiting SNOMED Code(s): 15473114 ICD Code: R11.2 - NAUSEA WITH VOMITING, UNSPECIFIED Status: Acute Current Visit: Yes (2) Constipation SNOMED Code(s): 39413867 ICD Code: K59.00 - CONSTIPATION, UNSPECIFIED Status: Acute Current Visit: Yes (3) Cluster headache SNOMED Code(s): 538228162 ICD Code: G44.009 - CLUSTER HEADACHE SYNDROME, UNSPECIFIED, NOT INTRACTABLE Status: Acute Current Visit: Yes Problem List Initiated/Reviewed/Updated: Yes Orders Last 24hrs: Active Orders 24 hr Category Date Time Status Admission Status [Patient Status] [ADT] Stat ADT 10/05/21 17:24 Active Oxygen Therapy [RC] PRN Care 10/05/21 17:23 Active VTE/DVT Education [RC] PER UNIT ROUTINE Care 10/05/21 17:23 Active Vital Signs [RC] Q4H Care 10/05/21 17:23 Active Regular Diet [DIET] Diet 10/05/21 Dinner Active BASIC METABOLIC PANEL,BMP [CHEM] AM Lab 10/06/21 05:11 Ordered CBC WITH AUTO DIFF [HEME] AM Lab 10/06/21 05:11 Ordered CULTURE BLOOD [BC] Stat Lab 10/05/21 15:34 Received CULTURE BLOOD [BC] Stat Lab 10/05/21 16:22 Received LACTIC ACID [CHEM] Routine Lab 10/05/21 19:46 Received Acetaminophen [TylenoL] Med 10/05/21 17:22 Active 650 mg PO Q4H PRN Sodium Chloride 0.9% [Normal Saline] 1,000 ml Med 10/05/21 17:30 Active IV ASDIRECTED Sodium Chloride 0.9% [Normal Saline] 1,000 ml Med 10/05/21 16:29 Active IV STAT Blood Culture x2 Reflex Set [OM.PC] Stat Oth 10/05/21 15:22 Ordered Resuscitation Status Routine Resus Stat 10/05/21 17:22 Ordered Medication Orders Acetaminophen (Acetaminophen 325 Mg Tab) 650 mg PO Q4H PRN PRN Reason: Pain (Mild 1-3)/fever Sodium Chloride (Normal Saline) 1,000 mls @ 150 mls/hr IV STAT ONE Stop: 10/05/21 23:08 Last Admin: 10/05/21 18:40 Dose: 150 mls/hr Documented by: LEWILAC Sodium Chloride (Normal Saline) 1,000 mls @ 75 mls/hr IV ASDIRECTED [facility] Assessment/Plan Comment:: Nausea, vomiting and constipation This could be from a bowel obstruction. Will obtain a KUB and if this persists pt will need a CT abd/pelvis in am with oral and IV contrast in am to r/o an obstructing lesion. He has had a colonoscopy in the past. More than 15 yrs ago and never an EGD. He will need an out pt GI referral. Cluster headaches Weakness Recent covid infection Stable Full code status - Mortality Measure Prognosis:: Good
[2021-10-05] MEDS ORDERED: Acetaminophen/HYDROcodone 325-10 MG Tab PO PRN (20:29)
[2021-10-05] MEDS ORDERED: Ketorolac 15 MG/ML SDV IM ONE (20:31)
[2021-10-05] MEDS ORDERED: Ketorolac 15 MG/ML SDV IVPUSH PRN (20:33)
[2021-10-05] MEDS ORDERED: hydrALAZINE 20 MG/ML SDV IVPUSH PRN (21:04)
[2021-10-05] MEDS ORDERED: Magnesium Sulfate/Water 4 GM in Premix Bag 1 BAG IV ONE (21:37)
--- NOTE | 2021-10-05 22:31 | CR ---
INDICATION: Possible obstruction. Unknown when last bowel movement was. COMPARISON: CT pulmonary angiogram from today and CT of the abdomen and pelvis from 02/23/2021 FINDINGS: A single AP supine view of the abdomen was obtained. The bowel gas pattern is unremarkable with nothing seen to suggest obstruction or ileus. There is no sign of dilatation of the small bowel or colon. There is no free air. Soft tissue planes are preserved and there is no sign of a mass. Contrast is seen in the nondistended urinary bladder from recent CT pulmonary angiogram. No calcifications of concern are identified. The osseous structures are normal in appearance for the patient`s age. The left lung base is only minimally included on today`s study and is clear. IMPRESSION: Normal abdomen single view. No sign of obstruction or ileus. No definite constipation. Dictated by Doron Pinedo MD @ 10/05/2021 10:29:44 PM (Electronically Signed)
[2021-10-06] MEDS: Dextrose 5%-0.9% NaCl 1,000 ML IV SCH ×2 (03:19→15:55)
[2021-10-06] MEDS: LORazepam 2 MG/ML SDV IVPUSH PRN ×2 (04:03→23:39)
[2021-10-06 07:26] LABS: BLOOD UREA NITROGEN,BUN 6 mg/dL (7.0-18.0); CARBON DIOXIDE,CO2 29.8 mmol/L (21.0-32.0); CHLORIDE,CL 95 mmol/L (98-107); GLUCOSE RANDOM 91 mg/dL (74-106); POTASSIUM,K 3.5 mmol/L (3.5-5.1); SODIUM,NA 135 mmol/L (136-148)
[2021-10-06] MEDS: Omeprazole 20 MG Cap.CR PO SCH (08:20)
--- NOTE | 2021-10-06 13:33 | PCM.PN ---
- General Info Date of Service: 10/06/21 Subjective Update: The patient is a 66-year-old male, on day 2 of service, who has a significant past medical history of hypertension, chronic obstructive pulmonary disease, alcohol abuse disorder, and cluster headache, who was admitted to the medical floor due to dehydration secondary to nausea and vomiting. Upon interview with the patient today, he admits that his nausea still persists but he has not vomited. He felt extremely weak yesterday to the point where he could not walk, however today he feels much better and was walking around his room during interview. His who was present during interview, inquired about physical therapy on an outpatient basis and it was revealed to her that this is something that could be done and arranged by the hospital after discharge. The patient denies any current shortness of breath, cough, tremors, shakes, withdrawal symptoms, and admits that his headache which he had earlier on admission has significantly decreased. He has no other health concerns at this time. - Review of Systems General: Reports: Weakness, Fatigue. Denies: Fever, Appetite HEENT: Denies: Headaches, Sore Throat Pulmonary: Denies: Shortness of Breath, Cough Cardiovascular: Denies: Chest Pain, Palpitations Gastrointestinal: Denies: Abdominal Pain Genitourinary: Denies: Dysuria - Patient Data Vitals - Most Recent: Last Vital Signs Temp 96.3 F L 10/06/21 12:00 Pulse 121 H 10/06/21 12:00 Resp 20 10/06/21 12:00 BP 140/76 10/06/21 12:00 Pulse Ox 93 L 10/06/21 12:00 Weight - Most Recent: 220 lb 4.8 oz I&O - Last 24 Hours: Intake & Output 10/05/21 10/06/21 10/06/21 22:59 06:59 14:59 Intake Total 300 Output Total 500 Balance -200 Lab Results Last 24 Hours: Laboratory Results - last 24 hr 10/05/21 10/05/21 10/05/21 Range/Units 14:48 14:48 14:48 WBC 3.51 L (4.0-11.0) K/uL RBC 4.18 L (4.50-5.90) M/uL Hgb 13.0 (13.0-17.0) g/dL Hct 38.1 (38.0-50.0) % MCV 91.1 (80.0-98.0) fL MCH 31.1 (27.0-32.0) pg MCHC 34.1 (31.0-37.0) g/dL RDW Std Deviation 55.7 (28.0-62.0) fl RDW Coeff of Monisha 17 H (11.0-15.0) % Plt Count 90 L (150-400) K/uL MPV 8.80 (7.40-12.00) fL Neut % (Auto) 71.2 (48.0-80.0) % Lymph % (Auto) 22.5 (16.0-40.0) % [place] % (Auto) 5.7 (0.0-15.0) % Eos % (Auto) 0.0 (0.0-7.0) % Baso % (Auto) 0.6 (0.0-1.5) % Neut # (Auto) 2.5 (1.4-5.7) K/uL Lymph # (Auto) 0.8 (0.6-2.4) K/uL [place] # (Auto) 0.2 (0.0-0.8) K/uL Eos # (Auto) 0.0 (0.0-0.7) K/uL Baso # (Auto) 0.0 (0.0-0.1) K/uL Nucleated RBC % 0.0 /100WBC Nucleated RBCs # 0 K/uL D-Dimer, Quantitative (0.0-0.50) mg/L FEU Sodium 136 (136-148) mmol/L Potassium 3.6 (3.5-5.1) mmol/L Chloride 95 L (98-107) mmol/L Carbon Dioxide 25.6 (21.0-32.0) mmol/L BUN 7 (7.0-18.0) mg/dL Creatinine 0.8 (0.8-1.3) mg/dL Est Cr Clr Drug Dosing 105.63 mL/min Estimated GFR (MDRD) > 60.0 ml/min Glucose 99 (74-106) mg/dL Lactic Acid 4.1 H* (0.4-2.0) mmol/L Calcium 9.1 (8.5-10.1) mg/dL Magnesium (1.8-2.4) mg/dL Total Bilirubin 0.5 (0.2-1.0) mg/dL AST 48 H (15-37) IU/L ALT 55 (14-63) IU/L Alkaline Phosphatase 65 (46-116) U/L Troponin I < 0.050 (0.000-0.056) ng/mL B-Natriuretic Peptide (<100) PG/ML Total Protein 7.2 (6.4-8.2) g/dL Albumin 3.2 L (3.4-5.0) g/dL Globulin 4.0 (2.6-4.0) g/dL Albumin/Globulin Ratio 0.8 L (0.9-1.6) Lipase 98 (73-393) U/L TSH, Ultra Sensitive 0.48 (0.36-3.74) uIU/mL Urine Color Urine Appearance Urine pH (5.0-8.0) Ur Specific [place] (1.001-1.035) Urine Protein (NEGATIVE) mg/dL Urine Glucose (UA) (NEGATIVE) mg/dL Urine Ketones (NEGATIVE) mg/dL Urine Occult Blood (NEGATIVE) Urine Nitrite (NEGATIVE) Urine Bilirubin (NEGATIVE) Urine Urobilinogen (<2.0) EU/dL Ur Leukocyte Esterase (NEGATIVE) Urine RBC (0-2/HPF) Urine WBC (0-5/HPF) Ur Epithelial Cells (NONE-FEW) Urine Bacteria (NEGATIVE) Urine Mucus (NONE-MOD) Monoscreen (NEG) 10/05/21 10/05/21 10/05/21 Range/Units 14:48 14:48 14:48 WBC (4.0-11.0) K/uL RBC (4.50-5.90) M/uL Hgb (13.0-17.0) g/dL Hct (38.0-50.0) % MCV (80.0-98.0) fL MCH (27.0-32.0) pg MCHC (31.0-37.0) g/dL RDW Std Deviation (28.0-62.0) fl RDW Coeff of Monisha (11.0-15.0) % Plt Count (150-400) K/uL MPV (7.40-12.00) fL Neut % (Auto) (48.0-80.0) % Lymph % (Auto) (16.0-40.0) % [place] % (Auto) (0.0-15.0) % Eos % (Auto) (0.0-7.0) % Baso % (Auto) (0.0-1.5) % Neut # (Auto) (1.4-5.7) K/uL Lymph # (Auto) (0.6-2.4) K/uL [place] # (Auto) (0.0-0.8) K/uL Eos # (Auto) (0.0-0.7) K/uL Baso # (Auto) (0.0-0.1) K/uL Nucleated RBC % /100WBC Nucleated RBCs # K/uL D-Dimer, Quantitative 2.40 H (0.0-0.50) mg/L FEU Sodium (136-148) mmol/L Potassium (3.5-5.1) mmol/L Chloride (98-107) mmol/L Carbon Dioxide (21.0-32.0) mmol/L BUN (7.0-18.0) mg/dL Creatinine (0.8-1.3) mg/dL Est Cr Clr Drug Dosing mL/min Estimated GFR (MDRD) ml/min Glucose (74-106) mg/dL Lactic Acid (0.4-2.0) mmol/L Calcium (8.5-10.1) mg/dL Magnesium (1.8-2.4) mg/dL Total Bilirubin (0.2-1.0) mg/dL AST (15-37) IU/L ALT (14-63) IU/L Alkaline Phosphatase (46-116) U/L Troponin I (0.000-0.056) ng/mL B-Natriuretic Peptide 53 (<100) PG/ML Total Protein (6.4-8.2) g/dL Albumin (3.4-5.0) g/dL Globulin (2.6-4.0) g/dL Albumin/Globulin Ratio (0.9-1.6) Lipase (73-393) U/L TSH, Ultra Sensitive (0.36-3.74) uIU/mL Urine Color Urine Appearance Urine pH (5.0-8.0) Ur Specific [place] (1.001-1.035) Urine Protein (NEGATIVE) mg/dL Urine Glucose (UA) (NEGATIVE) mg/dL Urine Ketones (NEGATIVE) mg/dL Urine Occult Blood (NEGATIVE) Urine Nitrite (NEGATIVE) Urine Bilirubin (NEGATIVE) Urine Urobilinogen (<2.0) EU/dL Ur Leukocyte Esterase (NEGATIVE) Urine RBC (0-2/HPF) Urine WBC (0-5/HPF) Ur Epithelial Cells (NONE-FEW) Urine Bacteria (NEGATIVE) Urine Mucus (NONE-MOD) Monoscreen NEGATIVE (NEG) 10/05/21 10/05/21 10/05/21 Range/Units 16:44 16:58 16:58 WBC (4.0-11.0) K/uL RBC (4.50-5.90) M/uL Hgb (13.0-17.0) g/dL Hct (38.0-50.0) % MCV (80.0-98.0) fL MCH (27.0-32.0) pg MCHC (31.0-37.0) g/dL RDW Std Deviation (28.0-62.0) fl RDW Coeff of Monisha (11.0-15.0) % Plt Count (150-400) K/uL MPV (7.40-12.00) fL Neut % (Auto) (48.0-80.0) % Lymph % (Auto) (16.0-40.0) % [place] % (Auto) (0.0-15.0) % Eos % (Auto) (0.0-7.0) % Baso % (Auto) (0.0-1.5) % Neut # (Auto) (1.4-5.7) K/uL Lymph # (Auto) (0.6-2.4) K/uL [place] # (Auto) (0.0-0.8) K/uL Eos # (Auto) (0.0-0.7) K/uL Baso # (Auto) (0.0-0.1) K/uL Nucleated RBC % /100WBC Nucleated RBCs # K/uL D-Dimer, Quantitative (0.0-0.50) mg/L FEU Sodium (136-148) mmol/L Potassium (3.5-5.1) mmol/L Chloride (98-107) mmol/L Carbon Dioxide (21.0-32.0) mmol/L BUN (7.0-18.0) mg/dL Creatinine (0.8-1.3) mg/dL Est Cr Clr Drug Dosing mL/min Estimated GFR (MDRD) ml/min Glucose (74-106) mg/dL Lactic Acid (0.4-2.0) mmol/L Calcium (8.5-10.1) mg/dL Magnesium 1.3 L (1.8-2.4) mg/dL Total Bilirubin (0.2-1.0) mg/dL AST (15-37) IU/L ALT (14-63) IU/L Alkaline Phosphatase (46-116) U/L Troponin I < 0.050 (0.000-0.056) ng/mL B-Natriuretic Peptide (<100) PG/ML Total Protein (6.4-8.2) g/dL Albumin (3.4-5.0) g/dL Globulin (2.6-4.0) g/dL Albumin/Globulin Ratio (0.9-1.6) Lipase (73-393) U/L TSH, Ultra Sensitive (0.36-3.74) uIU/mL Urine Color YELLOW Urine Appearance CLEAR Urine pH 6.5 (5.0-8.0) Ur Specific [place] 1.010 (1.001-1.035) Urine Protein NEGATIVE (NEGATIVE) mg/dL Urine Glucose (UA) NEGATIVE (NEGATIVE) mg/dL Urine Ketones TRACE H (NEGATIVE) mg/dL Urine Occult Blood SMALL H (NEGATIVE) Urine Nitrite NEGATIVE (NEGATIVE) Urine Bilirubin NEGATIVE (NEGATIVE) Urine Urobilinogen 0.2 (<2.0) EU/dL Ur Leukocyte Esterase NEGATIVE (NEGATIVE) Urine RBC 1-3 (0-2/HPF) Urine WBC 0-1 (0-5/HPF) Ur Epithelial Cells OCCASIONAL (NONE-FEW) Urine Bacteria RARE (NEGATIVE) Urine Mucus LIGHT (NONE-MOD) Monoscreen (NEG) 10/05/21 10/06/21 10/06/21 Range/Units 19:46 05:51 05:51 WBC 3.97 L (4.0-11.0) K/uL RBC 4.18 L (4.50-5.90) M/uL Hgb 12.9 L (13.0-17.0) g/dL Hct 38.3 (38.0-50.0) % MCV 91.6 (80.0-98.0) fL MCH 30.9 (27.0-32.0) pg MCHC 33.7 (31.0-37.0) g/dL RDW Std Deviation 56.1 (28.0-62.0) fl RDW Coeff of Monisha 17 H (11.0-15.0) % Plt Count 87 L (150-400) K/uL MPV 9.40 (7.40-12.00) fL Neut % (Auto) 73.9 (48.0-80.0) % Lymph % (Auto) 17.4 (16.0-40.0) % [place] % (Auto) 7.6 (0.0-15.0) % Eos % (Auto) 0.3 (0.0-7.0) % Baso % (Auto) 0.8 (0.0-1.5) % Neut # (Auto) 2.9 (1.4-5.7) K/uL Lymph # (Auto) 0.7 (0.6-2.4) K/uL [place] # (Auto) 0.3 (0.0-0.8) K/uL Eos # (Auto) 0.0 (0.0-0.7) K/uL Baso # (Auto) 0.0 (0.0-0.1) K/uL Nucleated RBC % 0.0 /100WBC Nucleated RBCs # 0 K/uL D-Dimer, Quantitative (0.0-0.50) mg/L FEU Sodium 135 L (136-148) mmol/L Potassium 3.5 (3.5-5.1) mmol/L Chloride 95 L (98-107) mmol/L Carbon Dioxide 29.8 (21.0-32.0) mmol/L BUN 6 L (7.0-18.0) mg/dL Creatinine 0.7 L (0.8-1.3) mg/dL Est Cr Clr Drug Dosing 120.71 mL/min Estimated GFR (MDRD) > 60.0 ml/min Glucose 91 (74-106) mg/dL Lactic Acid 2.9 H* (0.4-2.0) mmol/L Calcium 8.1 L (8.5-10.1) mg/dL Magnesium 1.8 (1.8-2.4) mg/dL Total Bilirubin (0.2-1.0) mg/dL AST (15-37) IU/L ALT (14-63) IU/L Alkaline Phosphatase (46-116) U/L Troponin I (0.000-0.056) ng/mL B-Natriuretic Peptide (<100) PG/ML Total Protein (6.4-8.2) g/dL Albumin (3.4-5.0) g/dL Globulin (2.6-4.0) g/dL Albumin/Globulin Ratio (0.9-1.6) Lipase (73-393) U/L TSH, Ultra Sensitive (0.36-3.74) uIU/mL Urine Color Urine Appearance Urine pH (5.0-8.0) Ur Specific [place] (1.001-1.035) Urine Protein (NEGATIVE) mg/dL Urine Glucose (UA) (NEGATIVE) mg/dL Urine Ketones (NEGATIVE) mg/dL Urine Occult Blood (NEGATIVE) Urine Nitrite (NEGATIVE) Urine Bilirubin (NEGATIVE) Urine Urobilinogen (<2.0) EU/dL Ur Leukocyte Esterase (NEGATIVE) Urine RBC (0-2/HPF) Urine WBC (0-5/HPF) Ur Epithelial Cells (NONE-FEW) Urine Bacteria (NEGATIVE) Urine Mucus (NONE-MOD) Monoscreen (NEG) Med Orders - Current: Current Medications Acetaminophen (Acetaminophen 325 Mg Tab) 650 mg PO Q4H PRN PRN Reason: Pain (Mild 1-3)/fever Hydrocodone Bitart/Acetaminophen (Acetaminophen/Hydrocodone 325-10 Mg Tab) 1 tab PO Q4H PRN PRN Reason: Pain Carvedilol (Carvedilol 6.25 Mg Tab) 6.25 mg PO QPM HAYDEE Hydralazine HCl (Hydralazine 20 Mg/Ml Sdv) 10 mg IVPUSH Q3HR PRN PRN Reason: Hypertension Sodium Chloride (Normal Saline) 1,000 mls @ 75 mls/hr IV ASDIRECTED HAYDEE Dextrose/Sodium Chloride (Dextrose 5%-Normal Saline) 1,000 mls @ 75 mls/hr IV ASDIRECTED HAYDEE Last Admin: 10/06/21 03:19 Dose: 75 mls/hr Documented by: Ketorolac Tromethamine (Ketorolac 15 Mg/Ml Sdv) 15 mg IVPUSH Q8H PRN PRN Reason: Headache Stop: 10/10/21 20:33 Lorazepam (Lorazepam 2 Mg/Ml Sdv) 2 mg IVPUSH Q4H PRN; Protocol PRN Reason: Withdrawal Symptoms Last Admin: 10/06/21 04:03 Dose: 2 mg Documented by: Omeprazole (Omeprazole 20 Mg Cap.Cr) 20 mg PO DAILY HAYDEE Last Admin: 10/06/21 08:20 Dose: 20 mg Documented by: Discontinued Medications Sodium Chloride (Normal Saline) 1,000 mls @ 999 mls/hr IV STAT ONE Stop: 10/05/21 15:41 Last Admin: 10/05/21 14:46 Dose: 999 mls/hr Documented by: Sodium Chloride (Normal Saline) 1,000 mls @ 999 mls/hr IV STAT ONE Stop: 10/05/21 16:23 Last Admin: 10/05/21 15:43 Dose: 999 mls/hr Documented by: Sodium Chloride (Normal Saline) 1,000 mls @ 150 mls/hr IV STAT ONE Stop: 10/05/21 23:08 Last Admin: 10/05/21 18:40 Dose: 150 mls/hr Documented by: Magnesium Sulfate 4 gm/ Premix 100 mls @ 50 mls/hr IV ONETIME ONE Stop: 10/05/21 23:36 Last Admin: 10/05/21 21:46 Dose: 50 mls/hr Documented by: Iopamidol (Iopamidol 755 Mg/Ml 500 Ml Multipack Bottle) 100 ml IVPUSH ONETIME STA Stop: 10/05/21 18:44 Last Admin: 10/05/21 18:43 Dose: 100 ml Documented by: Ketorolac Tromethamine (Ketorolac 30 Mg/Ml Sdv) 30 mg IVPUSH ONETIME ONE Stop: 10/05/21 14:48 Last Admin: 10/05/21 15:42 Dose: 30 mg Documented by: Ketorolac Tromethamine (Ketorolac 15 Mg/Ml Sdv) 15 mg IM ONETIME ONE Stop: 10/05/21 20:32 Last Admin: 10/06/21 06:41 Dose: Not Given Documented by: Ondansetron HCl (Ondansetron 4 Mg/2 Ml Sdv) 4 mg IVPUSH ONETIME ONE Stop: 10/05/21 14:42 Last Admin: 10/05/21 14:46 Dose: 4 mg Documented by: - Exam General: Alert, Oriented HEENT: No: Mucous Membr. Moist/[place] (Dry mucous membranes) Neck: Trachea Midline Lungs: Clear to Auscultation, Normal Respiratory Effort Cardiovascular: Regular Rate, Regular Rhythm GI/Abdominal Exam: Normal Bowel Sounds, Soft, Non-Tender - Patient Data Lab Results Last 24 hrs: Laboratory Results - last 24 hr 10/05/21 10/05/21 10/05/21 Range/Units 14:48 14:48 14:48 WBC 3.51 L (4.0-11.0) K/uL RBC 4.18 L (4.50-5.90) M/uL Hgb 13.0 (13.0-17.0) g/dL Hct 38.1 (38.0-50.0) % MCV 91.1 (80.0-98.0) fL MCH 31.1 (27.0-32.0) pg MCHC 34.1 (31.0-37.0) g/dL RDW Std Deviation 55.7 (28.0-62.0) fl RDW Coeff of Monisha 17 H (11.0-15.0) % Plt Count 90 L (150-400) K/uL MPV 8.80 (7.40-12.00) fL Neut % (Auto) 71.2 (48.0-80.0) % Lymph % (Auto) 22.5 (16.0-40.0) % [place] % (Auto) 5.7 (0.0-15.0) % Eos % (Auto) 0.0 (0.0-7.0) % Baso % (Auto) 0.6 (0.0-1.5) % Neut # (Auto) 2.5 (1.4-5.7) K/uL Lymph # (Auto) 0.8 (0.6-2.4) K/uL [place] # (Auto) 0.2 (0.0-0.8) K/uL Eos # (Auto) 0.0 (0.0-0.7) K/uL Baso # (Auto) 0.0 (0.0-0.1) K/uL Nucleated RBC % 0.0 /100WBC Nucleated RBCs # 0 K/uL D-Dimer, Quantitative (0.0-0.50) mg/L FEU Sodium 136 (136-148) mmol/L Potassium 3.6 (3.5-5.1) mmol/L Chloride 95 L (98-107) mmol/L Carbon Dioxide 25.6 (21.0-32.0) mmol/L BUN 7 (7.0-18.0) mg/dL Creatinine 0.8 (0.8-1.3) mg/dL Est Cr Clr Drug Dosing 105.63 mL/min Estimated GFR (MDRD) > 60.0 ml/min Glucose 99 (74-106) mg/dL Lactic Acid 4.1 H* (0.4-2.0) mmol/L Calcium 9.1 (8.5-10.1) mg/dL Magnesium (1.8-2.4) mg/dL Total Bilirubin 0.5 (0.2-1.0) mg/dL AST 48 H (15-37) IU/L ALT 55 (14-63) IU/L Alkaline Phosphatase 65 (46-116) U/L Troponin I < 0.050 (0.000-0.056) ng/mL B-Natriuretic Peptide (<100) PG/ML Total Protein 7.2 (6.4-8.2) g/dL Albumin 3.2 L (3.4-5.0) g/dL Globulin 4.0 (2.6-4.0) g/dL Albumin/Globulin Ratio 0.8 L (0.9-1.6) Lipase 98 (73-393) U/L TSH, Ultra Sensitive 0.48 (0.36-3.74) uIU/mL Urine Color Urine Appearance Urine pH (5.0-8.0) Ur Specific [place] (1.001-1.035) Urine Protein (NEGATIVE) mg/dL Urine Glucose (UA) (NEGATIVE) mg/dL Urine Ketones (NEGATIVE) mg/dL Urine Occult Blood (NEGATIVE) Urine Nitrite (NEGATIVE) Urine Bilirubin (NEGATIVE) Urine Urobilinogen (<2.0) EU/dL Ur Leukocyte Esterase (NEGATIVE) Urine RBC (0-2/HPF) Urine WBC (0-5/HPF) Ur Epithelial Cells (NONE-FEW) Urine Bacteria (NEGATIVE) Urine Mucus (NONE-MOD) Monoscreen (NEG) 10/05/21 10/05/21 10/05/21 Range/Units 14:48 14:48 14:48 WBC (4.0-11.0) K/uL RBC (4.50-5.90) M/uL Hgb (13.0-17.0) g/dL Hct (38.0-50.0) % MCV (80.0-98.0) fL MCH (27.0-32.0) pg MCHC (31.0-37.0) g/dL RDW Std Deviation (28.0-62.0) fl RDW Coeff of Monisha (11.0-15.0) % Plt Count (150-400) K/uL MPV (7.40-12.00) fL Neut % (Auto) (48.0-80.0) % Lymph % (Auto) (16.0-40.0) % [place] % (Auto) (0.0-15.0) % Eos % (Auto) (0.0-7.0) % Baso % (Auto) (0.0-1.5) % Neut # (Auto) (1.4-5.7) K/uL Lymph # (Auto) (0.6-2.4) K/uL [place] # (Auto) (0.0-0.8) K/uL Eos # (Auto) (0.0-0.7) K/uL Baso # (Auto) (0.0-0.1) K/uL Nucleated RBC % /100WBC Nucleated RBCs # K/uL D-Dimer, Quantitative 2.40 H (0.0-0.50) mg/L FEU Sodium (136-148) mmol/L Potassium (3.5-5.1) mmol/L Chloride (98-107) mmol/L Carbon Dioxide (21.0-32.0) mmol/L BUN (7.0-18.0) mg/dL Creatinine (0.8-1.3) mg/dL Est Cr Clr Drug Dosing mL/min Estimated GFR (MDRD) ml/min Glucose (74-106) mg/dL Lactic Acid (0.4-2.0) mmol/L Calcium (8.5-10.1) mg/dL Magnesium (1.8-2.4) mg/dL Total Bilirubin (0.2-1.0) mg/dL AST (15-37) IU/L ALT (14-63) IU/L Alkaline Phosphatase (46-116) U/L Troponin I (0.000-0.056) ng/mL B-Natriuretic Peptide 53 (<100) PG/ML Total Protein (6.4-8.2) g/dL Albumin (3.4-5.0) g/dL Globulin (2.6-4.0) g/dL Albumin/Globulin Ratio (0.9-1.6) Lipase (73-393) U/L TSH, Ultra Sensitive (0.36-3.74) uIU/mL Urine Color Urine Appearance Urine pH (5.0-8.0) Ur Specific [place] (1.001-1.035) Urine Protein (NEGATIVE) mg/dL Urine Glucose (UA) (NEGATIVE) mg/dL Urine Ketones (NEGATIVE) mg/dL Urine Occult Blood (NEGATIVE) Urine Nitrite (NEGATIVE) Urine Bilirubin (NEGATIVE) Urine Urobilinogen (<2.0) EU/dL Ur Leukocyte Esterase (NEGATIVE) Urine RBC (0-2/HPF) Urine WBC (0-5/HPF) Ur Epithelial Cells (NONE-FEW) Urine Bacteria (NEGATIVE) Urine Mucus (NONE-MOD) Monoscreen NEGATIVE (NEG) 10/05/21 10/05/21 10/05/21 Range/Units 16:44 16:58 16:58 WBC (4.0-11.0) K/uL RBC (4.50-5.90) M/uL Hgb (13.0-17.0) g/dL Hct (38.0-50.0) % MCV (80.0-98.0) fL MCH (27.0-32.0) pg MCHC (31.0-37.0) g/dL RDW Std Deviation (28.0-62.0) fl RDW Coeff of Monisha (11.0-15.0) % Plt Count (150-400) K/uL MPV (7.40-12.00) fL Neut % (Auto) (48.0-80.0) % Lymph % (Auto) (16.0-40.0) % [place] % (Auto) (0.0-15.0) % Eos % (Auto) (0.0-7.0) % Baso % (Auto) (0.0-1.5) % Neut # (Auto) (1.4-5.7) K/uL Lymph # (Auto) (0.6-2.4) K/uL [place] # (Auto) (0.0-0.8) K/uL Eos # (Auto) (0.0-0.7) K/uL Baso # (Auto) (0.0-0.1) K/uL Nucleated RBC % /100WBC Nucleated RBCs # K/uL D-Dimer, Quantitative (0.0-0.50) mg/L FEU Sodium (136-148) mmol/L Potassium (3.5-5.1) mmol/L Chloride (98-107) mmol/L Carbon Dioxide (21.0-32.0) mmol/L BUN (7.0-18.0) mg/dL Creatinine (0.8-1.3) mg/dL Est Cr Clr Drug Dosing mL/min Estimated GFR (MDRD) ml/min Glucose (74-106) mg/dL Lactic Acid (0.4-2.0) mmol/L Calcium (8.5-10.1) mg/dL Magnesium 1.3 L (1.8-2.4) mg/dL Total Bilirubin (0.2-1.0) mg/dL AST (15-37) IU/L ALT (14-63) IU/L Alkaline Phosphatase (46-116) U/L Troponin I < 0.050 (0.000-0.056) ng/mL B-Natriuretic Peptide (<100) PG/ML Total Protein (6.4-8.2) g/dL Albumin (3.4-5.0) g/dL Globulin (2.6-4.0) g/dL Albumin/Globulin Ratio (0.9-1.6) Lipase (73-393) U/L TSH, Ultra Sensitive (0.36-3.74) uIU/mL Urine Color YELLOW Urine Appearance CLEAR Urine pH 6.5 (5.0-8.0) Ur Specific [place] 1.010 (1.001-1.035) Urine Protein NEGATIVE (NEGATIVE) mg/dL Urine Glucose (UA) NEGATIVE (NEGATIVE) mg/dL Urine Ketones TRACE H (NEGATIVE) mg/dL Urine Occult Blood SMALL H (NEGATIVE) Urine Nitrite NEGATIVE (NEGATIVE) Urine Bilirubin NEGATIVE (NEGATIVE) Urine Urobilinogen 0.2 (<2.0) EU/dL Ur Leukocyte Esterase NEGATIVE (NEGATIVE) Urine RBC 1-3 (0-2/HPF) Urine WBC 0-1 (0-5/HPF) Ur Epithelial Cells OCCASIONAL (NONE-FEW) Urine Bacteria RARE (NEGATIVE) Urine Mucus LIGHT (NONE-MOD) Monoscreen (NEG) 10/05/21 10/06/21 10/06/21 Range/Units 19:46 05:51 05:51 WBC 3.97 L (4.0-11.0) K/uL RBC 4.18 L (4.50-5.90) M/uL Hgb 12.9 L (13.0-17.0) g/dL Hct 38.3 (38.0-50.0) % MCV 91.6 (80.0-98.0) fL MCH 30.9 (27.0-32.0) pg MCHC 33.7 (31.0-37.0) g/dL RDW Std Deviation 56.1 (28.0-62.0) fl RDW Coeff of Monisha 17 H (11.0-15.0) % Plt Count 87 L (150-400) K/uL MPV 9.40 (7.40-12.00) fL Neut % (Auto) 73.9 (48.0-80.0) % Lymph % (Auto) 17.4 (16.0-40.0) % [place] % (Auto) 7.6 (0.0-15.0) % Eos % (Auto) 0.3 (0.0-7.0) % Baso % (Auto) 0.8 (0.0-1.5) % Neut # (Auto) 2.9 (1.4-5.7) K/uL Lymph # (Auto) 0.7 (0.6-2.4) K/uL [place] # (Auto) 0.3 (0.0-0.8) K/uL Eos # (Auto) 0.0 (0.0-0.7) K/uL Baso # (Auto) 0.0 (0.0-0.1) K/uL Nucleated RBC % 0.0 /100WBC Nucleated RBCs # 0 K/uL D-Dimer, Quantitative (0.0-0.50) mg/L FEU Sodium 135 L (136-148) mmol/L Potassium 3.5 (3.5-5.1) mmol/L Chloride 95 L (98-107) mmol/L Carbon Dioxide 29.8 (21.0-32.0) mmol/L BUN 6 L (7.0-18.0) mg/dL Creatinine 0.7 L (0.8-1.3) mg/dL Est Cr Clr Drug Dosing 120.71 mL/min Estimated GFR (MDRD) > 60.0 ml/min Glucose 91 (74-106) mg/dL Lactic Acid 2.9 H* (0.4-2.0) mmol/L Calcium 8.1 L (8.5-10.1) mg/dL Magnesium 1.8 (1.8-2.4) mg/dL Total Bilirubin (0.2-1.0) mg/dL AST (15-37) IU/L ALT (14-63) IU/L Alkaline Phosphatase (46-116) U/L Troponin I (0.000-0.056) ng/mL B-Natriuretic Peptide (<100) PG/ML Total Protein (6.4-8.2) g/dL Albumin (3.4-5.0) g/dL Globulin (2.6-4.0) g/dL Albumin/Globulin Ratio (0.9-1.6) Lipase (73-393) U/L TSH, Ultra Sensitive (0.36-3.74) uIU/mL Urine Color Urine Appearance Urine pH (5.0-8.0) Ur Specific [place] (1.001-1.035) Urine Protein (NEGATIVE) mg/dL Urine Glucose (UA) (NEGATIVE) mg/dL Urine Ketones (NEGATIVE) mg/dL Urine Occult Blood (NEGATIVE) Urine Nitrite (NEGATIVE) Urine Bilirubin (NEGATIVE) Urine Urobilinogen (<2.0) EU/dL Ur Leukocyte Esterase (NEGATIVE) Urine RBC (0-2/HPF) Urine WBC (0-5/HPF) Ur Epithelial Cells (NONE-FEW) Urine Bacteria (NEGATIVE) Urine Mucus (NONE-MOD) Monoscreen (NEG) Result Diagrams: 10/06/21 05:51 10/06/21 05:51 Sepsis Event Note - Evaluation Sepsis Screening Result: Possible Sepsis Risk - Focused Exam Vital Signs: Vital Signs Temp Pulse Resp BP Pulse Ox 10/06/21 12:00 96.3 F L 121 H 20 140/76 93 L 10/06/21 08:00 96.3 F L 88 20 136/85 96 10/06/21 03:00 97.2 F 18 141/98 H 93 L - Problem List & Annotations (1) COPD (chronic obstructive pulmonary disease) SNOMED Code(s): 26546019 Code(s): J44.9 - CHRONIC OBSTRUCTIVE PULMONARY DISEASE, UNSPECIFIED Status: Acute Current Visit: Yes (2) HTN (hypertension) SNOMED Code(s): 65058775 Code(s): I10 - ESSENTIAL (PRIMARY) HYPERTENSION Status: Acute Current Visit: Yes (3) Alcohol abuse SNOMED Code(s): 24472898 Code(s): F10.10 - ALCOHOL ABUSE, UNCOMPLICATED Status: Acute Current Visit: Yes (4) Cluster headache SNOMED Code(s): 372179079 Code(s): G44.009 - CLUSTER HEADACHE SYNDROME, UNSPECIFIED, NOT INTRACTABLE Status: Acute Current Visit: Yes (5) Dehydration SNOMED Code(s): 11450161 Code(s): E86.0 - DEHYDRATION Status: Acute Current Visit: Yes (6) Nausea and vomiting SNOMED Code(s): 68921903 Code(s): R11.2 - NAUSEA WITH VOMITING, UNSPECIFIED Status: Acute Current Visit: Yes (7) Alcohol withdrawal SNOMED Code(s): 589465845 Code(s): F10.239 - ALCOHOL DEPENDENCE WITH WITHDRAWAL, UNSPECIFIED Status: Acute Current Visit: No - Problem List Review Problem List Initiated/Reviewed/Updated: Yes - My Orders Last 24 Hours: My Active Orders 10/07/21 05:11 CBC WITH AUTO DIFF [HEME] AM CMP [COMPREHENSIVE METABOLIC PN,CMP] [CHEM] AM 10/08/21 05:11 CBC WITH AUTO DIFF [HEME] AM CMP [COMPREHENSIVE METABOLIC PN,CMP] [CHEM] AM 10/09/21 05:11 CBC WITH AUTO DIFF [HEME] AM CMP [COMPREHENSIVE METABOLIC PN,CMP] [CHEM] AM - Assessment Assessment:: 1. Dehydration secondary to nausea and vomiting -Patient will be given a normal saline bolus over 1000 mL -Continue with dextrose 5% in normal saline 1000 mL -Monitor daily CMP and treat accordingly -Weakness due to dehydration, will set up PT on outpatient basis after discharge 2. Past medical history of hypertension, COPD, alcohol abuse disorder, and cluster headache -Continue with hydralazine, oxygen therapy as needed, lorazepam and CIWA assessments, Johnson and ketorolac
[2021-10-06] MEDS: Enoxaparin 40 MG/0.4 ML Syringe SUBCUT SCH (14:59)
[2021-10-06] MEDS ORDERED: Carvedilol 6.25 MG Tab PO SCH (18:00)
[2021-10-06] MEDS: Sucralfate Suspension 1 GM/10 ML Cup PO SCH (23:39)
[2021-10-07] MEDS: Dextrose 5%-0.9% NaCl 1,000 ML IV SCH (05:20)
[2021-10-07] MEDS: Sucralfate Suspension 1 GM/10 ML Cup PO SCH ×4 (05:20→23:04)
[2021-10-07 08:31] LABS: BLOOD UREA NITROGEN,BUN 7 mg/dL (7.0-18.0); CARBON DIOXIDE,CO2 29.2 mmol/L (21.0-32.0); CHLORIDE,CL 94 mmol/L (98-107); GLUCOSE RANDOM 100 mg/dL (74-106); POTASSIUM,K 3.2 mmol/L (3.5-5.1); SODIUM,NA 134 mmol/L (136-148)
[2021-10-07] MEDS: Omeprazole 20 MG Cap.CR PO SCH (10:55)
[2021-10-07] MEDS: Folic Acid 50 MG/10 ML MDV SUBCUT SCH (11:25)
[2021-10-07] MEDS: Vancomycin 125 MG Cap PO SCH ×3 (11:30→17:26)
[2021-10-07] MEDS: Thiamine 100 MG Tab PO SCH (11:30)
[2021-10-07] MEDS: LORazepam 2 MG/ML SDV IVPUSH PRN (11:55)
[2021-10-07] MEDS ORDERED: Magnesium Sulfate/Water 2 GM in Premix Bag 1 BAG IV ONE (13:49)
[2021-10-07] MEDS ORDERED: Carvedilol 6.25 MG Tab PO SCH (14:00)
[2021-10-07] MEDS ORDERED: Diltiazem IR 30 MG Tab PO SCH (14:00)
--- NOTE | 2021-10-07 14:17 | PCM.PN ---
- General Info Date of Service: 10/07/21 Subjective Update: Patient states fatigue, denies chest pain, shortness of breath. Patient states past history of tachycardia, which he states was intermittently controlled with his carvedilol 6.125 mg at bedtime. Patient states having full cardiac work-up, no cardiac disease noted except for hypertension. States poor appetite but is tolerating liquids. Patient states having large bowel movement. Functional Status: Reports: Tolerating Diet - Review of Systems Pulmonary: Denies: Shortness of Breath, Cough Cardiovascular: Denies: Chest Pain Gastrointestinal: Reports: Diarrhea. Denies: Abdominal Pain, Vomiting Neurological: Denies: Confusion, Dizziness, Headache Psychiatric: Denies: Confusion - Patient Data Vitals - Most Recent: Last Vital Signs Temp 97.9 F 10/07/21 11:00 Pulse 128 H 10/07/21 11:00 Resp 18 10/07/21 11:00 BP 171/99 H 10/07/21 11:00 Pulse Ox 94 L 10/07/21 11:00 Weight - Most Recent: 220 lb 4.8 oz I&O - Last 24 Hours: Intake & Output 10/06/21 10/07/21 10/07/21 22:59 06:59 14:59 Intake Total 2040 1820 Output Total 900 Balance 1140 1820 Lab Results Last 24 Hours: Laboratory Results - last 24 hr 10/07/21 10/07/21 10/07/21 Range/Units 06:25 06:25 06:25 WBC 5.70 (4.0-11.0) K/uL RBC 4.61 (4.50-5.90) M/uL Hgb 14.5 (13.0-17.0) g/dL Hct 42.7 (38.0-50.0) % MCV 92.6 (80.0-98.0) fL MCH 31.5 (27.0-32.0) pg MCHC 34.0 (31.0-37.0) g/dL RDW Std Deviation 57.5 (28.0-62.0) fl RDW Coeff of Monisha 17 H (11.0-15.0) % Plt Count 85 L (150-400) K/uL MPV 9.70 (7.40-12.00) fL Neut % (Auto) 86.0 H (48.0-80.0) % Lymph % (Auto) 7.5 L (16.0-40.0) % [place] % (Auto) 5.1 (0.0-15.0) % Eos % (Auto) 1.2 (0.0-7.0) % Baso % (Auto) 0.2 (0.0-1.5) % Neut # (Auto) 4.9 (1.4-5.7) K/uL Lymph # (Auto) 0.4 L (0.6-2.4) K/uL [place] # (Auto) 0.3 (0.0-0.8) K/uL Eos # (Auto) 0.1 (0.0-0.7) K/uL Baso # (Auto) 0.0 (0.0-0.1) K/uL Nucleated RBC % 0.0 /100WBC Nucleated RBCs # 0 K/uL Sodium 134 L (136-148) mmol/L Potassium 3.2 L (3.5-5.1) mmol/L Chloride 94 L (98-107) mmol/L Carbon Dioxide 29.2 (21.0-32.0) mmol/L BUN 7 (7.0-18.0) mg/dL Creatinine 0.7 L (0.8-1.3) mg/dL Est Cr Clr Drug Dosing 120.71 mL/min Estimated GFR (MDRD) > 60.0 ml/min Glucose 100 (74-106) mg/dL Calcium 9.0 (8.5-10.1) mg/dL Magnesium 1.4 L (1.8-2.4) mg/dL Total Bilirubin 0.9 (0.2-1.0) mg/dL AST 41 H (15-37) IU/L ALT 48 (14-63) IU/L Alkaline Phosphatase 61 (46-116) U/L Total Protein 7.7 (6.4-8.2) g/dL Albumin 3.3 L (3.4-5.0) g/dL Globulin 4.4 H (2.6-4.0) g/dL Albumin/Globulin Ratio 0.8 L (0.9-1.6) Julio C Results Last 24 Hours: Microbiology 10/07/21 06:15 C. difficile Antigen & Toxins A,B - Final Stool / Feces 10/05/21 16:22 Aerobic Blood Culture - Preliminary Blood - Venous - Lab Draw NO GROWTH AFTER 1 DAY Anaerobic Blood Culture - Preliminary NO GROWTH AFTER 1 DAY 10/05/21 15:34 Aerobic Blood Culture - Preliminary Blood - Venous NO GROWTH AFTER 1 DAY Anaerobic Blood Culture - Preliminary NO GROWTH AFTER 1 DAY Med Orders - Current: Current Medications Acetaminophen (Acetaminophen 325 Mg Tab) 650 mg PO Q4H PRN PRN Reason: Pain (Mild 1-3)/fever Hydrocodone Bitart/Acetaminophen (Acetaminophen/Hydrocodone 325-10 Mg Tab) 1 tab PO Q4H PRN PRN Reason: Pain Diltiazem HCl (Diltiazem Ir 30 Mg Tab) 30 mg PO Q6HR [facility] Enoxaparin Sodium (Enoxaparin 40 Mg/0.4 Ml Syringe) 40 mg SUBCUT Q24H HAYDEE Last Admin: 10/06/21 14:59 Dose: 40 mg Documented by: Folic Acid (Folic Acid 50 Mg/10 Ml Mdv) 1 mg SUBCUT DAILY [facility] Last Admin: 10/07/21 11:25 Dose: 1 mg Documented by: Hydralazine HCl (Hydralazine 20 Mg/Ml Sdv) 10 mg IVPUSH Q3HR PRN PRN Reason: Hypertension Last Admin: 10/07/21 11:57 Dose: 10 mg Documented by: Sodium Chloride (Normal Saline) 1,000 mls @ 75 mls/hr IV ASDIRECTED HAYDEE Dextrose/Sodium Chloride (Dextrose 5%-Normal Saline) 1,000 mls @ 75 mls/hr IV ASDIRECTED HAYDEE Last Admin: 10/07/21 05:20 Dose: 75 mls/hr Documented by: Magnesium Sulfate 2 gm/ Premix 50 mls @ 12.5 mls/hr IV ONETIME ONE Stop: 10/07/21 17:48 Ketorolac Tromethamine (Ketorolac 15 Mg/Ml Sdv) 15 mg IVPUSH Q8H PRN PRN Reason: Headache Stop: 10/10/21 20:33 Lorazepam (Lorazepam 2 Mg/Ml Sdv) 2 mg IVPUSH Q4H PRN; Protocol PRN Reason: Withdrawal Symptoms Last Admin: 10/07/21 11:55 Dose: 2 mg Documented by: Omeprazole (Omeprazole 20 Mg Cap.Cr) 20 mg PO DAILY [facility] Last Admin: 10/07/21 10:55 Dose: Not Given Documented by: Potassium Chloride (Potassium Chloride 20 Meq Tab.Er) 20 meq PO TID [facility] Stop: 10/10/21 06:01 Sucralfate (Sucralfate Suspension 1 Gm/10 Ml Cup) 1 gm PO QID [facility] Last Admin: 10/07/21 11:52 Dose: 1 gm Documented by: Thiamine HCl (Thiamine 100 Mg Tab) 100 mg PO DAILY [facility] Last Admin: 10/07/21 11:30 Dose: 100 mg Documented by: Vancomycin HCl (Vancomycin 125 Mg Cap) 250 mg PO QID [facility] Last Admin: 10/07/21 13:42 Dose: Not Given Documented by: Discontinued Medications Carvedilol (Carvedilol 6.25 Mg Tab) 6.25 mg PO QPM [facility] Last Admin: 10/06/21 18:00 Dose: 6.25 mg Documented by: Carvedilol (Carvedilol 6.25 Mg Tab) 6.25 mg PO BID [facility] Sodium Chloride (Normal Saline) 1,000 mls @ 999 mls/hr IV STAT ONE Stop: 10/05/21 15:41 Last Admin: 10/05/21 14:46 Dose: 999 mls/hr Documented by: Sodium Chloride (Normal Saline) 1,000 mls @ 999 mls/hr IV STAT ONE Stop: 10/05/21 16:23 Last Admin: 10/05/21 15:43 Dose: 999 mls/hr Documented by: Sodium Chloride (Normal Saline) 1,000 mls @ 150 mls/hr IV STAT ONE Stop: 10/05/21 23:08 Last Admin: 10/05/21 18:40 Dose: 150 mls/hr Documented by: Magnesium Sulfate 4 gm/ Premix 100 mls @ 50 mls/hr IV ONETIME ONE Stop: 10/05/21 23:36 Last Admin: 10/05/21 21:46 Dose: 50 mls/hr Documented by: Iopamidol (Iopamidol 755 Mg/Ml 500 Ml Multipack Bottle) 100 ml IVPUSH ONETIME STA Stop: 10/05/21 18:44 Last Admin: 10/05/21 18:43 Dose: 100 ml Documented by: Ketorolac Tromethamine (Ketorolac 30 Mg/Ml Sdv) 30 mg IVPUSH ONETIME ONE Stop: 10/05/21 14:48 Last Admin: 10/05/21 15:42 Dose: 30 mg Documented by: Ketorolac Tromethamine (Ketorolac 15 Mg/Ml Sdv) 15 mg IM ONETIME ONE Stop: 10/05/21 20:32 Last Admin: 10/06/21 06:41 Dose: Not Given Documented by: Ondansetron HCl (Ondansetron 4 Mg/2 Ml Sdv) 4 mg IVPUSH ONETIME ONE Stop: 10/05/21 14:42 Last Admin: 10/05/21 14:46 Dose: 4 mg Documented by: - Exam General: Alert, Oriented Lungs: Clear to Auscultation, Normal Respiratory Effort Cardiovascular: Regular Rhythm, Tachycardia GI/Abdominal Exam: Soft, No Distention Extremities: Normal Inspection, Non-Tender, No Pedal Edema Psy/Mental Status: Alert - Patient Data Lab Results Last 24 hrs: Laboratory Results - last 24 hr 10/07/21 10/07/21 10/07/21 Range/Units 06:25 06:25 06:25 WBC 5.70 (4.0-11.0) K/uL RBC 4.61 (4.50-5.90) M/uL Hgb 14.5 (13.0-17.0) g/dL Hct 42.7 (38.0-50.0) % MCV 92.6 (80.0-98.0) fL MCH 31.5 (27.0-32.0) pg MCHC 34.0 (31.0-37.0) g/dL RDW Std Deviation 57.5 (28.0-62.0) fl RDW Coeff of Monisha 17 H (11.0-15.0) % Plt Count 85 L (150-400) K/uL MPV 9.70 (7.40-12.00) fL Neut % (Auto) 86.0 H (48.0-80.0) % Lymph % (Auto) 7.5 L (16.0-40.0) % [place] % (Auto) 5.1 (0.0-15.0) % Eos % (Auto) 1.2 (0.0-7.0) % Baso % (Auto) 0.2 (0.0-1.5) % Neut # (Auto) 4.9 (1.4-5.7) K/uL Lymph # (Auto) 0.4 L (0.6-2.4) K/uL [place] # (Auto) 0.3 (0.0-0.8) K/uL Eos # (Auto) 0.1 (0.0-0.7) K/uL Baso # (Auto) 0.0 (0.0-0.1) K/uL Nucleated RBC % 0.0 /100WBC Nucleated RBCs # 0 K/uL Sodium 134 L (136-148) mmol/L Potassium 3.2 L (3.5-5.1) mmol/L Chloride 94 L (98-107) mmol/L Carbon Dioxide 29.2 (21.0-32.0) mmol/L BUN 7 (7.0-18.0) mg/dL Creatinine 0.7 L (0.8-1.3) mg/dL Est Cr Clr Drug Dosing 120.71 mL/min Estimated GFR (MDRD) > 60.0 ml/min Glucose 100 (74-106) mg/dL Calcium 9.0 (8.5-10.1) mg/dL Magnesium 1.4 L (1.8-2.4) mg/dL Total Bilirubin 0.9 (0.2-1.0) mg/dL AST 41 H (15-37) IU/L ALT 48 (14-63) IU/L Alkaline Phosphatase 61 (46-116) U/L Total Protein 7.7 (6.4-8.2) g/dL Albumin 3.3 L (3.4-5.0) g/dL Globulin 4.4 H (2.6-4.0) g/dL Albumin/Globulin Ratio 0.8 L (0.9-1.6) Result Diagrams: 10/07/21 06:25 10/07/21 06:25 Julio C Results Last 24 hrs: Microbiology 10/07/21 06:15 C. difficile Antigen & Toxins A,B - Final Stool / Feces 10/05/21 16:22 Aerobic Blood Culture - Preliminary Blood - Venous - Lab Draw NO GROWTH AFTER 1 DAY Anaerobic Blood Culture - Preliminary NO GROWTH AFTER 1 DAY 10/05/21 15:34 Aerobic Blood Culture - Preliminary Blood - Venous NO GROWTH AFTER 1 DAY Anaerobic Blood Culture - Preliminary NO GROWTH AFTER 1 DAY Sepsis Event Note - Evaluation Sepsis Screening Result: Possible Sepsis Risk - Focused Exam Vital Signs: Vital Signs Temp Pulse Resp BP Pulse Ox 10/07/21 11:00 97.9 F 128 H 18 171/99 H 94 L 10/07/21 07:00 97.4 F 115 H 18 138/93 H 94 L 10/07/21 03:30 97.3 F 18 136/89 92 L - Problem List & Annotations (1) Alcohol abuse SNOMED Code(s): 82911031 Code(s): F10.10 - ALCOHOL ABUSE, UNCOMPLICATED Status: Acute Current Visit: Yes (2) COPD (chronic obstructive pulmonary disease) SNOMED Code(s): 02760163 Code(s): J44.9 - CHRONIC OBSTRUCTIVE PULMONARY DISEASE, UNSPECIFIED Status: Acute Current Visit: Yes (3) Dehydration SNOMED Code(s): 13011945 Code(s): E86.0 - DEHYDRATION Status: Acute Current Visit: Yes (4) HTN (hypertension) SNOMED Code(s): 12755378 Code(s): I10 - ESSENTIAL (PRIMARY) HYPERTENSION Status: Acute Current Visit: Yes (5) Nausea and vomiting SNOMED Code(s): 85109647 Code(s): R11.2 - NAUSEA WITH VOMITING, UNSPECIFIED Status: Acute Current Visit: Yes (6) Fatigue SNOMED Code(s): 13637726 Code(s): R53.83 - OTHER FATIGUE Status: Acute Current Visit: No (7) Hypomagnesemia SNOMED Code(s): 604089842 Code(s): E83.42 - HYPOMAGNESEMIA Status: Acute Current Visit: No - Problem List Review Problem List Initiated/Reviewed/Updated: Yes - My Orders Last 24 Hours: My Active Orders 10/07/21 13:49 Magnesium Sulfate/Water [Magnesium Sulfate in Water 2 GM/50 ML] 2 gm Premix Bag 1 bag IV ONETIME 10/07/21 14:00 Diltiazem IR [Cardizem] 30 mg PO Q6HR 10/08/21 05:11 MAGNESIUM [CHEM] AM 10/09/21 05:11 MAGNESIUM [CHEM] AM - Plan Plan:: Dehydration secondary to nausea and vomiting IV fluids, dextrose 5% in normal saline 1000 mL, D/C based on fluid intake Daily CMP, Mg2+ Patient has been tolerating liquids, will continue to encourage oral intake fluids PT consult pending PMH, hypertension, COPD, alcohol abuse disorder, and cluster headache Hydralazine PRN, Lorazepam PRN and CIWA assessments, Turner PRN Hypomagnesemia- Replete 2g IV Mag sulfate, Recheck AM Mg2+ Tachycardia- Monitor electrolytes, replete as needed, Increase Carvedilol to 6.25mg BID C.Diff- Ag Positive, Vancomycin q6hr Assessment and plan discussed with Dr. Mckinley
[2021-10-07] MEDS: Enoxaparin 40 MG/0.4 ML Syringe SUBCUT SCH (15:00)
[2021-10-07] MEDS: Potassium Chloride 20 MEQ Tab.ER PO SCH (15:36)
[2021-10-07] MEDS ORDERED: Diltiazem 25 MG/5 ML SDV IVPUSH ONE (17:04)
[2021-10-07] MEDS: Carvedilol 6.25 MG Tab PO SCH (17:26)
[2021-10-08] MEDS: Vancomycin 125 MG Cap PO SCH ×5 (00:16→23:01)
[2021-10-08] MEDS: Potassium Chloride 20 MEQ Tab.ER PO SCH ×4 (00:16→23:01)
[2021-10-08] MEDS: LORazepam 2 MG/ML SDV IVPUSH PRN ×2 (00:26→19:21)
[2021-10-08] MEDS ORDERED: Ondansetron 4 MG/2 ML SDV IVPUSH PRN (00:35)
[2021-10-08] MEDS: Dextrose 5%-0.9% NaCl 1,000 ML IV SCH ×2 (01:58→13:42)
[2021-10-08] MEDS: Sucralfate Suspension 1 GM/10 ML Cup PO SCH ×4 (06:12→23:01)
[2021-10-08 07:50] LABS: BLOOD UREA NITROGEN,BUN 8 mg/dL (7.0-18.0); CARBON DIOXIDE,CO2 29.5 mmol/L (21.0-32.0); GLUCOSE RANDOM 88 mg/dL (74-106)
[2021-10-08 07:56] LABS: CHLORIDE,CL 90 mmol/L (98-107); SODIUM,NA 130 mmol/L (136-148)
[2021-10-08] MEDS: Omeprazole 20 MG Cap.CR PO SCH (08:20)
[2021-10-08] MEDS: Folic Acid 50 MG/10 ML MDV SUBCUT SCH (08:20)
[2021-10-08] MEDS: Thiamine 100 MG Tab PO SCH (08:21)
[2021-10-08] MEDS: Carvedilol 6.25 MG Tab PO SCH ×2 (08:21→17:24)
[2021-10-08] MEDS ORDERED: Magnesium Sulfate/Water 2 GM in Premix Bag 1 BAG IV ONE (11:54)
--- NOTE | 2021-10-08 12:46 | PCM.DCSUM1 ---
Discharge Summary - Hospital Course Free Text/Narrative:: 10/08/21 PATIENT DOING BETTER overall but now increased heart rate and widthdrawl symptoms. mild increased ciwas and dc now held while increased coreg for tachicardia. eating . sats 90s room air.completed protocol treatment. does not want intervention for drinking but states he can handle it. stopped form dcing. see prev. note. plan reassess symptoms and widthdrawl symptoms . breathing status // headaches and hydration status . drinking fluids better this afternoon and b.p stable . boh HPI Initial Comments: Robert LIVE Admission History & Physical Patient Name: SUJATA GARCIA Date of : 1955 Patient Status: Inpatient Attending Provider: Jan Rosario Date: 10/05/21 20:17 Initialization Date: 10/05/21 20:17 H&P History of Present Illness - General Date of Service: 10/05/21 Admit Problem/Dx: Admission Diagnosis/Problem Admission Diagnosis/Problem Dehydration - History of Present Illness Initial Comments - Free Text/Narative: Mr. Garcia is a 66 y/o white male with a past medical history of HTN, COPD, alcohol abuse, and cluster headaches who presented to the ED with a 4-day history of nausea, vomiting, abdominal discomfort as well as constipation for a week. He also feels weak and has had cluster headaches with spasms in the neck. Patient has a longstanding history of cluster headaches, which can cause him to have the nausea and vomiting. During these episodes of N/V he states his heart rate gets up to 140. He feels somewhat SOB, but this has been normal for him since being diagnosed with COVID-19 on 08/25/21 (out of quarantine). Today's headache is "typical" for him, it is not new or unusual. He has not been eating or drinking appropriately due to N/V. The reports he has multiple food intolerance due to dextrose and potato starches, she has not wanted to give him anything that would cause stomach upset. There is also concerned he is constipated as he has not had a bowel movement in 4 days. States he is just "exhausted... I could barely walk in here I am so tired". Pt had covid infection around Aug 22 and recovered from it. He has been symptom free until the last few days when he developed bad headaches, nausea and vomiting along with the constipation. headache Pain Score (Numeric/FACES): 6 - Related Data Allergies/Adverse Reactions: Allergies Allergy/AdvReac Type Severity Reaction Status Date / Time lisinopril Allergy Difficulty Verified 10/02/21 19:53 Breathing losartan Allergy Difficulty Verified 10/02/21 19:53 Breathing potato Allergy Difficulty Verified 10/02/21 19:53 Breathing Past Medical History - Past Health History Medical/Surgical History: Denies Medical/Surgical History HEENT History: Reports: Cataract, Other (See Below) Other HEENT History: has upper and lower dentures Cardiovascular History: Reports: Cardiomyopathy, High Cholesterol, Hypertension Other Cardiovascular History: L ventricle "doesn't work properly" Respiratory History: Reports: COPD, Sleep Apnea Other Respiratory History: CPAP - pt doesn't use due to claustrophobia Gastrointestinal History: Reports: GERD, PUD Other Gastrointestinal History: Claimed to have severe ulcer in hx, not present Genitourinary History: Reports: Renal Calculus Musculoskeletal History: Reports: Neck Pain, Chronic Neurological History: Reports: Concussion Psychiatric History: Reports: None Endocrine/Metabolic History: Reports: None Hematologic History: Reports: None Immunologic History: Reports: None Oncologic (Cancer) History: Reports: None Dermatologic History: Reports: None - Infectious Disease History Infectious Disease History: Reports: Chicken Pox, Measles, Mumps, Shingles - Past Surgical History Head Surgeries/Procedures: Reports: None HEENT Surgical History: Reports: Cataract Surgery Other HEENT Surgeries/Procedures: Fractured nose, cataract surgery bilateral eyes, constant dull roar in ears Respiratory Surgical History: Reports: None GI Surgical History: Reports: Appendectomy, Colonoscopy Other Male Surgeries/Procedures: pt. states always having blood in urine Endocrine Surgical History: Reports: None Other Endocrine Surgeries/Procedures: pt. states that holistic doctor states that his T3 levels is not normal and prescribed medication, but hospital doctor said it was normal Neurological Surgical History: Reports: None Other Neurological Surgeries/Procedures: pt. states that his feet are numb for years and gotten worse over the years leading to falls Other Musculoskeletal Surgeries/Procedures:: pt. states having a "crooked back" getting worse over the years Oncologic Surgical History: Reports: None Other Oncologic Surgeries/Procedures: dad - prostate cancer, mom - kidney cancer Dermatological Surgical History: Reports: None Social & Family History - Family History Family Medical History: No Pertinent Family History - Tobacco Use Tobacco Use Status *Q: Never Tobacco User - Caffeine Use Caffeine Use: Reports: Soda Caffeine Use Comment: 2-3/day - Recreational Drug Use Recreational Drug Use: No - Living Situation & Occupation Living situation: Reports: Occupation: Employed H&P Review of Systems - Review of Systems: Review Of Systems: Comprehensive ROS is negative, except as noted in HPI. Exam - Exam Exam: See Below - Vital Signs Vital Signs: Last Vital Signs Temp 98.1 F 10/05/21 14:40 Pulse 84 10/05/21 18:05 Resp 20 10/05/21 14:40 BP 162/97 H 10/05/21 17:00 Pulse Ox 94 L 10/05/21 18:05 Weight: 210 lb - Exam Physical Exam Comments:: General: as per HPI CVS: S1S2 appreciated. RRR lungs: clear bilaterally pa: soft, obese, non tender. ext: no clubbing, cyanosis or edema neuro: non focal - Patient Data Lab Results Last 24 hrs: Laboratory Results - last 24 hr 10/05/21 10/05/21 10/05/21 Range/Units 14:48 14:48 14:48 WBC 3.51 L (4.0-11.0) K/uL RBC 4.18 L (4.50-5.90) M/uL Hgb 13.0 (13.0-17.0) g/dL Hct 38.1 (38.0-50.0) % MCV 91.1 (80.0-98.0) fL MCH 31.1 (27.0-32.0) pg MCHC 34.1 (31.0-37.0) g/dL RDW Std Deviation 55.7 (28.0-62.0) fl RDW Coeff of Monisha 17 H (11.0-15.0) % Plt Count 90 L (150-400) K/uL MPV 8.80 (7.40-12.00) fL Neut % (Auto) 71.2 (48.0-80.0) % Lymph % (Auto) 22.5 (16.0-40.0) % [place] % (Auto) 5.7 (0.0-15.0) % Eos % (Auto) 0.0 (0.0-7.0) % Baso % (Auto) 0.6 (0.0-1.5) % Neut # (Auto) 2.5 (1.4-5.7) K/uL Lymph # (Auto) 0.8 (0.6-2.4) K/uL [place] # (Auto) 0.2 (0.0-0.8) K/uL Eos # (Auto) 0.0 (0.0-0.7) K/uL Baso # (Auto) 0.0 (0.0-0.1) K/uL Nucleated RBC % 0.0 /100WBC Nucleated RBCs # 0 K/uL D-Dimer, Quantitative (0.0-0.50) mg/L FEU Sodium 136 (136-148) mmol/L Potassium 3.6 (3.5-5.1) mmol/L Chloride 95 L (98-107) mmol/L Carbon Dioxide 25.6 (21.0-32.0) mmol/L BUN 7 (7.0-18.0) mg/dL Creatinine 0.8 (0.8-1.3) mg/dL Est Cr Clr Drug Dosing 105.63 mL/min Estimated GFR (MDRD) > 60.0 ml/min Glucose 99 (74-106) mg/dL Lactic Acid 4.1 H* (0.4-2.0) mmol/L Calcium 9.1 (8.5-10.1) mg/dL Total Bilirubin 0.5 (0.2-1.0) mg/dL AST 48 H (15-37) IU/L ALT 55 (14-63) IU/L Alkaline Phosphatase 65 (46-116) U/L Troponin I < 0.050 (0.000-0.056) ng/mL B-Natriuretic Peptide (<100) PG/ML Total Protein 7.2 (6.4-8.2) g/dL Albumin 3.2 L (3.4-5.0) g/dL Globulin 4.0 (2.6-4.0) g/dL Albumin/Globulin Ratio 0.8 L (0.9-1.6) Lipase 98 (73-393) U/L TSH, Ultra Sensitive 0.48 (0.36-3.74) uIU/mL Urine Color Urine Appearance Urine pH (5.0-8.0) Ur Specific [place] (1.001-1.035) Urine Protein (NEGATIVE) mg/dL Urine Glucose (UA) (NEGATIVE) mg/dL Urine Ketones (NEGATIVE) mg/dL Urine Occult Blood (NEGATIVE) Urine Nitrite (NEGATIVE) Urine Bilirubin (NEGATIVE) Urine Urobilinogen (<2.0) EU/dL Ur Leukocyte Esterase (NEGATIVE) Urine RBC (0-2/HPF) Urine WBC (0-5/HPF) Ur Epithelial Cells (NONE-FEW) Urine Bacteria (NEGATIVE) Urine Mucus (NONE-MOD) Monoscreen (NEG) 10/05/21 10/05/21 10/05/21 Range/Units 14:48 14:48 14:48 WBC (4.0-11.0) K/uL RBC (4.50-5.90) M/uL Hgb (13.0-17.0) g/dL Hct (38.0-50.0) % MCV (80.0-98.0) fL MCH (27.0-32.0) pg MCHC (31.0-37.0) g/dL RDW Std Deviation (28.0-62.0) fl RDW Coeff of Monisha (11.0-15.0) % Plt Count (150-400) K/uL MPV (7.40-12.00) fL Neut % (Auto) (48.0-80.0) % Lymph % (Auto) (16.0-40.0) % [place] % (Auto) (0.0-15.0) % Eos % (Auto) (0.0-7.0) % Baso % (Auto) (0.0-1.5) % Neut # (Auto) (1.4-5.7) K/uL Lymph # (Auto) (0.6-2.4) K/uL [place] # (Auto) (0.0-0.8) K/uL Eos # (Auto) (0.0-0.7) K/uL Baso # (Auto) (0.0-0.1) K/uL Nucleated RBC % /100WBC Nucleated RBCs # K/uL D-Dimer, Quantitative 2.40 H (0.0-0.50) mg/L FEU Sodium (136-148) mmol/L Potassium (3.5-5.1) mmol/L Chloride (98-107) mmol/L Carbon Dioxide (21.0-32.0) mmol/L BUN (7.0-18.0) mg/dL Creatinine (0.8-1.3) mg/dL Est Cr Clr Drug Dosing mL/min Estimated GFR (MDRD) ml/min Glucose (74-106) mg/dL Lactic Acid (0.4-2.0) mmol/L Calcium (8.5-10.1) mg/dL Total Bilirubin (0.2-1.0) mg/dL AST (15-37) IU/L ALT (14-63) IU/L Alkaline Phosphatase (46-116) U/L Troponin I (0.000-0.056) ng/mL B-Natriuretic Peptide 53 (<100) PG/ML Total Protein (6.4-8.2) g/dL Albumin (3.4-5.0) g/dL Globulin (2.6-4.0) g/dL Albumin/Globulin Ratio (0.9-1.6) Lipase (73-393) U/L TSH, Ultra Sensitive (0.36-3.74) uIU/mL Urine Color Urine Appearance Urine pH (5.0-8.0) Ur Specific [place] (1.001-1.035) Urine Protein (NEGATIVE) mg/dL Urine Glucose (UA) (NEGATIVE) mg/dL Urine Ketones (NEGATIVE) mg/dL Urine Occult Blood (NEGATIVE) Urine Nitrite (NEGATIVE) Urine Bilirubin (NEGATIVE) Urine Urobilinogen (<2.0) EU/dL Ur Leukocyte Esterase (NEGATIVE) Urine RBC (0-2/HPF) Urine WBC (0-5/HPF) Ur Epithelial Cells (NONE-FEW) Urine Bacteria (NEGATIVE) Urine Mucus (NONE-MOD) Monoscreen NEGATIVE (NEG) 10/05/21 10/05/21 Range/Units 16:44 16:58 WBC (4.0-11.0) K/uL RBC (4.50-5.90) M/uL Hgb (13.0-17.0) g/dL Hct (38.0-50.0) % MCV (80.0-98.0) fL MCH (27.0-32.0) pg MCHC (31.0-37.0) g/dL RDW Std Deviation (28.0-62.0) fl RDW Coeff of Monisha (11.0-15.0) % Plt Count (150-400) K/uL MPV (7.40-12.00) fL Neut % (Auto) (48.0-80.0) % Lymph % (Auto) (16.0-40.0) % [place] % (Auto) (0.0-15.0) % Eos % (Auto) (0.0-7.0) % Baso % (Auto) (0.0-1.5) % Neut # (Auto) (1.4-5.7) K/uL Lymph # (Auto) (0.6-2.4) K/uL [place] # (Auto) (0.0-0.8) K/uL Eos # (Auto) (0.0-0.7) K/uL Baso # (Auto) (0.0-0.1) K/uL Nucleated RBC % /100WBC Nucleated RBCs # K/uL D-Dimer, Quantitative (0.0-0.50) mg/L FEU Sodium (136-148) mmol/L Potassium (3.5-5.1) mmol/L Chloride (98-107) mmol/L Carbon Dioxide (21.0-32.0) mmol/L BUN (7.0-18.0) mg/dL Creatinine (0.8-1.3) mg/dL Est Cr Clr Drug Dosing mL/min Estimated GFR (MDRD) ml/min Glucose (74-106) mg/dL Lactic Acid (0.4-2.0) mmol/L Calcium (8.5-10.1) mg/dL Total Bilirubin (0.2-1.0) mg/dL AST (15-37) IU/L ALT (14-63) IU/L Alkaline Phosphatase (46-116) U/L Troponin I < 0.050 (0.000-0.056) ng/mL B-Natriuretic Peptide (<100) PG/ML Total Protein (6.4-8.2) g/dL Albumin (3.4-5.0) g/dL Globulin (2.6-4.0) g/dL Albumin/Globulin Ratio (0.9-1.6) Lipase (73-393) U/L TSH, Ultra Sensitive (0.36-3.74) uIU/mL Urine Color YELLOW Urine Appearance CLEAR Urine pH 6.5 (5.0-8.0) Ur Specific [place] 1.010 (1.001-1.035) Urine Protein NEGATIVE (NEGATIVE) mg/dL Urine Glucose (UA) NEGATIVE (NEGATIVE) mg/dL Urine Ketones TRACE H (NEGATIVE) mg/dL Urine Occult Blood SMALL H (NEGATIVE) Urine Nitrite NEGATIVE (NEGATIVE) Urine Bilirubin NEGATIVE (NEGATIVE) Urine Urobilinogen 0.2 (<2.0) EU/dL Ur Leukocyte Esterase NEGATIVE (NEGATIVE) Urine RBC 1-3 (0-2/HPF) Urine WBC 0-1 (0-5/HPF) Ur Epithelial Cells OCCASIONAL (NONE-FEW) Urine Bacteria RARE (NEGATIVE) Urine Mucus LIGHT (NONE-MOD) Monoscreen (NEG) Result Diagrams: 10/05/21 14:48 10/05/21 14:48 Sepsis Event Note - Evaluation Sepsis Screening Result: No Definite Risk - Focused Exam Vital Signs: Vital Signs Temp Pulse Resp BP Pulse Ox 10/05/21 18:05 84 94 L 10/05/21 17:00 99 162/97 H 93 L 10/05/21 15:30 93 159/93 H 96 10/05/21 14:40 98.1 F 106 H 20 139/94 H 93 L - Problem List (1) Nausea and vomiting SNOMED Code(s): 55585019 ICD Code: R11.2 - NAUSEA WITH VOMITING, UNSPECIFIED Status: Acute Current Visit: Yes (2) Constipation SNOMED Code(s): 45546850 ICD Code: K59.00 - CONSTIPATION, UNSPECIFIED Status: Acute Current Visit: Yes (3) Cluster headache SNOMED Code(s): 844148777 ICD Code: G44.009 - CLUSTER HEADACHE SYNDROME, UNSPECIFIED, NOT INTRACTABLE Status: Acute Current Visit: Yes Problem List Initiated/Reviewed/Updated: Yes Orders Last 24hrs: Active Orders 24 hr Category Date Time Status Admission Status [Patient Status] [ADT] Stat ADT 10/05/21 17:24 Active Oxygen Therapy [RC] PRN Care 10/05/21 17:23 Active VTE/DVT Education [RC] PER UNIT ROUTINE Care 10/05/21 17:23 Active Vital Signs [RC] Q4H Care 10/05/21 17:23 Active Regular Diet [DIET] Diet 10/05/21 Dinner Active BASIC METABOLIC PANEL,BMP [CHEM] AM Lab 10/06/21 05:11 Ordered CBC WITH AUTO DIFF [HEME] AM Lab 10/06/21 05:11 Ordered CULTURE BLOOD [BC] Stat Lab 10/05/21 15:34 Received CULTURE BLOOD [BC] Stat Lab 10/05/21 16:22 Received LACTIC ACID [CHEM] Routine Lab 10/05/21 19:46 Received Acetaminophen [TylenoL] Med 10/05/21 17:22 Active 650 mg PO Q4H PRN Sodium Chloride 0.9% [Normal Saline] 1,000 ml Med 10/05/21 17:30 Active IV ASDIRECTED Sodium Chloride 0.9% [Normal Saline] 1,000 ml Med 10/05/21 16:29 Active IV STAT Blood Culture x2 Reflex Set [OM.PC] Stat Oth 10/05/21 15:22 Ordered Resuscitation Status Routine Resus Stat 10/05/21 17:22 Ordered Medication Orders Acetaminophen (Acetaminophen 325 Mg Tab) 650 mg PO Q4H PRN PRN Reason: Pain (Mild 1-3)/fever Sodium Chloride (Normal Saline) 1,000 mls @ 150 mls/hr IV STAT ONE Stop: 10/05/21 23:08 Last Admin: 10/05/21 18:40 Dose: 150 mls/hr Documented by: LEWILAC Sodium Chloride (Normal Saline) 1,000 mls @ 75 mls/hr IV ASDIRECTED [facility] Assessment/Plan Comment:: Nausea, vomiting and constipation This could be from a bowel obstruction. Will obtain a KUB and if this persists pt will need a CT abd/pelvis in am with oral and IV contrast in am to r/o an obstructing lesion. He has had a colonoscopy in the past. More than 15 yrs ago and never an EGD. He will need an out pt GI referral. Cluster headaches Weakness Recent covid infection Stable Full code status - Mortality Measure Prognosis:: Good - Discharge Data Discharge Date: 10/09/21 Discharge Disposition: Home, Self-Care 01 Condition: Good - Referral to Home Health Primary Care Physician: Hill Walters MD - Discharge Diagnosis/Problem(s) (1) COPD (chronic obstructive pulmonary disease) SNOMED Code(s): 94938817 ICD Code: J44.9 - CHRONIC OBSTRUCTIVE PULMONARY DISEASE, UNSPECIFIED Status: Acute Priority: Low Current Visit: Yes Onset Date: ~10/05/21 Qualifiers: COPD type: unspecified COPD Qualified Code(s): J44.9 - Chronic obstructive pulmonary disease, unspecified (2) Cluster headache SNOMED Code(s): 210544550 ICD Code: G44.009 - CLUSTER HEADACHE SYNDROME, UNSPECIFIED, NOT INTRACTABLE Status: Acute Priority: Low Current Visit: Yes Onset Date: ~10/05/21 Problem Details: improved with hydration /treatement of nausea Qualifiers: Headache chronicity pattern: chronic headache (3) Dehydration SNOMED Code(s): 24254484 ICD Code: E86.0 - DEHYDRATION Status: Acute Priority: Low Current Visit: Yes Onset Date: ~10/05/21 Problem Details: stable hydration orally now (4) HTN (hypertension) SNOMED Code(s): 79499315 ICD Code: I10 - ESSENTIAL (PRIMARY) HYPERTENSION Status: Acute Priority: Medium Current Visit: Yes Onset Date: ~10/05/21 Problem Details: improved in hosp. Qualifiers: Hypertension type: primary hypertension Qualified Code(s): I10 - Essential (primary) hypertension (5) Lactic acidosis SNOMED Code(s): 79103728 ICD Code: E87.2 - ACIDOSIS Status: Acute Priority: Low Current Visit: Yes Onset Date: ~10/05/21 Problem Details: c diff vanco day 2/7 dehydration resolved. started coreg in hosp and cont. as o.p until seen by his primary . (6) Nausea and vomiting SNOMED Code(s): 22356932 ICD Code: R11.2 - NAUSEA WITH VOMITING, UNSPECIFIED Status: Acute Priority: Low Current Visit: Yes Onset Date: ~10/05/21 Problem Details: cluster headache and hypertension resolved. (7) Alcohol abuse SNOMED Code(s): 96150310 ICD Code: F10.10 - ALCOHOL ABUSE, UNCOMPLICATED Status: Acute Priority: Medium Current Visit: Yes Onset Date: ~10/08/21 Problem Details: CIWA NOW 17 DC CANCELLED. ON ATIVAN PER CIWA WILL REASSESS IN AM . - Patient Instructions Diet: No Alcoholic Beverages, Diabetic Diet Feeding Instructions: REG DIET. Activity: As Tolerated Activity, Other: as tolerated Driving: Do Not Drive - Discharge Plan *PRESCRIPTION DRUG MONITORING PROGRAM REVIEWED*: No *COPY OF PRESCRIPTION DRUG MONITORING REPORT IN PATIENT KEI: No Home Medications: Home Meds Esomeprazole [NexIUM] 20 mg PO DAILY 10/05/21 [History] carvediloL [Carvedilol] 12.5 mg PO QPM 10/05/21 [History] Oxygen Therapy Mode: Room Air Patient Handouts: Alcohol Abuse and Dependence Information, Adult, Sinus Tachycardia, Dehydration, Adult, [id number], Hypertension, Adult Referrals: Hill Walters MD [Primary Care Provider] - - Discharge Summary/Plan Comment DC Time >30 min.: Yes Total # of Minutes for Discharge Time: 45 MINUTES// DC CNACELLED SEC. TO TACHICARDIA AND INCREASED WIDTHDRAWL . PENDING IN AM - General Info Admission Dx/Problem (Free Text: Admission Diagnosis/Problem Admission Diagnosis/Problem Dehydration Subjective Update: Patient states fatigue, denies chest pain, shortness of breath. Patient states past history of tachycardia, which he states was intermittently controlled with his carvedilol 6.125 mg at bedtime. Patient states having full cardiac work-up, no cardiac disease noted except for hypertension. States poor appetite but is tolerating liquids. Patient states having large bowel movement. 10/08/21 PATIENT DOING BETTER overall but now increased heart rate and widthdrawl symptoms. mild increased ciwas and dc now held while increased coreg for tachicardia. eating . sats 90s room air.completed protocol treatment. does not want intervention for drinking but states he can handle it. stopped form dcing. see prev. note. plan reassess symptoms and widthdrawl symptoms . breathing status // headaches and hydration status . drinking fluids better this afternoon and b.p stable . boh Functional Status: Reports: Tolerating Diet, New Symptoms - Review of Systems General: Reports: Fatigue, Malaise HEENT: Reports: No Symptoms Pulmonary: Reports: Shortness of Breath Gastrointestinal: Reports: No Symptoms, Decreased Appetite, Diarrhea Genitourinary: Reports: No Symptoms Musculoskeletal: Reports: No Symptoms Skin: Reports: No Symptoms Neurological: Reports: No Symptoms Psychiatric: Reports: No Symptoms - Patient Data Vitals - Most Recent: Last Vital Signs Temp 36.4 C 10/08/21 07:00 Pulse 104 H 10/08/21 08:21 Resp 18 10/08/21 07:00 BP 127/76 10/08/21 08:21 Pulse Ox 92 L 10/08/21 07:00 Weight - Most Recent: 99.926 kg I&O - Last 24 hours: Intake & Output 10/07/21 10/08/21 10/08/21 23:59 07:59 15:59 Intake Total 300 1906 Output Total 600 100 Balance -300 1806 Lab Results - Last 24 hrs: Laboratory Results - last 24 hr 10/07/21 10/08/21 10/08/21 Range/Units 16:37 06:15 06:15 WBC 3.72 L (4.0-11.0) K/uL RBC 4.49 L (4.50-5.90) M/uL Hgb 14.1 (13.0-17.0) g/dL Hct 40.9 (38.0-50.0) % MCV 91.1 (80.0-98.0) fL MCH 31.4 (27.0-32.0) pg MCHC 34.5 (31.0-37.0) g/dL RDW Std Deviation 55.6 (28.0-62.0) fl RDW Coeff of Monisha 17 H (11.0-15.0) % Plt Count 73 L (150-400) K/uL MPV 10.00 (7.40-12.00) fL Neut % (Auto) 75.8 (48.0-80.0) % Lymph % (Auto) 18.0 (16.0-40.0) % [place] % (Auto) 5.6 (0.0-15.0) % Eos % (Auto) 0.3 (0.0-7.0) % Baso % (Auto) 0.3 (0.0-1.5) % Neut # (Auto) 2.8 (1.4-5.7) K/uL Lymph # (Auto) 0.7 (0.6-2.4) K/uL [place] # (Auto) 0.2 (0.0-0.8) K/uL Eos # (Auto) 0.0 (0.0-0.7) K/uL Baso # (Auto) 0.0 (0.0-0.1) K/uL Nucleated RBC % 0.0 /100WBC Nucleated RBCs # 0 K/uL Sodium 130 L (136-148) mmol/L Potassium 3.0 L (3.5-5.1) mmol/L Chloride 90 L (98-107) mmol/L Carbon Dioxide 29.5 (21.0-32.0) mmol/L BUN 8 (7.0-18.0) mg/dL Creatinine 0.8 (0.8-1.3) mg/dL Est Cr Clr Drug Dosing 105.63 mL/min Estimated GFR (MDRD) > 60.0 ml/min Glucose 88 (74-106) mg/dL Lactic Acid 1.1 (0.4-2.0) mmol/L Calcium 8.8 (8.5-10.1) mg/dL Magnesium 1.7 L (1.8-2.4) mg/dL Total Bilirubin 0.8 (0.2-1.0) mg/dL AST 66 H (15-37) IU/L ALT 87 H (14-63) IU/L Alkaline Phosphatase 59 (46-116) U/L Total Protein 7.2 (6.4-8.2) g/dL Albumin 3.3 L (3.4-5.0) g/dL Globulin 3.9 (2.6-4.0) g/dL Albumin/Globulin Ratio 0.9 (0.9-1.6) JOSEPH Results - Last 24 hrs: Microbiology 10/05/21 16:22 Aerobic Blood Culture - Preliminary Blood - Venous - Lab Draw NO GROWTH AFTER 2 DAYS Anaerobic Blood Culture - Preliminary NO GROWTH AFTER 2 DAYS 10/05/21 15:34 Aerobic Blood Culture - Preliminary Blood - Venous NO GROWTH AFTER 2 DAYS Anaerobic Blood Culture - Preliminary NO GROWTH AFTER 2 DAYS 10/07/21 06:15 C. difficile Antigen & Toxins A,B - Final Stool / Feces Med Orders - Current: Current Medications Acetaminophen (Acetaminophen 325 Mg Tab) 650 mg PO Q4H PRN PRN Reason: Pain (Mild 1-3)/fever Hydrocodone Bitart/Acetaminophen (Acetaminophen/Hydrocodone 325-10 Mg Tab) 1 tab PO Q4H PRN PRN Reason: Pain Carvedilol (Carvedilol 6.25 Mg Tab) 6.25 mg PO BIDMEALS HAYDEE Enoxaparin Sodium (Enoxaparin 40 Mg/0.4 Ml Syringe) 40 mg SUBCUT Q24H [facility] Last Admin: 10/07/21 15:00 Dose: 40 mg Documented by: Folic Acid (Folic Acid 50 Mg/10 Ml Mdv) 1 mg SUBCUT DAILY [facility] Last Admin: 10/08/21 08:20 Dose: 1 mg Documented by: Hydralazine HCl (Hydralazine 20 Mg/Ml Sdv) 10 mg IVPUSH Q3HR PRN PRN Reason: Hypertension Last Admin: 10/07/21 11:57 Dose: 10 mg Documented by: Sodium Chloride (Normal Saline) 1,000 mls @ 75 mls/hr IV ASDIRECTED [facility] Dextrose/Sodium Chloride (Dextrose 5%-Normal Saline) 1,000 mls @ 75 mls/hr IV ASDIRECTED [facility] Last Admin: 10/08/21 01:58 Dose: 75 mls/hr Documented by: Magnesium Sulfate 2 gm/ Premix 50 mls @ 25 mls/hr IV ONETIME ONE Stop: 10/08/21 13:53 Ketorolac Tromethamine (Ketorolac 15 Mg/Ml Sdv) 15 mg IVPUSH Q8H PRN PRN Reason: Headache Stop: 10/10/21 20:33 Last Admin: 10/08/21 01:54 Dose: 15 mg Documented by: Lorazepam (Lorazepam 2 Mg/Ml Sdv) 2 mg IVPUSH Q4H PRN; Protocol PRN Reason: Withdrawal Symptoms Last Admin: 10/08/21 00:26 Dose: 2 mg Documented by: Omeprazole (Omeprazole 20 Mg Cap.Cr) 20 mg PO DAILY [facility] Last Admin: 10/08/21 08:20 Dose: 20 mg Documented by: Ondansetron HCl (Ondansetron 4 Mg/2 Ml Sdv) 4 mg IVPUSH Q8H PRN PRN Reason: Nausea/Vomiting Last Admin: 10/08/21 00:44 Dose: 4 mg Documented by: Potassium Chloride (Potassium Chloride 20 Meq Tab.Er) 20 meq PO TID [facility] Stop: 10/10/21 06:01 Last Admin: 10/08/21 06:13 Dose: 20 meq Documented by: Sucralfate (Sucralfate Suspension 1 Gm/10 Ml Cup) 1 gm PO QID [facility] Last Admin: 10/08/21 11:47 Dose: 1 gm Documented by: Thiamine HCl (Thiamine 100 Mg Tab) 100 mg PO DAILY [facility] Last Admin: 10/08/21 08:21 Dose: 100 mg Documented by: Vancomycin HCl (Vancomycin 125 Mg Cap) 125 mg PO QID [facility] Discontinued Medications Carvedilol (Carvedilol 6.25 Mg Tab) 6.25 mg PO QPM [facility] Last Admin: 10/06/21 18:00 Dose: 6.25 mg Documented by: Carvedilol (Carvedilol 6.25 Mg Tab) 6.25 mg PO BID HAYDEE Carvedilol (Carvedilol 6.25 Mg Tab) 6.25 mg PO BIDMEALS [facility] Last Admin: 10/08/21 08:21 Dose: 6.25 mg Documented by: Diltiazem HCl (Diltiazem Ir 30 Mg Tab) 30 mg PO Q6HR [facility] Last Admin: 10/07/21 16:36 Dose: Not Given Documented by: Diltiazem HCl (Diltiazem 25 Mg/5 Ml Sdv) 20 mg IVPUSH ONETIME ONE Stop: 10/07/21 17:05 Last Admin: 10/07/21 17:25 Dose: 20 mg Documented by: Sodium Chloride (Normal Saline) 1,000 mls @ 999 mls/hr IV STAT ONE Stop: 10/05/21 15:41 Last Admin: 10/05/21 14:46 Dose: 999 mls/hr Documented by: Sodium Chloride (Normal Saline) 1,000 mls @ 999 mls/hr IV STAT ONE Stop: 10/05/21 16:23 Last Admin: 10/05/21 15:43 Dose: 999 mls/hr Documented by: Sodium Chloride (Normal Saline) 1,000 mls @ 150 mls/hr IV STAT ONE Stop: 10/05/21 23:08 Last Admin: 10/05/21 18:40 Dose: 150 mls/hr Documented by: Magnesium Sulfate 4 gm/ Premix 100 mls @ 50 mls/hr IV ONETIME ONE Stop: 10/05/21 23:36 Last Admin: 10/05/21 21:46 Dose: 50 mls/hr Documented by: Magnesium Sulfate 2 gm/ Premix 50 mls @ 12.5 mls/hr IV ONETIME ONE Stop: 10/07/21 17:48 Last Admin: 10/07/21 15:36 Dose: 12.5 mls/hr Documented by: Iopamidol (Iopamidol 755 Mg/Ml 500 Ml Multipack Bottle) 100 ml IVPUSH ONETIME STA Stop: 10/05/21 18:44 Last Admin: 10/05/21 18:43 Dose: 100 ml Documented by: Ketorolac Tromethamine (Ketorolac 30 Mg/Ml Sdv) 30 mg IVPUSH ONETIME ONE Stop: 10/05/21 14:48 Last Admin: 10/05/21 15:42 Dose: 30 mg Documented by: Ketorolac Tromethamine (Ketorolac 15 Mg/Ml Sdv) 15 mg IM ONETIME ONE Stop: 10/05/21 20:32 Last Admin: 10/06/21 06:41 Dose: Not Given Documented by: Ondansetron HCl (Ondansetron 4 Mg/2 Ml Sdv) 4 mg IVPUSH ONETIME ONE Stop: 10/05/21 14:42 Last Admin: 10/05/21 14:46 Dose: 4 mg Documented by: Vancomycin HCl (Vancomycin 125 Mg Cap) 250 mg PO QID [facility] Last Admin: 10/07/21 17:26 Dose: 250 mg Documented by: Vancomycin HCl (Vancomycin 125 Mg Cap) 125 mg PO QID [facility] Last Admin: 10/08/21 11:48 Dose: 125 mg Documented by: - Exam General: Reports: Alert, Oriented HEENT: Reports: Pupils Equal, Pupils Reactive, EOMI, Mucous Membr. Moist/[place] Neck: Reports: Supple Lungs: Reports: Clear to Auscultation, Normal Respiratory Effort Cardiovascular: Reports: Regular Rate, Regular Rhythm GI/Abdominal Exam: Normal Bowel Sounds, Soft, Non-Tender, No Organomegaly, No Distention, No Abnormal Bruit, No Mass, Pelvis Stable (Male) Exam: No Hernia, Normal Inspection, Normal Prostate, Circumcised Rectal (Males) Exam: Normal Exam, Normal Rectal Tone, Prostate Normal Back Exam: Reports: Normal Inspection, Full Range of Motion Extremities: Normal Inspection, Normal Range of Motion, Non-Tender, No Pedal Edema, Normal Capillary Refill Skin: Reports: Warm, Dry, Intact Wound/Incisions: Reports: Healing Well Neurological: Reports: No New Focal Deficit Psy/Mental Status: Reports: Alert, Normal Affect, Normal Mood
[2021-10-08] MEDS: Enoxaparin 40 MG/0.4 ML Syringe SUBCUT SCH (13:35)
--- NOTE | 2021-10-08 21:52 | PCM.SN.2 ---
- Free Text/Narrative Note: 10/08/21 afternoon dc cancelled sec to etoh withdrawal signs and hypokalemia boh
[2021-10-09] MEDS: Dextrose 5%-0.9% NaCl 1,000 ML IV SCH (03:41)
[2021-10-09] MEDS: Sucralfate Suspension 1 GM/10 ML Cup PO SCH ×3 (06:12→17:10)
[2021-10-09] MEDS: Vancomycin 125 MG Cap PO SCH ×3 (06:12→17:10)
[2021-10-09] MEDS: Potassium Chloride 20 MEQ Tab.ER PO SCH ×2 (06:12→13:35)
[2021-10-09] MEDS: Omeprazole 20 MG Cap.CR PO SCH (08:23)
[2021-10-09] MEDS: Carvedilol 6.25 MG Tab PO SCH ×2 (08:23→17:09)
[2021-10-09] MEDS: Thiamine 100 MG Tab PO SCH (08:24)
[2021-10-09 08:28] LABS: BLOOD UREA NITROGEN,BUN 7 mg/dL (7.0-18.0); CARBON DIOXIDE,CO2 27.8 mmol/L (21.0-32.0); CHLORIDE,CL 97 mmol/L (98-107); GLUCOSE RANDOM 103 mg/dL (74-106); POTASSIUM,K 3.1 mmol/L (3.5-5.1); SODIUM,NA 133 mmol/L (136-148)
[2021-10-09] MEDS: Folic Acid 50 MG/10 ML MDV SUBCUT SCH (08:50)
--- NOTE | 2021-10-09 11:16 | PCM.DCSUM1 ---
Discharge Summary - Hospital Course Free Text/Narrative:: The patient is a 66-year-old male, on day 5 of service, who has a significant past medical history of hypertension, chronic obstructive pulmonary disease, alcohol abuse disorder, and cluster headache, who was admitted to the medical floor due to dehydration secondary to nausea and vomiting. During the patient's hospitalization for his dehydration secondary to nausea and vomiting he was treated with different formulations of fluids in order to replenish his levels and to hydrate him. He was also treated with Zofran 4 mg per IV route every 8 hours. He was also suffering from cluster headache while in hospital and was treated with both [place] and Toradol for pain relief. For his hypertension he was treated with hydralazine and for his COPD he was supplied with oxygen. This patient was also suffering from alcohol abuse disorder and was on CIWA/Ativan protocol and also received folic acid and thiamine. His most recent issue was C. difficile infection and as a result he was started on vancomycin 125 mg to be taken 4 times a day. Upon interview with the patient today he explained that he no longer has weakness, does not have diarrhea, his headache has subsided, and he has no alcohol withdrawal symptoms. He also has no abdominal pain and feels healthy enough to go home. It was explained to him because he has C. difficile infection and that he would be sent home with a 1 week supply of vancomycin per oral route in order to completely eradicate this. The patient has been advised to abstain from alcohol use and to use support groups such as alcoholics anonymous. He is also been counseled on smoking cessation and to be compliant with his medication and to take them at scheduled times. He has been educated on returning to the hospital if he has any increasing nausea, vomiting, debilitating headache, or alcohol withdrawal symptoms. He is to follow-up with his PCP in order to have a medication review. The patient is now stable and can be discharged. - Discharge Data Discharge Date: 10/09/21 Discharge Disposition: Home, Self-Care 01 Condition: Fair - Referral to Home Health Primary Care Physician: Hill Walters MD - Discharge Diagnosis/Problem(s) (1) COPD (chronic obstructive pulmonary disease) SNOMED Code(s): 21511474 ICD Code: J44.9 - CHRONIC OBSTRUCTIVE PULMONARY DISEASE, UNSPECIFIED Status: Acute Priority: Low Current Visit: Yes Onset Date: ~10/05/21 Qualifiers: COPD type: unspecified COPD Qualified Code(s): J44.9 - Chronic obstructive pulmonary disease, unspecified (2) HTN (hypertension) SNOMED Code(s): 43290966 ICD Code: I10 - ESSENTIAL (PRIMARY) HYPERTENSION Status: Acute Priority: Medium Current Visit: Yes Onset Date: ~10/05/21 Problem Details: improved in hosp. Qualifiers: Hypertension type: primary hypertension Qualified Code(s): I10 - Essential (primary) hypertension (3) Alcohol abuse SNOMED Code(s): 02104275 ICD Code: F10.10 - ALCOHOL ABUSE, UNCOMPLICATED Status: Acute Priority: Medium Current Visit: Yes Onset Date: ~10/08/21 Problem Details: CIWA NOW 17 DC CANCELLED. ON ATIVAN PER CIWA WILL REASSESS IN AM . (4) Cluster headache SNOMED Code(s): 047050917 ICD Code: G44.009 - CLUSTER HEADACHE SYNDROME, UNSPECIFIED, NOT INTRACTABLE Status: Acute Priority: Low Current Visit: Yes Onset Date: ~10/05/21 Problem Details: improved with hydration /treatement of nausea Qualifiers: Headache chronicity pattern: chronic headache Intractability: not intractable Qualified Code(s): G44.029 - Chronic cluster headache, not intract able (5) Dehydration SNOMED Code(s): 61797562 ICD Code: E86.0 - DEHYDRATION Status: Acute Priority: Low Current Visit: Yes Onset Date: ~10/05/21 Problem Details: stable hydration orally now (6) Nausea and vomiting SNOMED Code(s): 38599385 ICD Code: R11.2 - NAUSEA WITH VOMITING, UNSPECIFIED Status: Acute Priority: Low Current Visit: Yes Onset Date: ~10/05/21 Problem Details: cluster headache and hypertension resolved. (7) Alcohol withdrawal SNOMED Code(s): 253272611 ICD Code: F10.239 - ALCOHOL DEPENDENCE WITH WITHDRAWAL, UNSPECIFIED Status: Acute Current Visit: No - Patient Instructions Diet: Regular Diet as Tolerated, No Alcoholic Beverages Feeding Instructions: REG DIET. Activity: As Tolerated Activity, Other: as tolerated Driving: Do Not Drive Showering/Bathing: May Shower Other/Special Instructions: -Return to the hospital if you have increased nausea or vomiting, debilitating headache, diarrhea, chest pain, palpitations. -Follow-up with your PCP Dr. Walters. -Take your medication at scheduled times - Discharge Plan *PRESCRIPTION DRUG MONITORING PROGRAM REVIEWED*: No *COPY OF PRESCRIPTION DRUG MONITORING REPORT IN PATIENT KEI: No Prescriptions/Med Rec: Vancomycin [Vancocin 125 MG Capsule] 125 mg PO QID 7 Days #28 cap Home Medications: Home Meds Esomeprazole [NexIUM] 20 mg PO DAILY 10/05/21 [History] carvediloL [Carvedilol] 12.5 mg PO QPM 10/05/21 [History] Vancomycin [Vancocin 125 MG Capsule] 125 mg PO QID 7 Days #28 cap 10/09/21 [Rx] Oxygen Therapy Mode: Room Air Patient Handouts: Chronic Obstructive Pulmonary Disease Exacerbation, [id number], Alcohol Abuse and Dependence Information, Adult, Constipation, Adult, [id number], Chronic Obstructive Pulmonary Disease, [id number], Nausea and Vomiting, Adult, Vffg-ob-Subs, Cluster Headache, Iwgb-bv-Ptot, Sinus Tachycardia, Dehydration, Adult, [id number]-Fhep, Metabolic Acidosis, Preventing Hypertension, Managing Your Hypertension, COPD and Physical Activity, Hypertension, Adult Referrals: Hill Walters MD [Primary Care Provider] - - Discharge Summary/Plan Comment DC Time >30 min.: Yes Total # of Minutes for Discharge Time: 35 minutes - Review of Systems General: Denies: Fever, Weakness, Fatigue HEENT: Denies: Headaches, Sore Throat Pulmonary: Denies: Shortness of Breath, Cough Cardiovascular: Denies: Chest Pain, Palpitations Gastrointestinal: Denies: Abdominal Pain, Nausea, Vomiting Genitourinary: Denies: Dysuria - Patient Data Vitals - Most Recent: Last Vital Signs Temp 97.5 F 10/09/21 08:33 Pulse 89 10/09/21 08:33 Resp 22 H 10/09/21 08:33 BP 124/73 10/09/21 08:33 Pulse Ox 92 L 10/09/21 08:33 Weight - Most Recent: 220 lb 4.8 oz I&O - Last 24 hours: Intake & Output 10/08/21 10/09/21 10/09/21 22:59 06:59 14:59 Intake Total 1000 2672 Output Total 800 1100 Balance 200 1572 Lab Results - Last 24 hrs: Laboratory Results - last 24 hr 10/09/21 10/09/21 Range/Units 06:51 06:51 WBC 3.98 L (4.0-11.0) K/uL RBC 4.05 L (4.50-5.90) M/uL Hgb 12.8 L (13.0-17.0) g/dL Hct 37.0 L (38.0-50.0) % MCV 91.4 (80.0-98.0) fL MCH 31.6 (27.0-32.0) pg MCHC 34.6 (31.0-37.0) g/dL RDW Std Deviation 56.6 (28.0-62.0) fl RDW Coeff of Monisha 17 H (11.0-15.0) % Plt Count 67 L (150-400) K/uL MPV 9.90 (7.40-12.00) fL Neut % (Auto) 61.5 (48.0-80.0) % Lymph % (Auto) 25.6 (16.0-40.0) % [place] % (Auto) 9.8 (0.0-15.0) % Eos % (Auto) 2.8 (0.0-7.0) % Baso % (Auto) 0.3 (0.0-1.5) % Neut # (Auto) 2.5 (1.4-5.7) K/uL Lymph # (Auto) 1.0 (0.6-2.4) K/uL [place] # (Auto) 0.4 (0.0-0.8) K/uL Eos # (Auto) 0.1 (0.0-0.7) K/uL Baso # (Auto) 0.0 (0.0-0.1) K/uL Nucleated RBC % 0.0 /100WBC Nucleated RBCs # 0 K/uL Sodium 133 L (136-148) mmol/L Potassium 3.1 L (3.5-5.1) mmol/L Chloride 97 L (98-107) mmol/L Carbon Dioxide 27.8 (21.0-32.0) mmol/L BUN 7 (7.0-18.0) mg/dL Creatinine 0.7 L (0.8-1.3) mg/dL Est Cr Clr Drug Dosing 120.71 mL/min Estimated GFR (MDRD) > 60.0 ml/min Glucose 103 (74-106) mg/dL Calcium 8.2 L (8.5-10.1) mg/dL Magnesium 1.7 L (1.8-2.4) mg/dL Total Bilirubin 0.7 (0.2-1.0) mg/dL AST 45 H (15-37) IU/L ALT 70 H (14-63) IU/L Alkaline Phosphatase 50 (46-116) U/L Total Protein 6.4 (6.4-8.2) g/dL Albumin 2.6 L (3.4-5.0) g/dL Globulin 3.8 (2.6-4.0) g/dL Albumin/Globulin Ratio 0.7 L (0.9-1.6) JOSEPH Results - Last 24 hrs: Microbiology 10/07/21 06:15 Clostridioides difficile (PCR) - Final Stool / Feces 10/05/21 16:22 Aerobic Blood Culture - Preliminary Blood - Venous - Lab Draw NO GROWTH AFTER 3 DAYS Anaerobic Blood Culture - Preliminary NO GROWTH AFTER 3 DAYS 10/05/21 15:34 Aerobic Blood Culture - Preliminary Blood - Venous NO GROWTH AFTER 3 DAYS Anaerobic Blood Culture - Preliminary NO GROWTH AFTER 3 DAYS Med Orders - Current: Current Medications Acetaminophen (Acetaminophen 325 Mg Tab) 650 mg PO Q4H PRN PRN Reason: Pain (Mild 1-3)/fever Hydrocodone Bitart/Acetaminophen (Acetaminophen/Hydrocodone 325-10 Mg Tab) 1 tab PO Q4H PRN PRN Reason: Pain Last Admin: 10/08/21 23:06 Dose: 1 tab Documented by: Carvedilol (Carvedilol 6.25 Mg Tab) 6.25 mg PO BIDMEALS [facility] Last Admin: 10/09/21 08:23 Dose: 6.25 mg Documented by: Enoxaparin Sodium (Enoxaparin 40 Mg/0.4 Ml Syringe) 40 mg SUBCUT Q24H [facility] Last Admin: 10/08/21 13:35 Dose: 40 mg Documented by: Folic Acid (Folic Acid 50 Mg/10 Ml Mdv) 1 mg SUBCUT DAILY [facility] Last Admin: 10/09/21 08:50 Dose: 1 mg Documented by: Hydralazine HCl (Hydralazine 20 Mg/Ml Sdv) 10 mg IVPUSH Q3HR PRN PRN Reason: Hypertension Last Admin: 10/07/21 11:57 Dose: 10 mg Documented by: Sodium Chloride (Normal Saline) 1,000 mls @ 75 mls/hr IV ASDIRECTED [facility] Dextrose/Sodium Chloride (Dextrose 5%-Normal Saline) 1,000 mls @ 75 mls/hr IV ASDIRECTED [facility] Last Admin: 10/09/21 03:41 Dose: 75 mls/hr Documented by: Ketorolac Tromethamine (Ketorolac 15 Mg/Ml Sdv) 15 mg IVPUSH Q8H PRN PRN Reason: Headache Stop: 10/10/21 20:33 Last Admin: 10/08/21 01:54 Dose: 15 mg Documented by: Lorazepam (Lorazepam 2 Mg/Ml Sdv) 2 mg IVPUSH Q4H PRN; Protocol PRN Reason: Withdrawal Symptoms Last Admin: 10/08/21 19:21 Dose: 2 mg Documented by: Omeprazole (Omeprazole 20 Mg Cap.Cr) 20 mg PO DAILY [facility] Last Admin: 10/09/21 08:23 Dose: 20 mg Documented by: Ondansetron HCl (Ondansetron 4 Mg/2 Ml Sdv) 4 mg IVPUSH Q8H PRN PRN Reason: Nausea/Vomiting Last Admin: 10/08/21 00:44 Dose: 4 mg Documented by: Potassium Chloride (Potassium Chloride 20 Meq Tab.Er) 20 meq PO TID [facility] Stop: 10/10/21 06:01 Last Admin: 10/09/21 06:12 Dose: 20 meq Documented by: Sucralfate (Sucralfate Suspension 1 Gm/10 Ml Cup) 1 gm PO QID [facility] Last Admin: 10/09/21 06:12 Dose: 1 gm Documented by: Thiamine HCl (Thiamine 100 Mg Tab) 100 mg PO DAILY [facility] Last Admin: 10/09/21 08:24 Dose: 100 mg Documented by: Vancomycin HCl (Vancomycin 125 Mg Cap) 125 mg PO QID [facility] Last Admin: 10/09/21 06:12 Dose: 125 mg Documented by: Discontinued Medications Carvedilol (Carvedilol 6.25 Mg Tab) 6.25 mg PO QPM [facility] Last Admin: 10/06/21 18:00 Dose: 6.25 mg Documented by: Carvedilol (Carvedilol 6.25 Mg Tab) 6.25 mg PO BID [facility] Carvedilol (Carvedilol 6.25 Mg Tab) 6.25 mg PO BIDMEALS [facility] Last Admin: 10/08/21 08:21 Dose: 6.25 mg Documented by: Diltiazem HCl (Diltiazem Ir 30 Mg Tab) 30 mg PO Q6HR [facility] Last Admin: 10/07/21 16:36 Dose: Not Given Documented by: Diltiazem HCl (Diltiazem 25 Mg/5 Ml Sdv) 20 mg IVPUSH ONETIME ONE Stop: 10/07/21 17:05 Last Admin: 10/07/21 17:25 Dose: 20 mg Documented by: Sodium Chloride (Normal Saline) 1,000 mls @ 999 mls/hr IV STAT ONE Stop: 10/05/21 15:41 Last Admin: 10/05/21 14:46 Dose: 999 mls/hr Documented by: Sodium Chloride (Normal Saline) 1,000 mls @ 999 mls/hr IV STAT ONE Stop: 10/05/21 16:23 Last Admin: 10/05/21 15:43 Dose: 999 mls/hr Documented by: Sodium Chloride (Normal Saline) 1,000 mls @ 150 mls/hr IV STAT ONE Stop: 10/05/21 23:08 Last Admin: 10/05/21 18:40 Dose: 150 mls/hr Documented by: Magnesium Sulfate 4 gm/ Premix 100 mls @ 50 mls/hr IV ONETIME ONE Stop: 10/05/21 23:36 Last Admin: 10/05/21 21:46 Dose: 50 mls/hr Documented by: Magnesium Sulfate 2 gm/ Premix 50 mls @ 12.5 mls/hr IV ONETIME ONE Stop: 10/07/21 17:48 Last Admin: 10/07/21 15:36 Dose: 12.5 mls/hr Documented by: Magnesium Sulfate 2 gm/ Premix 50 mls @ 25 mls/hr IV ONETIME ONE Stop: 10/08/21 13:53 Last Admin: 10/08/21 13:33 Dose: 25 mls/hr Documented by: Iopamidol (Iopamidol 755 Mg/Ml 500 Ml Multipack Bottle) 100 ml IVPUSH ONETIME STA Stop: 10/05/21 18:44 Last Admin: 10/05/21 18:43 Dose: 100 ml Documented by: Ketorolac Tromethamine (Ketorolac 30 Mg/Ml Sdv) 30 mg IVPUSH ONETIME ONE Stop: 10/05/21 14:48 Last Admin: 10/05/21 15:42 Dose: 30 mg Documented by: Ketorolac Tromethamine (Ketorolac 15 Mg/Ml Sdv) 15 mg IM ONETIME ONE Stop: 10/05/21 20:32 Last Admin: 10/06/21 06:41 Dose: Not Given Documented by: Ondansetron HCl (Ondansetron 4 Mg/2 Ml Sdv) 4 mg IVPUSH ONETIME ONE Stop: 10/05/21 14:42 Last Admin: 10/05/21 14:46 Dose: 4 mg Documented by: Vancomycin HCl (Vancomycin 125 Mg Cap) 250 mg PO QID [facility] Last Admin: 10/07/21 17:26 Dose: 250 mg Documented by: Vancomycin HCl (Vancomycin 125 Mg Cap) 125 mg PO QID [facility] Last Admin: 10/08/21 11:48 Dose: 125 mg Documented by: - Exam General: Reports: Alert, Oriented, Cooperative HEENT: Reports: Mucous Membr. Moist/[place] Neck: Reports: Trachea Midline Lungs: Reports: Clear to Auscultation, Normal Respiratory Effort Cardiovascular: Reports: Regular Rate, Regular Rhythm GI/Abdominal Exam: Normal Bowel Sounds, Soft, Non-Tender
[2021-10-09] MEDS: Enoxaparin 40 MG/0.4 ML Syringe SUBCUT SCH (13:35)
[2021-10-09 18:04] VITALS: BP 112/67; PULSE 84
== END 2021-10-09 17:27 | disposition home or self-care (01) | DRG 897 ==
LOC: MW.ED 14:28 → MW.MS 17:24 → OBSVTOIN 10-07 13:55 → MW.MS 10-07 14:30
PROVIDERS: ADMIT Hospitalist; ATTEND Hospitalist
DX: F10.239 Alcohol dependence with withdrawal, unspecified (principal); I42.9 Cardiomyopathy, unspecified; E87.2 Acidosis; E86.0 Dehydration; I10 Essential (primary) hypertension; J44.9 Chronic obstructive pulmonary disease, unspecified; G44.009 Cluster headache syndrome, unspecified, not intractable; Z79.899 Other long term (current) drug therapy; E87.6 Hypokalemia; Z88.8 Allergy status to other drugs, medicaments and biological substances; Z91.018 Allergy to other foods; E78.00 Pure hypercholesterolemia, unspecified; G47.30 Sleep apnea, unspecified; R11.2 Nausea with vomiting, unspecified; K21.9 Gastro-esophageal reflux disease without esophagitis; Z99.81 Dependence on supplemental oxygen; Z87.11 Personal history of peptic ulcer disease; Z87.442 Personal history of urinary calculi; G89.29 Other chronic pain; M54.2 Cervicalgia; Z86.19 Personal history of other infectious and parasitic diseases; Z98.49 Cataract extraction status, unspecified eye; Z90.49 Acquired absence of other specified parts of digestive tract; K59.00 Constipation, unspecified
CPT/HCPCS: 36415 ×3; 71045; 71275; 74018; 80048; 80053 ×2; 81001; 83605 ×2; 83690; 83735 ×3; 83880; 84443; 84484 ×2; 85025 ×3; 85379; 86308; 87040 ×2; 87324; 87493; 93005 ×2; 96374; 96375; 99285; A9270 ×7; J0360; J1650; J1885; J2060 ×3; J2405; J3475; J7030 ×3; J7042 ×3; Q9967; 93010; 96372; 96376; G0378; J3490

== ENCOUNTER 2021-10-30 13:22 | Emergency (ER) | payer MEDICARE, OTHER ==
[2021-10-30] MEDS ORDERED: Sodium Chloride 0.9% 1,000 ML IV ONE ×2 (14:13→19:35)
[2021-10-30] MEDS ORDERED: Ondansetron 4 MG/2 ML SDV IVPUSH ONE (14:13)
[2021-10-30] MEDS ORDERED: Sodium Chloride 0.9% 2.5 ML Syringe FLUSH PRN (14:13)
[2021-10-30] MEDS ORDERED: Sodium Chloride 0.9% 10 ML Syringe FLUSH PRN (14:13)
[2021-10-30 16:00] LABS: BLOOD UREA NITROGEN,BUN 6 mg/dL (7.0-18.0); CARBON DIOXIDE,CO2 26.8 mmol/L (21.0-32.0); CHLORIDE,CL 94 mmol/L (98-107); GLUCOSE RANDOM 98 mg/dL (74-106); POTASSIUM,K 3.9 mmol/L (3.5-5.1); SODIUM,NA 131 mmol/L (136-148)
[2021-10-30 16:01] LABS: CORONAVIRUS COVID-19 NAA NEGATIVE (NEGATIVE); INFLUENZA A NAA NEGATIVE (NEGATIVE); INFLUENZA B NAA NEGATIVE (NEGATIVE)
[2021-10-30] MEDS ORDERED: Magnesium Sulfate (4.06 MEQ/ML) 5 GM/10 ML SDV IV STA (16:17)
[2021-10-30] MEDS ORDERED: Magnesium Sulfate/Water 2 GM in Premix Bag 1 BAG IV ONE (16:26)
[2021-10-30 20:34] VITALS: BP 140/90; PULSE 75
== END 2021-10-30 20:34 | disposition home or self-care (01) ==
LOC: MW.ED 13:22
DX: E83.42 Hypomagnesemia (principal); I10 Essential (primary) hypertension; K21.9 Gastro-esophageal reflux disease without esophagitis; Z88.8 Allergy status to other drugs, medicaments and biological substances; Z91.018 Allergy to other foods; Z79.899 Other long term (current) drug therapy; Z20.822 Contact with and (suspected) exposure to COVID-19
CPT/HCPCS: 0240U; 36415; 71045; 80053; 83735; 84484; 85025; 93005; 96365; 96366; 96375; 99285; J2405; J3475; J7030

== ENCOUNTER 2021-11-17 08:14 | Day surgery (SDC) | payer MEDICARE, OTHER ==
[~2021-11-17 08:14] MED LIST changes: -Bupivacaine 0.25%/EPINEPHrine 1:200,000 10 ML SDV INJECT ONE; -Bupivacaine 25%/EPINEPHrine/PF 30 ML ONE; -Dexamethasone/Tobramycin 0.1-0.3% Ophth Oint 3.5 GM Tube ONE; -Dexamethasone/Tobramycin 0.1-0.3% Ophth Susp 2.5 ML Bottle ONE; -Tetracaine 0.5% Ophth Soln 15 ML Bottle ONE; -ceFAZolin 2 GM in Premix Bag 1 BAG IV ONE; -traMADol 50 MG Tab PO PRN
[2021-11-17 11:03] VITALS: BP 124/70; PULSE 72
[2021-11-17] MEDS ORDERED: Propofol 200 MG/20 ML SDV ONE (11:32)
[2021-11-17] MEDS ORDERED: Midazolam 1 MG/ML 2 ML SDV ONE (11:32)
== END 2021-11-17 11:09 | disposition home or self-care (01) ==
LOC: MW.SDS 08:14
PROVIDERS: ATTEND Surgery
DX: K29.50 Unspecified chronic gastritis without bleeding (principal); K31.7 Polyp of stomach and duodenum; K22.89 Other specified disease of esophagus; K44.9 Diaphragmatic hernia without obstruction or gangrene; K21.00 Gastro-esophageal reflux disease with esophagitis, without bleeding; J44.9 Chronic obstructive pulmonary disease, unspecified; I10 Essential (primary) hypertension; G62.9 Polyneuropathy, unspecified; E78.00 Pure hypercholesterolemia, unspecified; G47.30 Sleep apnea, unspecified; Z88.8 Allergy status to other drugs, medicaments and biological substances; Z79.899 Other long term (current) drug therapy; Z90.49 Acquired absence of other specified parts of digestive tract; Z98.890 Other specified postprocedural states; Z91.018 Allergy to other foods; Z87.891 Personal history of nicotine dependence
CPT/HCPCS: 43239; J2250; J2704; J7120; 00731; 88305

== ENCOUNTER 2021-11-25 06:48 | Emergency (ER) | payer MEDICARE, OTHER ==
[2021-11-25] MEDS ORDERED: Ondansetron 4 MG/2 ML SDV IVPUSH ONE (07:13)
[2021-11-25] MEDS ORDERED: Sodium Chloride 0.9% 2.5 ML Syringe FLUSH PRN (07:13)
[2021-11-25] MEDS ORDERED: Sodium Chloride 0.9% 10 ML Syringe FLUSH PRN (07:13)
[2021-11-25] MEDS ORDERED: methylPREDNISolone Sodium Succinate 125 MG/2 ML SDV IVPUSH ONE (07:14)
[2021-11-25] MEDS ORDERED: Albuterol/Ipratropium 3.0-0.5 MG/3 ML Neb Soln NEB ONE (07:14)
[2021-11-25] MEDS ORDERED: Sodium Chloride 0.9% 1,000 ML IV ONE (07:38)
[2021-11-25 08:15] LABS: BLOOD UREA NITROGEN,BUN 6 mg/dL (7.0-18.0); CARBON DIOXIDE,CO2 25.1 mmol/L (21.0-32.0); CHLORIDE,CL 89 mmol/L (98-107); GLUCOSE RANDOM 96 mg/dL (74-106); LIPASE 47 U/L (73-393); POTASSIUM,K 3.4 mmol/L (3.5-5.1); SODIUM,NA 129 mmol/L (136-148)
[2021-11-25] MEDS ORDERED: Magnesium Sulfate/Water 2 GM in Premix Bag 1 BAG IV ONE (08:18)
[2021-11-25 08:29] LABS: CORONAVIRUS COVID-19 NAA NEGATIVE (NEGATIVE); INFLUENZA A NAA NEGATIVE (NEGATIVE); INFLUENZA B NAA NEGATIVE (NEGATIVE)
[2021-11-25 10:13] VITALS: BP 131/77; PULSE 84
== END 2021-11-25 10:29 | disposition home or self-care (01) ==
LOC: MW.ED 06:48
DX: R00.0 Tachycardia, unspecified (principal); R00.2 Palpitations; F10.20 Alcohol dependence, uncomplicated; E87.6 Hypokalemia; E87.1 Hypo-osmolality and hyponatremia; E83.42 Hypomagnesemia; E78.00 Pure hypercholesterolemia, unspecified; I10 Essential (primary) hypertension; J44.9 Chronic obstructive pulmonary disease, unspecified; K21.9 Gastro-esophageal reflux disease without esophagitis; Z91.018 Allergy to other foods; Z88.8 Allergy status to other drugs, medicaments and biological substances; Z79.82 Long term (current) use of aspirin; Z20.822 Contact with and (suspected) exposure to COVID-19; Y90.6 Blood alcohol level of 120-199 mg/100 ml
CPT/HCPCS: 0240U; 36415; 71045; 80053; 80307; 81001; 83690; 83735; 84484; 85025; 93005; 96365; 96366; 96375; 99285; J2405; J3475; J7030

== ENCOUNTER 2021-12-29 20:42 | Emergency (ER) | payer MEDICARE, OTHER ==
[2021-12-29] MEDS ORDERED: Folic Acid 1 MG Tab PO ONE (20:47)
[2021-12-29] MEDS ORDERED: Sodium Chloride 0.9% 10 ML Syringe FLUSH PRN (20:47)
[2021-12-29] MEDS ORDERED: Thiamine 100 MG Tab PO ONE (20:47)
[2021-12-29] MEDS ORDERED: Sodium Chloride 0.9% 2.5 ML Syringe FLUSH PRN (20:47)
[2021-12-29] MEDS ORDERED: Sodium Chloride 0.9% 1,000 ML IV ONE (20:48)
[2021-12-29] MEDS ORDERED: LORazepam 2 MG/ML SDV IVPUSH ONE (21:20)
[2021-12-29 21:32] LABS: BLOOD UREA NITROGEN,BUN 9 mg/dL (7.0-18.0); CARBON DIOXIDE,CO2 30.6 mmol/L (21.0-32.0); CHLORIDE,CL 97 mmol/L (98-107); GLUCOSE RANDOM 105 mg/dL (74-106); POTASSIUM,K 3.8 mmol/L (3.5-5.1); SODIUM,NA 138 mmol/L (136-148)
[2021-12-29] MEDS ORDERED: Magnesium Oxide 400 MG Tab PO ONE (21:39)
[2021-12-29] MEDS ORDERED: Magnesium Sulfate/Water 2 GM in Premix Bag 1 BAG IV ONE (21:39)
[2021-12-29] MEDS ORDERED: OLANZapine 5 MG in Water For Injection, Sterile 2.1 ML IM ONE (23:00)
[2021-12-30] MEDS ORDERED: Sodium Chloride 0.9% 1,000 ML IV ONE (02:01)
[2021-12-30 03:10] VITALS: BP 143/91; PULSE 93
== END 2021-12-30 03:00 | disposition home or self-care (01) ==
LOC: MW.ED 20:42
DX: E83.42 Hypomagnesemia (principal); F10.10 Alcohol abuse, uncomplicated; I10 Essential (primary) hypertension; K21.9 Gastro-esophageal reflux disease without esophagitis; J44.9 Chronic obstructive pulmonary disease, unspecified; E78.00 Pure hypercholesterolemia, unspecified; Z88.8 Allergy status to other drugs, medicaments and biological substances; Z91.018 Allergy to other foods; Z79.82 Long term (current) use of aspirin; Z79.899 Other long term (current) drug therapy; Y90.8 Blood alcohol level of 240 mg/100 ml or more
CPT/HCPCS: 36415; 80053; 80307; 83735; 84484; 85025; 93005; 96365; 96366; 96372; 96375; 99284; A9270; J2060; J3475; J3490; J7030; 93010

== ENCOUNTER 2022-08-21 10:35 | Emergency (ER) | payer MEDICARE, OTHER, BC ==
[2022-08-21] MEDS ORDERED: Sodium Chloride 0.9% 1,000 ML IV ONE ×2 (10:39→11:54)
[2022-08-21] MEDS ORDERED: LORazepam 2 MG/ML SDV IVPUSH ONE (10:39)
[2022-08-21 11:52] LABS: CARBON DIOXIDE,CO2 25.4 mmol/L (21.0-32.0); POTASSIUM,K 3.4 mmol/L (3.5-5.1)
[2022-08-21] MEDS ORDERED: Potassium Chloride 20 MEQ Tab.ER PO ONE (11:55)
[2022-08-21] MEDS ORDERED: Magnesium Sulfate/Water 2 GM in Premix Bag 1 BAG IV ONE (11:55)
[2022-08-21] MEDS ORDERED: Multivitamin Tab PO STA (11:55)
[2022-08-21] MEDS ORDERED: LORazepam 1 MG Tab PO ONE (12:27)
[2022-08-21 14:03] VITALS: BP 162/96; PULSE 102
== END 2022-08-21 14:03 | disposition home or self-care (01) ==
LOC: MW.ED 10:35
DX: G47.00 Insomnia, unspecified (principal); J44.9 Chronic obstructive pulmonary disease, unspecified; I10 Essential (primary) hypertension; K21.9 Gastro-esophageal reflux disease without esophagitis; E78.00 Pure hypercholesterolemia, unspecified; Z88.8 Allergy status to other drugs, medicaments and biological substances; Z91.013 Allergy to seafood; Z20.822 Contact with and (suspected) exposure to COVID-19; Z91.018 Allergy to other foods
CPT/HCPCS: 36415; 70450; 80053; 80305; 80307; 81001; 82803; 82947; 83605; 83690; 83735; 84443; 84484; 85025; 85610; 85730; 93005; 96361; 96365; 96375; 99284; A9270; J2060; J3475; J7030; U0002; 93010; 99283

== ENCOUNTER 2022-09-13 08:24 | Observation (INO) | payer MEDICARE, OTHER, BC ==
[2022-09-13] MEDS ORDERED: Sodium Chloride 0.9% 1,000 ML IV ONE ×2 (09:07→09:15)
[2022-09-13] MEDS ORDERED: Sodium Chloride 0.9% 10 ML Syringe FLUSH PRN (09:15)
[2022-09-13] MEDS ORDERED: Ondansetron 4 MG/2 ML SDV IVPUSH ONE (09:15)
[2022-09-13] MEDS ORDERED: Sodium Chloride 0.9% 2.5 ML Syringe FLUSH PRN (09:15)
[2022-09-13 09:44] LABS: CORONAVIRUS COVID-19 NAA NEGATIVE (NEGATIVE); INFLUENZA A NAA NEGATIVE (NEGATIVE); INFLUENZA B NAA NEGATIVE (NEGATIVE)
[2022-09-13 09:47] LABS: CARBON DIOXIDE,CO2 27.2 mmol/L (21.0-32.0); POTASSIUM,K 3.8 mmol/L (3.5-5.1)
[2022-09-13] MEDS ORDERED: Diltiazem 25 MG/5 ML SDV IVPUSH ONE ×2 (10:06→12:00)
[2022-09-13] MEDS ORDERED: Diltiazem 100 MG in Sodium Chloride 0.9% 100 ML IV SCH (10:15)
[2022-09-13] MEDS ORDERED: Diltiazem 125 MG in Sodium Chloride 0.9% 100 ML IV SCH (10:15)
[2022-09-13] MEDS ORDERED: Iopamidol 755 MG/ML 500 ML Multipack Bottle IVPUSH STA (11:12)
[2022-09-13] MEDS ORDERED: Metoprolol Tartrate 5 MG/5 ML SDV IVPUSH ONE ×2 (11:25→12:55)
[2022-09-13] MEDS ORDERED: Diltiazem 50 MG/10 ML SDV IVPUSH ONE ×2 (11:40→11:43)
[2022-09-13] MEDS ORDERED: Magnesium Sulfate/Water 2 GM in Premix Bag 1 BAG IV ONE (13:45)
[2022-09-13] MEDS ORDERED: Acetaminophen 325 MG Tab PO PRN (16:07)
[2022-09-13] MEDS ORDERED: Albuterol/Ipratropium 3.0-0.5 MG/3 ML Neb Soln NEB PRN (16:07)
[2022-09-13] MEDS ORDERED: Ondansetron 4 MG/2 ML SDV IVPUSH PRN (16:07)
[2022-09-13] MEDS: Lactated Ringers 1,000 ML IV SCH (16:09)
[2022-09-13] MEDS ORDERED: Pantoprazole 40 MG in Sodium Chloride 0.9% 10 ML IVPUSH SCH (16:15)
[2022-09-13] MEDS ORDERED: LORazepam 2 MG/ML SDV IVPUSH PRN (16:16)
[2022-09-13] MEDS ORDERED: Enoxaparin 40 MG/0.4 ML Syringe SUBCUT SCH (16:30)
[2022-09-13] MEDS: Metoprolol Tartrate 25 MG Tab PO SCH (16:44)
[2022-09-13] MEDS ORDERED: Thiamine 100 MG Tab PO SCH (21:00)
[2022-09-13] MEDS ORDERED: Levofloxacin/Dextrose 5%-Water 750 MG in Premix Bag 1 BAG IV SCH (21:00)
[2022-09-14] MEDS: Lactated Ringers 1,000 ML IV SCH ×2 (02:02→09:42)
[2022-09-14] MEDS: Metoprolol Tartrate 25 MG Tab PO SCH (03:47)
[2022-09-14 06:48] LABS: HEMOGLOBIN A1C 5.7 %
[2022-09-14 07:02] LABS: CARBON DIOXIDE,CO2 30.6 mmol/L (21.0-32.0); POTASSIUM,K 3.8 mmol/L (3.5-5.1)
[2022-09-14] MEDS ORDERED: Magnesium Sulfate/Water 2 GM in Premix Bag 1 BAG IV ONE (08:29)
[2022-09-14] MEDS ORDERED: Potassium Chloride 20 MEQ Tab.ER PO ONE (08:29)
[2022-09-14] MEDS ORDERED: Folic Acid 1 MG Tab PO SCH (09:00)
[2022-09-14 12:14] VITALS: BP 125/76; PULSE 87
[2022-09-14] MEDS ORDERED: Aspirin 81 MG Tab.Chew PO SCH (21:00)
== END 2022-09-14 13:05 | disposition home or self-care (01) ==
LOC: MW.ED 08:24 → MW.MS 13:47
PROVIDERS: ADMIT Student in an Organized Health Care Education/Training Program; ATTEND Student in an Organized Health Care Education/Training Program
DX: J18.9 Pneumonia, unspecified organism (principal); I48.91 Unspecified atrial fibrillation; J40 Bronchitis, not specified as acute or chronic; J96.01 Acute respiratory failure with hypoxia; E83.42 Hypomagnesemia; I10 Essential (primary) hypertension; G47.33 Obstructive sleep apnea (adult) (pediatric); K21.9 Gastro-esophageal reflux disease without esophagitis; M54.50 Low back pain, unspecified; G89.29 Other chronic pain; E78.2 Mixed hyperlipidemia; I47.1 Supraventricular tachycardia; E78.00 Pure hypercholesterolemia, unspecified; I77.810 Thoracic aortic ectasia; Z88.8 Allergy status to other drugs, medicaments and biological substances; Z87.891 Personal history of nicotine dependence; Z79.899 Other long term (current) drug therapy; Z79.82 Long term (current) use of aspirin; Z91.018 Allergy to other foods; Z91.013 Allergy to seafood; Z20.822 Contact with and (suspected) exposure to COVID-19; Z86.16 Personal history of COVID-19
CPT/HCPCS: 0240U; 36415; 71045; 71275; 80048; 80053; 80061; 80307; 81001; 83036; 83690; 83735; 84100; 84443; 84484; 85025; 85379; 93005; 93306; 96361; 96365; 96366; 96367; 96372; 96375; 96376; 99285; A9270; C9113; G0378; J1650; J1956; J2405; J3475; J3490; J7030; J7120; Q9967

== ENCOUNTER 2022-11-17 05:24 | Emergency (ER) | payer BC, MEDICARE, OTHER ==
[2022-11-17] MEDS ORDERED: Sodium Chloride 0.9% 10 ML Syringe FLUSH PRN (06:31)
[2022-11-17] MEDS ORDERED: Sodium Chloride 0.9% 1,000 ML IV ONE ×2 (06:31→06:32)
[2022-11-17] MEDS ORDERED: Sodium Chloride 0.9% 2.5 ML Syringe FLUSH PRN (06:31)
[2022-11-17] MEDS ORDERED: Ondansetron 4 MG/2 ML SDV IVPUSH ONE (06:31)
[2022-11-17] MEDS ORDERED: Thiamine 200 MG/2 ML MDV IVPUSH ONE (06:32)
[2022-11-17] MEDS ORDERED: Folic Acid 1 MG Tab PO ONE (06:32)
[2022-11-17 07:00] LABS: CARBON DIOXIDE,CO2 25.8 mmol/L (21.0-32.0)
[2022-11-17 07:56] VITALS: BP 134/75; PULSE 99
== END 2022-11-17 08:20 | disposition home or self-care (01) ==
LOC: MW.ED 05:24
DX: E86.0 Dehydration (principal); F10.99 Alcohol use, unspecified with unspecified alcohol-induced disorder; E78.00 Pure hypercholesterolemia, unspecified; I10 Essential (primary) hypertension; J44.9 Chronic obstructive pulmonary disease, unspecified; K21.9 Gastro-esophageal reflux disease without esophagitis; Z88.8 Allergy status to other drugs, medicaments and biological substances; Z91.013 Allergy to seafood; Z91.018 Allergy to other foods; Z79.82 Long term (current) use of aspirin; Z79.899 Other long term (current) drug therapy
CPT/HCPCS: 80053; 80307; 83735; 85025; 96361; 96374; 96375; 99284; 99284-25; A9270-GY; J2405; J3411; J3490; J7030

== ENCOUNTER 2023-04-15 14:01 | Emergency (ER) | payer MEDICARE, OTHER ==
[2023-04-15] MEDS ORDERED: Sodium Chloride 0.9% 2.5 ML Syringe FLUSH PRN (16:34)
[2023-04-15] MEDS ORDERED: Sodium Chloride 0.9% 10 ML Syringe FLUSH PRN (16:34)
[2023-04-15] MEDS ORDERED: LORazepam 2 MG/ML SDV IVPUSH ONE (16:59)
[2023-04-15] MEDS ORDERED: Sodium Chloride 0.9% 1,000 ML IV ONE ×2 (16:59→19:09)
[2023-04-15] MEDS ORDERED: Ondansetron 4 MG/2 ML SDV IVPUSH ONE (17:04)
[2023-04-15 17:06] LABS: BASOPHILS PERCENT AUTO 0.7 % (0.0-1.5); EOSINOPHILS PERCENT AUTO 0.7 % (0.0-7.0); HEMATOCRIT 45.2 % (38.0-50.0); HEMOGLOBIN 15.6 g/dL (13.0-17.0); LYMPHOCYTES ABSOLUTE AUTO 1.4 K/uL (0.6-2.4); LYMPHOCYTES PERCENT AUTO 31.4 % (16.0-40.0); MEAN CORPUSCULAR HEMOGLOBIN 30.1 pg (27.0-32.0); MEAN CORPUSCULAR HGB CONC 34.5 g/dL (31.0-37.0); MEAN CORPUSCULAR VOLUME 87.1 fL (80.0-98.0); MONOCYTES ABSOLUTE AUTO 0.3 K/uL (0.0-0.8); MONOCYTES PERCENT AUTO 6.1 % (0.0-15.0); NEUTROPHILS ABSOLUTE AUTO 2.8 K/uL (1.4-5.7); NEUTROPHILS PERCENT AUTO 61.1 % (48.0-80.0); NRBC ABSOLUTE 0 K/uL; PLATELET COUNT,PLT 123 K/uL (150-400); RED BLOOD CELL COUNT 5.19 M/uL (4.50-5.90); WHITE BLOOD CELL COUNT,WBC 4.59 K/uL (4.0-11.0)
[2023-04-15 17:40] LABS: A/G RATIO 0.9 (0.9-1.6); ALBUMIN 3.7 g/dL (3.4-5.0); BILIRUBIN TOTAL 0.6 mg/dL (0.2-1.0); CALCIUM 8.3 mg/dL (8.5-10.1); CARBON DIOXIDE,CO2 24.6 mmol/L (21.0-32.0); CREATININE 0.8 mg/dL (0.8-1.3); EST CRCL DRUG DOSING (CG) 104.16 mL/min; POTASSIUM,K 3.9 mmol/L (3.5-5.1); PROTEIN TOTAL,TP 7.9 g/dL (6.4-8.2); TSH ULTRASENSITIVE 1.1 uIU/mL (0.36-3.74)
[2023-04-15 17:44] LABS: LACTIC ACID 2.3 mmol/L (0.4-2.0)
[2023-04-15 18:10] LABS: MAGNESIUM 1.7 mg/dL (1.8-2.4)
[2023-04-15 18:46] LABS: APPEARANCE,URINE CLEAR; BILIRUBIN,URINE NEGATIVE (NEGATIVE); COLOR,URINE YELLOW; GLUCOSE,URINE NEGATIVE (NEGATIVE); KETONES,URINE 15 mg/dL (NEGATIVE); LEUKOCYTE ESTERASE,URINE NEGATIVE (NEGATIVE); NITRITE,URINE NEGATIVE (NEGATIVE); OCCULT BLOOD,URINE SMALL (NEGATIVE); PROTEIN,URINE 100 mg/dL (NEGATIVE); UROBILINOGEN,URINE 0.2 EU/dL (<2.0)
[2023-04-15 19:02] LABS: AMPHETAMINES SCREEN, URINE NEGATIVE (CUTOFF=500); BARBITURATE SCREEN,URINE NEGATIVE (CUTOFF=200); BENZODIAZEPINES SCREEN,URINE NEGATIVE (CUTOFF=150); BUPRENORPHINE SCREEN,URINE NEGATIVE (CUTOFF=10); METHADONE SCREEN, URINE NEGATIVE (CUTOFF=200); METHAMPHETAMINES SCREEN, URINE NEGATIVE (CUTOFF=500); OXYCODONE SCREEN,URINE NEGATIVE (CUT0FF=100); PCP SCREEN,URINE NEGATIVE (CUTOFF=25); PROPOXYPHENE SCREEN,URINE NEGATIVE (CUTOFF=300); THC SCREEN,URINE 20 NG/ML NEGATIVE (CUTOFF=50)
[2023-04-15 19:04] LABS: BACTERIA,URINE OCCASIONAL (NEGATIVE); EPITHELIAL CELLS,URINE FEW (NONE-FEW); HYALINE CASTS,URINE FEW (0-2/LPF); SQUAMOUS EPITHELIAL CELLS,UR FEW; WBC,URINE 0-2 (0-5/HPF)
[2023-04-15] MEDS ORDERED: diphenhydrAMINE 50 MG/ML SDV IVPUSH ONE (19:21)
[2023-04-15 21:28] VITALS: BP 169/99; PULSE 81
== END 2023-04-15 20:36 | disposition home or self-care (01) ==
LOC: MW.ED 14:01
DX: G47.00 Insomnia, unspecified (principal); J44.9 Chronic obstructive pulmonary disease, unspecified; Z91.148 Patient's other noncompliance with medication regimen for other reason; Z88.8 Allergy status to other drugs, medicaments and biological substances; Z91.013 Allergy to seafood; Z91.018 Allergy to other foods
CPT/HCPCS: 36415; 71045; 80053; 80305; 80307; 81001; 83605; 83690; 83735; 84443; 85025; 93005; 96361; 96374; 96375; 99284; J1200; J2060; J2405; J3490; J7030; 93010

== ENCOUNTER 2023-05-13 16:19 | Emergency (ER) | payer MEDICARE, OTHER ==
[2023-05-13] MEDS ORDERED: LORazepam 2 MG/ML SDV IVPUSH ONE ×2 (16:55→18:08)
[2023-05-13 17:00] LABS: BASOPHILS ABSOLUTE AUTO 0.1 K/uL (0.0-0.1); BASOPHILS PERCENT AUTO 1.4 % (0.0-1.5); EOSINOPHILS ABSOLUTE AUTO 0.1 K/uL (0.0-0.7); HEMATOCRIT 43.6 % (38.0-50.0); HEMOGLOBIN 14.9 g/dL (13.0-17.0); LYMPHOCYTES ABSOLUTE AUTO 2.3 K/uL (0.6-2.4); MEAN CORPUSCULAR HEMOGLOBIN 29.7 pg (27.0-32.0); MEAN CORPUSCULAR HGB CONC 34.2 g/dL (31.0-37.0); MEAN CORPUSCULAR VOLUME 86.9 fL (80.0-98.0); MONOCYTES ABSOLUTE AUTO 0.3 K/uL (0.0-0.8); MONOCYTES PERCENT AUTO 6.7 % (0.0-15.0); NEUTROPHILS ABSOLUTE AUTO 2.2 K/uL (1.4-5.7); NEUTROPHILS PERCENT AUTO 43.9 % (48.0-80.0); NRBC ABSOLUTE 0 K/uL; PLATELET COUNT,PLT 219 K/uL (150-400); RED BLOOD CELL COUNT 5.02 M/uL (4.50-5.90); WHITE BLOOD CELL COUNT,WBC 4.94 K/uL (4.0-11.0)
[2023-05-13 17:36] LABS: A/G RATIO 0.9 (0.9-1.6); ALBUMIN 3.5 g/dL (3.4-5.0); BILIRUBIN TOTAL 0.4 mg/dL (0.2-1.0); CALCIUM 8.6 mg/dL (8.5-10.1); CARBON DIOXIDE,CO2 25.8 mmol/L (21.0-32.0); CREATININE 0.7 mg/dL (0.8-1.3); EST CRCL DRUG DOSING (CG) 119.04 mL/min; MAGNESIUM 1.7 mg/dL (1.8-2.4); POTASSIUM,K 3.8 mmol/L (3.5-5.1); PROTEIN TOTAL,TP 7.5 g/dL (6.4-8.2); TSH ULTRASENSITIVE 1.26 uIU/mL (0.36-3.74)
[2023-05-13] MEDS ORDERED: Magnesium Sulfate/Water 2 GM in Premix Bag 1 BAG IV ONE (17:41)
[2023-05-13 18:42] VITALS: BP 140/84
[2023-05-13 23:15] VITALS: PULSE 80
== END 2023-05-13 19:11 | disposition home or self-care (01) ==
LOC: MW.ED 16:19
DX: E83.42 Hypomagnesemia (principal); I10 Essential (primary) hypertension; J44.9 Chronic obstructive pulmonary disease, unspecified; I48.91 Unspecified atrial fibrillation; K21.9 Gastro-esophageal reflux disease without esophagitis; Z88.8 Allergy status to other drugs, medicaments and biological substances; Z91.018 Allergy to other foods; Z91.013 Allergy to seafood; Z79.899 Other long term (current) drug therapy
CPT/HCPCS: 36415; 80053; 80307; 83735; 84443; 85025; 96365; 96375; 96376; 99283; J2060; J3475; 99284

== ENCOUNTER 2023-07-04 15:12 | Emergency (ER) | payer MEDICARE, OTHER ==
[2023-07-04] MEDS ORDERED: Haloperidol Lactate 5 MG/ML SDV IM ONE (15:57)
[2023-07-04] MEDS ORDERED: diphenhydrAMINE 50 MG/ML SDV IVPUSH ONE (15:57)
[2023-07-04] MEDS ORDERED: LORazepam 2 MG/ML SDV IVPUSH ONE (15:57)
[2023-07-04 16:40] LABS: EOSINOPHILS ABSOLUTE AUTO 0.1 K/uL (0.0-0.7); EOSINOPHILS PERCENT AUTO 2.6 % (0.0-7.0); HEMATOCRIT 42.4 % (38.0-50.0); HEMOGLOBIN 14.4 g/dL (13.0-17.0); LYMPHOCYTES ABSOLUTE AUTO 1.9 K/uL (0.6-2.4); LYMPHOCYTES PERCENT AUTO 43.9 % (16.0-40.0); MEAN CORPUSCULAR HEMOGLOBIN 30.1 pg (27.0-32.0); MEAN CORPUSCULAR VOLUME 88.7 fL (80.0-98.0); MONOCYTES ABSOLUTE AUTO 0.3 K/uL (0.0-0.8); MONOCYTES PERCENT AUTO 6.2 % (0.0-15.0); NEUTROPHILS PERCENT AUTO 46.3 % (48.0-80.0); NRBC ABSOLUTE 0 K/uL; PLATELET COUNT,PLT 198 K/uL (150-400); RED BLOOD CELL COUNT 4.78 M/uL (4.50-5.90); WHITE BLOOD CELL COUNT,WBC 4.21 K/uL (4.0-11.0)
[2023-07-04 17:20] LABS: A/G RATIO 0.9 (0.9-1.6); ALBUMIN 3.8 g/dL (3.4-5.0); BILIRUBIN TOTAL 0.5 mg/dL (0.2-1.0); CALCIUM 8.1 mg/dL (8.5-10.1); CARBON DIOXIDE,CO2 31.6 mmol/L (21.0-32.0); EST CRCL DRUG DOSING (CG) 83.33 mL/min; MAGNESIUM 1.6 mg/dL (1.8-2.4); POTASSIUM,K 3.8 mmol/L (3.5-5.1); PROTEIN TOTAL,TP 7.8 g/dL (6.4-8.2); TSH ULTRASENSITIVE 0.91 uIU/mL (0.36-3.74)
[2023-07-04] MEDS ORDERED: Sodium Chloride 0.9% 1,000 ML IV ONE (17:31)
[2023-07-04] MEDS ORDERED: Magnesium Sulfate/Water 2 GM in Premix Bag 1 BAG IV ONE (17:32)
[2023-07-04 19:52] VITALS: PULSE 79
[2023-07-04 20:38] VITALS: BP 124/70
== END 2023-07-04 20:38 | disposition home or self-care (01) ==
LOC: MW.ED 15:12
DX: E83.42 Hypomagnesemia (principal); E87.1 Hypo-osmolality and hyponatremia; F10.90 Alcohol use, unspecified, uncomplicated; G47.00 Insomnia, unspecified; I10 Essential (primary) hypertension; K21.9 Gastro-esophageal reflux disease without esophagitis; Z88.8 Allergy status to other drugs, medicaments and biological substances; Z91.013 Allergy to seafood; Z91.018 Allergy to other foods; Z87.891 Personal history of nicotine dependence
CPT/HCPCS: 36415; 70450; 80053; 80307; 83735; 84443; 84484; 85025; 96365; 96372; 96375; 99285; J1200; J1630; J2060; J3475; J7030; 99284

== ENCOUNTER 2024-01-02 21:40 | Emergency (ER) | payer OTHER, BC, MEDICARE ==
[2024-01-03] MEDS: Sodium Chloride 0.9% 10 ML Syringe FLUSH PRN (00:01)
[2024-01-03] MEDS: Sodium Chloride 0.9% 2.5 ML Syringe FLUSH PRN (00:01)
[2024-01-03] MEDS: Sodium Chloride 0.9% 1,000 ML IV STA (00:01)
[2024-01-03 00:17] LABS: BASOPHILS ABSOLUTE AUTO 0.03 K/uL (0.00-0.20); BASOPHILS PERCENT AUTO 0.8 % (0.0-1.0); EOSINOPHILS ABSOLUTE AUTO 0.01 K/uL (0.00-0.45); EOSINOPHILS PERCENT AUTO 0.3 % (0.0-6.0); HEMATOCRIT 44.2 % (42.0-52.0); HEMOGLOBIN 15.6 g/dL (14.0-18.0); IMMATURE GRAN ABSOLUTE AUTO 0.01 K/uL (0.00-0.05); IMMATURE GRAN PERCENT AUTO 0.3 % (0.0-0.4); LYMPHOCYTES ABSOLUTE AUTO 1.67 K/uL (1.00-4.80); LYMPHOCYTES PERCENT AUTO 46.9 % (24.0-44.0); MEAN CORPUSCULAR HEMOGLOBIN 31.4 pg (28.0-32.0); MEAN CORPUSCULAR HGB CONC 35.3 g/dL (32.0-36.0); MEAN CORPUSCULAR VOLUME 88.9 fL (83.0-99.0); MONOCYTES ABSOLUTE AUTO 0.35 K/uL (0.00-0.80); MONOCYTES PERCENT AUTO 9.8 % (0.0-8.0); NEUTROPHILS ABSOLUTE AUTO 1.49 K/uL (1.80-7.70); NEUTROPHILS PERCENT AUTO 41.9 % (41.0-71.0); RED BLOOD CELL COUNT 4.97 M/uL (4.52-5.90); WHITE BLOOD CELL COUNT,WBC 3.56 K/uL (3.9-11.3)
[2024-01-03] MEDS: droPERidol 5 MG/2 ML SDV IVPUSH ONE (00:20)
[2024-01-03 00:46] LABS: ALBUMIN 3.9 g/dL (3.4-5.0); BILIRUBIN TOTAL 0.9 mg/dL (0.2-1.0); CALCIUM 8.5 mg/dL (8.5-10.1); EST CRCL DRUG DOSING (CG) 79.92 mL/min; POTASSIUM,K 3.6 mmol/L (3.5-5.1)
[2024-01-03 00:47] LABS: PLATELET COUNT,PLT 59 K/uL (150-400)
[2024-01-03] MEDS: LORazepam 2 MG/ML SDV IVPUSH ONE (00:47)
[2024-01-03 00:50] LABS: MAGNESIUM 1.8 mg/dL (1.8-2.4)
[2024-01-03 01:01] LABS: LACTIC ACID 3.5 mmol/L (0.4-2.0)
[2024-01-03] MEDS: Potassium Chloride 20 MEQ Tab.ER PO ONE (01:52)
[2024-01-03 02:23] LABS: BILIRUBIN,URINE NEGATIVE (NEGATIVE); COLOR,URINE YELLOW; GLUCOSE,URINE NEGATIVE (NEGATIVE); KETONES,URINE TRACE mg/dL (NEGATIVE); LEUKOCYTE ESTERASE,URINE NEGATIVE (NEGATIVE); NITRITE,URINE POSITIVE (NEGATIVE); OCCULT BLOOD,URINE MODERATE (NEGATIVE); PH,URINE 6.5 (5.0-8.0); PROTEIN,URINE 100 mg/dL (NEGATIVE); UROBILINOGEN,URINE 0.2 EU/dL (<2.0)
[2024-01-03 02:31] LABS: APPEARANCE,URINE HAZY
[2024-01-03 02:32] LABS: AMORPHOUS SEDIMENT,URINE LIGHT (NEGATIVE); BACTERIA,URINE 3+ (NEGATIVE); EPITHELIAL CELLS,URINE FEW (NONE-FEW)
[2024-01-03 02:53] VITALS: BP 132/86; PULSE 96
== END 2024-01-03 02:53 | disposition home or self-care (01) ==
LOC: MW.ED 21:40
DX: R11.2 Nausea with vomiting, unspecified (principal); I10 Essential (primary) hypertension; K21.9 Gastro-esophageal reflux disease without esophagitis; Z90.49 Acquired absence of other specified parts of digestive tract; Z79.899 Other long term (current) drug therapy; Z88.8 Allergy status to other drugs, medicaments and biological substances; Z91.018 Allergy to other foods; Z91.013 Allergy to seafood
CPT/HCPCS: 36415; 80053; 81001; 83605; 83690; 83735; 84484; 85025; 93005; 96361; 96374; 96375; 99284; A9270; J1790; J2060; J3490; J7030; 93010

== ENCOUNTER 2024-01-05 15:12 | Emergency (ER) | payer OTHER, MEDICARE ==
[2024-01-05] MEDS: Sodium Chloride 0.9% 1,000 ML IV ONE (15:51)
[2024-01-05] MEDS: Sodium Chloride 0.9% 10 ML Syringe FLUSH PRN (15:51)
[2024-01-05] MEDS: Sodium Chloride 0.9% 2.5 ML Syringe FLUSH PRN (15:52)
[2024-01-05 15:57] LABS: BASOPHILS ABSOLUTE AUTO 0.03 K/uL (0.00-0.20); BASOPHILS PERCENT AUTO 0.9 % (0.0-1.0); EOSINOPHILS ABSOLUTE AUTO 0.02 K/uL (0.00-0.45); EOSINOPHILS PERCENT AUTO 0.6 % (0.0-6.0); HEMATOCRIT 43.4 % (42.0-52.0); IMMATURE GRAN ABSOLUTE AUTO 0.03 K/uL (0.00-0.05); IMMATURE GRAN PERCENT AUTO 0.9 % (0.0-0.4); LYMPHOCYTES ABSOLUTE AUTO 1.49 K/uL (1.00-4.80); LYMPHOCYTES PERCENT AUTO 45.3 % (24.0-44.0); MEAN CORPUSCULAR HEMOGLOBIN 31.3 pg (28.0-32.0); MEAN CORPUSCULAR HGB CONC 34.6 g/dL (32.0-36.0); MEAN CORPUSCULAR VOLUME 90.6 fL (83.0-99.0); MEAN PLATELET VOLUME 9.5 fL (9.4-12.4); MONOCYTES ABSOLUTE AUTO 0.25 K/uL (0.00-0.80); MONOCYTES PERCENT AUTO 7.6 % (0.0-8.0); NEUTROPHILS ABSOLUTE AUTO 1.47 K/uL (1.80-7.70); NEUTROPHILS PERCENT AUTO 44.7 % (41.0-71.0); PLATELET COUNT,PLT 47 K/uL (150-400); RED BLOOD CELL COUNT 4.79 M/uL (4.52-5.90); WHITE BLOOD CELL COUNT,WBC 3.29 K/uL (3.9-11.3)
[2024-01-05] MEDS: LORazepam 2 MG/ML SDV IVPUSH ONE (16:05)
[2024-01-05] MEDS: Thiamine 200 MG/2 ML MDV IVPUSH ONE (16:05)
[2024-01-05 16:27] LABS: A/G RATIO 0.8 (0.9-1.6); ALBUMIN 3.3 g/dL (3.4-5.0); BILIRUBIN TOTAL 0.9 mg/dL (0.2-1.0); CALCIUM 8.3 mg/dL (8.5-10.1); CARBON DIOXIDE,CO2 27.4 mmol/L (21.0-32.0); EST CRCL DRUG DOSING (CG) 82.15 mL/min; MAGNESIUM 1.6 mg/dL (1.8-2.4); POTASSIUM,K 3.2 mmol/L (3.5-5.1); PROTEIN TOTAL,TP 7.3 g/dL (6.4-8.2); TSH ULTRASENSITIVE 1.6 uIU/mL (0.36-3.74)
[2024-01-05] MEDS: Iopamidol 755 MG/ML 500 ML Multipack Bottle IVPUSH STA (17:18)
[2024-01-05 17:31] LABS: CORONAVIRUS COVID-19 NAA NEGATIVE (NEGATIVE); INFLUENZA A NAA NEGATIVE (NEGATIVE); INFLUENZA B NAA NEGATIVE (NEGATIVE); RESPIRATORY SYNCYTIAL VIR NAA NEGATIVE (NEGATIVE)
[2024-01-05] MEDS: Potassium Chloride 20 MEQ Tab.ER PO ONE (17:33)
[2024-01-05] MEDS: LORazepam 1 MG Tab PO ONE (18:58)
[2024-01-05 19:11] VITALS: BP 151/94; PULSE 106
== END 2024-01-05 19:10 | disposition home or self-care (01) ==
LOC: MW.ED 15:12
DX: E87.6 Hypokalemia (principal); E83.42 Hypomagnesemia; E86.0 Dehydration; F10.129 Alcohol abuse with intoxication, unspecified; I10 Essential (primary) hypertension; E11.9 Type 2 diabetes mellitus without complications; I25.10 Atherosclerotic heart disease of native coronary artery without angina pectoris; K21.9 Gastro-esophageal reflux disease without esophagitis; Z87.891 Personal history of nicotine dependence; Y90.8 Blood alcohol level of 240 mg/100 ml or more; Z79.899 Other long term (current) drug therapy; Z88.8 Allergy status to other drugs, medicaments and biological substances; Z91.018 Allergy to other foods; Z91.013 Allergy to seafood; Z75.8 Other problems related to medical facilities and other health care; Z86.73 Personal history of transient ischemic attack (TIA), and cerebral infarction without residual deficits
CPT/HCPCS: 0241U; 36415; 71275; 80053; 80307; 83690; 83735; 83880; 84443; 84484; 85025; 85379; 93005; 96361; 96365; 96375; 99285; A9270; J2060; J3411; J3475; J3490; J7030; Q9967; 93010; 99284

== ENCOUNTER 2025-01-17 09:07 | Inpatient (IN) | payer BC, MEDICARE ==
[2025-01-17] MEDS ORDERED: Sodium Chloride 0.9% 10 ML Syringe FLUSH PRN (09:35)
[2025-01-17] MEDS: Iopamidol 755 MG/ML 500 ML Multipack Bottle IVPUSH STA (09:38)
[2025-01-17 09:41] LABS: BASOPHILS ABSOLUTE AUTO 0.04 K/uL (0.00-0.20); BASOPHILS PERCENT AUTO 0.7 % (0.0-1.0); EOSINOPHILS ABSOLUTE AUTO 0.11 K/uL (0.00-0.45); EOSINOPHILS PERCENT AUTO 1.9 % (0.0-6.0); HEMATOCRIT 42.6 % (42.0-52.0); HEMOGLOBIN 14.9 g/dL (14.0-18.0); IMMATURE GRAN ABSOLUTE AUTO 0.03 K/uL (0.00-0.05); IMMATURE GRAN PERCENT AUTO 0.5 % (0.0-0.4); LYMPHOCYTES ABSOLUTE AUTO 1.53 K/uL (1.00-4.80); LYMPHOCYTES PERCENT AUTO 26.8 % (24.0-44.0); MEAN CORPUSCULAR HEMOGLOBIN 29.3 pg (28.0-32.0); MEAN CORPUSCULAR VOLUME 83.9 fL (83.0-99.0); MEAN PLATELET VOLUME 8.7 fL (9.4-12.4); MONOCYTES ABSOLUTE AUTO 0.29 K/uL (0.00-0.80); MONOCYTES PERCENT AUTO 5.1 % (0.0-8.0); PLATELET COUNT,PLT 118 K/uL (150-400); RED BLOOD CELL COUNT 5.08 M/uL (4.52-5.90)
[2025-01-17 09:47] LABS: INR 1.03 (0.86-1.11)
[2025-01-17 10:04] LABS: A/G RATIO 0.9 (0.9-1.6); ALBUMIN 3.6 g/dL (3.4-5.0); BILIRUBIN TOTAL 0.8 mg/dL (0.2-1.0); CALCIUM 8.7 mg/dL (8.5-10.1); CARBON DIOXIDE,CO2 29.3 mmol/L (21.0-32.0); CREATININE 0.8 mg/dL (0.8-1.3); EST CRCL DRUG DOSING (CG) 103.98 mL/min; MAGNESIUM 1.6 mg/dL (1.8-2.4); POTASSIUM,K 3.6 mmol/L (3.5-5.1); PROTEIN TOTAL,TP 7.6 g/dL (6.4-8.2)
[2025-01-17 11:08] LABS: APPEARANCE,URINE CLEAR; BILIRUBIN,URINE NEGATIVE (NEGATIVE); GLUCOSE,URINE NEGATIVE (NEGATIVE); KETONES,URINE 40 mg/dL (NEGATIVE); LEUKOCYTE ESTERASE,URINE NEGATIVE (NEGATIVE); NITRITE,URINE NEGATIVE (NEGATIVE); OCCULT BLOOD,URINE MODERATE (NEGATIVE); PROTEIN,URINE NEGATIVE (NEGATIVE); UROBILINOGEN,URINE 0.2 EU/dL (<2.0)
[2025-01-17 11:09] LABS: COLOR,URINE STRAW
[2025-01-17 11:19] LABS: BACTERIA,URINE NOT SEEN (NEGATIVE); EPITHELIAL CELLS,URINE NOT SEEN (NONE-FEW); WBC,URINE NONE SEEN (0-5/HPF)
[2025-01-17] MEDS: Sodium Chloride 0.9% 1,000 ML IV SCH ×2 (11:45→14:10)
[2025-01-17 13:00] LABS: BASE EXCESS ARTERIAL 4.2 (-2.0-3.0); BICARBONATE,ARTERIAL 28 mEq/L (21-28); PCO2 ARTERIAL 40 mmHG (35-45); PO2 ARTERIAL 54 mmHG (83-108)
[2025-01-17] MEDS: Clopidogrel 75 MG Tab PO ONE (14:09)
[2025-01-17] MEDS: Aspirin 81 MG Tab.Chew PO ONE (14:09)
[2025-01-17] MEDS ORDERED: Acetaminophen 325 MG Tab PO PRN (14:25)
[2025-01-17] MEDS ORDERED: Ondansetron 4 MG Tab.DIS PO PRN (14:25)
[2025-01-17 14:49] LABS: HEMOGLOBIN A1C 5.6 %
[2025-01-17] MEDS: Enoxaparin 40 MG/0.4 ML Syringe SUBCUT SCH (14:54)
[2025-01-17 15:15] LABS: FOLIC ACID 15.7 ng/mL (8.60-58.90); TSH ULTRASENSITIVE 1.66 uIU/mL (0.36-3.74)
[2025-01-17 17:19] LABS: PERCENT FE SATURATION 35.32 % (20-55); TRANSFERRIN 140.7
[2025-01-17] MEDS: Carvedilol 6.25 MG Tab PO SCH (20:53)
[2025-01-17] MEDS: Pantoprazole 40 MG Tab.CR PO SCH (20:54)
[2025-01-17] MEDS: LORazepam 1 MG Tab PO PRN (22:14)
[2025-01-18 06:13] LABS: BASOPHILS ABSOLUTE AUTO 0.02 K/uL (0.00-0.20); BASOPHILS PERCENT AUTO 0.5 % (0.0-1.0); EOSINOPHILS ABSOLUTE AUTO 0.14 K/uL (0.00-0.45); EOSINOPHILS PERCENT AUTO 3.6 % (0.0-6.0); HEMATOCRIT 38.7 % (42.0-52.0); HEMOGLOBIN 13.2 g/dL (14.0-18.0); IMMATURE GRAN ABSOLUTE AUTO 0.02 K/uL (0.00-0.05); IMMATURE GRAN PERCENT AUTO 0.5 % (0.0-0.4); LYMPHOCYTES PERCENT AUTO 25.4 % (24.0-44.0); MEAN CORPUSCULAR HEMOGLOBIN 28.8 pg (28.0-32.0); MEAN CORPUSCULAR HGB CONC 34.1 g/dL (32.0-36.0); MEAN CORPUSCULAR VOLUME 84.5 fL (83.0-99.0); MONOCYTES ABSOLUTE AUTO 0.25 K/uL (0.00-0.80); MONOCYTES PERCENT AUTO 6.3 % (0.0-8.0); NEUTROPHILS ABSOLUTE AUTO 2.51 K/uL (1.80-7.70); NEUTROPHILS PERCENT AUTO 63.7 % (41.0-71.0); PLATELET COUNT,PLT 100 K/uL (150-400); RED BLOOD CELL COUNT 4.58 M/uL (4.52-5.90); WHITE BLOOD CELL COUNT,WBC 3.94 K/uL (3.9-11.3)
[2025-01-18 06:33] LABS: A/G RATIO 0.9 (0.9-1.6); ALBUMIN 2.9 g/dL (3.4-5.0); BILIRUBIN TOTAL 0.9 mg/dL (0.2-1.0); CALCIUM 8.4 mg/dL (8.5-10.1); CARBON DIOXIDE,CO2 30.7 mmol/L (21.0-32.0); CREATININE 0.6 mg/dL (0.8-1.3); EST CRCL DRUG DOSING (CG) 134.97 mL/min; MAGNESIUM 1.5 mg/dL (1.8-2.4); POTASSIUM,K 3.3 mmol/L (3.5-5.1); PROTEIN TOTAL,TP 6.3 g/dL (6.4-8.2)
[2025-01-18] MEDS: Aspirin 81 MG Tab.EC PO SCH (08:13)
[2025-01-18] MEDS: Clopidogrel 75 MG Tab PO SCH (08:13)
[2025-01-18] MEDS ORDERED: LORazepam 0.5 MG Tab PO PRN (08:15)
[2025-01-18] MEDS: Potassium Chloride 20 MEQ Tab.ER PO ONE (08:28)
[2025-01-18] MEDS: Folic Acid 1 MG/0.2 ML UD Syringe IV SCH (08:28)
[2025-01-18] MEDS: Thiamine 200 MG/2 ML MDV IVPUSH SCH (08:28)
[2025-01-18] MEDS: Magnesium Sulf/Wat 4 GM/100 mL 4 GM in Premix Bag 1 BAG IV ONE (08:29)
[2025-01-18] MEDS ORDERED: Thiamine 200 MG in Sodium Chloride 0.9% 100 ML IV SCH (09:00)
[2025-01-18 09:09] VITALS: PULSE 96
[2025-01-18 11:51] VITALS: BP 117/65
[2025-01-18] MEDS ORDERED: Latanoprost 0.005% Ophth Soln 2.5 ML Bottle EYERT SCH (21:00)
== END 2025-01-18 14:12 | disposition home or self-care (01) | DRG 69 ==
LOC: MW.ED 09:07 → MW.MS 13:51
PROVIDERS: ADMIT Internal Medicine; ATTEND Internal Medicine
PROC: 4A033R1 Measurement of Arterial Saturation, Peripheral, Percutaneous Approach (ICD-10-PCS; principal; 2025-01-17)
DX: I63.9 Cerebral infarction, unspecified (principal); R09.02 Hypoxemia; G45.9 Transient cerebral ischemic attack, unspecified; I42.9 Cardiomyopathy, unspecified; F10.10 Alcohol abuse, uncomplicated; Z91.018 Allergy to other foods; I10 Essential (primary) hypertension; K21.9 Gastro-esophageal reflux disease without esophagitis; E86.0 Dehydration; R40.2412 Glasgow coma scale score 13-15, at arrival to emergency department; J44.9 Chronic obstructive pulmonary disease, unspecified; G47.33 Obstructive sleep apnea (adult) (pediatric); G62.9 Polyneuropathy, unspecified; E87.6 Hypokalemia; E83.42 Hypomagnesemia; K76.0 Fatty (change of) liver, not elsewhere classified; M54.50 Low back pain, unspecified; G89.29 Other chronic pain; E78.2 Mixed hyperlipidemia; Z91.013 Allergy to seafood; Z88.8 Allergy status to other drugs, medicaments and biological substances; Z90.49 Acquired absence of other specified parts of digestive tract; Z79.899 Other long term (current) drug therapy; Z98.49 Cataract extraction status, unspecified eye
CPT/HCPCS: 36415; 36600; 70450; 70496; 70498; 71045; 80053; 80061; 80307; 81001; 82607; 82746; 82803; 83036; 83550; 83605; 83735; 83880; 84443; 84484; 85025; 85610; 87428; 93005 ×2; 96360; 99285; J7030; Q9967; 76705; 76705-26; 93306; 97161-GP; 97165-GO; 99222; 99238; A9270-GY; J1650; J3411; J3475; J3490

== ENCOUNTER 2025-04-21 16:44 | Emergency (ER) | payer MEDICARE, OTHER ==
[2025-04-21 17:20] LABS: BASOPHILS ABSOLUTE AUTO 0.03 K/uL (0.00-0.20); BASOPHILS PERCENT AUTO 0.7 % (0.0-1.0); EOSINOPHILS ABSOLUTE AUTO 0.02 K/uL (0.00-0.45); EOSINOPHILS PERCENT AUTO 0.5 % (0.0-6.0); IMMATURE GRAN ABSOLUTE AUTO 0.03 K/uL (0.00-0.05); IMMATURE GRAN PERCENT AUTO 0.7 % (0.0-0.4); LYMPHOCYTES ABSOLUTE AUTO 0.91 K/uL (1.00-4.80); LYMPHOCYTES PERCENT AUTO 21.5 % (24.0-44.0); MEAN PLATELET VOLUME 9.0 fL (9.4-12.4); MONOCYTES ABSOLUTE AUTO 0.35 K/uL (0.00-0.80); MONOCYTES PERCENT AUTO 8.3 % (0.0-8.0); NEUTROPHILS ABSOLUTE AUTO 2.90 K/uL (1.80-7.70); NEUTROPHILS PERCENT AUTO 68.3 % (41.0-71.0); NRBC ABSOLUTE 0.00 K/uL (0.00-0.02); NRBC PERCENT 0.0 /100WBC (0.0-0.2); PLATELET COUNT,PLT 61 K/uL (150-400); RED BLOOD CELL COUNT 5.03 M/uL (4.52-5.90); WHITE BLOOD CELL COUNT,WBC 4.24 K/uL (3.9-11.3)
[2025-04-21] MEDS: Ondansetron 4 MG/2 ML SDV IVPUSH ONE (17:28)
[2025-04-21 17:32] LABS: INR 1.1 (0.86-1.11); PTT,PARTIAL THROMBOPLSTIN TIME 24.3 SEC (23.9-30.7)
[2025-04-21 17:57] LABS: A/G RATIO 0.9 (0.9-1.6); ALANINE AMINOTRANSFERASE,ALT 120.0 IU/L (14-63); ASPARTATE AMNIOTRANSFERASE,AST 95.0 IU/L (15-37); BILIRUBIN TOTAL 1.0 mg/dL (0.2-1.0); BLOOD UREA NITROGEN,BUN 10.0 mg/dL (7.0-18.0); CARBON DIOXIDE,CO2 27.6 mmol/L (21.0-32.0); CHLORIDE,CL 94.0 mmol/L (98-107); CREATININE 0.7 mg/dL (0.8-1.3); EST CRCL DRUG DOSING (CG) 115.68 mL/min; GLUCOSE RANDOM 124.0 mg/dL (74-106); POTASSIUM,K 3.6 mmol/L (3.5-5.1); PRO B-TYPE NATRIUR PEPT,BNPPRO 268.0 pg/mL (0-125); PROTEIN TOTAL,TP 6.5 g/dL (6.4-8.2); SODIUM,NA 135.0 mmol/L (136-148)
[2025-04-21 18:00] LABS: ESTIMATED GFR 99.0 mL/min (>60)
[2025-04-21 18:07] VITALS: BP 115/79
[2025-04-21] MEDS: Magnesium Sulfate 2 GM/50 mL 2 GM in Premix Bag 1 BAG IV ONE (18:43)
[2025-04-21 19:24] VITALS: PULSE 94
== END 2025-04-21 19:24 | disposition home or self-care (01) ==
LOC: MW.ED 16:44
DX: K21.9 Gastro-esophageal reflux disease without esophagitis (principal); G47.00 Insomnia, unspecified; J44.9 Chronic obstructive pulmonary disease, unspecified; G47.33 Obstructive sleep apnea (adult) (pediatric); E83.42 Hypomagnesemia; F41.9 Anxiety disorder, unspecified; I10 Essential (primary) hypertension; Z88.8 Allergy status to other drugs, medicaments and biological substances; Z91.018 Allergy to other foods; Z79.899 Other long term (current) drug therapy; Z90.49 Acquired absence of other specified parts of digestive tract; Z79.82 Long term (current) use of aspirin; Z99.81 Dependence on supplemental oxygen
CPT/HCPCS: 36415; 71045; 74018; 80053; 83690; 83735; 83880; 84484; 85025; 85610; 85730; 93005; 96361; 96365; 96375; 99285; A9270; J2405; J3475; J7030